=== PATIENT | female | born 1970 | race African-American/Black ===

== ENCOUNTER 2016-10-28 23:10 | Inpatient (IN) | payer OTHER ==
[2016-10-28 23:40] LABS: Basophils % (Auto) 0.6 % (0.0-1.8); Eosinophils % (Auto) 3.4 % (0.0-4.3); Hematocrit 37.5 % (30.3-42.9); Mean Corpuscular HGB Conc 32 % (30-34); Mean Corpuscular Volume 75 fl (79-97); Platelet Count 227 K/mm3 (140-440); Red Blood Count 5.02 M/mm3 (3.65-5.03); Red Cell Distribution Width 15.4 % (13.2-15.2); White Blood Count 7.2 K/mm3 (4.5-11.0)
[2016-10-28 23:51] LABS: Mean Corpuscular Hemoglobin 24 pg (28-32)
[2016-10-29] LABS: Alanine Aminotransferase 18 units/L (7-56); Albumin 4.3 g/dL (3.9-5); Albumin/Globulin Ratio 1.1 %; Alkaline Phosphatase 61 units/L (35-129); Anion Gap 30 mmol/L; Blood Urea Nitrogen 8 mg/dL (7-17); Calcium 9.7 mg/dL (8.4-10.2); Carbon Dioxide 17 mmol/L (22-30); Chloride 89.8 mmol/L (98-107); Glucose 297 mg/dL (65-100); Lipase 11 units/L (13-60); Potassium 3.7 mmol/L (3.6-5.0); Sodium 133 mmol/L (137-145); Total Protein 8.3 g/dL (6.3-8.2)
[2016-10-29] MEDS ORDERED: NACL 0.9% 1000 ML 1,000 ML ONE ×2 (00:17→02:02)
[2016-10-29] MEDS ORDERED: D50W (25GM) Syringe IV PRN (00:26)
[2016-10-29 00:29] LABS: Bilirubin,Urine NEG (Negative); Blood,Urine NEG (Negative); Ketones,Urine 20 mg/dL (Negative); Leukocyte Esterase,Urine NEG (Negative); Nitrite,Urine NEG (Negative); Protein,Urine <15 mg/dL mg/dL (Negative); Urobilinogen,Urine < 2.0 mg/dL (<2.0)
[2016-10-29] MEDS ORDERED: APRESOLINE IV ONE (00:29)
[2016-10-29] MEDS ORDERED: CATAPRES PO ONE (00:31)
[2016-10-29] MEDS ORDERED: ZOFRAN ONE (00:33)
[2016-10-29] MEDS ORDERED: ZOFRAN IV ONE ×2 (00:35→02:38)
[2016-10-29] MEDS ORDERED: NovoLIN R 100 UNITS in NACL 0.9% 99 ML IV SCH (01:00)
[2016-10-29 01:06] LABS: Anion Gap 33 mmol/L; Blood Urea Nitrogen 8 mg/dL (7-17); Calcium 9.4 mg/dL (8.4-10.2); Carbon Dioxide 14 mmol/L (22-30); Chloride 90.1 mmol/L (98-107); Glucose 346 mg/dL (65-100); Magnesium 1.8 mg/dL (1.7-2.3); Phosphorous 2.2 mg/dL (2.5-4.5); Potassium 3.7 mmol/L (3.6-5.0); Sodium 133 mmol/L (137-145)
--- NOTE | 2016-10-29 01:59 | Emergency Department Report ---
ED General Adult HPI - General Chief complaint: Hyperglycemia Stated complaint: EMESIS Time Seen by Provider: 10/29/16 00:23 Source: patient, family Mode of arrival: Ambulatory Limitations: No Limitations - History of Present Illness Initial comments: History is obtained by patient's sister due to patient being too weak to talk. Patient has a history of diabetes who presents with nausea and vomiting and malaise has been going on for all day today. Patient's symptoms were gradual in onset. Patient states that she is having severe abdominal pain and also having some nausea and vomiting. Patient is also having some abdominal pain. It is a 5 out of 10 Severity scale (0 -10): 5 - Related Data Allergies Allergy/AdvReac Type Severity Reaction Status Date / Time caffeine Allergy Nausea Verified 10/28/16 23:18 ED Review of Systems ROS: Stated complaint: EMESIS Other details as noted in HPI Comment: Unobtainable due to pts medical conditions Constitutional: denies: chills, fever Eyes: denies: eye pain, eye discharge, vision change ENT: denies: ear pain, throat pain Respiratory: denies: cough, shortness of breath, wheezing Cardiovascular: denies: chest pain, palpitations Endocrine: no symptoms reported Gastrointestinal: nausea, vomiting Genitourinary: denies: urgency, dysuria, discharge Musculoskeletal: denies: back pain, joint swelling, arthralgia Skin: denies: rash, lesions Neurological: denies: headache, weakness, paresthesias Psychiatric: denies: anxiety, depression Hematological/Lymphatic: denies: easy bleeding, easy bruising ED Past Medical Hx - Past Medical History Previous Medical History?: Yes Hx Diabetes: Yes Hx Psychiatric Treatment: Yes (Depression) Additional medical history: Helicobacter pylori (H. pylori) - Surgical History Past Surgical History?: No - Social History Smoking Status: Never Smoker Substance Use Type: None ED Physical Exam - General Limitations: No Limitations General appearance: lethargic - Head Head exam: Present: atraumatic, normocephalic - Eye Eye exam: Present: normal appearance - ENT ENT exam: Present: normal exam - Neck Neck exam: Present: normal inspection - Respiratory Respiratory exam: Present: normal lung sounds bilaterally - Cardiovascular Cardiovascular Exam: Present: regular rate, tachycardia - GI/Abdominal GI/Abdominal exam: Present: soft, tenderness (slightly tender ) - Extremities Exam Extremities exam: Present: normal inspection, full ROM - Neurological Exam Neurological exam: Present: alert, CN II-XII intact - Psychiatric Psychiatric exam: Present: normal affect ED Course Vital Signs 10/28/16 10/29/16 10/29/16 23:22 00:04 00:10 Temperature 98.9 F Pulse Rate 106 H 93 H 96 H Respiratory 22 19 23 Rate Blood Pressure Blood Pressure 190/120 [Right] O2 Sat by Pulse 100 100 100 Oximetry 10/29/16 10/29/16 10/29/16 00:16 00:20 00:30 Temperature 97.4 F L Pulse Rate 108 H 81 91 H Respiratory 24 20 23 Rate Blood Pressure 171/124 171/124 Blood Pressure 211/138 [Right] O2 Sat by Pulse 100 100 100 Oximetry 10/29/16 10/29/16 10/29/16 00:40 00:41 00:50 Temperature Pulse Rate 91 H 84 95 H Respiratory 26 H 27 H Rate Blood Pressure 203/102 203/102 158/83 Blood Pressure [Right] O2 Sat by Pulse 100 100 Oximetry 10/29/16 10/29/16 10/29/16 01:00 01:10 01:20 Temperature Pulse Rate 97 H 94 H 103 H Respiratory 23 25 H 21 Rate Blood Pressure 149/79 149/79 147/79 Blood Pressure [Right] O2 Sat by Pulse 100 100 100 Oximetry 10/29/16 10/29/16 10/29/16 01:30 01:40 01:50 Temperature Pulse Rate 98 H 100 H 97 H Respiratory 24 22 27 H Rate Blood Pressure 150/76 150/76 145/78 Blood Pressure [Right] O2 Sat by Pulse 100 100 Oximetry 10/29/16 10/29/16 10/29/16 02:00 02:10 02:20 Temperature Pulse Rate 100 H 98 H 101 H Respiratory 25 H 22 17 Rate Blood Pressure 145/75 145/75 148/76 Blood Pressure [Right] O2 Sat by Pulse 100 100 100 Oximetry 10/29/16 10/29/16 10/29/16 02:30 02:40 02:47 Temperature 97.3 F L Pulse Rate 109 H 112 H Respiratory 17 19 Rate Blood Pressure 152/82 152/82 Blood Pressure [Right] O2 Sat by Pulse 100 100 Oximetry 10/29/16 10/29/16 10/29/16 02:50 03:00 03:10 Temperature Pulse Rate 108 H 101 H 100 H Respiratory 16 20 22 Rate Blood Pressure 156/84 141/73 141/73 Blood Pressure [Right] O2 Sat by Pulse 100 100 100 Oximetry 10/29/16 10/29/16 10/29/16 03:20 03:30 03:40 Temperature Pulse Rate 99 H 94 H 98 H Respiratory 23 21 22 Rate Blood Pressure 144/76 140/82 140/82 Blood Pressure [Right] O2 Sat by Pulse 100 100 100 Oximetry - Reevaluation(s) Reevaluation #1: 10/29/16 04:12 Patient has been reevaluated patient's skin insulin drip and fluids. She is still nauseous I will order IV Zofran and I will admit patient to the hospital. ED Medical Decision Making - Lab Data Result diagrams: 10/28/16 23:23 10/29/16 00:38 Lab Results 10/28/16 10/28/16 10/28/16 Range/Units 23:18 23:23 23:23 WBC 7.2 (4.5-11.0) K/mm3 RBC 5.02 (3.65-5.03) M/mm3 Hgb 12.0 (10.1-14.3) gm/dl Hct 37.5 (30.3-42.9) % MCV 75 L (79-97) fl MCH 24 L (28-32) pg MCHC 32 (30-34) % RDW 15.4 H (13.2-15.2) % Plt Count 227 (140-440) K/mm3 Lymph % (Auto) 28.5 (13.4-35.0) % Gray % (Auto) 5.4 (0.0-7.3) % Eos % (Auto) 3.4 (0.0-4.3) % Baso % (Auto) 0.6 (0.0-1.8) % Lymph # 2.1 (1.2-5.4) K/mm3 Gray # 0.4 (0.0-0.8) K/mm3 Eos # 0.2 (0.0-0.4) K/mm3 Baso # 0.0 (0.0-0.1) K/mm3 Seg Neutrophils % 62.1 (40.0-70.0) % Seg Neutrophils # 4.5 (1.8-7.7) K/mm3 VBG pH (7.320-7.420) Sodium 133 L (137-145) mmol/L Potassium 3.7 (3.6-5.0) mmol/L Chloride 89.8 L (98-107) mmol/L Carbon Dioxide 17 L (22-30) mmol/L Anion Gap 30 mmol/L BUN 8 (7-17) mg/dL Creatinine 0.4 L (0.7-1.2) mg/dL Estimated GFR > 60 ml/min BUN/Creatinine Ratio 20.00 % Glucose 297 H (65-100) mg/dL POC Glucose 311 H (70-105) Ketones Quantitative (Negative) Osmolality Mosm/kg Calcium 9.7 (8.4-10.2) mg/dL Phosphorus (2.5-4.5) mg/dL Magnesium (1.7-2.3) mg/dL Total Bilirubin 0.40 (0.1-1.2) mg/dL AST 21 (5-40) units/L ALT 18 (7-56) units/L Alkaline Phosphatase 61 (35-129) units/L Total Protein 8.3 H (6.3-8.2) g/dL Albumin 4.3 (3.9-5) g/dL Albumin/Globulin Ratio 1.1 % Lipase 11 L (13-60) units/L HCG, Qual (Negative) Urine Color (Yellow) Urine Turbidity (Clear) Urine pH (5.0-7.0) Ur Specific Bangs (1.003-1.030) Urine Protein (Negative) mg/dL Urine Glucose (UA) (Negative) mg/dL Urine Ketones (Negative) mg/dL Urine Blood (Negative) Urine Nitrite (Negative) Urine Bilirubin (Negative) Urine Urobilinogen (<2.0) mg/dL Ur Leukocyte Esterase (Negative) Urine WBC (Auto) (0.0-6.0) /HPF Urine RBC (Auto) (0.0-6.0) /HPF U Epithel Cells (Auto) (0-13.0) /HPF 10/28/16 10/28/16 10/28/16 Range/Units 23:23 23:23 Unknown WBC (4.5-11.0) K/mm3 RBC (3.65-5.03) M/mm3 Hgb (10.1-14.3) gm/dl Hct (30.3-42.9) % MCV (79-97) fl MCH (28-32) pg MCHC (30-34) % RDW (13.2-15.2) % Plt Count (140-440) K/mm3 Lymph % (Auto) (13.4-35.0) % Gray % (Auto) (0.0-7.3) % Eos % (Auto) (0.0-4.3) % Baso % (Auto) (0.0-1.8) % Lymph # (1.2-5.4) K/mm3 Gray # (0.0-0.8) K/mm3 Eos # (0.0-0.4) K/mm3 Baso # (0.0-0.1) K/mm3 Seg Neutrophils % (40.0-70.0) % Seg Neutrophils # (1.8-7.7) K/mm3 VBG pH 7.571 H (7.320-7.420) Sodium (137-145) mmol/L Potassium (3.6-5.0) mmol/L Chloride (98-107) mmol/L Carbon Dioxide (22-30) mmol/L Anion Gap mmol/L BUN (7-17) mg/dL Creatinine (0.7-1.2) mg/dL Estimated GFR ml/min BUN/Creatinine Ratio % Glucose (65-100) mg/dL POC Glucose (70-105) Ketones Quantitative (Negative) Osmolality Mosm/kg Calcium (8.4-10.2) mg/dL Phosphorus (2.5-4.5) mg/dL Magnesium (1.7-2.3) mg/dL Total Bilirubin (0.1-1.2) mg/dL AST (5-40) units/L ALT (7-56) units/L Alkaline Phosphatase (35-129) units/L Total Protein (6.3-8.2) g/dL Albumin (3.9-5) g/dL Albumin/Globulin Ratio % Lipase (13-60) units/L HCG, Qual Negative (Negative) Urine Color Straw (Yellow) Urine Turbidity Clear (Clear) Urine pH 7.0 (5.0-7.0) Ur Specific Bangs 1.021 (1.003-1.030) Urine Protein <15 mg/dl (Negative) mg/dL Urine Glucose (UA) >=500 (Negative) mg/dL Urine Ketones 20 (Negative) mg/dL Urine Blood Neg (Negative) Urine Nitrite Neg (Negative) Urine Bilirubin Neg (Negative) Urine Urobilinogen < 2.0 (<2.0) mg/dL Ur Leukocyte Esterase Neg (Negative) Urine WBC (Auto) 1.0 (0.0-6.0) /HPF Urine RBC (Auto) 1.0 (0.0-6.0) /HPF U Epithel Cells (Auto) 17.0 H (0-13.0) /HPF 10/29/16 10/29/16 10/29/16 Range/Units 00:32 00:32 00:38 WBC (4.5-11.0) K/mm3 RBC (3.65-5.03) M/mm3 Hgb (10.1-14.3) gm/dl Hct (30.3-42.9) % MCV (79-97) fl MCH (28-32) pg MCHC (30-34) % RDW (13.2-15.2) % Plt Count (140-440) K/mm3 Lymph % (Auto) (13.4-35.0) % Gray % (Auto) (0.0-7.3) % Eos % (Auto) (0.0-4.3) % Baso % (Auto) (0.0-1.8) % Lymph # (1.2-5.4) K/mm3 Gray # (0.0-0.8) K/mm3 Eos # (0.0-0.4) K/mm3 Baso # (0.0-0.1) K/mm3 Seg Neutrophils % (40.0-70.0) % Seg Neutrophils # (1.8-7.7) K/mm3 VBG pH (7.320-7.420) Sodium (137-145) mmol/L Potassium (3.6-5.0) mmol/L Chloride (98-107) mmol/L Carbon Dioxide (22-30) mmol/L Anion Gap mmol/L BUN (7-17) mg/dL Creatinine (0.7-1.2) mg/dL Estimated GFR ml/min BUN/Creatinine Ratio % Glucose (65-100) mg/dL POC Glucose (70-105) Ketones Quantitative Negative (Negative) Osmolality 291 Mosm/kg Calcium (8.4-10.2) mg/dL Phosphorus 2.20 L (2.5-4.5) mg/dL Magnesium 1.80 (1.7-2.3) mg/dL Total Bilirubin (0.1-1.2) mg/dL AST (5-40) units/L ALT (7-56) units/L Alkaline Phosphatase (35-129) units/L Total Protein (6.3-8.2) g/dL Albumin (3.9-5) g/dL Albumin/Globulin Ratio % Lipase (13-60) units/L HCG, Qual (Negative) Urine Color (Yellow) Urine Turbidity (Clear) Urine pH (5.0-7.0) Ur Specific Bangs (1.003-1.030) Urine Protein (Negative) mg/dL Urine Glucose (UA) (Negative) mg/dL Urine Ketones (Negative) mg/dL Urine Blood (Negative) Urine Nitrite (Negative) Urine Bilirubin (Negative) Urine Urobilinogen (<2.0) mg/dL Ur Leukocyte Esterase (Negative) Urine WBC (Auto) (0.0-6.0) /HPF Urine RBC (Auto) (0.0-6.0) /HPF U Epithel Cells (Auto) (0-13.0) /HPF 10/29/16 10/29/16 10/29/16 Range/Units 00:38 00:55 01:57 WBC (4.5-11.0) K/mm3 RBC (3.65-5.03) M/mm3 Hgb (10.1-14.3) gm/dl Hct (30.3-42.9) % MCV (79-97) fl MCH (28-32) pg MCHC (30-34) % RDW (13.2-15.2) % Plt Count (140-440) K/mm3 Lymph % (Auto) (13.4-35.0) % Gray % (Auto) (0.0-7.3) % Eos % (Auto) (0.0-4.3) % Baso % (Auto) (0.0-1.8) % Lymph # (1.2-5.4) K/mm3 Gray # (0.0-0.8) K/mm3 Eos # (0.0-0.4) K/mm3 Baso # (0.0-0.1) K/mm3 Seg Neutrophils % (40.0-70.0) % Seg Neutrophils # (1.8-7.7) K/mm3 VBG pH (7.320-7.420) Sodium 133 L (137-145) mmol/L Potassium 3.7 (3.6-5.0) mmol/L Chloride 90.1 L (98-107) mmol/L Carbon Dioxide 14 L (22-30) mmol/L Anion Gap 33 mmol/L BUN 8 (7-17) mg/dL Creatinine 0.5 L (0.7-1.2) mg/dL Estimated GFR > 60 ml/min BUN/Creatinine Ratio 16.00 % Glucose 346 H (65-100) mg/dL POC Glucose 376 H 356 H (70-105) Ketones Quantitative (Negative) Osmolality Mosm/kg Calcium 9.4 (8.4-10.2) mg/dL Phosphorus (2.5-4.5) mg/dL Magnesium (1.7-2.3) mg/dL Total Bilirubin (0.1-1.2) mg/dL AST (5-40) units/L ALT (7-56) units/L Alkaline Phosphatase (35-129) units/L Total Protein (6.3-8.2) g/dL Albumin (3.9-5) g/dL Albumin/Globulin Ratio % Lipase (13-60) units/L HCG, Qual (Negative) Urine Color (Yellow) Urine Turbidity (Clear) Urine pH (5.0-7.0) Ur Specific Bangs (1.003-1.030) Urine Protein (Negative) mg/dL Urine Glucose (UA) (Negative) mg/dL Urine Ketones (Negative) mg/dL Urine Blood (Negative) Urine Nitrite (Negative) Urine Bilirubin (Negative) Urine Urobilinogen (<2.0) mg/dL Ur Leukocyte Esterase (Negative) Urine WBC (Auto) (0.0-6.0) /HPF Urine RBC (Auto) (0.0-6.0) /HPF U Epithel Cells (Auto) (0-13.0) /HPF 10/29/16 10/29/16 Range/Units 03:03 04:08 WBC (4.5-11.0) K/mm3 RBC (3.65-5.03) M/mm3 Hgb (10.1-14.3) gm/dl Hct (30.3-42.9) % MCV (79-97) fl MCH (28-32) pg MCHC (30-34) % RDW (13.2-15.2) % Plt Count (140-440) K/mm3 Lymph % (Auto) (13.4-35.0) % Gray % (Auto) (0.0-7.3) % Eos % (Auto) (0.0-4.3) % Baso % (Auto) (0.0-1.8) % Lymph # (1.2-5.4) K/mm3 Gray # (0.0-0.8) K/mm3 Eos # (0.0-0.4) K/mm3 Baso # (0.0-0.1) K/mm3 Seg Neutrophils % (40.0-70.0) % Seg Neutrophils # (1.8-7.7) K/mm3 VBG pH (7.320-7.420) Sodium (137-145) mmol/L Potassium (3.6-5.0) mmol/L Chloride (98-107) mmol/L Carbon Dioxide (22-30) mmol/L Anion Gap mmol/L BUN (7-17) mg/dL Creatinine (0.7-1.2) mg/dL Estimated GFR ml/min BUN/Creatinine Ratio % Glucose (65-100) mg/dL POC Glucose 236 H 253 H (70-105) Ketones Quantitative (Negative) Osmolality Mosm/kg Calcium (8.4-10.2) mg/dL Phosphorus (2.5-4.5) mg/dL Magnesium (1.7-2.3) mg/dL Total Bilirubin (0.1-1.2) mg/dL AST (5-40) units/L ALT (7-56) units/L Alkaline Phosphatase (35-129) units/L Total Protein (6.3-8.2) g/dL Albumin (3.9-5) g/dL Albumin/Globulin Ratio % Lipase (13-60) units/L HCG, Qual (Negative) Urine Color (Yellow) Urine Turbidity (Clear) Urine pH (5.0-7.0) Ur Specific Bangs (1.003-1.030) Urine Protein (Negative) mg/dL Urine Glucose (UA) (Negative) mg/dL Urine Ketones (Negative) mg/dL Urine Blood (Negative) Urine Nitrite (Negative) Urine Bilirubin (Negative) Urine Urobilinogen (<2.0) mg/dL Ur Leukocyte Esterase (Negative) Urine WBC (Auto) (0.0-6.0) /HPF Urine RBC (Auto) (0.0-6.0) /HPF U Epithel Cells (Auto) (0-13.0) /HPF - EKG Data -: EKG Interpreted by Me - EKG Data 10/29/16 02:00 EKG shows normal sinus rhythm septal infarct of age undetermined right axis deviation no ST segment elevation or T-wave inversion - Medical Decision Making Chief medical diagnosis: DKA Differential medical diagnosis: Hyperglycemia, hyponatremia, hypokalemia [place] CBC, CMP, beta hydroxyurea, VBG, fluids, insulin drip, anti-medics Patient has a life during condition due to having DKA which is evidenced by a clinical syndrome and her lab work. Patient will require admission to the hospital and insulin drip and fluids. Critical Care Time: Yes Critical care time in (mins) excluding proc time.: 30 Critical care attestation.: If time is entered above; I have spent that time in minutes in the direct care of this critically ill patient, excluding procedure time. 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
[2016-10-29] MEDS ORDERED: NACL 0.9% 1000 ML 1,000 ML IV ONE ×3 (02:16→02:38)
[2016-10-29] MEDS ORDERED: PROTONIX IV ONE ×2 (02:39→03:10)
[2016-10-29] MEDS ORDERED: D5W/0.45% NACL/KCL 20 MEQ 20 MEQ/1,000 ML BAG IV SCH (03:00)
[2016-10-29] MEDS ORDERED: TYLENOL PO PRN (03:05)
--- NOTE | 2016-10-29 03:09 | History and Physical Report ---
History of Present Illness Date of examination: 10/29/16 History of present illness: 45-year-old woman with a history of diabetes, depression, H. pylori comes emergency room with complaints of nausea vomiting today, unable to tolerate oral intake. She has not taking her insulin because she felt so sick. In the emergency room she had an episode of coffee-ground emesis denies NSAID use. Review Of Systems: Constitutional: no fever, chills, weight loss Ears, eyes, nose, mouth and throat: no nasal congestion, no nasal discharge, no sinus pressure, blurry vision, diplopia Neck: No neck pain or rigidity. Cardiovascular: chest pain, orthopnea, palpitations Respiratory: No shortness of breath, cough Gastrointestinal: abdominal pain, hematochezia Genitourinary : no dysuria, frequency , hematuria Musculoskeletal: no joint swelling or muscle ache Integumentary: no rash, no pruritis Neurological: no parathesias, focal weakness Endocrine: no cold or heat intolerance, no polyuria or polydipsia Hematologic/Lymphatic: no easy bruising, no easy bleeding, no gland swelling Allergic/Immunologic: no urticaria, no angioedema. PAST MEDICAL HISTORY:diabetes, depression, H. pylori PAST SURGICAL HISTORY: None FAMILY HISTORY: Diabetes SOCIAL HISTORY: Denies alcohol, tobacco, drugs Medications and Allergies Allergies Allergy/AdvReac Type Severity Reaction Status Date / Time caffeine Allergy Nausea Verified 10/28/16 23:18 Home Medications Medication Instructions Recorded Confirmed Last Taken Type Ambien 10 mg PO PRN 10/29/16 10/29/16 10/15/16 History FLUoxetine 20 mg PO DAILY 10/29/16 10/29/16 10/15/16 History HumaLOG Mix 75-25 Kwikpen 18 units SQ BID 10/29/16 10/29/16 10/15/16 History Remeron 15 mg PO HS 10/29/16 10/29/16 10/15/16 History Active Meds: Active Medications Acetaminophen (Tylenol) 650 mg PO Q4H PRN PRN Reason: Pain MILD(1-3)/Fever >100.5/UBTCHER Dextrose (D50w (25gm)) 0 ml IV PRN PRN PRN Reason: Hypoglycemia Insulin Human Regular 100 (units/ Sodium Chloride) 100 mls @ 1 mls/hr IV TITR WILMER; 1 UNITS/HR PRN Reason: Protocol Last Admin: 10/29/16 01:00 Dose: 7 units/hr, 7 mls/hr Sodium Chloride (Nacl 0.9% 1000 Ml) 1,000 mls @ 999 mls/hr IV BOLUS ONE Stop: 10/29/16 03:16 Last Admin: 10/29/16 02:17 Dose: 999 mls/hr Sodium Chloride (Nacl 0.9% 1000 Ml) 1,000 mls @ 999 mls/hr IV BOLUS ONE Stop: 10/29/16 03:16 Last Admin: 10/29/16 02:17 Dose: 999 mls/hr Potassium Chloride/Dextrose/Sod Cl (D5w/0.45% Nacl/Kcl 20 Meq) 20 meq in 1,000 mls @ 125 mls/hr IV DIRECT WILMER Sodium Chloride (Nacl 0.9% 1000 Ml) 1,000 mls @ 250 mls/hr IV ONCE ONE Stop: 10/29/16 06:37 Last Admin: 10/29/16 02:47 Dose: 250 mls/hr Ondansetron HCl (Zofran) 4 mg IV Q4H PRN PRN Reason: N/V unrelieved by Reglan Exam - Physical Exam Narrative exam: Gen. appearance: Patient lying in bed, no apparent distress HEENT: Normocephalic, atraumatic, pupils equally round and reactive to light, extraocular movement intact, and no sclericterus,. No JVD or thyromegaly or nodule,neck supple, no carotid bruit ,mucous membranes moist, no exudate or erythema Heart: S1, S2, regular rate and rhythm Lungs: Clear to auscultation bilaterally, breathing comfortable Abdomen: Positive bowel sounds, nontender, nondistended, no organomegaly Extremity: No edema, cyanosis, clubbing Skin: No rash, nodules, warm, dry Neuro: Oriented 3, cranial nerves II-12 intact, speech is fluent, motor and sensory intact - Constitutional Vitals: Temp Pulse Resp BP Pulse Ox 97.3 F L 109 H 17 152/82 100 10/29/16 02:47 10/29/16 02:30 10/29/16 02:30 10/29/16 02:30 10/29/16 02:30 Results - Labs CBC & Chem 7: 10/30/16 04:17 10/30/16 04:17 Labs: Abnormal lab results 10/28/16 10/28/16 10/28/16 Range/Units 23:18 23:23 23:23 MCV 75 L (79-97) fl MCH 24 L (28-32) pg RDW 15.4 H (13.2-15.2) % VBG pH (7.320-7.420) Sodium 133 L (137-145) mmol/L Chloride 89.8 L (98-107) mmol/L Carbon Dioxide 17 L (22-30) mmol/L Creatinine 0.4 L (0.7-1.2) mg/dL Glucose 297 H (65-100) mg/dL POC Glucose 311 H (70-105) Phosphorus (2.5-4.5) mg/dL Total Protein 8.3 H (6.3-8.2) g/dL Lipase 11 L (13-60) units/L U Epithel Cells (Auto) (0-13.0) /HPF 10/28/16 10/28/16 10/29/16 Range/Units 23:23 Unknown 00:38 MCV (79-97) fl MCH (28-32) pg RDW (13.2-15.2) % VBG pH 7.571 H (7.320-7.420) Sodium (137-145) mmol/L Chloride (98-107) mmol/L Carbon Dioxide (22-30) mmol/L Creatinine (0.7-1.2) mg/dL Glucose (65-100) mg/dL POC Glucose (70-105) Phosphorus 2.20 L (2.5-4.5) mg/dL Total Protein (6.3-8.2) g/dL Lipase (13-60) units/L U Epithel Cells (Auto) 17.0 H (0-13.0) /HPF 10/29/16 10/29/16 10/29/16 Range/Units 00:38 00:55 01:57 MCV (79-97) fl MCH (28-32) pg RDW (13.2-15.2) % VBG pH (7.320-7.420) Sodium 133 L (137-145) mmol/L Chloride 90.1 L (98-107) mmol/L Carbon Dioxide 14 L (22-30) mmol/L Creatinine 0.5 L (0.7-1.2) mg/dL Glucose 346 H (65-100) mg/dL POC Glucose 376 H 356 H (70-105) Phosphorus (2.5-4.5) mg/dL Total Protein (6.3-8.2) g/dL Lipase (13-60) units/L U Epithel Cells (Auto) (0-13.0) /HPF - Imaging and Cardiology EKG: image reviewed Assessment and Plan Assessment DKA Metabolic acidosis Hematemesis Depression H. pylori Plan Admits medicine Start IV fluids, insulin drip Monitor serial chemistry, fingersticks Start Protonix, consult GI Check serial hemoglobin and, due to prophylaxis with SCD Consult critical care
[2016-10-29] MEDS ORDERED: SODIUM PHOSPHATE 30 MMOL in NACL 0.9% 500 ML 500 ML IV ONE (03:10)
[2016-10-29] MEDS: ZOFRAN IV PRN ×2 (03:52→13:49)
[2016-10-29 04:18] LABS: Hematocrit 32.4 % (30.3-42.9); Hemoglobin 10.4 gm/dl (10.1-14.3)
[2016-10-29 04:35] LABS: Anion Gap 27 mmol/L; Blood Urea Nitrogen 6 mg/dL (7-17); Calcium 7.7 mg/dL (8.4-10.2); Carbon Dioxide 12 mmol/L (22-30); Glucose 223 mg/dL (65-100); Potassium 3.1 mmol/L (3.6-5.0); Sodium 135 mmol/L (137-145)
[2016-10-29 05:18] LABS: Blood Urea Nitrogen 6 mg/dL (7-17); Calcium 7.1 mg/dL (8.4-10.2); Carbon Dioxide 12 mmol/L (22-30); Glucose 215 mg/dL (65-100)
[2016-10-29 05:19] LABS: Anion Gap 30 mmol/L; Chloride 101.2 mmol/L (98-107); Sodium 140 mmol/L (137-145)
[2016-10-29 07:12] LABS: Hematocrit 28.7 % (30.3-42.9); Hemoglobin 9.2 gm/dl (10.1-14.3)
[2016-10-29 07:33] LABS: Anion Gap 22 mmol/L; Blood Urea Nitrogen 6 mg/dL (7-17); Calcium 7.2 mg/dL (8.4-10.2); Carbon Dioxide 17 mmol/L (22-30); Chloride 103.1 mmol/L (98-107); Glucose 168 mg/dL (65-100); Potassium 3.8 mmol/L (3.6-5.0); Sodium 138 mmol/L (137-145)
--- NOTE | 2016-10-29 07:48 | Admit Criteria Form ---
Admission Criteria Documentation: GENERAL ADMISSION CRITERIA (Place 'X' for any and all applicable criteria): Admission is indicated for ANY ONE of the following: [ ]I. Hemodynamic instability as indicated by ANY ONE of the following(1)(2) (3)(4)(5): [ ]a) Vital sign abnormality not readily corrected by appropriate treatment within 12 to 24 hours indicated by ANY ONE of the following: [ ]i) Hypotension [ ]ii) Symptomatic Tachycardia unresponsive to treatment (eg , analgesia, fluids, sedation as indicated) [ ]iii) Orthostatic vital sign changes unresponsive to treatment (eg, fluids) [ ]b) Vital sign abnormality that is severe indicated by ANY ONE of the following: [ ]i) Inadequate perfusion indicated by ANY ONE of the following: [ ]1) Lactic acidosis (greater than 2 mmol/L) [ ]2) New abnormal capillary refill (greater than 3 seconds) [ ]3) Other metabolic acidosis (arterial pH less than 7.35) not otherwise explained [ ]4) Reduced urine output [ ]5) Altered mental status [ ]6) Myocardial Ischemia [ ]v) Mean arterial pressure[A] less than 60 mm Hg [ ]vi) Mean arterial pressure[A] less than 70 mm Hg after 30 minutes of appropriate treatment (eg, fluid resuscitation) [ ]vii) IV inotropic or vasopressor medication required to maintain adequate blood pressure or perfusion [ ]viii) Sustained heart rate greater than 120 beats per minute in adult or child 6 years or older[B]] [ ]II. Hypertension requiring inpatient treatment as indicated by ANY ONE of the following(6)(7)(8): [ ]a) SBP greater than 220 mm Hg or DBP greater than 120 mm Hg despite treatment [ ]b) SBP greater than 140 mm Hg or DBP greater than 100 mm Hg with evidence of acute end organ damage as indicated by ANY ONE of the following: [ ]i) Encephalopathy [ ]ii) Acute renal failure as indicated by new onset of ANY ONE of the following(9)(10)(11)(12)(13): [ ]1) A 3-fold rise in serum creatinine from baseline [ ]2) Serum creatinine greater than 4 mg/dL ( 354 micromoles/L) with acute rise greater than 0.5 mg/dL (44.2 micromoles/L) [ ]3) Reduction of more than 75% in estimated glomerular filtration rate from baseline [ ]4) Estimated glomerular filtration rate less than 35 mL/min/1.73m2 (0.59 mL/sec/1.73m2) in child up to 18 years of age [ ]5) Cessation of urine output indicated by ALL of the following: [ ]A. Adequate volume status [ ]B. Inadequate urine output as indicated by ANY ONE of the following: [ ]a. Urine output less than 0.3 mL/kg/hr for 24 hours [ ]b. Anuria (urine output less than 0.1 mL/kg/hr) for 12 hours [ ]iii) Aortic dissection [ ]iv) Myocardial ischemia [ ]v) Left ventricular heart failure [ ]vi) Retinal hemorrhage [ ]vii) Other significant finding [ ]c) Hypertension in child requiring inpatient treatment as indicated by ALL of the following(14)(15)(16): [ ]i) Outpatient treatment not effective, not available, or not appropriate [ ]ii) SBP or DBP greater than 95th percentile for age [ ]iii) Evidence of acute end organ damage as indicated by ANY ONE of the following: [ ]1) Altered mental status [ ]2) Acute renal failure as indicated by new onset of ANY ONE of the following(9)(10)(11)(12)(13): [ ]A. A 3-fold rise in serum creatinine from baseline [ ]B. Serum creatinine greater than 4 mg/dL (354 micromoles/L) with acute rise greater than 0.5 mg/dL (44.2 micromoles/L) [ ]C. Reduction of more than 75% in estimated glomerular filtration rate from baseline [ ]D. Estimated glomerular filtration rate less than 35 mL/min/1.73m2 (0.59 mL/sec/1.73m2)in child up to 18 years of age [ ]E. Cessation of urine output indicated by ALL of the following: [ ]a. Adequate volume status [ ]b. Inadequate urine output as indicated by ANY ONE of the following: [ ]1) Urine output less than 0.3 mL/kg/hr for 24 hours [ ]2) Anuria (urine output less than 0.1 mL/kg/hr) for 12 hours [ ]3) Severe headache [ ]4) Visual disturbance [ ]5) Retinal hemorrhage [ ]6) Other significant finding [ ]III. Acute cardiac or peripheral ischemia as indicated by ANY ONE of the following: [ ]a) Acute coronary syndrome(17)(18) [ ]b) Acute peripheral ischemia (eg, pulseless, cool, mottled, or cyanotic extremity)(19) [ ]IV. Cardiac arrhythmias or findings of immediate concern indicated by ANY ONE of the following(20)(21): [ ]a) Heart rhythms that are inherently dangerous or unstable indicated by ANY ONE of the following(22)(23)(24): [ ]i) Resuscitated ventricular fibrillation or cardiac arrest [ ]ii) Ventricular escape rhythm [ ]iii) Sustained ventricular tachycardia (30 seconds or more of ventricular rhythm at greater than 100 beats per minute) [ ]iv) Nonsustained ventricular tachycardia and ANY ONE of the following: [ ]1) Suspected cardiac ischemia as cause or consequence of ventricular tachycardia [ ]2) In setting of acute myocarditis [ ]b) Unstable cardiac conduction defects indicated by ANY ONE of the following(24)(25)(26): [ ]i) Type II second-degree atrioventricular block [ ]ii) Third-degree atrioventricular block [ ]iii) New-onset left bundle branch block with suspected myocardial ischemia [ ]c) Any heart rhythm and ANY ONE of the following(22)(23)(27)(28)( 29): [ ] i) Continuous long-term ECG monitoring needed (eg, initiation of drug requiring monitoring for more than 24 hours) [ ] ii) Patient has automatic implanted cardioverter defibrillator that is repeatedly firing, malfunctioning, or in need of immediate adjustment of settings beyond the scope of ambulatory or observation care. [ ]d) Heart rhythms of concern due to ANY ONE of the following: [ ]i) Hypotension [ ]ii) Respiratory distress [ ]iii) Association with other significant symptoms (eg, bradycardia with syncope or ongoing dizziness, supraventricular tachycardia with chest pain) (27)(28) (30) [ ] V. Severe heart failure as indicated by ANY ONE of the following ( 31)(32): [ ]a) Respiratory distress [ ]b) Hypotension [ ]c) Anasarca (refractory to outpatient therapy) [ ]d) Cardiac arrhythmias of immediate concern [ ]e) Myocardial ischemia [ ]. Respiratory abnormalities, including ANY ONE of the following(33)(34) (35)(36): [ ]a) Respiratory rate greater than 30 breaths per minute unresponsive to treatment [A] [ ]b) New saturation of arterial oxygen less than 90% [ ]c) New partial pressure of carbon dioxide greater than 44 mm Hg ( 5.9 kPa) [ ]d) Supplemental oxygen or respiratory treatments needed that are new or not performable at other levels of care [ ]e) New-onset cyanosis [ ]f) Inability to protect airway [ ]g) Chronic lung disease with severe deterioration (not responsive to emergency and observation care treatment as appropriate) as indicated by ANY ONE of the following(34)(36 ): [ ]i) SaO2 5% below baseline in patient with chronic hypoxemia [ ]ii) New requirement for supplemental oxygen to keep SaO2 at baseline or acceptable level [ ]iii) Required supplemental oxygen performable only in acute inpatient setting [ ]iv) Severe airflow or ventilation abnormalities [ ]v) Previously mobile patient unable to walk between rooms [ ]vi Inability to eat or sleep due to dyspnea [ ]vii) Rapid rate of exacerbation onset [ ]viii) Altered mental status ]VII. Severe airflow or ventilation abnormalities (not responsive to emergency and observation care treatment as appropriate) as indicated by ANY ONE of the following(33)(34)(35)(37): [ ]a) PCO2 greater than 42 mm Hg (5.6 kPa) and pH less than 7.35 (new ) [ ]b) Documented PCO2 increased more than 5 mm Hg (0.7 kPa) from disease baseline [ ]c) Airflow measurements [B] less than 60% of previous best or predicted (eg, peak expiratory flow rate less than 300 L/minute) despite intensive emergent treatment [C] [ ]d) Required respiratory treatments that are performable only in acute inpatient setting [ ]VIII. Impending or actual respiratory arrest ( Also use Respiratory Failure GRG for severe respiratory disease and long-term mechanical ventilation patients) [ ]IX. Neurologic abnormalities, including ANY ONE of the following: [ ]a) New findings that suggest ANY ONE of the following: [ ]i) PATIENT [employer]SEL[employer] infection(38) [ ]ii) Cerebral bleeding, ischemia, or vasospasm(39)(40) [ ]iii) Increased intracranial pressure, hydrocephalus, or cerebral edema(41)(42)(43) [ ]iv) Spinal cord injury(44) [ ]b) Uncontrolled seizures(45) [ ]c) New-onset coma (eg, [place] coma scale score less than 9) or unexplained abnormal mental status (eg, [place] coma scale score less than 14) [D](41)(46)(47) [ ]X. New-onset severe neurologic findings requiring inpatient care; examples include(42)(48)(49): [ ]a) Papilledema [ ]b) Cerebral edema [ ]c) Mass effect on CT scan [ ]XI. Suspected acute intra-abdominal process with peritoneal signs, abdominal mass, or similar findings (50)(51)(52) [X ]XII. Severe physiologic disorder remaining after emergency or observation level care (as appropriate) as indicated by ANY ONE of the following (53): [ ]a) Significant dehydration [X ]b) Diabetic ketoacidosis [ ]c) Hyperglycemic hyperosmolar state (eg, osmolality greater than 320 mOsm/kg (mmol/kg) [ ]d) Hypoglycemia [ ]e) Other (new) acid-base disorder with pH less than 7.35 or greater than 7.5(54) [ ]f) Thyroid storm (55) [ ]g) Myxedema coma (55) [ ]XIII. Abdominal abnormalities with ANY ONE of the following(56)(57): [ ]a) Absent bowel sounds with complete ileus [ ]b) Signs of intestinal obstruction or peritonitis [E] [ ]c) Nausea and vomiting that cannot be controlled with outpatient or observation care [ ]XIV. Acute renal failure as indicated by new onset of ANY ONE of the following(9)(10)(11)(12)(13): [ ]a) A 3-fold rise in serum creatinine from baseline [ ]b) Serum creatinine greater than 4 mg/dL (354 micromoles/L) with acute rise greater than 0.5 mg/dL (44.2 micromoles/L) [ ]c) Reduction of more than 75% in estimated glomerular filtration rate from baseline [ ]d) Estimated glomerular filtration rate less than 35 mL/min/ 1.73m2 (0.59 mL/sec/1.73m2) in child up to 18 years of age [ ]e) Cessation of urine output indicated by ALL of the following: [ ]i) Adequate volume status [ ]ii) Inadequate urine output as indicated by ANY ONE of the following: [ ]1) Urine output less than 0.3 mL/kg/hr for 24 hours [ ]2) Anuria (urine output less than 0.1 mL/kg/hr) for 12 hours [ ]XV. Significant uremic complications as indicated by ANY ONE of the following(58)(59)(60): [ ]a) Outpatient therapy is ineffective or not feasible for ANY ONE of the following: [ ]i) Severe heart failure [ ]ii) Severehypertension [ ]iii) Pleural effusion [ ]iv) Pericarditis or pericardial effusion [ ]b) Cardiac arrhythmias of immediate concern [ ]c) Intractable nausea or vomiting [ ]d) Recurrent seizures [ ]e) Encephalopathy [ ]f) Bleeding abnormalities (eg, platelet dysfunction) with active (eg, gastrointestinal) bleeding [ ]g) Dialysis indicated before long-term access or ambulatory arrangements can be made [ ]h) Significant metabolic or electrolyte abnormalities (eg, severe acidosis or hyperkalemia) [ ]XVI. High fever or other high-risk infection situation as indicated by ANY ONE of the following(61)(62)(63)(64): [ ]a) Outpatient and observation care antimicrobial treatment unavailable, not effective, or not appropriate [ ]b) Documented bacteremia [ ]c) Temperature greater than 40.5 degrees C (104.9 degrees F) ( oral) [ ]d) Temperature greater than 39.5 degrees C (103.1 degrees F) ( oral) or less than 36 degrees C (96.8 degrees F) (rectal) that does not respond to e treatment and observation care [ ] XVII. Temperature less than 95 degrees F (35 degrees C)(rectal)(65) [ ] XVIII. Severe nutritional abnormalities as indicated by ALL of the following (66)(67): [ ]a) Inability to tolerate or establish sufficient oral or other enteral nutrition in outpatient setting [ ]b) Parenteral nutrition regimen need that must be implemented on inpatient basis [ ] XIX. Severe electrolyte abnormalities indicated by ALL of the following(68) (69)(70): [ ]a) Electrolytes and associated findings are not as expected for patient baseline or acceptable treatment effects. [ ]b) Severe abnormalities indicated by ANY ONE of the following: [ ]i) Sodium less than 130 mEq/L (mmol/L) (new) [ ]ii)Sodium less than 135 mEq/L (mmol/L) with ANY ONE of the following: [ ]1) Uncorrectable (to near normal or chronic baseline) after trial of outpatient and emergency treatment [ ]2) Altered mental status [ ]3) Seizures [ ]4) Severe medical etiology requiring inpatient management (eg, heart failure, hypovolemia) [ ]iii) Sodium greater than 155 mEq/L (mmol/L) [ ]iv) Sodium greater than 150 mEq/L (mmol/L) with ANY ONE of the following: [ ]1) Uncorrectable (to near normal or chronic baseline) with outpatient and emergency treatment [ ]2) Altered mental status [ ]3) Seizures [ ]4) Severe medical etiology (eg, hypovolemia, diabetes insipidus) [ ]v) Potassium less than 2.5 mEq/L (mmol/L) despite outpatient and emergency treatment [ ]vi) Potassium less than 3 mEq/L (mmol/L) with ANY ONE of the following: [ ]1) Weakness [ ]2) Cardiac abnormality (eg, arrhythmia, conduction disturbance) [ ]3) Cardiac ischemia [ ]4) Ileus [ ]5) Ongoing medical cause requiring inpatient management (eg, acute renal wasting or SIADH) [ ]6) Other severe symptoms [ ]vii) Potassium greater than 6.5 mEq/L (mmol/L) [ ]viii) Potassium greater than 5 mEq/L (mmol/L) with ANY ONE of the following: [ ]1) Uncorrectable (to near normal or chronic baseline) with outpatient and emergency treatment [ ]2) Severe ECG findings [F] [ ]3) Acute worsening of renal failure (creatinine greater than 2.5 mg/dL (221 micromoles/L) or significant elevation for age and size) [ ]4) Severe weakness [ ]5) Severe medical etiology (eg, hemolysis, infection, drug overdose) [ ]ix) Calcium less than 7 mg/dL (1.75 mmol/L) despite outpatient and emergency treatment (72) [ ]x) Calcium less than 8 mg/dL (2 mmol/L) with significant symptoms or findings; examples include(72): [ ]1) Altered mental status [ ]2) Muscle spasms [ ]3) Seizures [ ]4) Breathing difficulty [ ]5) Cardiac abnormality (eg, arrhythmia or conduction disturbance) [ ]xi) Calcium greater than 14 mg/dL (3.5 mmol/L)(72) [ ]xii) Calcium greater than 12 mg/dL (3 mmol/L) with ANY ONE of the following(72): [ ]1) Uncorrectable (to near normal or chronic baseline) with outpatient and emergency treatment [ ]2) Significant dehydration or hypovolemia as indicated by ALL of the following(70)(73)(74): [ ]A. Not resolved with initial treatments [ ]B. Clinically significant dehydration as indicated by ANY ONE of the following: [ ]a. Vomiting refractory to outpatient treatment (ie, precluding oral rehydration) [ ]b. Inability to drink [ ]c. Hypernatremia or other electrolyte abnormality unable to be corrected with outpatient and emergency treatment [ ]d. Failure to remain hydrated with outpatient therapy [ ]e. Reduced urine output [ ]f. Hypotension [ ]g. Serious cause for dehydration requiring acute hospitalization (eg, bowel obstruction, increased intracranial pressure, infectious cause) [ ]h. Child with ANY ONE of the following(75): [ ]1) Severe abdominal tenderness [ ]2) Adequate care not available at home [ ]3) Severe dehydration ( greater than 9% loss of body weight) [ ]4) Significant symptoms or findings; examples include: [ ]A. Altered mental status [ ]B. Cardiac abnormality (eg, arrhythmia, conduction disturbance) [ ]C. Malignant etiology requiring inpatient treatment [ ]xiii) Phosphorus less than 1 mg/dL (0.32 mmol/L) [ ]xiv) Phosphorus less than 1.5 mg/dL (0.48 mmol/L) with ANY ONE of the following: [ ]1) Patient unresponsive to outpatient and emergency treatment [ ]2) Significant symptoms or findings; examples include: [ ]A. Weakness [ ]B. Altered mental status [ ]C. Breathing difficulty [ ]D. Seizures [ ]E. Rhabdomyolysis [ ]xv) Phosphorus greater than 10 mg/dL (3.2 mmol/L) [ ]xvi) Phosphorus greater than 4.5 mg/dL (1.45 mmol/L) (new) with ANY ONE of the following: [ ]1) Severe medical etiology (eg, crush injury, acute renal failure) [ ]2) Associated hypocalcemia with significant findings; examples include: [ ]A. Neurologic symptoms [ ]B. Altered mental status [ ]C. Muscle spasms [ ]D. Seizures [ ]E. Breathing difficulty [ ]F. Cardiac abnormality (eg, arrhythmia, conduction disturbance) [ ]xvii) Magnesium less than 1 mg/dL (0.41 mmol/L) [ ]xviii) Magnesium less than 1.5 mg/dL (0.62 mmol/L) with ANY ONE of the following: [ ]1) Patient unresponsive to outpatient and emergency treatment [ ]2) Associated hypocalcemia with significant findings; examples include: [ ]A. Altered mental status [ ]B. Muscle spasms [ ]C. Seizures [ ]D. Breathing difficulty [ ]E. Cardiac abnormality (eg, arrhythmia , conduction disturbance) [ ]3) Associated hypokalemia (potassium less than 3 mEq/L (mmol/L)) with risk of arrhythmia [ ]xix) Magnesium greater than 4 mEq/L (2 mmol/L) [ ]xx) Magnesium greater than 2.5 mEq/L (1.25 mmol/L) with significant symptoms or findings; examples include: [ ]1) Weakness [ ]2) Altered mental status [ ]3) Cardiac abnormality (eg, arrhythmia, conduction disturbance) [ ]4) Breathing difficulty [ ]5) Severe medical etiology (eg, renal failure, hypovolemia) [ ]xxi) Uric acid greater than 20 mg/dL (1190 micromoles/L)(76) [ ]xxii) Uric acid greater than 8 mg/dL (476 micromoles/L) with significant symptoms or findings of tumor lysis syndrome; examples include(76): [ ]1) Creatinine greater than 1.5 times upper limit of normal [ ]2) Cardiac abnormality (eg, arrhythmia, conduction disturbance) [ ]3) Seizure [ ]XX. Acute blood loss causing significant abnormality as indicated by ANY ONE of the following(77)(78): [ ]a) Hemoglobin less than 10 g/dL (100 g/L) (not baseline) [ ]b) Hematocrit less than 30% (0.30) (not baseline) [ ]c) Repeat hematocrit decreased more than 2% (0.02) [ ]d) Uncontrolled bleeding [ ]XXI. Severe anemia indicated by ANY ONE of the following(78)(79): [ ]a) Altered mental status [ ]b) Chest pain [ ]c) Exertional dyspnea [ ]d) Syncope [ ]e) Other findings suggesting inadequate perfusion [ ]f) Treatment with transfusion or volume replacement is ineffective at resolving ANY ONE of the following [G]: [ ]i) Tachycardia for age [ ]ii) Orthostatic vital sign changes as indicated by ANY ONE of the following(80): [ ]1) Fall in SBP of 20 mm Hg or more 1 to 3 minutes after patient sits or stands from recumbent position [ ]2) Fall in DBP of 10 mm Hg or more 1 to 3 minutes after patient sits or stands from recumbent position [ ]XXII. High-risk low platelet count as indicated by ANY ONE of the following( 81)(82): [ ]a) Severe or life-threatening bleeding (eg, intracranial, major gastrointestinal, or extensive mucosal bleeding), with any reduced platelet count [ ]b) Platelet count less than 20,000/mm3 (20 x109/L) with any active bleeding [ ]c) Platelet count less than 10,000/mm3 (10 x109/L) with minor purpura or petechiae [ ]d) Platelet count less than 5000/mm3 (5 x109/L) [ ]e) Low platelet count with hemolytic anemia [ ]XXIII. Disseminated intravascular coagulation(77)(83) [ ]XXIV. Severe adverse drug or systemic toxin reaction requiring inpatient treatment; examples include(84)(85): [ ]a) Serotonin syndrome(86) [ ]b) Neuroleptic malignant syndrome(86) [ ]c) Cholinergic syndrome with severe symptoms (eg, bronchorrhea, weakness, mental status changes, seizures) [ ]d) Sympathetic syndrome with severe symptoms (eg, seizures, mental status changes, cardiac dysrhythmias) [ ]e) Anticholinergic syndrome [ ]XXV. Severe pain requiring acute inpatient management as indicated by ALL of the following (87)(88)(89): [ ]a) Continuous or frequent (eg, every 2 to 4 hours) parenteral analgesics required [H] [ ]b) Rapid improvement expected from treatment or acute intervention (eg, surgery, anesthesia procedure) [ ]XXVI.Severe behavioral health issues judged unmanageable at a lower level of care (eg, residential) in a patient who is ANY ONE of the following(91) [ ]a) Acutely suicidal [ ]b) A danger to self (eg, self-mutilating or suicidal behavior) [ ]c) A danger to others (eg, assaultive or homicidal behavior) [ ]d) Incapacitated because of grave disability (eg, inability to provide for self at lower level of care) (92) [ ]XXVII. Inpatient monitoring needed; examples include(1)(3)(87)(93)(94)(95)(96 ): [ ]a) Vital signs, neurologic signs, or vascular checks more frequently than every 4 hours [ ]b) Cardiac or respiratory monitoring beyond the scope (eg, over 24 hours) of observation care [ ]c) Pulmonary artery catheter monitoring [ ]d) Suspected compartment syndrome(97) (98) [ ]e) Cerebral bleeding, hydrocephalus, or vasospasm monitoring [ ]f) Increased intracranial pressure or cerebral edema monitoring [ ]g) monitoring [ ]XXVIII. Treatment requiring inpatient care; examples include: [ ]a) IV fluid to replace significant ongoing losses (greater than 3 L/m2 per day)(53) [ ]b) High concentration oxygen (greater than 40%)(33)(99)(100) [ ]c) Frequent respiratory therapy (more frequently than every 4 hours) to maintain airflow rates greater than 60% of baseline(33)(99)(100) [ ]d) Epidural analgesia(87) [ ]e) IV anticoagulation, vasoactive, or antiarrhythmic medication(19 )(23) [ ]f) Acute thrombolytics (generally require 24 hours of observation )(101)(102) [ ]XXIX. Emergency procedures needed; examples include: [ ]a) Emergency inpatient surgery [ ]b) Temporary pacemaker placement(103) [ ]c) Chest tube placement with active evacuation (eg, suction, drainage)(104) [ ]d) Emergent cardioversion(105) [ ]e) Emergent cardiac or vascular procedures (eg, cardiac catheterization, angioplasty) (17)(18) [ ]f) Emergent dialysis access placement and institution(10)(106) [ ]g) Emergent pericardiocentesis(107) [ ]h) Emergent plasmapheresis or leukapheresis(83) [ ]i) Emergent tracheostomy The original [employer] content created by [employer] has been revised. The portions of the content which have been revised are identified through the use of italic text or in bold, and [employer] has neither reviewed nor approved the modified material. All other unmodified content is copyright [employer]. Please see references footnoted in the original [employer] edition 2016 Admission Criteria Met: Yes
[2016-10-29 09:23] LABS: Anion Gap 19 mmol/L; Blood Urea Nitrogen 6 mg/dL (7-17); Calcium 7.5 mg/dL (8.4-10.2); Carbon Dioxide 20 mmol/L (22-30); Chloride 103.1 mmol/L (98-107); Glucose 163 mg/dL (65-100); Potassium 3.9 mmol/L (3.6-5.0); Sodium 138 mmol/L (137-145)
[2016-10-29] MEDS: PROTONIX IV SCH (09:49)
--- NOTE | 2016-10-29 10:36 | Gastroenterology Consultation ---
History of Present Illness - Reason for Consult Consult date: 10/29/16 coffee-ground emesis Requesting physician: REINALDO ANDERSEN - History of Present Illness Patient is a 45 y/o female with medical history of DM, depression, and H. pylori , who presented to the ER for c/o N/V. She was admitted and is being treated for DKA. While in the ER, she had 1 episode of coffee-ground emesis. This morning pt was resting in bed, no acute distress. Reports her N/V has now improved and denies any further episodes of coffee-ground emesis overnight or this am. Denies fever, abd pain, melena, diarrhea, or hematochezia. Is on Linzess at home for constipation. Last BM 2 days ago with brown stool. Her last OV with her armed security professional Dr. De La Cruz was yesterday. She underwent an EGD on 04/17/16 for N/V that revealed residual food. A gastric emptying study on was normal. Etiology of N/V thought to be from gastric stunning from poor glucose control. It is noted that the pt is having a hard time dealing with the diagnose of DM and has been overwhelmed. A repeat EGD was done 06/01/16 that revealed gastritis with bx results + for H. Pylori. Pt was treated, tested for eradication with test remaining positive for H. Pylori, and was retreated. She recently completed antibiotics and is scheduled to be tested for eradication in 4-6 weeks from now with Dr. De La Cruz. Past History Past Medical History: diabetes, other (depression, H. Pylori infection) Past Surgical History: No surgical history Social history: denies: smoking, alcohol abuse Family history: diabetes Medications and Allergies Allergies Allergy/AdvReac Type Severity Reaction Status Date / Time caffeine Allergy Nausea Verified 10/28/16 23:18 Home Medications Medication Instructions Recorded Confirmed Last Taken Type Unobtainable 10/29/16 10/29/16 Unknown History Active Meds: Active Medications Acetaminophen (Tylenol) 650 mg PO Q4H PRN PRN Reason: Pain MILD(1-3)/Fever >100.5/BUTCHER Dextrose (D50w (25gm)) 0 ml IV PRN PRN PRN Reason: Hypoglycemia Insulin Human Regular 100 (units/ Sodium Chloride) 100 mls @ 1 mls/hr IV TITR WILMER; 1 UNITS/HR PRN Reason: Protocol Last Titration: 10/29/16 09:00 Dose: 2 units/hr, 2 mls/hr Potassium Chloride/Dextrose/Sod Cl (D5w/0.45% Nacl/Kcl 20 Meq) 20 meq in 1,000 mls @ 125 mls/hr IV DIRECT WILMER Last Admin: 10/29/16 03:09 Dose: 125 mls/hr Ondansetron HCl (Zofran) 4 mg IV Q4H PRN PRN Reason: N/V unrelieved by Regpreston Last Admin: 10/29/16 03:52 Dose: 4 mg Pantoprazole Sodium (Protonix) 40 mg IV BID WILMER Last Admin: 10/29/16 09:49 Dose: 40 mg Review of Systems - Review of Systems All systems: negative Gastrointestinal: nausea, vomiting, coffee ground emesis Exam - Constitutional Vital Signs: Temp Pulse Resp BP Pulse Ox 98.6 F 110 H 14 112/73 98 10/29/16 08:00 10/29/16 08:00 10/29/16 08:00 10/29/16 08:00 10/29/16 08:00 General appearance: no acute distress, other (thin appearing) - EENT Eyes: PERRL, EOM intact - Neck Neck: supple, normal ROM - Respiratory Respiratory: bilateral: CTA - Cardiovascular Rhythm: other (tachycardia) Heart Sounds: Present: S1 & S2 Extremities: No edema - Gastrointestinal General gastrointestinal: Present: soft, non-tender, non-distended, normal bowel sounds - Neurologic Neurological: alert and oriented x3 - Psychiatric Psychiatric: appropriate mood/affect - Labs CBC & Chem 7: 10/29/16 06:48 10/29/16 08:41 Lab Results: Laboratory Results - last 24 hr 10/29/16 10/29/16 10/29/16 04:02 04:02 04:08 Hgb 10.4 Hct 32.4 Sodium 135 L Potassium 3.1 L Chloride 99.0 Carbon Dioxide 12 L Anion Gap 27 BUN 6 L Creatinine 0.4 L Estimated GFR > 60 BUN/Creatinine Ratio 15.00 Glucose 223 H POC Glucose 253 H Calcium 7.7 L D 10/29/16 10/29/16 10/29/16 04:42 05:07 06:04 Hgb Hct Sodium 140 Potassium 3.0 L Chloride 101.2 Carbon Dioxide 12 L Anion Gap 30 BUN 6 L Creatinine 0.5 L Estimated GFR > 60 BUN/Creatinine Ratio 12.00 Glucose 215 H POC Glucose 234 H 212 H Calcium 7.1 L 10/29/16 10/29/16 10/29/16 06:48 06:48 07:03 Hgb 9.2 L Hct 28.7 L Sodium 138 Potassium 3.8 D Chloride 103.1 Carbon Dioxide 17 L Anion Gap 22 BUN 6 L Creatinine 0.4 L Estimated GFR > 60 BUN/Creatinine Ratio 15.00 Glucose 168 H POC Glucose 169 H Calcium 7.2 L 10/29/16 10/29/16 08:06 08:41 Hgb Hct Sodium 138 Potassium 3.9 Chloride 103.1 Carbon Dioxide 20 L Anion Gap 19 BUN 6 L Creatinine 0.4 L Estimated GFR > 60 BUN/Creatinine Ratio 15.00 Glucose 163 H POC Glucose 182 H Calcium 7.5 L Assessment and Plan 1.coffee-ground emesis 2.DKA- currently on insulin gtt -HGB 9.2 -continue to monitor H&H and transfuse as needed -etiology most likely due to possible Yoana-Mckay tear after multiple episodes of N/V -only 1 episode of coffee-ground emesis yesterday per pt, no further active signs of bleeding overnight or this am -will treat empirically with PPI -continue supportive care with IVFs, antimetics, and f/u labs -no recommendation for an EGD at this time unless overt bleeding develops -will follow
--- NOTE | 2016-10-29 12:15 | Consultation ---
History of Present Illness - Reason for Consult Consult date: 10/29/16 DKA Requesting physician: ASHWINI GERBER - History of Present Illness 45 y/o female admitted with DKA Past History Past Medical History: diabetes, other (depression, H. Pylori infection) Past Surgical History: No surgical history Social history: denies: smoking, alcohol abuse Family history: diabetes Medications and Allergies Allergies Allergy/AdvReac Type Severity Reaction Status Date / Time caffeine Allergy Nausea Verified 10/28/16 23:18 Home Medications Medication Instructions Recorded Confirmed Last Taken Type Unobtainable 10/29/16 10/29/16 Unknown History Active Meds: Active Medications Acetaminophen (Tylenol) 650 mg PO Q4H PRN PRN Reason: Pain MILD(1-3)/Fever >100.5/BUTCHER Dextrose (D50w (25gm)) 0 ml IV PRN PRN PRN Reason: Hypoglycemia Insulin Human Regular 100 (units/ Sodium Chloride) 100 mls @ 1 mls/hr IV TITR WILMER; 1 UNITS/HR PRN Reason: Protocol Last Titration: 10/29/16 10:37 Dose: 2 units/hr, 2 mls/hr Potassium Chloride/Dextrose/Sod Cl (D5w/0.45% Nacl/Kcl 20 Meq) 20 meq in 1,000 mls @ 125 mls/hr IV DIRECT WILMER Last Admin: 10/29/16 03:09 Dose: 125 mls/hr Ondansetron HCl (Zofran) 4 mg IV Q4H PRN PRN Reason: N/V unrelieved by Reglan Last Admin: 10/29/16 03:52 Dose: 4 mg Pantoprazole Sodium (Protonix) 40 mg IV BID WILMER Last Admin: 10/29/16 09:49 Dose: 40 mg Review of Systems All systems: negative Exam - Constitutional Vitals: Temp Pulse Resp BP Pulse Ox 98.6 F 101 H 10 L 124/81 100 10/29/16 08:00 10/29/16 11:10 10/29/16 11:10 10/29/16 11:10 10/29/16 11:10 General appearance: Present: no acute distress - EENT Eyes: Present: PERRL, EOM intact ENT: hearing intact, clear oral mucosa - Neck Neck: Present: supple, normal ROM - Respiratory Respiratory effort: normal Respiratory: bilateral: CTA - Cardiovascular Rhythm: regular Heart Sounds: Present: S1 & S2 - Extremities Extremities: no ischemia - Abdominal General gastrointestinal: Present: soft Female genitourinary: Present: deferred - Rectal Rectal Exam: deferred - Musculoskeletal Musculoskeletal: strength equal bilaterally Results - Labs CBC & Chem 7: 10/29/16 06:48 10/29/16 08:41 Labs: Abnormal lab results 10/29/16 10/29/16 10/29/16 Range/Units 04:02 04:08 04:42 Hgb (10.1-14.3) gm/dl Hct (30.3-42.9) % Sodium 135 L (137-145) mmol/L Potassium 3.1 L 3.0 L (3.6-5.0) mmol/L Carbon Dioxide 12 L 12 L (22-30) mmol/L BUN 6 L 6 L (7-17) mg/dL Creatinine 0.4 L 0.5 L (0.7-1.2) mg/dL Glucose 223 H 215 H (65-100) mg/dL POC Glucose 253 H (70-105) Calcium 7.7 L D 7.1 L (8.4-10.2) mg/dL 10/29/16 10/29/16 10/29/16 Range/Units 05:07 06:04 06:48 Hgb (10.1-14.3) gm/dl Hct (30.3-42.9) % Sodium (137-145) mmol/L Potassium (3.6-5.0) mmol/L Carbon Dioxide 17 L (22-30) mmol/L BUN 6 L (7-17) mg/dL Creatinine 0.4 L (0.7-1.2) mg/dL Glucose 168 H (65-100) mg/dL POC Glucose 234 H 212 H (70-105) Calcium 7.2 L (8.4-10.2) mg/dL 10/29/16 10/29/16 10/29/16 Range/Units 06:48 07:03 08:06 Hgb 9.2 L (10.1-14.3) gm/dl Hct 28.7 L (30.3-42.9) % Sodium (137-145) mmol/L Potassium (3.6-5.0) mmol/L Carbon Dioxide (22-30) mmol/L BUN (7-17) mg/dL Creatinine (0.7-1.2) mg/dL Glucose (65-100) mg/dL POC Glucose 169 H 182 H (70-105) Calcium (8.4-10.2) mg/dL 10/29/16 10/29/16 10/29/16 Range/Units 08:41 09:19 10:25 Hgb (10.1-14.3) gm/dl Hct (30.3-42.9) % Sodium (137-145) mmol/L Potassium (3.6-5.0) mmol/L Carbon Dioxide 20 L (22-30) mmol/L BUN 6 L (7-17) mg/dL Creatinine 0.4 L (0.7-1.2) mg/dL Glucose 163 H (65-100) mg/dL POC Glucose 162 H 155 H (70-105) Calcium 7.5 L (8.4-10.2) mg/dL Assessment and Plan 45 y/o female with DKA, also concern for possible UGIB 1. DKA has resolved. Need to give long acting insulin and then stop drip. Feed patient as long as no plans to scope 2. Follow up GI recs, has had a drop in hemoglobin but has also had significant volume. Will defer to GI 3. Unless there is a plan to scope in ICU today, would be ok with transfer.
[2016-10-29 12:58] LABS: Hematocrit 30.6 % (30.3-42.9)
[2016-10-29] MEDS: NOVOLOG SUB-Q SCH ×2 (14:00→17:20)
[2016-10-29] MEDS: PROzac PO SCH (15:28)
[2016-10-29] MEDS ORDERED: REGLAN IV PRN (15:28)
--- NOTE | 2016-10-29 15:35 | Event Note ---
Date: 10/29/16 Admitted today for DKA by Dr. Courtney Walker, mobile practice lead called because of severe distress with n/v. She speaks Romansh well, she is [place] gen: diaphoretic, ill appearing with retching, no respiratory distress, a/o x 3 abd: soft ntnd gbs -Add iv reglan, downgrade diet to clears and continue to monitor in ICU -bmp am -h/o H. pylori: Gi is following.
[2016-10-29 15:44] LABS: Anion Gap 23 mmol/L; Blood Urea Nitrogen 3 mg/dL (7-17); Carbon Dioxide 15 mmol/L (22-30); Chloride 101.9 mmol/L (98-107); Glucose 176 mg/dL (65-100); Potassium 3.3 mmol/L (3.6-5.0); Sodium 137 mmol/L (137-145)
[2016-10-29] MEDS ORDERED: NORMODYNE IV PRN (18:01)
[2016-10-29] MEDS: REMERON PO SCH (21:44)
[2016-10-30] MEDS ORDERED: LYRICA 25 MG, LYRICA 75 MG PO ONE (04:41)
[2016-10-30] MEDS ORDERED: LYRICA PO ONE ×3 (04:45→04:46)
[2016-10-30 04:49] LABS: Hematocrit 34.2 % (30.3-42.9); Hemoglobin 11.3 gm/dl (10.1-14.3); Mean Corpuscular HGB Conc 33 % (30-34); Mean Corpuscular Volume 74 fl (79-97); Platelet Count 200 K/mm3 (140-440); Red Cell Distribution Width 15.5 % (13.2-15.2); White Blood Count 9.2 K/mm3 (4.5-11.0)
[2016-10-30 04:54] LABS: Mean Corpuscular Hemoglobin 25 pg (28-32)
[2016-10-30 04:59] LABS: Blood Urea Nitrogen 5 mg/dL (7-17); Calcium 8.9 mg/dL (8.4-10.2); Carbon Dioxide 22 mmol/L (22-30); Glucose 91 mg/dL (65-100); Potassium 3.4 mmol/L (3.6-5.0); Sodium 143 mmol/L (137-145)
[2016-10-30 05:01] LABS: Anion Gap 19 mmol/L
[2016-10-30] MEDS: PROTONIX IV SCH ×2 (08:27→10:20)
[2016-10-30] MEDS: ZOFRAN IV PRN (08:27)
[2016-10-30] MEDS: NOVOLOG SUB-Q SCH ×5 (08:28→23:17)
[2016-10-30] MEDS ORDERED: LYRICA 25 MG, LYRICA 75 MG PO SCH (10:00)
[2016-10-30] MEDS: LYRICA PO SCH ×4 (10:19→22:04)
[2016-10-30] MEDS: PROzac PO SCH (10:20)
--- NOTE | 2016-10-30 10:35 | Gastroenterology Progress Note ---
Assessment and Plan 1.coffee-ground emesis 2.DKA -HGB 11.3 trending up -continue to monitor H&H and transfuse as needed -etiology most likely due to possible Yoana-Mckay tear after multiple episodes of N/V -episode of N/V yesterday but no coffee-ground emesis or hematemesisno- active signs of bleeding overnight or this am -continue PPI -continue supportive care with IVFs, antimetics, glycemic control, and f/u labs -tolerating clear liquids today, advance diet as tolerated- small frequent meals -no further GI recommendations at this time, pt will need to f/u as an outpatient with Dr. De La Cruz -will sign off Subjective Date of service: 10/30/16 Principal diagnosis: coffee-ground emesis Interval history: Patient resting in bed watching TV. No acute distress. Denies any active signs of bleeding overnight or this am. Tolerating clear liquids. Objective - Constitutional Vitals: Temp Pulse Resp BP Pulse Ox 98.9 F 97 H 15 138/93 100 10/30/16 08:00 10/30/16 09:00 10/30/16 09:00 10/30/16 09:00 10/30/16 08:50 General appearance: no acute distress - EENT Eyes: PERRL, EOM intact ENT: hearing intact - Neck Neck: supple, normal ROM - Respiratory Respiratory: bilateral: diminished (anterior) - Cardiovascular Rhythm: regular Heart Sounds: Present: S1 & S2 - Extremities Extremities: No edema - Gastrointestinal General gastrointestinal: Present: soft, non-tender, non-distended, normal bowel sounds - Integumentary Integumentary: Present: warm, dry - Neurologic Neurological: alert and oriented x3 - Psychiatric Psychiatric: appropriate mood/affect, cooperative - Labs CBC & Chem 7: 10/30/16 04:17 10/30/16 04:17 Labs: Laboratory Results - last 24 hr 10/29/16 10/29/16 10/29/16 09:19 10:25 11:55 WBC RBC Hgb Hct MCV MCH MCHC RDW Plt Count Sodium Potassium Chloride Carbon Dioxide Anion Gap BUN Creatinine Estimated GFR BUN/Creatinine Ratio Glucose POC Glucose 162 H 155 H 133 H Calcium Magnesium 10/29/16 10/29/16 10/29/16 12:36 13:45 14:44 WBC RBC Hgb 10.0 L Hct 30.6 MCV MCH MCHC RDW Plt Count Sodium Potassium Chloride Carbon Dioxide Anion Gap BUN Creatinine Estimated GFR BUN/Creatinine Ratio Glucose POC Glucose 162 H 178 H Calcium Magnesium 10/29/16 10/29/16 10/29/16 15:01 16:22 21:34 WBC RBC Hgb Hct MCV MCH MCHC RDW Plt Count Sodium 137 Potassium 3.3 L Chloride 101.9 Carbon Dioxide 15 L Anion Gap 23 BUN 3 L Creatinine 0.4 L Estimated GFR > 60 BUN/Creatinine Ratio 7.50 Glucose 176 H POC Glucose 191 H 145 H Calcium 8.0 L Magnesium 10/30/16 10/30/16 04:17 04:17 WBC 9.2 RBC 4.60 Hgb 11.3 Hct 34.2 MCV 74 L MCH 25 L MCHC 33 RDW 15.5 H Plt Count 200 Sodium 143 Potassium 3.4 L Chloride 105.0 Carbon Dioxide 22 D Anion Gap 19 BUN 5 L Creatinine 0.4 L Estimated GFR > 60 BUN/Creatinine Ratio 12.50 Glucose 91 POC Glucose Calcium 8.9 Magnesium 2.10
[2016-10-30] MEDS ORDERED: PNEUMOVAX 23 IM ONE (12:00)
--- NOTE | 2016-10-30 12:17 | Progress Note ---
Assessment and Plan 45 y/o female with DKA, also concern for possible UGIB 1. GI has signed off 2. Diabetes is stable 3. Spoke with [facility] about transfer today. 4. Will sign off once out of unit. Subjective Date of service: 10/30/16 Principal diagnosis: coffee-ground emesis Interval history: Still in ICU, stable. Not transferred yesterday as [facility] was waiting on GI recs presumptively. Objective - Constitutional Vitals: Vital Signs - 12hr 10/30/16 10/30/16 10/30/16 00:20 00:30 00:40 Temperature Pulse Rate 98 H 97 H 94 H Respiratory 16 15 17 Rate Blood Pressure 77/47 77/47 77/47 O2 Sat by Pulse 100 100 100 Oximetry 10/30/16 10/30/16 10/30/16 00:50 01:00 01:10 Temperature 98.8 F Pulse Rate 96 H 93 H 93 H Respiratory 13 16 17 Rate Blood Pressure 77/47 83/50 81/50 O2 Sat by Pulse 100 100 100 Oximetry 10/30/16 10/30/16 10/30/16 01:20 01:30 01:40 Temperature Pulse Rate 94 H 93 H 96 H Respiratory 19 21 29 H Rate Blood Pressure 81/50 81/50 81/50 O2 Sat by Pulse 100 100 100 Oximetry 10/30/16 10/30/16 10/30/16 01:50 02:00 02:10 Temperature Pulse Rate 90 86 87 Respiratory 14 15 15 Rate Blood Pressure 85/55 97/63 97/63 O2 Sat by Pulse 100 100 100 Oximetry 10/30/16 10/30/16 10/30/16 02:20 02:30 02:40 Temperature Pulse Rate 88 90 89 Respiratory 14 15 15 Rate Blood Pressure 97/63 97/63 97/63 O2 Sat by Pulse 100 100 100 Oximetry 10/30/16 10/30/16 10/30/16 02:50 03:00 03:10 Temperature Pulse Rate 94 H 88 89 Respiratory 15 13 15 Rate Blood Pressure 97/63 86/59 86/59 O2 Sat by Pulse 100 100 Oximetry 10/30/16 10/30/16 10/30/16 03:20 03:30 03:40 Temperature Pulse Rate 89 85 92 H Respiratory 15 13 15 Rate Blood Pressure 86/59 86/59 86/59 O2 Sat by Pulse 100 100 100 Oximetry 10/30/16 10/30/16 10/30/16 03:50 04:00 04:10 Temperature Pulse Rate 92 H 103 H 86 Respiratory 13 14 12 Rate Blood Pressure 86/59 94/68 94/68 O2 Sat by Pulse 100 100 100 Oximetry 10/30/16 10/30/16 10/30/16 04:20 04:30 04:40 Temperature Pulse Rate 103 H 93 H 94 H Respiratory 11 L 19 18 Rate Blood Pressure 94/68 94/68 94/68 O2 Sat by Pulse 100 100 100 Oximetry 10/30/16 10/30/16 10/30/16 04:50 04:58 05:00 Temperature 98.8 F Pulse Rate 91 H 109 H Respiratory 13 9 L Rate Blood Pressure 94/68 94/68 O2 Sat by Pulse 100 100 Oximetry 10/30/16 10/30/16 10/30/16 05:10 05:20 05:30 Temperature Pulse Rate 95 H 90 83 Respiratory 16 15 17 Rate Blood Pressure 115/74 115/74 115/74 O2 Sat by Pulse 100 100 100 Oximetry 10/30/16 10/30/16 10/30/16 05:40 05:50 06:00 Temperature Pulse Rate 88 84 82 Respiratory 17 13 14 Rate Blood Pressure 115/74 115/74 100/60 O2 Sat by Pulse 100 100 100 Oximetry 10/30/16 10/30/16 10/30/16 06:10 06:20 06:30 Temperature Pulse Rate 85 91 H 90 Respiratory 15 21 17 Rate Blood Pressure 100/60 100/60 100/60 O2 Sat by Pulse 100 100 100 Oximetry 10/30/16 10/30/16 10/30/16 06:40 06:50 07:00 Temperature Pulse Rate 87 87 95 H Respiratory 13 15 14 Rate Blood Pressure 100/60 100/60 100/60 O2 Sat by Pulse 100 100 100 Oximetry 10/30/16 10/30/16 10/30/16 07:10 07:20 07:30 Temperature Pulse Rate 85 84 98 H Respiratory 14 14 17 Rate Blood Pressure 104/68 104/68 O2 Sat by Pulse 100 100 100 Oximetry 10/30/16 10/30/16 10/30/16 07:40 07:50 08:00 Temperature 98.9 F Pulse Rate 85 83 109 H Respiratory 16 15 17 Rate Blood Pressure 104/68 104/68 141/92 O2 Sat by Pulse 100 100 100 Oximetry 10/30/16 10/30/16 10/30/16 08:10 08:20 08:30 Temperature Pulse Rate 109 H 100 H 112 H Respiratory 12 16 18 Rate Blood Pressure 141/92 141/92 141/92 O2 Sat by Pulse 100 100 100 Oximetry 10/30/16 10/30/16 10/30/16 08:40 08:50 09:00 Temperature Pulse Rate 106 H 95 H 97 H Respiratory 16 17 15 Rate Blood Pressure 141/92 141/92 138/93 O2 Sat by Pulse 100 100 Oximetry - Labs CBC & Chem 7: 10/30/16 04:17 10/30/16 04:17 Labs: Abnormal lab results 10/29/16 10/29/16 10/29/16 Range/Units 11:55 12:36 13:45 Hgb 10.0 L (10.1-14.3) gm/dl MCV (79-97) fl MCH (28-32) pg RDW (13.2-15.2) % Potassium (3.6-5.0) mmol/L Carbon Dioxide (22-30) mmol/L BUN (7-17) mg/dL Creatinine (0.7-1.2) mg/dL Glucose (65-100) mg/dL POC Glucose 133 H 162 H (70-105) Calcium (8.4-10.2) mg/dL 10/29/16 10/29/16 10/29/16 Range/Units 14:44 15:01 16:22 Hgb (10.1-14.3) gm/dl MCV (79-97) fl MCH (28-32) pg RDW (13.2-15.2) % Potassium 3.3 L (3.6-5.0) mmol/L Carbon Dioxide 15 L (22-30) mmol/L BUN 3 L (7-17) mg/dL Creatinine 0.4 L (0.7-1.2) mg/dL Glucose 176 H (65-100) mg/dL POC Glucose 178 H 191 H (70-105) Calcium 8.0 L (8.4-10.2) mg/dL 10/29/16 10/30/16 10/30/16 Range/Units 21:34 04:17 04:17 Hgb (10.1-14.3) gm/dl MCV 74 L (79-97) fl MCH 25 L (28-32) pg RDW 15.5 H (13.2-15.2) % Potassium 3.4 L (3.6-5.0) mmol/L Carbon Dioxide (22-30) mmol/L BUN 5 L (7-17) mg/dL Creatinine 0.4 L (0.7-1.2) mg/dL Glucose (65-100) mg/dL POC Glucose 145 H (70-105) Calcium (8.4-10.2) mg/dL 10/30/17 Range/Units 08:14 Hgb (10.1-14.3) gm/dl MCV (79-97) fl MCH (28-32) pg RDW (13.2-15.2) % Potassium (3.6-5.0) mmol/L Carbon Dioxide (22-30) mmol/L BUN (7-17) mg/dL Creatinine (0.7-1.2) mg/dL Glucose (65-100) mg/dL POC Glucose 247 H (70-105) Calcium (8.4-10.2) mg/dL
--- NOTE | 2016-10-30 19:16 | Progress Note ---
Assessment and Plan Assessment and plan: 45 years old female with diabetes admitted for nausea and vomiting DKA - resolved, transitioned to subcutaneous insulin, tolerating diet Coffee-ground emesis - single episode most likely secondary to Yoana Mckay tear due to multiple episodes of vomiting; H&H stable; GI consulted but no intervention needed; continue PPI History Interval history: doing well, stable for transfer out of ICU Hospitalist Physical - Constitutional Vitals: Temp Pulse Resp BP Pulse Ox 98.9 F 88 19 168/95 97 10/30/16 16:00 10/30/16 16:00 10/30/16 16:00 10/30/16 16:00 10/30/16 16:58 General appearance: Present: no acute distress - EENT Eyes: Present: PERRL, EOM intact. Absent: scleral icterus, conjunctival injection - Neck Neck: Present: supple, normal ROM. Absent: masses or JVD - Respiratory Respiratory effort: normal Respiratory: bilateral: CTA, negative: rhonchi, wheezing - Cardiovascular Rhythm: regular Heart Sounds: Present: S1 & S2. Absent: systolic murmur - Extremities Extremities: no ischemia - Abdominal General gastrointestinal: soft, non-tender, non-distended, normal bowel sounds - Integumentary Integumentary: Present: warm, dry. Absent: jaundice, rash - Psychiatric Psychiatric: cooperative - Neurologic Neurologic: CNII-XII intact, no focal deficits Results - Labs CBC & Chem 7: 10/31/16 05:27 10/31/16 05:27 Labs: Laboratory Last Values WBC 9.2 K/mm3 (4.5-11.0) 10/30/16 04:17 RBC 4.60 M/mm3 (3.65-5.03) 10/30/16 04:17 Hgb 11.3 gm/dl (10.1-14.3) 10/30/16 04:17 Hct 34.2 % (30.3-42.9) 10/30/16 04:17 MCV 74 fl (79-97) L 10/30/16 04:17 MCH 25 pg (28-32) L 10/30/16 04:17 MCHC 33 % (30-34) 10/30/16 04:17 RDW 15.5 % (13.2-15.2) H 10/30/16 04:17 Plt Count 200 K/mm3 (140-440) 10/30/16 04:17 Lymph % (Auto) 28.5 % (13.4-35.0) 10/28/16 23:23 [place] % (Auto) 5.4 % (0.0-7.3) 10/28/16 23:23 Eos % (Auto) 3.4 % (0.0-4.3) 10/28/16 23:23 Baso % (Auto) 0.6 % (0.0-1.8) 10/28/16 23:23 Lymph # 2.1 K/mm3 (1.2-5.4) 10/28/16 23:23 [place] # 0.4 K/mm3 (0.0-0.8) 10/28/16 23:23 Eos # 0.2 K/mm3 (0.0-0.4) 10/28/16 23:23 Baso # 0.0 K/mm3 (0.0-0.1) 10/28/16 23:23 Seg Neutrophils % 62.1 % (40.0-70.0) 10/28/16 23:23 Seg Neutrophils # 4.5 K/mm3 (1.8-7.7) 10/28/16 23:23 VBG pH 7.571 (7.320-7.420) H 10/28/16 23:23 Sodium 143 mmol/L (137-145) 10/30/16 04:17 Potassium 3.4 mmol/L (3.6-5.0) L 10/30/16 04:17 Chloride 105.0 mmol/L (98-107) 10/30/16 04:17 Carbon Dioxide 22 mmol/L (22-30) D 10/30/16 04:17 Anion Gap 19 mmol/L 10/30/16 04:17 BUN 5 mg/dL (7-17) L 10/30/16 04:17 Creatinine 0.4 mg/dL (0.7-1.2) L 10/30/16 04:17 Estimated GFR > 60 ml/min 10/30/16 04:17 BUN/Creatinine Ratio 12.50 % 10/30/16 04:17 Glucose 91 mg/dL (65-100) 10/30/16 04:17 POC Glucose 59 (70-105) L 10/30/16 12:22 Ketones Quantitative Negative (Negative) 10/29/16 00:32 Osmolality 291 Mosm/kg 10/29/16 00:32 Calcium 8.9 mg/dL (8.4-10.2) 10/30/16 04:17 Phosphorus 2.20 mg/dL (2.5-4.5) L 10/29/16 00:38 Magnesium 2.10 mg/dL (1.7-2.3) 10/30/16 04:17 Total Bilirubin 0.40 mg/dL (0.1-1.2) 10/28/16 23:23 AST 21 units/L (5-40) 10/28/16 23:23 ALT 18 units/L (7-56) 10/28/16 23:23 Alkaline Phosphatase 61 units/L (35-129) 10/28/16 23:23 Total Protein 8.3 g/dL (6.3-8.2) H 10/28/16 23:23 Albumin 4.3 g/dL (3.9-5) 10/28/16 23:23 Albumin/Globulin Ratio 1.1 % 10/28/16 23:23 Lipase 11 units/L (13-60) L 10/28/16 23:23 HCG, Qual Negative (Negative) 10/28/16 23:23 Urine Color Straw (Yellow) 10/28/16 Unknown Urine Turbidity Clear (Clear) 10/28/16 Unknown Urine pH 7.0 (5.0-7.0) 10/28/16 Unknown Ur Specific [place] 1.021 (1.003-1.030) 10/28/16 Unknown Urine Protein <15 mg/dl mg/dL (Negative) 10/28/16 Unknown Urine Glucose (UA) >=500 mg/dL (Negative) 10/28/16 Unknown Urine Ketones 20 mg/dL (Negative) 10/28/16 Unknown Urine Blood Neg (Negative) 10/28/16 Unknown Urine Nitrite Neg (Negative) 10/28/16 Unknown Urine Bilirubin Neg (Negative) 10/28/16 Unknown Urine Urobilinogen < 2.0 mg/dL (<2.0) 10/28/16 Unknown Ur Leukocyte Esterase Neg (Negative) 10/28/16 Unknown Urine WBC (Auto) 1.0 /HPF (0.0-6.0) 10/28/16 Unknown Urine RBC (Auto) 1.0 /HPF (0.0-6.0) 10/28/16 Unknown U Epithel Cells (Auto) 17.0 /HPF (0-13.0) H 10/28/16 Unknown
[2016-10-30] MEDS: PROTONIX PO SCH (22:03)
[2016-10-30] MEDS: REMERON PO SCH (22:03)
[2016-10-31 06:08] LABS: Hematocrit 32.3 % (30.3-42.9); Hemoglobin 10.3 gm/dl (10.1-14.3); Mean Corpuscular HGB Conc 32 % (30-34); Mean Corpuscular Volume 75 fl (79-97); Platelet Count 186 K/mm3 (140-440); Red Blood Count 4.29 M/mm3 (3.65-5.03); Red Cell Distribution Width 15.5 % (13.2-15.2); White Blood Count 6.9 K/mm3 (4.5-11.0)
[2016-10-31 06:17] LABS: Mean Corpuscular Hemoglobin 24 pg (28-32)
[2016-10-31 06:28] LABS: Anion Gap 17 mmol/L; Blood Urea Nitrogen 6 mg/dL (7-17); Calcium 8.6 mg/dL (8.4-10.2); Carbon Dioxide 23 mmol/L (22-30); Glucose 145 mg/dL (65-100); Potassium 3.5 mmol/L (3.6-5.0); Sodium 139 mmol/L (137-145)
[2016-10-31] MEDS: NOVOLOG SUB-Q SCH ×3 (09:05→17:35)
[2016-10-31] MEDS: LYRICA PO SCH ×2 (09:06)
[2016-10-31] MEDS: PROTONIX PO SCH (09:06)
[2016-10-31] MEDS: PROzac PO SCH (09:06)
--- NOTE | 2016-10-31 11:57 | Progress Note ---
Assessment and Plan 45 y/o female with DKA, also concern for possible UGIB 1. Stable from a critical care standpoint. Will sign off. Subjective Date of service: 10/31/16 Principal diagnosis: coffee-ground emesis Interval history: Successful transfer out of ICU. No issues. Objective - Constitutional Vitals: Vital Signs - 12hr 10/31/16 10/31/16 08:00 08:53 Temperature 98.5 F Pulse Rate 82 Respiratory 18 Rate Blood Pressure 130/82 O2 Sat by Pulse 99 99 Oximetry - Labs CBC & Chem 7: 10/31/16 05:27 10/31/16 05:27 Labs: Abnormal lab results 10/30/16 10/30/16 10/30/16 Range/Units 12:22 15:59 23:12 MCV (79-97) fl MCH (28-32) pg RDW (13.2-15.2) % Potassium (3.6-5.0) mmol/L BUN (7-17) mg/dL Creatinine (0.7-1.2) mg/dL Glucose (65-100) mg/dL POC Glucose 59 L 147 H 42 L (70-105) 10/30/16 10/31/16 10/31/16 Range/Units 23:58 05:27 05:27 MCV 75 L (79-97) fl MCH 24 L (28-32) pg RDW 15.5 H (13.2-15.2) % Potassium 3.5 L (3.6-5.0) mmol/L BUN 6 L (7-17) mg/dL Creatinine 0.4 L (0.7-1.2) mg/dL Glucose 145 H (65-100) mg/dL POC Glucose 181 H (70-105) 10/31/16 10/31/16 Range/Units 05:27 11:05 MCV (79-97) fl MCH (28-32) pg RDW (13.2-15.2) % Potassium (3.6-5.0) mmol/L BUN (7-17) mg/dL Creatinine (0.7-1.2) mg/dL Glucose (65-100) mg/dL POC Glucose 167 H 212 H (70-105)
[2016-10-31 16:43] VITALS: BP 124/78
--- NOTE | 2016-10-31 19:38 | Discharge Summary ---
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 She also found to be in DKA, admitted to ICU and started on insulin drip; successfully transitioned to subcutaneous insulin. GI was consulted but no intervention needed; most likely she had a Yoana-Mckay tear secondary to multiple episodes of vomiting; H&H remained stable; started on PPI. 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 Discharge diagnoses: DKA Coffee-ground emesis - likely Yoana-Mckay Depression Disposition: TO HOME OR SELFCARE Time spent for discharge: 35 min Core Measure Documentation - Palliative Care Palliative Care/ Comfort Measures: Not Applicable - Core Measures Any of the following diagnoses?: none Exam - Physical Exam Narrative exam: Seen and examined: - Constitutional Vitals: Temp Pulse Resp BP Pulse Ox 98.3 F 76 16 124/78 99 10/31/16 16:30 10/31/16 16:30 10/31/16 16:30 10/31/16 16:30 10/31/16 08:53 General appearance: Present: no acute distress - EENT Eyes: Present: PERRL, EOM intact - Neck Neck: Present: supple, normal ROM. Absent: masses or JVD - Respiratory Respiratory effort: normal Respiratory: bilateral: CTA, negative: rhonchi, wheezing - Cardiovascular Rhythm: regular Heart Sounds: Present: S1 & S2. Absent: systolic murmur - Extremities Extremities: no ischemia - Abdominal General gastrointestinal: Present: soft, non-tender, non-distended, normal bowel sounds - Psychiatric Psychiatric: cooperative - Neurologic Neurologic: CNII-XII intact, no focal deficits Plan Activity: advance as tolerated Diet: low cholesterol, low salt, diabetic Follow up with: PRIMARY CARE, [Primary Care Provider] - 3-5 Days Prescriptions: Ambien 10 mg PO PRN #10 FLUoxetine 20 mg PO DAILY #30 HumaLOG Mix 75-25 Kwikpen 18 units SQ BID #1 Pregabalin [Lyrica] 75 mg PO BID #60 capsule Remeron 15 mg PO HS #30
== END 2016-10-31 21:20 | disposition home or self-care (01) | DRG 377 ==
LOC: ED 23:10 → CC1 10-29 03:05 → 3A 10-30 13:44
PROVIDERS: ADMIT Internal Medicine; ATTEND Internal Medicine
DX: K92.2 Gastrointestinal hemorrhage, unspecified (principal); E13.10 Other specified diabetes mellitus with ketoacidosis without coma; F32.9 Major depressive disorder, single episode, unspecified; Z87.19 Personal history of other diseases of the digestive system; Z83.3 Family history of diabetes mellitus; Z88.8 Allergy status to other drugs, medicaments and biological substances
CPT/HCPCS: 36415; 80048; 80053; 81001; 82010; 82805; 82962; 83690; 83735; 83930; 84100; 84703; 85014; 85018; 85025; 85027; 90732; 93005; 93010; 94760; 96374; 96375; 96376; 99285; C9113; J0360; J1815; J2405; J2765; J7030; J7040

== ENCOUNTER 2017-08-25 00:33 | Inpatient (IN) | payer OTHER ==
[2017-08-25 01:29] LABS: Basophils % (Auto) 0.4 % (0.0-1.8); Eosinophils % (Auto) 9.7 % (0.0-4.3); Hemoglobin 12.8 gm/dl (10.1-14.3); Lymphocytes # (Auto) 1.7 K/mm3 (1.2-5.4); Lymphocytes % (Auto) 15.8 % (13.4-35.0); Mean Corpuscular HGB Conc 35 % (30-34); Mean Corpuscular Hemoglobin 29 pg (28-32); Mean Corpuscular Volume 85 fl (79-97); Monocytes # (Auto) 0.6 K/mm3 (0.0-0.8); Monocytes % (Auto) 5.6 % (0.0-7.3); Platelet Count 248 K/mm3 (140-440); Red Blood Count 4.37 M/mm3 (3.65-5.03); Red Cell Distribution Width 13.2 % (13.2-15.2)
[2017-08-25 01:45] LABS: Alanine Aminotransferase 11 units/L (7-56); Albumin 4.4 g/dL (3.9-5); BUN/Creatinine Ratio 14; Blood Urea Nitrogen 7 mg/dL (7-17); Calcium 9.2 mg/dL (8.4-10.2); Hemolysis Index 5; Lipase 8 units/L (13-60)
[2017-08-25 02:45] LABS: Bacteria,Urine 1+ /HPF (Negative); Bilirubin,Urine NEG (Negative); Blood,Urine NEG (Negative); Color,Urine Yellow (Yellow); Mucus,Urine FEW /HPF; Protein,Urine <15 mg/dL mg/dL (Negative); Urobilinogen,Urine < 2.0 mg/dL (<2.0)
[2017-08-25] MEDS ORDERED: NACL 0.9% 1000 ML 1,000 ML IV ONE ×2 (04:58→06:24)
[2017-08-25] MEDS ORDERED: NACL 0.9% 1000 ML 1,000 ML ONE (04:58)
[2017-08-25] MEDS ORDERED: ZOFRAN IV ONE ×2 (04:58→06:23)
[2017-08-25] MEDS ORDERED: MORPHINE IV ONE ×2 (06:23→11:47)
--- NOTE | 2017-08-25 06:30 | Emergency Department Report ---
HPI - General Chief Complaint: Abdominal Pain Time Seen by Provider: 08/25/17 06:04 - HPI HPI: 46-year-old female presents with her children, who are translating, with a complaint of a 5-6 day history of some generalized abdominal discomfort along with nausea and vomiting. The patient has a past medical history of insulin- dependent diabetes and depression. She also appears to have a history of Helicobacter pylori in the past. No fever, dysuria, vaginal bleeding or discharge. She had not taken anything for her symptoms prior to presentation. She has a primary care physician but has not seen them regarding her symptoms. No recent travel or sick contacts at home. ED Past Medical Hx - Past Medical History Previous Medical History?: Yes Hx Diabetes: Yes Hx Psychiatric Treatment: Yes (Depression) Additional medical history: Helicobacter pylori (H. pylori) - Surgical History Past Surgical History?: No - Social History Smoking Status: Never Smoker Substance Use Type: None - Medications Home Medications: Home Medications Medication Instructions Recorded Confirmed Last Taken Type Ambien 10 mg PO PRN #10 10/31/16 08/25/17 Unknown Rx FLUoxetine 20 mg PO DAILY #30 10/31/16 08/25/17 Unknown Rx Pregabalin [Lyrica] 75 mg PO BID #60 capsule 10/31/16 08/25/17 Unknown Rx Remeron 15 mg PO HS #30 10/31/16 08/25/17 Unknown Rx ED Review of Systems ROS: Stated complaint: ABD PAIN Other details as noted in HPI Comment: All other systems reviewed and negative Constitutional: denies: chills, fever Eyes: denies: eye pain, eye discharge, vision change ENT: denies: ear pain, throat pain Respiratory: denies: cough, shortness of breath, wheezing Cardiovascular: denies: chest pain, palpitations Gastrointestinal: abdominal pain, nausea, vomiting Genitourinary: denies: urgency, dysuria, discharge Musculoskeletal: denies: back pain, joint swelling, arthralgia Skin: denies: rash, lesions Neurological: denies: headache, weakness, paresthesias Physical Exam - Physical Exam Vital Signs: Vital Signs 08/25/17 08/25/17 00:56 04:53 Temperature 98.6 F 98.2 F Pulse Rate 94 H 122 H Respiratory 14 22 Rate Blood Pressure 176/105 Blood Pressure 125/80 [Left] O2 Sat by Pulse 99 98 Oximetry Physical Exam: GENERAL: The patient is well-developed well-nourished. HENT: Normocephalic. Atraumatic. Patient has moist mucous membranes. EYES: Extraocular motions are intact. Pupils equal reactive to light bilaterally. NECK: Supple. Trachea is midline. CHEST/LUNGS: Clear to auscultation. There is no respiratory distress noted. HEART/CARDIOVASCULAR: Regular. There is no tachycardia. There is no murmur. ABDOMEN: Abdomen is soft. Mild generalized tenderness to palpation of the abdomen. No guarding. Patient has normal bowel sounds. There is no abdominal distention. SKIN: There is no rash. There is no edema. There is no diaphoresis. NEURO: The patient is awake, alert, and oriented. The patient is cooperative. The patient has no focal neurologic deficits. MUSCULOSKELETAL: There is no tenderness or deformity. There is no limitation range of motion. There is no evidence of acute injury. ED Course Vital Signs 08/25/17 08/25/17 00:56 04:53 Temperature 98.6 F 98.2 F Pulse Rate 94 H 122 H Respiratory 14 22 Rate Blood Pressure 176/105 Blood Pressure 125/80 [Left] O2 Sat by Pulse 99 98 Oximetry ED Medical Decision Making - Lab Data Result diagrams: 08/25/17 01:06 08/25/17 01:06 - Radiology Data Radiology results: report reviewed CT ABDOMEN PELVIS WITH CONTRAST: HISTORY: Generalized abdominal pain, nausea and vomiting. COMPARISON: none. TECHNIQUE: Helical CT in 1.25mm intervals following IV contrast. Sagittal and coronal reconstructions. FINDINGS: Lung bases: Normal. Liver: Normal. Biliary system: Normal. Pancreas: The pancreas is atrophic. No mass, pseudocyst or inflammatory changes. Spleen: Normal. Kidneys/ureters/bladder: The bladder is markedly distended. There is no obvious bladder mass or bladder wall thickening. Minimal bilateral hydronephrosis is also identified which is probably secondary to the distended bladder. The kidneys are unremarkable. There are a few tiny scattered renal cysts measuring less than 5 mm. No evidence for mass, nephrolithiasis or ureteral stone. Adrenal glands: Normal. Aorta: Normal. Intestines: Within normal limits given no oral contrast was administered. Appendix: Normal. Pelvic viscera: The uterus and ovaries are unremarkable. Ascites: None. Adenopathy: None. Musculoskeletal: Mild scoliosis is identified. No fracture or suspicious bony lesion. IMPRESSION: The bladder is markedly distended with minimal bilateral hydronephrosis. Consider bladder outlet obstruction. No evidence for cystitis or pyelonephritis. Transcribed By: TTR Dictated By: BELLE CONNOLLY JR, MD Electronically Authenticated By: BELLE CONNOLLY JR, MD Signed Date/Time: 08/25/17 7387 - Medical Decision Making 5 day history of nausea, vomiting and generalized abdominal pain. CT shows distended bladder without any hydronephrosis. We did a bladder scan and the patient has about 500 mL of urine retained in the bladder. The patient has been up multiple times to urinate. There may be some level of a bladder outlet obstruction but no signs of any mass, kidney stone. Urine does not show any signs of infection. Labs were mostly unremarkable. However the patient has received multiple doses of pain and nausea medications and still complains of discomfort and nausea with vomiting. For this reason the patient will be admitted to the hospital for further evaluation and treatment has been accepted for admission by the hospitalist service. I was asked earlier in the day to place admission bridging orders under Dr. Smith. - Differential Diagnosis gastroparesis, bowel obstruction, bladder outlet obstruction, UTI Critical Care Time: No Critical care attestation.: If time is entered above; I have spent that time in minutes in the direct care of this critically ill patient, excluding procedure time. ED Disposition Clinical Impression: Intractable abdominal pain Intractable nausea and vomiting Qualifiers: Vomiting type: unspecified Qualified Code(s): R11.2 - Nausea with vomiting, unspecified Hypertension Qualifiers: Hypertension type: essential hypertension Qualified Code(s): I10 - Essential ( primary) hypertension Disposition: OP ADMIT IP TO THIS HOSP Is pt being admited?: Yes Condition: Fair Time of Disposition: 08:53
[2017-08-25] MEDS ORDERED: REGLAN IV ONE ×2 (07:50→11:47)
--- NOTE | 2017-08-25 08:35 | Cat Scan Report ---
CT ABDOMEN PELVIS WITH CONTRAST: HISTORY: Generalized abdominal pain, nausea and vomiting. COMPARISON: none. TECHNIQUE: Helical CT in 1.25mm intervals following IV contrast. Sagittal and coronal reconstructions. FINDINGS: Lung bases: Normal. Liver: Normal. Biliary system: Normal. Pancreas: The pancreas is atrophic. No mass, pseudocyst or inflammatory changes. Spleen: Normal. Kidneys/ureters/bladder: The bladder is markedly distended. There is no obvious bladder mass or bladder wall thickening. Minimal bilateral hydronephrosis is also identified which is probably secondary to the distended bladder. The kidneys are unremarkable. There are a few tiny scattered renal cysts measuring less than 5 mm. No evidence for mass, nephrolithiasis or ureteral stone. Adrenal glands: Normal. Aorta: Normal. Intestines: Within normal limits given no oral contrast was administered. Appendix: Normal. Pelvic viscera: The uterus and ovaries are unremarkable. Ascites: None. Adenopathy: None. Musculoskeletal: Mild scoliosis is identified. No fracture or suspicious bony lesion. IMPRESSION: The bladder is markedly distended with minimal bilateral hydronephrosis. Consider bladder outlet obstruction. No evidence for cystitis or pyelonephritis.
[2017-08-25] MEDS: HEPARIN SUB-Q SCH ×2 (11:11→14:34)
[2017-08-25] MEDS ORDERED: MORPHINE ONE (11:48)
[2017-08-25] MEDS ORDERED: REGLAN ONE (11:48)
--- NOTE | 2017-08-25 12:15 | History and Physical Report ---
History of Present Illness Date of examination: 08/25/17 Date of admission: 08/25/17 08:55 Chief complaint: abd pain History of present illness: 46-year-old female presents with her children, who are translating, with a complaint of a 5-6 day history of some generalized abdominal discomfort along with nausea and vomiting. Patient reports that her symptoms began last Wednesday. Patient reports approximately 20 episodes of vomiting yesterday. Prior to yesterday, She reports 2-3 episodes of vomiting daily since Wednesday. The patient has a past medical history of insulin-dependent diabetes and depression. She also appears to have a history of Helicobacter pylori in the past. No fever, dysuria, vaginal bleeding or discharge. She had not taken anything for her symptoms prior to presentation. She has a primary care physician but has not seen them regarding her symptoms. No recent travel or sick contacts at home. Patient denies any fever or chills. No diarrhea. No headache or visual disturbance. No hematochezia or hematemesis. Past History Past Medical History: diabetes, other (depression, neuropathy) Past Surgical History: No surgical history Social history: no significant social history Family history: no significant family history Medications and Allergies Allergies Allergy/AdvReac Type Severity Reaction Status Date / Time caffeine Allergy Nausea Verified 10/28/16 23:18 Home Medications Medication Instructions Recorded Confirmed Last Taken Type Ambien 10 mg PO PRN #10 10/31/16 08/25/17 Unknown Rx FLUoxetine 20 mg PO DAILY #30 10/31/16 08/25/17 Unknown Rx Pregabalin [Lyrica] 75 mg PO BID #60 capsule 10/31/16 08/25/17 Unknown Rx Remeron 15 mg PO HS #30 10/31/16 08/25/17 Unknown Rx Active Meds: Active Medications Heparin Sodium (Porcine) (Heparin) 5,000 unit SUB-Q Q8HR WILMER Last Admin: 08/25/17 11:11 Dose: Not Given Review of Systems All systems: negative Exam - Constitutional Vitals: Temp Pulse Resp BP Pulse Ox 98.2 F 103 H 12 161/88 100 08/25/17 04:53 08/25/17 06:49 08/25/17 06:49 08/25/17 06:49 08/25/17 06:49 General appearance: Present: no acute distress, well-nourished - EENT Eyes: Present: PERRL ENT: hearing intact, clear oral mucosa - Neck Neck: Present: supple, normal ROM - Respiratory Respiratory effort: normal Respiratory: bilateral: CTA - Cardiovascular Heart Sounds: Present: S1 & S2. Absent: rub, click - Extremities Extremities: pulses symmetrical, No edema Peripheral Pulses: within normal limits - Abdominal General gastrointestinal: Present: soft, tender (LLQ mild), non-distended, normal bowel sounds Localized gastrointestinal: tender: LLQ (mild) Female genitourinary: Present: normal - Integumentary Integumentary: Present: clear, warm, dry - Musculoskeletal Musculoskeletal: gait normal, strength equal bilaterally - Psychiatric Psychiatric: appropriate mood/affect, intact judgment & insight - Neurologic Neurologic: CNII-XII intact, moves all extremities Results - Labs CBC & Chem 7: 08/25/17 01:06 08/25/17 01:06 Labs: Laboratory Last Values WBC 10.6 K/mm3 (4.5-11.0) 08/25/17 01:06 RBC 4.37 M/mm3 (3.65-5.03) 08/25/17 01:06 Hgb 12.8 gm/dl (10.1-14.3) 08/25/17 01:06 Hct 37.0 % (30.3-42.9) 08/25/17 01:06 MCV 85 fl (79-97) 08/25/17 01:06 MCH 29 pg (28-32) 08/25/17 01:06 MCHC 35 % (30-34) H 08/25/17 01:06 RDW 13.2 % (13.2-15.2) 08/25/17 01:06 Plt Count 248 K/mm3 (140-440) 08/25/17 01:06 Lymph % (Auto) 15.8 % (13.4-35.0) 08/25/17 01:06 [place] % (Auto) 5.6 % (0.0-7.3) 08/25/17 01:06 Eos % (Auto) 9.7 % (0.0-4.3) H 08/25/17 01:06 Baso % (Auto) 0.4 % (0.0-1.8) 08/25/17 01:06 Lymph # 1.7 K/mm3 (1.2-5.4) 08/25/17 01:06 [place] # 0.6 K/mm3 (0.0-0.8) 08/25/17 01:06 Eos # 1.0 K/mm3 (0.0-0.4) H 08/25/17 01:06 Baso # 0.0 K/mm3 (0.0-0.1) 08/25/17 01:06 Seg Neutrophils % 68.5 % (40.0-70.0) 08/25/17 01:06 Seg Neutrophils # 7.2 K/mm3 (1.8-7.7) 08/25/17 01:06 Sodium 136 mmol/L (137-145) L 08/25/17 01:06 Potassium 4.2 mmol/L (3.6-5.0) 08/25/17 01:06 Chloride 98.3 mmol/L (98-107) 08/25/17 01:06 Carbon Dioxide 26 mmol/L (22-30) 08/25/17 01:06 Anion Gap 16 mmol/L 08/25/17 01:06 BUN 7 mg/dL (7-17) 08/25/17 01:06 Creatinine 0.5 mg/dL (0.7-1.2) L 08/25/17 01:06 Estimated GFR > 60 ml/min 08/25/17 01:06 BUN/Creatinine Ratio 14 % 08/25/17 01:06 Glucose 161 mg/dL (65-100) H 08/25/17 01:06 POC Glucose 226 (70-105) H 08/25/17 11:59 Calcium 9.2 mg/dL (8.4-10.2) 08/25/17 01:06 Total Bilirubin 0.40 mg/dL (0.1-1.2) 08/25/17 01:06 AST 21 units/L (5-40) 08/25/17 01:06 ALT 11 units/L (7-56) 08/25/17 01:06 Alkaline Phosphatase 48 units/L (35-129) 08/25/17 01:06 Total Protein 7.5 g/dL (6.3-8.2) 08/25/17 01:06 Albumin 4.4 g/dL (3.9-5) 08/25/17 01:06 Albumin/Globulin Ratio 1.4 % 08/25/17 01:06 Lipase 8 units/L (13-60) L 08/25/17 01:06 Urine Color Yellow (Yellow) 08/25/17 Unknown Urine Turbidity Clear (Clear) 08/25/17 Unknown Urine pH 9.0 (5.0-7.0) H 08/25/17 Unknown Ur Specific [place] 1.010 (1.003-1.030) 08/25/17 Unknown Urine Protein <15 mg/dl mg/dL (Negative) 08/25/17 Unknown Urine Glucose (UA) 150 mg/dL (Negative) 08/25/17 Unknown Urine Ketones Neg mg/dL (Negative) 08/25/17 Unknown Urine Blood Neg (Negative) 08/25/17 Unknown Urine Nitrite Neg (Negative) 08/25/17 Unknown Urine Bilirubin Neg (Negative) 08/25/17 Unknown Urine Urobilinogen < 2.0 mg/dL (<2.0) 08/25/17 Unknown Ur Leukocyte Esterase Sm (Negative) 08/25/17 Unknown Urine WBC (Auto) 3.0 /HPF (0.0-6.0) 08/25/17 Unknown Urine RBC (Auto) 1.0 /HPF (0.0-6.0) 08/25/17 Unknown U Epithel Cells (Auto) 2.0 /HPF (0-13.0) 08/25/17 Unknown Urine Bacteria (Auto) 1+ /HPF (Negative) 08/25/17 Unknown Urine Mucus Few /HPF 08/25/17 Unknown Assessment and Plan Assessment and plan: Left lower quadrant abdominal pain. Etiology is unknown. CT scan is essentially negative. ? Gastroenteritis/colitis. Empiric antibiotics with Levaquin and Flagyl. Follow stool studies. Bladder outlet obstruction. CT scan reveals bilateral hydronephrosis but no mass or stone. Urology consultation. Agudelo ordered Peripheral neuropathy. Continue Lyrica. Depression. Continue fluoxetine.
[2017-08-25] MEDS ORDERED: D50W (25GM) Syringe IV PRN (12:25)
--- NOTE | 2017-08-25 14:00 | Progress Note ---
Assessment and Plan rosen clear keep rosen out pt w/u Subjective Date of service: 08/25/17 Principal diagnosis: urinary retention Objective - Constitutional Vitals: Vital Signs - 12hr 08/25/17 08/25/17 08/25/17 04:53 06:14 06:15 Temperature 98.2 F Pulse Rate 122 H 102 H 103 H Respiratory 22 Rate Blood Pressure Blood Pressure 125/80 [Left] O2 Sat by Pulse 98 89 100 Oximetry 08/25/17 08/25/17 08/25/17 06:49 07:01 07:15 Temperature Pulse Rate 103 H 102 H 106 H Respiratory 12 17 19 Rate Blood Pressure 161/88 178/88 177/98 Blood Pressure [Left] O2 Sat by Pulse 100 100 100 Oximetry 08/25/17 08/25/17 08/25/17 07:30 07:45 08:17 Temperature Pulse Rate 107 H Respiratory 19 Rate Blood Pressure 185/90 185/90 185/90 Blood Pressure [Left] O2 Sat by Pulse 100 100 100 Oximetry 08/25/17 08/25/17 08/25/17 08:30 08:45 09:00 Temperature Pulse Rate Respiratory Rate Blood Pressure 193/108 185/90 175/96 Blood Pressure [Left] O2 Sat by Pulse 100 100 100 Oximetry 08/25/17 08/25/17 08/25/17 09:15 09:30 09:46 Temperature Pulse Rate Respiratory Rate Blood Pressure 175/96 175/96 Blood Pressure [Left] O2 Sat by Pulse 100 99 99 Oximetry 08/25/17 08/25/17 08/25/17 10:00 10:16 10:30 Temperature Pulse Rate Respiratory Rate Blood Pressure 173/101 173/101 173/101 Blood Pressure [Left] O2 Sat by Pulse 100 100 99 Oximetry 08/25/17 08/25/17 08/25/17 10:46 11:00 11:16 Temperature Pulse Rate 120 H Respiratory Rate Blood Pressure 153/86 173/93 173/93 Blood Pressure [Left] O2 Sat by Pulse 100 99 100 Oximetry 08/25/17 08/25/17 08/25/17 11:30 11:46 12:00 Temperature Pulse Rate Respiratory Rate Blood Pressure 172/101 172/101 172/101 Blood Pressure [Left] O2 Sat by Pulse 98 100 100 Oximetry 08/25/17 08/25/17 08/25/17 12:16 12:30 12:32 Temperature 99.2 F Pulse Rate 76 Respiratory Rate Blood Pressure 158/95 158/95 Blood Pressure [Left] O2 Sat by Pulse 96 97 Oximetry 08/25/17 08/25/17 08/25/17 12:40 12:50 13:00 Temperature Pulse Rate Respiratory Rate Blood Pressure 158/95 158/95 158/95 Blood Pressure [Left] O2 Sat by Pulse 97 97 97 Oximetry 08/25/17 08/25/17 13:10 13:27 Temperature 98.3 F Pulse Rate 103 H Respiratory 18 Rate Blood Pressure 158/95 116/74 Blood Pressure [Left] O2 Sat by Pulse 98 98 Oximetry General appearance: Present: no acute distress - Neck Neck: supple - Respiratory Respiratory effort: normal Extremities: no ischemia - Gastrointestinal General gastrointestinal: Present: soft, non-tender - Genitourinary Female genitourinary: normal - Labs CBC & Chem 7: 08/25/17 01:06 08/25/17 01:06 Labs: Abnormal lab results 08/25/17 08/25/17 08/25/17 Range/Units 01:06 01:06 04:56 MCHC 35 H (30-34) % Eos % (Auto) 9.7 H (0.0-4.3) % Eos # 1.0 H (0.0-0.4) K/mm3 Sodium 136 L (137-145) mmol/L Creatinine 0.5 L (0.7-1.2) mg/dL Glucose 161 H (65-100) mg/dL POC Glucose 218 H (70-105) Lipase 8 L (13-60) units/L Urine pH (5.0-7.0) 08/25/17 08/25/17 Range/Units 11:59 Unknown MCHC (30-34) % Eos % (Auto) (0.0-4.3) % Eos # (0.0-0.4) K/mm3 Sodium (137-145) mmol/L Creatinine (0.7-1.2) mg/dL Glucose (65-100) mg/dL POC Glucose 226 H (70-105) Lipase (13-60) units/L Urine pH 9.0 H (5.0-7.0)
[2017-08-25] MEDS: HumuLIN R SUB-Q SCH ×2 (17:32→21:58)
--- NOTE | 2017-08-25 21:36 | Consultation ---
HISTORY OF PRESENT ILLNESS: The patient is a 46-year-old woman who has a history of diabetes and depression who has lost about 50-60 pounds and has been having vomiting and abdominal pain. She was found to have urinary retention. Agudelo catheter was placed. Her creatinine is normal. She has no history in the past. She had a CT scan of the abdomen and pelvis, which showed a very distended bladder, tiny renal cysts, and urological consultation was obtained for urinary retention in a woman with a progressive weight loss, depression, and diabetes. PAST MEDICAL HISTORY: As mentioned above. PAST SURGICAL HISTORY: Denied surgery. ALLERGIES: No known drug allergies. SOCIAL HISTORY: Negative. FAMILY HISTORY: Negative. REVIEW OF SYSTEMS: Severe weight loss and weakness. PHYSICAL EXAMINATION: GENERAL: She is awake. She is in no distress. ABDOMEN: Soft, nondistended. She is much more comfortable after the bladder was drained. No guarding or rebound. PELVIC: No localized masses. We had two female medical students in the room with me. IMPRESSION: Hypertension, diabetes, depression, severe weight loss, urinary retention. She is on Lyrica, Remeron, Paxil, and Ambien, perhaps that is related, but severe weight loss. She has had GI workup. PLAN: Leave catheter. Follow up urodynamics as an outpatient. JOB# [id number] HECTOR/ARTUR
[2017-08-25] MEDS: ZOFRAN IV PRN (21:59)
[2017-08-25] MEDS: SODIUM CHLORIDE FLUSH SYRINGE 10 ML IV SCH (21:59)
[2017-08-26] MEDS: ZOFRAN IV PRN ×3 (05:47→22:21)
[2017-08-26] MEDS: HumuLIN R SUB-Q SCH ×4 (09:17→22:28)
[2017-08-26] MEDS: LOVENOX SUB-Q SCH (09:34)
[2017-08-26] MEDS: SODIUM CHLORIDE FLUSH SYRINGE 10 ML IV SCH ×2 (09:35→22:21)
[2017-08-26 09:43] LABS: Basophils % (Auto) 0.3 % (0.0-1.8); Eosinophils # (Auto) 0.4 K/mm3 (0.0-0.4); Hematocrit 34.4 % (30.3-42.9); Lymphocytes # (Auto) 1.7 K/mm3 (1.2-5.4); Lymphocytes % (Auto) 16.7 % (13.4-35.0); Mean Corpuscular HGB Conc 35 % (30-34); Mean Corpuscular Hemoglobin 30 pg (28-32); Mean Corpuscular Volume 85 fl (79-97); Monocytes # (Auto) 0.5 K/mm3 (0.0-0.8); Monocytes % (Auto) 5.4 % (0.0-7.3); Platelet Count 226 K/mm3 (140-440); Red Blood Count 4.03 M/mm3 (3.65-5.03); Red Cell Distribution Width 13.3 % (13.2-15.2)
[2017-08-26] MEDS ORDERED: LOVENOX SUB-Q SCH (10:00)
[2017-08-26 10:06] LABS: BUN/Creatinine Ratio 26; Blood Urea Nitrogen 13 mg/dL (7-17); Calcium 8.5 mg/dL (8.4-10.2); Hemolysis Index 5
--- NOTE | 2017-08-26 12:47 | Discharge Summary ---
<PATTI INFANTE - Last Filed: 08/26/17 12:41> Providers - Providers Date of Admission: 08/25/17 08:55 Date of discharge: 08/26/17 Attending physician: LEV FARLEY 08/25/17 12:22 Consult to Physician [CONS] Routine Comment: Consulting Provider: HALEY MONIQUE Physician Instructions: Reason For Exam: MARIE Primary care physician: CORN CROP SUPERVISOR Hospitalization Hospital course: 46-year-old female presents with her children, who are translating, with a complaint of a 5-6 day history of some generalized abdominal discomfort along with nausea and vomiting. Patient reports that her symptoms began last Wednesday. Patient reports approximately 20 episodes of vomiting yesterday. Prior to yesterday, She reports 2-3 episodes of vomiting daily since Wednesday. The patient has a past medical history of insulin-dependent diabetes and depression. She also appears to have a history of Helicobacter pylori in the past. No fever, dysuria, vaginal bleeding or discharge. She had not taken anything for her symptoms prior to presentation. She has a primary care physician but has not seen them regarding her symptoms. No recent travel or sick contacts at home. Patient denies any fever or chills. No diarrhea. No headache or visual disturbance. No hematochezia or hematemesis. CT scan revealed The bladder is markedly distended with minimal bilateral hydronephrosis. No evidence for cystitis or pyelonephritis. Urologist was consulted and recommends that patient be discharged with Agudelo and follow-up for outpatient workup.. Patient was initiated on empiric antibiotics with Levaquin and Flagyl after which she began to clinically improve. Patient was clinically and hemodynamically stable for discharge. She will follow-up with Dr. Monique within 1 week of discharge. She will also follow- up with her primary care provider within 5 days of discharge. Discharge diagnoses Left lower quadrant abdominal pain Bladder outlet obstruction Peripheral neuropathy Depression Disposition: -01 TO HOME OR SELFCARE Time spent for discharge: 25 minutes Core Measure Documentation - Palliative Care Palliative Care/ Comfort Measures: Not Applicable - Core Measures Any of the following diagnoses?: none Exam - Physical Exam Narrative exam: - EENT Eyes: Present: PERRL, EOM intact ENT: hearing intact, clear oral mucosa - Neck Present: supple, normal ROM - Respiratory Respiratory effort: normal Respiratory: bilateral: CTA - Cardiovascular Rhythm: regular Heart Sounds: Present: S1 & S2. Absent: Rub, click - Extremities Extremities: no ischemia, No edema - Abdominal General gastrointestinal: soft, non-tender, non-distended, normal bowel sounds - Integumentary Integumentary: Present: clear, warm, dry - Psychiatric Psychiatric: appropriate mood/affect, intact judgment & insight, cooperative - Neurologic Neurologic: CNII-XII intact, moves all extremitiesit was - Constitutional Vitals: Temp Pulse Resp BP Pulse Ox 98.1 F 92 H 18 119/78 98 08/26/17 12:00 08/26/17 12:26 08/26/17 12:26 08/26/17 12:26 08/26/17 12:26 Plan Follow up with: MIGUEL VERDUZCO MD [Primary Care Provider] - 3-5 Days HALEY MONIQUE MD [Staff Physician] - 7 Days <LEV FARLEY - Last Filed: 08/27/17 07:46> Providers - Providers Date of Admission: 08/25/17 08:55 Attending physician: LEV FARLEY 08/25/17 12:22 Consult to Physician [CONS] Routine Comment: Consulting Provider: HALEY MONIQUE Physician Instructions: Reason For Exam: MARIE 08/26/17 15:13 Consult to Physician [CONS] Routine Comment: Consulting Provider: WILMAR ARCINIEGA Physician Instructions: Reason For Exam: intractable NV Primary care physician: CORN CROP SUPERVISOR Hospitalization Hospital course: I saw and evaluated the patient. I agree with the findings and the plan of care as documented in the Nurse Practitioner's~note, with the following corrections and additions. Time spent for discharge: 32 minutes Exam - Constitutional Vitals: Temp Pulse Resp BP Pulse Ox 98.4 F 124 H 20 165/104 97 08/27/17 04:50 08/27/17 04:50 08/27/17 04:50 08/27/17 04:50 08/27/17 04:50
--- NOTE | 2017-08-26 15:18 | Progress Note ---
Assessment and Plan Assessment and plan: 46-year-old female presents with her children, who are translating, with a complaint of a 5-6 day history of some generalized abdominal discomfort along with nausea and vomiting. Patient reports that her symptoms began last Wednesday. Intractable nausea vomiting. Reglan when necessary. GI consulted Left lower quadrant abdominal pain. Etiology is unknown. CT scan is essentially negative. ? Gastroenteritis/colitis. Empiric antibiotics with Levaquin and Flagyl. Follow stool studies. Bladder outlet obstruction. CT scan reveals bilateral hydronephrosis but no mass or stone. Urology following. Recommend outpatient follow-up Peripheral neuropathy. Continue Lyrica. Depression. Continue fluoxetine. History Interval history: Patient seen and examined. She continues to complain of abdominal pain nausea and vomiting. No other new complaints at this time. Labs and nursing notes reviewed. Hospitalist Physical - Physical exam Narrative exam: - EENT Eyes: Present: PERRL, EOM intact ENT: hearing intact, clear oral mucosa - Neck Present: supple, normal ROM - Respiratory Respiratory effort: normal Respiratory: bilateral: CTA - Cardiovascular Rhythm: regular Heart Sounds: Present: S1 & S2. Absent: Rub, click - Extremities Extremities: no ischemia, No edema - Abdominal General gastrointestinal: soft, non-tender, non-distended, normal bowel sounds, TTP - Integumentary Integumentary: Present: clear, warm, dry - Psychiatric Psychiatric: appropriate mood/affect, intact judgment & insight, cooperative - Neurologic Neurologic: CNII-XII intact, moves all extremities - Constitutional Vitals: Temp Pulse Resp BP Pulse Ox 98.1 F 92 H 18 119/78 98 08/26/17 12:00 08/26/17 12:26 08/26/17 12:26 08/26/17 12:26 08/26/17 12:26 General appearance: Present: no acute distress Results - Labs CBC & Chem 7: 08/26/17 09:10 08/26/17 09:10 Labs: Laboratory Last Values WBC 10.0 K/mm3 (4.5-11.0) 08/26/17 09:10 RBC 4.03 M/mm3 (3.65-5.03) 08/26/17 09:10 Hgb 12.0 gm/dl (10.1-14.3) 08/26/17 09:10 Hct 34.4 % (30.3-42.9) 08/26/17 09:10 MCV 85 fl (79-97) 08/26/17 09:10 MCH 30 pg (28-32) 08/26/17 09:10 MCHC 35 % (30-34) H 08/26/17 09:10 RDW 13.3 % (13.2-15.2) 08/26/17 09:10 Plt Count 226 K/mm3 (140-440) 08/26/17 09:10 Lymph % (Auto) 16.7 % (13.4-35.0) 08/26/17 09:10 [place] % (Auto) 5.4 % (0.0-7.3) 08/26/17 09:10 Eos % (Auto) 4.0 % (0.0-4.3) 08/26/17 09:10 Baso % (Auto) 0.3 % (0.0-1.8) 08/26/17 09:10 Lymph # 1.7 K/mm3 (1.2-5.4) 08/26/17 09:10 [place] # 0.5 K/mm3 (0.0-0.8) 08/26/17 09:10 Eos # 0.4 K/mm3 (0.0-0.4) 08/26/17 09:10 Baso # 0.0 K/mm3 (0.0-0.1) 08/26/17 09:10 Seg Neutrophils % 73.6 % (40.0-70.0) H 08/26/17 09:10 Seg Neutrophils # 7.3 K/mm3 (1.8-7.7) 08/26/17 09:10 Sodium 134 mmol/L (137-145) L 08/26/17 09:10 Potassium 3.7 mmol/L (3.6-5.0) 08/26/17 09:10 Chloride 96.2 mmol/L (98-107) L 08/26/17 09:10 Carbon Dioxide 22 mmol/L (22-30) 08/26/17 09:10 Anion Gap 20 mmol/L 08/26/17 09:10 BUN 13 mg/dL (7-17) 08/26/17 09:10 Creatinine 0.5 mg/dL (0.7-1.2) L 08/26/17 09:10 Estimated GFR > 60 ml/min 08/26/17 09:10 BUN/Creatinine Ratio 26 % 08/26/17 09:10 Glucose 189 mg/dL (65-100) H 08/26/17 09:10 POC Glucose 184 (70-105) H 08/26/17 11:18 Calcium 8.5 mg/dL (8.4-10.2) 08/26/17 09:10 Total Bilirubin 0.40 mg/dL (0.1-1.2) 08/25/17 01:06 AST 21 units/L (5-40) 08/25/17 01:06 ALT 11 units/L (7-56) 08/25/17 01:06 Alkaline Phosphatase 48 units/L (35-129) 08/25/17 01:06 Total Protein 7.5 g/dL (6.3-8.2) 08/25/17 01:06 Albumin 4.4 g/dL (3.9-5) 08/25/17 01:06 Albumin/Globulin Ratio 1.4 % 08/25/17 01:06 Lipase 8 units/L (13-60) L 08/25/17 01:06 Urine Color Yellow (Yellow) 08/25/17 Unknown Urine Turbidity Clear (Clear) 08/25/17 Unknown Urine pH 9.0 (5.0-7.0) H 08/25/17 Unknown Ur Specific [place] 1.010 (1.003-1.030) 08/25/17 Unknown Urine Protein <15 mg/dl mg/dL (Negative) 08/25/17 Unknown Urine Glucose (UA) 150 mg/dL (Negative) 08/25/17 Unknown Urine Ketones Neg mg/dL (Negative) 08/25/17 Unknown Urine Blood Neg (Negative) 08/25/17 Unknown Urine Nitrite Neg (Negative) 08/25/17 Unknown Urine Bilirubin Neg (Negative) 08/25/17 Unknown Urine Urobilinogen < 2.0 mg/dL (<2.0) 08/25/17 Unknown Ur Leukocyte Esterase Sm (Negative) 08/25/17 Unknown Urine WBC (Auto) 3.0 /HPF (0.0-6.0) 08/25/17 Unknown Urine RBC (Auto) 1.0 /HPF (0.0-6.0) 08/25/17 Unknown U Epithel Cells (Auto) 2.0 /HPF (0-13.0) 08/25/17 Unknown Urine Bacteria (Auto) 1+ /HPF (Negative) 08/25/17 Unknown Urine Mucus Few /HPF 08/25/17 Unknown
[2017-08-26] MEDS: REGLAN IV PRN ×2 (15:28→23:43)
[2017-08-26] MEDS: SODIUM CHLORIDE FLUSH SYRINGE 10 ML IV PRN (15:29)
[2017-08-26] MEDS: LEVAQUIN 750MG/150ML 750 MG/150 ML BAG IV SCH (15:45)
[2017-08-26] MEDS: TYLENOL PO PRN (23:51)
[2017-08-27] MEDS: ZOFRAN IV PRN ×2 (04:53→20:00)
[2017-08-27] MEDS: HumuLIN R SUB-Q SCH ×4 (08:23→22:16)
--- NOTE | 2017-08-27 09:54 | Gastroenterology Consultation ---
<LARISSA RIVERO - Last Filed: 08/27/17 10:08> History of Present Illness - Reason for Consult Consult date: 08/27/17 intractable N/V Requesting physician: PATTI INFANTE - History of Present Illness Patient is a 46 y/o female with PMH of DM and depression who presented to ED with c/o generalized abdominal discomfort associated with intractable N/V since last Wednesday to which GI has been consulted. Abd CT revealed bilateral hydronephrosis but otherwise unremarkable. This morning patient was resting in bed w/o acute distress but ill appearing with continued c/o N/V with multiple episodes this am. No hematemesis. Denies fever, wt loss, CP, SOB, dysphagia, odynophagia, melena, diarrhea, constipation, or hematochezia. Last BM 4 days ago. No NSAID use. Admits to a previous hx of H.pylori but is unsure if she has every had a peptic ulcer or previous EGD. No abdominal surgeries. No recent travel or ill contacts. Past History Past Medical History: diabetes, other (depression, neuropathy) Past Surgical History: No surgical history Social history: no significant social history Family history: no significant family history Medications and Allergies Allergies Allergy/AdvReac Type Severity Reaction Status Date / Time caffeine Allergy Nausea Verified 10/28/16 23:18 Home Medications Medication Instructions Recorded Confirmed Last Taken Type Ambien 10 mg PO PRN #10 10/31/16 08/25/17 Unknown Rx FLUoxetine 20 mg PO DAILY #30 10/31/16 08/25/17 Unknown Rx Pregabalin [Lyrica] 75 mg PO BID #60 capsule 10/31/16 08/25/17 Unknown Rx Remeron 15 mg PO HS #30 10/31/16 08/25/17 Unknown Rx Active Meds: Active Medications Acetaminophen (Tylenol) 650 mg PO Q4H PRN PRN Reason: Pain MILD(1-3)/Fever >100.5/BUTCHER Last Admin: 08/26/17 23:51 Dose: 650 mg Dextrose (D50w (25gm) Syringe) 50 ml IV PRN PRN PRN Reason: Hypoglycemia Enoxaparin Sodium (Lovenox) 40 mg SUB-Q QDAY@1000 WILMER Last Admin: 08/26/17 09:34 Dose: 40 mg Levofloxacin/Dextrose (Levaquin 750mg/150ml) 750 mg in 150 mls @ 100 mls/hr IV Q24HR [facility]; Protocol Last Admin: 08/26/17 15:45 Dose: 100 mls/hr Insulin Human Regular (Humulin R) 0 units SUB-Q ACHS [facility]; Protocol Last Admin: 08/27/17 08:23 Dose: Not Given Metoclopramide HCl (Reglan) 10 mg IV Q6H PRN PRN Reason: Nausea And Vomiting Last Admin: 08/26/17 23:43 Dose: 10 mg Ondansetron HCl (Zofran) 4 mg IV Q8H PRN PRN Reason: Nausea And Vomiting Last Admin: 08/27/17 04:53 Dose: 4 mg Sodium Chloride (Sodium Chloride Flush Syringe 10 Ml) 10 ml IV BID WILMER Last Admin: 08/26/17 22:21 Dose: 10 ml Sodium Chloride (Sodium Chloride Flush Syringe 10 Ml) 10 ml IV PRN PRN PRN Reason: LINE FLUSH Last Admin: 08/26/17 15:29 Dose: 10 ml Review of Systems - Review of Systems All systems: negative Gastrointestinal: abdominal pain, nausea, vomiting Exam - Constitutional Vital Signs: Temp Pulse Resp BP Pulse Ox 97.8 F 124 H 20 189/111 100 08/27/17 07:33 08/27/17 08:30 08/27/17 07:33 08/27/17 07:33 08/27/17 07:33 General appearance: no acute distress, other (ill appearing) - EENT Eyes: PERRL, EOM intact ENT: hearing intact - Respiratory Respiratory: bilateral: CTA - Cardiovascular Rhythm: other (tachycardia) Heart Sounds: Present: S1 & S2 - Gastrointestinal General gastrointestinal: Present: soft, non-tender, non-distended, normal bowel sounds - Neurologic Neurological: alert and oriented x3 - Labs CBC & Chem 7: 08/26/17 09:10 08/26/17 09:10 Lab Results: Laboratory Results - last 24 hr 08/26/17 08/26/17 08/26/17 09:10 11:18 15:23 Sodium 134 L Potassium 3.7 Chloride 96.2 L Carbon Dioxide 22 Anion Gap 20 BUN 13 Creatinine 0.5 L Estimated GFR > 60 BUN/Creatinine Ratio 26 Glucose 189 H POC Glucose 184 H 180 H Calcium 8.5 08/26/17 08/27/17 22:21 06:30 Sodium Potassium Chloride Carbon Dioxide Anion Gap BUN Creatinine Estimated GFR BUN/Creatinine Ratio Glucose POC Glucose 197 H 205 H Calcium Assessment and Plan 1.intractable N/V 2.generalized abd discomfort 3.h/o H/pylori 4.DM 4.neuropathy 5.depression 6.Bladder outlet obstruction?- urology following -afebrile -WBC, lipase, and LFTs- WNL -abd CT revealed bilateral hydronephrosis but otherwise unremarkable -etiology unclear- possible gastroenteritis vs gastroparesis vs other -will schedule for an EGD today to r/o GOO vs ulcer vs other GI pathology -if negative, consider GES -Keep NPO -start on daily PPI -limit narcotics -continue antiemetics and supportive care -will follow <JAN FARAH - Last Filed: 08/27/17 12:34> Medications and Allergies Active Meds: Active Medications Acetaminophen (Tylenol) 650 mg PO Q4H PRN PRN Reason: Pain MILD(1-3)/Fever >100.5/BUTCHER Last Admin: 08/26/17 23:51 Dose: 650 mg Dextrose (D50w (25gm) Syringe) 50 ml IV PRN PRN PRN Reason: Hypoglycemia Enoxaparin Sodium (Lovenox) 40 mg SUB-Q QDAY@1000 WILMER Last Admin: 08/27/17 10:02 Dose: Not Given Levofloxacin/Dextrose (Levaquin 750mg/150ml) 750 mg in 150 mls @ 100 mls/hr IV Q24HR [facility]; Protocol Last Admin: 08/27/17 10:02 Dose: 100 mls/hr Insulin Human Regular (Humulin R) 0 units SUB-Q ACHS [facility]; Protocol Last Admin: 08/27/17 08:23 Dose: Not Given Metoclopramide HCl (Reglan) 10 mg IV Q6H PRN PRN Reason: Nausea And Vomiting Last Admin: 08/27/17 10:02 Dose: 10 mg Ondansetron HCl (Zofran) 4 mg IV Q8H PRN PRN Reason: Nausea And Vomiting Last Admin: 08/27/17 04:53 Dose: 4 mg Pantoprazole Sodium (Protonix) 40 mg IV QDAY WILMER Sodium Chloride (Sodium Chloride Flush Syringe 10 Ml) 10 ml IV BID [facility] Last Admin: 08/27/17 10:03 Dose: 10 ml Sodium Chloride (Sodium Chloride Flush Syringe 10 Ml) 10 ml IV PRN PRN PRN Reason: LINE FLUSH Last Admin: 08/26/17 15:29 Dose: 10 ml Exam - Constitutional Vital Signs: Temp Pulse Resp BP Pulse Ox 98.5 F 115 H 16 186/111 99 08/27/17 10:58 08/27/17 10:58 08/27/17 10:58 08/27/17 10:58 08/27/17 10:58 - Labs CBC & Chem 7: 08/26/17 09:10 08/26/17 09:10 Lab Results: Laboratory Results - last 24 hr 08/26/17 08/26/17 08/27/17 15:23 22:21 06:30 POC Glucose 180 H 197 H 205 H 08/27/17 11:09 POC Glucose 253 H Assessment and Plan Patient seen and examined. Agree with note above. Patient with suprapubic pain and intractable n/v. h/o diabetes. ct with distended bladder, has rosen in place. will plan egd to r/o goo or other ugi pathology. recommend urology evaluation given ct findings and pt's location of pain.
[2017-08-27] MEDS: LOVENOX SUB-Q SCH (10:02)
[2017-08-27] MEDS: REGLAN IV PRN ×2 (10:02→17:35)
[2017-08-27] MEDS: LEVAQUIN 750MG/150ML 750 MG/150 ML BAG IV SCH (10:02)
[2017-08-27] MEDS: SODIUM CHLORIDE FLUSH SYRINGE 10 ML IV SCH (10:03)
--- NOTE | 2017-08-27 10:54 | Progress Note ---
Assessment and Plan Assessment and plan: 46-year-old female presents with her children, who are translating, with a complaint of a 5-6 day history of some generalized abdominal discomfort along with nausea and vomiting. Patient reports that her symptoms began last Wednesday. Intractable nausea vomiting. Reglan when necessary, nothing by mouth for now. GI following, plan for EGD today Hypertension. Catapres TTP, Labetolol PRN Left lower quadrant abdominal pain. Etiology is unknown. CT scan is essentially negative. ? Gastroenteritis/colitis/gastroparesis. Empiric antibiotics with Levaquin and Flagyl. Follow stool studies. Diabetes type 2 ADA diet, sliding scale insulin, Accu-Cheks before meals and at bedtime Bladder outlet obstruction. CT scan reveals bilateral hydronephrosis but no mass or stone. Urology following. Recommend outpatient follow-up Peripheral neuropathy. Continue Lyrica. Depression. Continue fluoxetine. DVT prophylaxis. Lovenox History Interval history: Patient seen and examined. She continues to complain of abdominal pain nausea and vomiting. No other new complaints at this time. Labs and nursing notes reviewed. Hospitalist Physical - Physical exam Narrative exam: - EENT Eyes: Present: PERRL, EOM intact ENT: hearing intact, clear oral mucosa - Neck Present: supple, normal ROM - Respiratory Respiratory effort: normal Respiratory: bilateral: CTA - Cardiovascular Rhythm: regular Heart Sounds: Present: S1 & S2. Absent: Rub, click - Extremities Extremities: no ischemia, No edema - Abdominal General gastrointestinal: soft, non-tender, non-distended, normal bowel sounds, TTP - Integumentary Integumentary: Present: clear, warm, dry - Psychiatric Psychiatric: appropriate mood/affect, intact judgment & insight, cooperative - Neurologic Neurologic: CNII-XII intact, moves all extremities - Constitutional Vitals: Temp Pulse Resp BP Pulse Ox 97.8 F 124 H 20 189/111 100 08/27/17 07:33 08/27/17 08:30 08/27/17 07:33 08/27/17 07:33 08/27/17 07:33 General appearance: Present: mild distress Results - Labs CBC & Chem 7: 08/26/17 09:10 08/26/17 09:10 Labs: Laboratory Last Values WBC 10.0 K/mm3 (4.5-11.0) 08/26/17 09:10 RBC 4.03 M/mm3 (3.65-5.03) 08/26/17 09:10 Hgb 12.0 gm/dl (10.1-14.3) 08/26/17 09:10 Hct 34.4 % (30.3-42.9) 08/26/17 09:10 MCV 85 fl (79-97) 08/26/17 09:10 MCH 30 pg (28-32) 08/26/17 09:10 MCHC 35 % (30-34) H 08/26/17 09:10 RDW 13.3 % (13.2-15.2) 08/26/17 09:10 Plt Count 226 K/mm3 (140-440) 08/26/17 09:10 Lymph % (Auto) 16.7 % (13.4-35.0) 08/26/17 09:10 [place] % (Auto) 5.4 % (0.0-7.3) 08/26/17 09:10 Eos % (Auto) 4.0 % (0.0-4.3) 08/26/17 09:10 Baso % (Auto) 0.3 % (0.0-1.8) 08/26/17 09:10 Lymph # 1.7 K/mm3 (1.2-5.4) 08/26/17 09:10 [place] # 0.5 K/mm3 (0.0-0.8) 08/26/17 09:10 Eos # 0.4 K/mm3 (0.0-0.4) 08/26/17 09:10 Baso # 0.0 K/mm3 (0.0-0.1) 08/26/17 09:10 Seg Neutrophils % 73.6 % (40.0-70.0) H 08/26/17 09:10 Seg Neutrophils # 7.3 K/mm3 (1.8-7.7) 08/26/17 09:10 Sodium 134 mmol/L (137-145) L 08/26/17 09:10 Potassium 3.7 mmol/L (3.6-5.0) 08/26/17 09:10 Chloride 96.2 mmol/L (98-107) L 08/26/17 09:10 Carbon Dioxide 22 mmol/L (22-30) 08/26/17 09:10 Anion Gap 20 mmol/L 08/26/17 09:10 BUN 13 mg/dL (7-17) 08/26/17 09:10 Creatinine 0.5 mg/dL (0.7-1.2) L 08/26/17 09:10 Estimated GFR > 60 ml/min 08/26/17 09:10 BUN/Creatinine Ratio 26 % 08/26/17 09:10 Glucose 189 mg/dL (65-100) H 08/26/17 09:10 POC Glucose 205 (70-105) H 08/27/17 06:30 Calcium 8.5 mg/dL (8.4-10.2) 08/26/17 09:10 Total Bilirubin 0.40 mg/dL (0.1-1.2) 08/25/17 01:06 AST 21 units/L (5-40) 08/25/17 01:06 ALT 11 units/L (7-56) 08/25/17 01:06 Alkaline Phosphatase 48 units/L (35-129) 08/25/17 01:06 Total Protein 7.5 g/dL (6.3-8.2) 08/25/17 01:06 Albumin 4.4 g/dL (3.9-5) 08/25/17 01:06 Albumin/Globulin Ratio 1.4 % 08/25/17 01:06 Lipase 8 units/L (13-60) L 08/25/17 01:06 Urine Color Yellow (Yellow) 08/25/17 Unknown Urine Turbidity Clear (Clear) 08/25/17 Unknown Urine pH 9.0 (5.0-7.0) H 08/25/17 Unknown Ur Specific [place] 1.010 (1.003-1.030) 08/25/17 Unknown Urine Protein <15 mg/dl mg/dL (Negative) 08/25/17 Unknown Urine Glucose (UA) 150 mg/dL (Negative) 08/25/17 Unknown Urine Ketones Neg mg/dL (Negative) 08/25/17 Unknown Urine Blood Neg (Negative) 08/25/17 Unknown Urine Nitrite Neg (Negative) 08/25/17 Unknown Urine Bilirubin Neg (Negative) 08/25/17 Unknown Urine Urobilinogen < 2.0 mg/dL (<2.0) 08/25/17 Unknown Ur Leukocyte Esterase Sm (Negative) 08/25/17 Unknown Urine WBC (Auto) 3.0 /HPF (0.0-6.0) 08/25/17 Unknown Urine RBC (Auto) 1.0 /HPF (0.0-6.0) 08/25/17 Unknown U Epithel Cells (Auto) 2.0 /HPF (0-13.0) 08/25/17 Unknown Urine Bacteria (Auto) 1+ /HPF (Negative) 08/25/17 Unknown Urine Mucus Few /HPF 08/25/17 Unknown
[2017-08-27] MEDS: PROTONIX IV SCH (12:00)
[2017-08-27] MEDS ORDERED: WATER FOR IRRIG STERILE IR ONE (12:27)
[2017-08-27] MEDS ORDERED: DIPRIVAN 10 MG/ML IV ONE (12:39)
--- NOTE | 2017-08-27 12:39 | Anesthesia Consultation ---
Anesthesia Consult and Med Hx Date of service: 08/27/17 - Airway Anesthetic Teeth Evaluation: Good ROM Head & Neck: Adequate Mental/Hyoid Distance: Adequate Mallampati Class: Class III Intubation Access Assessment: Possibly Difficult - Pulmonary Exam CTA: Yes - Cardiac Exam Cardiac Exam: RRR - Pre-Operative Health Status ASA Pre-Surgery Classification: ASA2 Proposed Anesthetic Plan: MAC - Pre-Anesthesia Comment Pre-Anesthesia Comments: DM, periphreal neuropathy, N&V - Endocrine Hx Non-Insulin Dependent Diabetes: Yes - Additional Comments Anesthesia Medical History Comments: elevated BP, labetalol given
[2017-08-27] MEDS ORDERED: ZOFRAN ONE (12:42)
[2017-08-27] MEDS ORDERED: PEPCID IV ONE (12:43)
--- NOTE | 2017-08-27 12:56 | Post Operative Note ---
Pre-op diagnosis: intractable nausea/vomiting, abdominal pain Post-op diagnosis: same (severe ulcerative esophagitis throughout the esophagus. ) Findings: 1. severe ulcerative esophagitis throughout mid-distal esophagus 2. Normal stomach and duodenum Procedure: EGD with biopsies Anesthesia: MAC Surgeon: JAN FARAH Estimated blood loss: minimal Pathology: list (Jar A - esophageal biopsies) Specimen disposition: to lab Condition: stable Disposition: floor
--- NOTE | 2017-08-27 12:59 | Operative Report ---
Operative Report Operative Report: Esophagogastroduodenoscopy Procedure Note with Biopsies Date of procedure: 08/27/2017 Endoscopist: Jonathan Zamora Pre-op diagnosis: intractable nausea/vomiting, abdominal pain Post-op diagnosis: severe ulcerative esophagitis, normal stomach and duodenum Anesthesia: MAC Complications: No immediate complications Estimated blood loss: minimal Procedure: After consent was obtained, the patient was placed in the left lateral decubitus position. The fujinon endoscope was inserted into the patient 's mouth under direct vision, and advanced to the 2nd portion of duodenum without difficulty. The patient tolerated the procedure well. The views of the mucosa were good. Patient's vital signs were monitored continuously throughout the procedure. Findings: There was severe ulcerative esophagitis circumferentially involving the mid and distal esophagus in a continuous pattern. The mucosa was friable with multiple areas of heme spots. Biopsies were obtained to rule out ольга, or other infectious process. The stomach and duodenum appeared normal without signs of gastric outlet obstruction or PUD. Impression: 1. Severe ulcerative esophagitis. Biopsies 2. Otherwise normal stomach and duodenum. Recommendations: -start PPI BID dosing -carafate QID -follow-up path -repeat endoscopy in 2 months to assess healing/rule out underlying disease given severity of esophagitis -urology consult (due to CT findings and location of symptoms) as esophageal findings unlikely to explain her abdominal pain
[2017-08-27] MEDS ORDERED: NORMODYNE IV PRN (13:00)
[2017-08-27] MEDS ORDERED: DILAUDID ONE (13:16)
--- NOTE | 2017-08-27 13:26 | Anesthesia Day of Surgery ---
Anesthesia Day of Surgery - Day of Surgery Patient Examined: Yes Patient H&P Reviewed: Yes Patient is NPO: Yes Beta Blockers: Yes
[2017-08-27 14:42] LABS: Hemoglobin 12.3 gm/dl (10.1-14.3); Mean Corpuscular HGB Conc 33 % (30-34); Mean Corpuscular Hemoglobin 28 pg (28-32); Mean Corpuscular Volume 85 fl (79-97); Platelet Count 223 K/mm3 (140-440); Red Blood Count 4.37 M/mm3 (3.65-5.03); Red Cell Distribution Width 12.9 % (13.2-15.2)
[2017-08-27 15:04] LABS: BUN/Creatinine Ratio 22; Blood Urea Nitrogen 13 mg/dL (7-17); Calcium 8.2 mg/dL (8.4-10.2); Hemolysis Index 2
[2017-08-27 15:39] LABS: Eosinophils % (Manual) 0 % (0.0-4.3); Total Cells Counted 100
[2017-08-27 15:40] LABS: Ovalocytes Few; Poikilocytosis Few
[2017-08-27] MEDS: CATAPRES-TTS PATCH TD SCH (17:32)
[2017-08-27] MEDS: CARAFATE PO SCH (17:32)
[2017-08-27] MEDS: DILAUDID IV PRN (20:06)
[2017-08-27] MEDS: PROTONIX PO SCH (20:21)
[2017-08-28] MEDS: CARAFATE PO SCH ×5 (00:30→23:12)
[2017-08-28] MEDS: REGLAN IV PRN ×2 (00:31→09:11)
[2017-08-28] MEDS: TYLENOL PO PRN (00:35)
[2017-08-28] MEDS: PROTONIX PO SCH ×4 (03:16→23:12)
[2017-08-28] MEDS: SODIUM CHLORIDE FLUSH SYRINGE 10 ML IV SCH ×3 (03:17→22:22)
[2017-08-28] MEDS: ZOFRAN IV PRN ×3 (06:06→22:21)
[2017-08-28] MEDS: DILAUDID IV PRN ×4 (07:37→22:21)
[2017-08-28] MEDS: HumuLIN R SUB-Q SCH ×4 (08:00→21:35)
[2017-08-28] MEDS: PROTONIX IV SCH (11:00)
[2017-08-28] MEDS: LEVAQUIN 750MG/150ML 750 MG/150 ML BAG IV SCH (11:00)
[2017-08-28] MEDS: LOVENOX SUB-Q SCH (11:00)
--- NOTE | 2017-08-28 14:16 | Progress Note ---
Assessment and Plan 1. N/V - acute onset. Etiology unclear. May be related to process. Pt does have esophagitis, but that could be secondary, given relative lack of prior symptoms. - will give trial of Ativan - recommend evaluation for urinary retention - PPI - minimize narcotics - will get GB ultrasound if symptoms persist. Subjective Date of service: 08/28/17 Principal diagnosis: urinary retention Interval history: Pt has ongoing N/V, and is sitting up at bedside, retching. Complains of suprapubic and epigastric abd pain. Objective - Constitutional Vitals: Vital Signs - 12hr 08/28/17 08/28/17 08/28/17 03:37 04:17 05:23 Temperature 97.6 F Pulse Rate 105 H 89 96 H Respiratory 20 Rate Blood Pressure 145/93 Blood Pressure 121/78 [Left] O2 Sat by Pulse 100 96 Oximetry 08/28/17 08/28/17 08/28/17 07:37 08:00 08:24 Temperature 98.3 F Pulse Rate 98 H 100 H Respiratory 20 20 20 Rate Blood Pressure 168/93 Blood Pressure 168/93 [Left] O2 Sat by Pulse 96 97 Oximetry General appearance: Present: severe distress (retching intermittently) - EENT Eyes: PERRL, EOM intact ENT: hearing intact - Respiratory Respiratory effort: normal - Gastrointestinal General gastrointestinal: Present: soft, non-tender - Labs CBC & Chem 7: 08/27/17 13:54 08/27/17 13:54 Labs: Abnormal lab results 08/27/17 08/27/17 08/27/17 Range/Units 12:48 13:54 13:54 WBC 14.0 H (4.5-11.0) K/mm3 RDW 12.9 L (13.2-15.2) % Seg Neuts % (Manual) 94.0 H (40.0-70.0) % Lymphocytes % (Manual) 4.0 L (13.4-35.0) % Seg Neutrophils # Man 13.2 H (1.8-7.7) K/mm3 Lymphocytes # (Manual) 0.6 L (1.2-5.4) K/mm3 Sodium 133 L (137-145) mmol/L Carbon Dioxide 15 L D (22-30) mmol/L Creatinine 0.6 L (0.7-1.2) mg/dL Glucose 245 H (65-100) mg/dL POC Glucose 239 H (70-105) Calcium 8.2 L (8.4-10.2) mg/dL 08/27/17 08/27/17 08/28/17 Range/Units 16:16 21:18 06:23 WBC (4.5-11.0) K/mm3 RDW (13.2-15.2) % Seg Neuts % (Manual) (40.0-70.0) % Lymphocytes % (Manual) (13.4-35.0) % Seg Neutrophils # Man (1.8-7.7) K/mm3 Lymphocytes # (Manual) (1.2-5.4) K/mm3 Sodium (137-145) mmol/L Carbon Dioxide (22-30) mmol/L Creatinine (0.7-1.2) mg/dL Glucose (65-100) mg/dL POC Glucose 226 H 182 H 193 H (70-105) Calcium (8.4-10.2) mg/dL 08/28/17 Range/Units 12:17 WBC (4.5-11.0) K/mm3 RDW (13.2-15.2) % Seg Neuts % (Manual) (40.0-70.0) % Lymphocytes % (Manual) (13.4-35.0) % Seg Neutrophils # Man (1.8-7.7) K/mm3 Lymphocytes # (Manual) (1.2-5.4) K/mm3 Sodium (137-145) mmol/L Carbon Dioxide (22-30) mmol/L Creatinine (0.7-1.2) mg/dL Glucose (65-100) mg/dL POC Glucose 215 H (70-105) Calcium (8.4-10.2) mg/dL
[2017-08-28] MEDS ORDERED: ATIVAN IV ONE (14:30)
--- NOTE | 2017-08-28 15:56 | Progress Note ---
Assessment and Plan - Patient Problems (1) Hypertension Current Visit: Yes Status: Acute Qualifiers: Hypertension type: essential hypertension Qualified Code(s): I10 - Essential (primary) hypertension Plan to address problem: Patient hypertension fairly well controlled becomes suboptimal when patient is having episodes of vomiting. Would not be too aggressive for this. (2) Intractable abdominal pain Current Visit: Yes Status: Acute Plan to address problem: Patient has irretractable abdominal pain. Patient pain seems to be better after receiving IV Protonix twice a day and sucralfate however still has persistent nausea and vomiting. Patient's EGD showed severe ulcerative esophagitis which is quite possible but the way patient describes her nausea seems more like gastroparesis instead of esophagitis. Especially with the pain associated with gastritis. Could also be multifactorial including bilateral outlet obstruction. The uremia could've had patient to become nausea. Patient has an ache N has not helped at this point. 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 This could be the cause of her nausea as well. We'll be more aggressive with her blood sugar control and long-acting insulin Lantus at this time continue to cover with sliding-scale insulin. Patient recently started on Ativan therefore would avoid Reglan. Would have liked to attempt a short trial of Reglan to see if it's normal sig gastroparesis. (5) Urinary obstruction Current Visit: Yes Status: Acute Plan to address problem: Catheter has been placed allergy following. History Interval history: Patient continues to have nausea. Patient vomiting at bedside. at bedside. States medicines for nausea not really working as well. Hospitalist Physical - Constitutional Vitals: Temp Pulse Resp BP Pulse Ox 98.3 F 100 H 20 168/93 97 08/28/17 08:00 08/28/17 08:24 08/28/17 08:24 08/28/17 08:24 08/28/17 08:24 General appearance: Present: severe distress (retching intermittently), cachectic, other (moderate distress) - EENT Eyes: Present: PERRL, EOM intact ENT: hearing intact - Neck Neck: Present: supple, normal ROM - Respiratory Respiratory effort: normal Respiratory: bilateral: CTA - Cardiovascular Rhythm: regular Heart Sounds: Present: S1 & S2 - Extremities Extremities: no ischemia, pulses intact, pulses symmetrical, No edema, normal temperature, normal color, Full ROM Peripheral Pulses: within normal limits - Abdominal General gastrointestinal: soft, tender, non-distended, normal bowel sounds, no hepatomegaly, no splenomegaly, no mass, no hernia Localized gastrointestinal: tender: epigastric periumbilical, surgical scar: diffuse - Integumentary Integumentary: Present: clear, warm, dry - Psychiatric Psychiatric: appropriate mood/affect, intact judgment & insight - Neurologic Neurologic: CNII-XII intact, moves all extremities Results - Labs CBC & Chem 7: 08/27/17 13:54 08/27/17 13:54 Labs: Laboratory Last Values WBC 14.0 K/mm3 (4.5-11.0) H 08/27/17 13:54 RBC 4.37 M/mm3 (3.65-5.03) 08/27/17 13:54 Hgb 12.3 gm/dl (10.1-14.3) 08/27/17 13:54 Hct 37.0 % (30.3-42.9) 08/27/17 13:54 MCV 85 fl (79-97) 08/27/17 13:54 MCH 28 pg (28-32) 08/27/17 13:54 MCHC 33 % (30-34) 08/27/17 13:54 RDW 12.9 % (13.2-15.2) L 08/27/17 13:54 Plt Count 223 K/mm3 (140-440) 08/27/17 13:54 Lymph % (Auto) 16.7 % (13.4-35.0) 08/26/17 09:10 [place] % (Auto) 5.4 % (0.0-7.3) 08/26/17 09:10 Eos % (Auto) 4.0 % (0.0-4.3) 08/26/17 09:10 Baso % (Auto) 0.3 % (0.0-1.8) 08/26/17 09:10 Lymph # 1.7 K/mm3 (1.2-5.4) 08/26/17 09:10 [place] # 0.5 K/mm3 (0.0-0.8) 08/26/17 09:10 Eos # 0.4 K/mm3 (0.0-0.4) 08/26/17 09:10 Baso # 0.0 K/mm3 (0.0-0.1) 08/26/17 09:10 Add Manual Diff Complete 08/27/17 13:54 Total Counted 100 08/27/17 13:54 Seg Neutrophils % 73.6 % (40.0-70.0) H 08/26/17 09:10 Seg Neuts % (Manual) 94.0 % (40.0-70.0) H 08/27/17 13:54 Band Neutrophils % 0 % 08/27/17 13:54 Lymphocytes % (Manual) 4.0 % (13.4-35.0) L 08/27/17 13:54 Reactive Lymphs % (Man) 0 % 08/27/17 13:54 Monocytes % (Manual) 1.0 % (0.0-7.3) 08/27/17 13:54 Eosinophils % (Manual) 0 % (0.0-4.3) 08/27/17 13:54 Basophils % (Manual) 1.0 % (0.0-1.8) 08/27/17 13:54 Metamyelocytes % 0 % 08/27/17 13:54 Myelocytes % 0 % 08/27/17 13:54 Promyelocytes % 0 % 08/27/17 13:54 Blast Cells % 0 % 08/27/17 13:54 Nucleated RBC % Not Reportable 08/27/17 13:54 Seg Neutrophils # 7.3 K/mm3 (1.8-7.7) 08/26/17 09:10 Seg Neutrophils # Man 13.2 K/mm3 (1.8-7.7) H 08/27/17 13:54 Band Neutrophils # 0.0 K/mm3 08/27/17 13:54 Lymphocytes # (Manual) 0.6 K/mm3 (1.2-5.4) L 08/27/17 13:54 Abs React Lymphs (Man) 0.0 K/mm3 08/27/17 13:54 Monocytes # (Manual) 0.1 K/mm3 (0.0-0.8) 08/27/17 13:54 Eosinophils # (Manual) 0.0 K/mm3 (0.0-0.4) 08/27/17 13:54 Basophils # (Manual) 0.1 K/mm3 (0.0-0.1) 08/27/17 13:54 Metamyelocytes # 0.0 K/mm3 08/27/17 13:54 Myelocytes # 0.0 K/mm3 08/27/17 13:54 Promyelocytes # 0.0 K/mm3 08/27/17 13:54 Blast Cells # 0.0 K/mm3 08/27/17 13:54 WBC Morphology Not Reportable 08/27/17 13:54 Hypersegmented Neuts Not Reportable 08/27/17 13:54 Hyposegmented Neuts Not Reportable 08/27/17 13:54 Hypogranular Neuts Not Reportable 08/27/17 13:54 Smudge Cells Not Reportable 08/27/17 13:54 Toxic Granulation Not Reportable 08/27/17 13:54 Toxic Vacuolation Not Reportable 08/27/17 13:54 Dohle Bodies Not Reportable 08/27/17 13:54 Pelger-Huet Anomaly Not Reportable 08/27/17 13:54 Yosvany Rods Not Reportable 08/27/17 13:54 Platelet Estimate Appears normal 08/27/17 13:54 Clumped Platelets Not Reportable 08/27/17 13:54 Plt Clumps, EDTA Not Reportable 08/27/17 13:54 Large Platelets Not Reportable 08/27/17 13:54 Giant Platelets Not Reportable 08/27/17 13:54 Platelet Satelliting Not Reportable 08/27/17 13:54 Plt Morphology Comment Not Reportable 08/27/17 13:54 RBC Morphology Not Reportable 08/27/17 13:54 Dimorphic RBCs Not Reportable 08/27/17 13:54 Polychromasia Not Reportable 08/27/17 13:54 Hypochromasia Not Reportable 08/27/17 13:54 Poikilocytosis Few 08/27/17 13:54 Anisocytosis Not Reportable 08/27/17 13:54 Microcytosis Not Reportable 08/27/17 13:54 Macrocytosis Not Reportable 08/27/17 13:54 Spherocytes Not Reportable 08/27/17 13:54 Pappenheimer Bodies Not Reportable 08/27/17 13:54 Sickle Cells Not Reportable 08/27/17 13:54 Target Cells Not Reportable 08/27/17 13:54 Tear Drop Cells Not Reportable 08/27/17 13:54 Ovalocytes Few 08/27/17 13:54 Helmet Cells Not Reportable 08/27/17 13:[address] [place] Bodies Not Reportable 08/27/17 13:54 [place] Rings Not Reportable 08/27/17 13:54 [place] Cells Not Reportable 08/27/17 13:54 Bite Cells Not Reportable 08/27/17 13:54 Crenated Cell Not Reportable 08/27/17 13:54 Elliptocytes Not Reportable 08/27/17 13:54 Acanthocytes (Spur) Not Reportable 08/27/17 13:54 Rouleaux Not Reportable 08/27/17 13:54 Hemoglobin C Crystals Not Reportable 08/27/17 13:54 Schistocytes Not Reportable 08/27/17 13:54 Malaria parasites Not Reportable 08/27/17 13:54 Bassem Bodies Not Reportable 08/27/17 13:54 Hem Pathologist Commnt No 08/27/17 13:54 Sodium 133 mmol/L (137-145) L 08/27/17 13:54 Potassium 3.8 mmol/L (3.6-5.0) 08/27/17 13:54 Chloride 98.2 mmol/L (98-107) 08/27/17 13:54 Carbon Dioxide 15 mmol/L (22-30) L D 08/27/17 13:54 Anion Gap 24 mmol/L 08/27/17 13:54 BUN 13 mg/dL (7-17) 08/27/17 13:54 Creatinine 0.6 mg/dL (0.7-1.2) L 08/27/17 13:54 Estimated GFR > 60 ml/min 08/27/17 13:54 BUN/Creatinine Ratio 22 % 08/27/17 13:54 Glucose 245 mg/dL (65-100) H 08/27/17 13:54 POC Glucose 215 (70-105) H 08/28/17 12:17 Calcium 8.2 mg/dL (8.4-10.2) L 08/27/17 13:54 Total Bilirubin 0.40 mg/dL (0.1-1.2) 08/25/17 01:06 AST 21 units/L (5-40) 08/25/17 01:06 ALT 11 units/L (7-56) 08/25/17 01:06 Alkaline Phosphatase 48 units/L (35-129) 08/25/17 01:06 Total Protein 7.5 g/dL (6.3-8.2) 08/25/17 01:06 Albumin 4.4 g/dL (3.9-5) 08/25/17 01:06 Albumin/Globulin Ratio 1.4 % 08/25/17 01:06 Lipase 8 units/L (13-60) L 08/25/17 01:06 Urine Color Yellow (Yellow) 08/25/17 Unknown Urine Turbidity Clear (Clear) 08/25/17 Unknown Urine pH 9.0 (5.0-7.0) H 08/25/17 Unknown Ur Specific [place] 1.010 (1.003-1.030) 08/25/17 Unknown Urine Protein <15 mg/dl mg/dL (Negative) 08/25/17 Unknown Urine Glucose (UA) 150 mg/dL (Negative) 08/25/17 Unknown Urine Ketones Neg mg/dL (Negative) 08/25/17 Unknown Urine Blood Neg (Negative) 08/25/17 Unknown Urine Nitrite Neg (Negative) 08/25/17 Unknown Urine Bilirubin Neg (Negative) 08/25/17 Unknown Urine Urobilinogen < 2.0 mg/dL (<2.0) 08/25/17 Unknown Ur Leukocyte Esterase Sm (Negative) 08/25/17 Unknown Urine WBC (Auto) 3.0 /HPF (0.0-6.0) 08/25/17 Unknown Urine RBC (Auto) 1.0 /HPF (0.0-6.0) 08/25/17 Unknown U Epithel Cells (Auto) 2.0 /HPF (0-13.0) 08/25/17 Unknown Urine Bacteria (Auto) 1+ /HPF (Negative) 08/25/17 Unknown Urine Mucus Few /HPF 08/25/17 Unknown
[2017-08-28] MEDS: ATIVAN IV PRN (20:09)
[2017-08-28] MEDS: LANTUS SUB-Q SCH (21:37)
[2017-08-29] MEDS: DILAUDID IV PRN ×3 (01:56→11:51)
[2017-08-29] MEDS: ZOFRAN IV PRN ×2 (05:31→13:51)
[2017-08-29] MEDS: CARAFATE PO SCH ×3 (05:31→17:37)
[2017-08-29] MEDS: HumuLIN R SUB-Q SCH ×4 (08:31→22:43)
[2017-08-29] MEDS: PROTONIX IV SCH ×2 (09:48→21:44)
[2017-08-29] MEDS: ATIVAN IV PRN ×2 (09:48→19:11)
[2017-08-29] MEDS: LOVENOX SUB-Q SCH (09:48)
[2017-08-29] MEDS: LEVAQUIN 750MG/150ML 750 MG/150 ML BAG IV SCH (09:48)
[2017-08-29] MEDS: SODIUM CHLORIDE FLUSH SYRINGE 10 ML IV SCH ×2 (09:49→21:36)
[2017-08-29] MEDS: PROTONIX PO SCH (09:49)
[2017-08-29 10:09] LABS: Alanine Aminotransferase 9 units/L (7-56); Albumin 3.9 g/dL (3.9-5); BUN/Creatinine Ratio 32; Blood Urea Nitrogen 16 mg/dL (7-17); Calcium 8.5 mg/dL (8.4-10.2); Hemolysis Index 5
--- NOTE | 2017-08-29 15:15 | Progress Note ---
Assessment and Plan - Patient Problems (1) Hypertension Current Visit: Yes Status: Acute Qualifiers: Hypertension type: essential hypertension Qualified Code(s): I10 - Essential (primary) hypertension Plan to address problem: Patient has much better control of blood pressure. Clonidine patch IV labetalol. Still unable to tolerate by mouth. (2) Intractable abdominal pain Current Visit: Yes Status: Acute Plan to address problem: Patient is intractable nausea very little vomiting. Unable to tolerate by mouth. Etiology multifactorial severe esophageal gastritis probable some degree of gastroparesis with diabetes and possible urinary obstruction. Today we will start patient on aggressive IV fluids, increase Protonix to 40 mg IV twice a day. We'll advance did a lot of patient in severe pain today. We'll also advance Ativan. We'll also add Haldol when necessary for nausea and vomiting. Because Zofran has appeared to be ineffective (3) Intractable nausea and vomiting Current Visit: Yes Status: Acute Qualifiers: Vomiting type: unspecified Qualified Code(s): R11.2 - Nausea with vomiting , unspecified (4) Diabetes mellitus with ketoacidosis Current Visit: No Status: Acute Qualifiers: Diabetes mellitus type: type 2 Diabetes mellitus retirement insulin use: unspecified retirement insulin use status Diabetes mellitus complication detail : without coma Qualified Code(s): E13.10 - Other specified diabetes mellitus with ketoacidosis without coma Plan to address problem: Patient blood sugar much better control since adding long-acting Lantus 15 units daily at bedtime. Will not advance any further because patient is nothing by mouth (5) Urinary obstruction Current Visit: Yes Status: Acute Plan to address problem: Catheter has been placed urology following. Await urology recommendations. History Interval history: Patient is currently in the room wretching and pain. Nothing able to come up but bile. Family at the bedside. Patient states pain is severe please make me go to sleep. Clinically patient appears to be in pain nausea. Hospitalist Physical - Constitutional Vitals: Temp Pulse Resp BP Pulse Ox 98.6 F 87 17 128/84 95 08/29/17 11:27 08/29/17 12:29 08/29/17 11:51 08/29/17 12:29 08/29/17 12:29 General appearance: Present: severe distress (retching intermittently), cachectic, other (moderate distress) - EENT Eyes: Present: PERRL, EOM intact ENT: hearing intact, dentition normal, other (oral mucosa dry) - Neck Neck: Present: supple, normal ROM - Respiratory Respiratory: bilateral: CTA - Cardiovascular Heart rate: 0 Rhythm: other (tachycardia with vomiting) - Extremities Extremities: no ischemia, pulses intact, pulses symmetrical, No edema Extremity abnormal: edema, cyanosis, clubbing Peripheral Pulses: within normal limits - Abdominal General gastrointestinal: soft, tender, non-distended, hypoactive bowel sounds Localized gastrointestinal: tender: diffuse - Integumentary Integumentary: Present: clear, warm, dry - Psychiatric Psychiatric: appropriate mood/affect, intact judgment & insight - Neurologic Neurologic: CNII-XII intact, moves all extremities Results - Labs CBC & Chem 7: 08/27/17 13:54 08/29/17 09:17 Labs: Laboratory Last Values WBC 14.0 K/mm3 (4.5-11.0) H 08/27/17 13:54 RBC 4.37 M/mm3 (3.65-5.03) 08/27/17 13:54 Hgb 12.3 gm/dl (10.1-14.3) 08/27/17 13:54 Hct 37.0 % (30.3-42.9) 08/27/17 13:54 MCV 85 fl (79-97) 08/27/17 13:54 MCH 28 pg (28-32) 08/27/17 13:54 MCHC 33 % (30-34) 08/27/17 13:54 RDW 12.9 % (13.2-15.2) L 08/27/17 13:54 Plt Count 223 K/mm3 (140-440) 08/27/17 13:54 Lymph % (Auto) 16.7 % (13.4-35.0) 08/26/17 09:10 [place] % (Auto) 5.4 % (0.0-7.3) 08/26/17 09:10 Eos % (Auto) 4.0 % (0.0-4.3) 08/26/17 09:10 Baso % (Auto) 0.3 % (0.0-1.8) 08/26/17 09:10 Lymph # 1.7 K/mm3 (1.2-5.4) 08/26/17 09:10 [place] # 0.5 K/mm3 (0.0-0.8) 08/26/17 09:10 Eos # 0.4 K/mm3 (0.0-0.4) 08/26/17 09:10 Baso # 0.0 K/mm3 (0.0-0.1) 08/26/17 09:10 Add Manual Diff Complete 08/27/17 13:54 Total Counted 100 08/27/17 13:54 Seg Neutrophils % 73.6 % (40.0-70.0) H 08/26/17 09:10 Seg Neuts % (Manual) 94.0 % (40.0-70.0) H 08/27/17 13:54 Band Neutrophils % 0 % 08/27/17 13:54 Lymphocytes % (Manual) 4.0 % (13.4-35.0) L 08/27/17 13:54 Reactive Lymphs % (Man) 0 % 08/27/17 13:54 Monocytes % (Manual) 1.0 % (0.0-7.3) 08/27/17 13:54 Eosinophils % (Manual) 0 % (0.0-4.3) 08/27/17 13:54 Basophils % (Manual) 1.0 % (0.0-1.8) 08/27/17 13:54 Metamyelocytes % 0 % 08/27/17 13:54 Myelocytes % 0 % 08/27/17 13:54 Promyelocytes % 0 % 08/27/17 13:54 Blast Cells % 0 % 08/27/17 13:54 Nucleated RBC % Not Reportable 08/27/17 13:54 Seg Neutrophils # 7.3 K/mm3 (1.8-7.7) 08/26/17 09:10 Seg Neutrophils # Man 13.2 K/mm3 (1.8-7.7) H 08/27/17 13:54 Band Neutrophils # 0.0 K/mm3 08/27/17 13:54 Lymphocytes # (Manual) 0.6 K/mm3 (1.2-5.4) L 08/27/17 13:54 Abs React Lymphs (Man) 0.0 K/mm3 08/27/17 13:54 Monocytes # (Manual) 0.1 K/mm3 (0.0-0.8) 08/27/17 13:54 Eosinophils # (Manual) 0.0 K/mm3 (0.0-0.4) 08/27/17 13:54 Basophils # (Manual) 0.1 K/mm3 (0.0-0.1) 08/27/17 13:54 Metamyelocytes # 0.0 K/mm3 08/27/17 13:54 Myelocytes # 0.0 K/mm3 08/27/17 13:54 Promyelocytes # 0.0 K/mm3 08/27/17 13:54 Blast Cells # 0.0 K/mm3 08/27/17 13:54 WBC Morphology Not Reportable 08/27/17 13:54 Hypersegmented Neuts Not Reportable 08/27/17 13:54 Hyposegmented Neuts Not Reportable 08/27/17 13:54 Hypogranular Neuts Not Reportable 08/27/17 13:54 Smudge Cells Not Reportable 08/27/17 13:54 Toxic Granulation Not Reportable 08/27/17 13:54 Toxic Vacuolation Not Reportable 08/27/17 13:54 Dohle Bodies Not Reportable 08/27/17 13:54 Pelger-[place]uet Anomaly Not Reportable 08/27/17 13:54 Yosvany Rods Not Reportable 08/27/17 13:54 Platelet Estimate Appears normal 08/27/17 13:54 Clumped Platelets Not Reportable 08/27/17 13:54 Plt Clumps, EDTA Not Reportable 08/27/17 13:54 Large Platelets Not Reportable 08/27/17 13:54 Giant Platelets Not Reportable 08/27/17 13:54 Platelet Satelliting Not Reportable 08/27/17 13:54 Plt Morphology Comment Not Reportable 08/27/17 13:54 RBC Morphology Not Reportable 08/27/17 13:54 Dimorphic RBCs Not Reportable 08/27/17 13:54 Polychromasia Not Reportable 08/27/17 13:54 Hypochromasia Not Reportable 08/27/17 13:54 Poikilocytosis Few 08/27/17 13:54 Anisocytosis Not Reportable 08/27/17 13:54 Microcytosis Not Reportable 08/27/17 13:54 Macrocytosis Not Reportable 08/27/17 13:54 Spherocytes Not Reportable 08/27/17 13:54 Pappenheimer Bodies Not Reportable 08/27/17 13:54 Sickle Cells Not Reportable 08/27/17 13:54 Target Cells Not Reportable 08/27/17 13:54 Tear Drop Cells Not Reportable 08/27/17 13:54 Ovalocytes Few 08/27/17 13:54 Helmet Cells Not Reportable 08/27/17 13:54 [place] Bodies Not Reportable 08/27/17 13:54 [place] Rings Not Reportable 08/27/17 13:54 [place] Cells Not Reportable 08/27/17 13:54 Bite Cells Not Reportable 08/27/17 13:54 Crenated Cell Not Reportable 08/27/17 13:54 Elliptocytes Not Reportable 08/27/17 13:54 Acanthocytes (Spur) Not Reportable 08/27/17 13:54 Rouleaux Not Reportable 08/27/17 13:54 Hemoglobin C Crystals Not Reportable 08/27/17 13:54 Schistocytes Not Reportable 08/27/17 13:54 Malaria parasites Not Reportable 08/27/17 13:54 Bassem Bodies Not Reportable 08/27/17 13:54 Hem Pathologist Commnt No 08/27/17 13:54 Sodium 134 mmol/L (137-145) L 08/29/17 09:17 Potassium 3.6 mmol/L (3.6-5.0) 08/29/17 09:17 Chloride 94.9 mmol/L (98-107) L 08/29/17 09:17 Carbon Dioxide 21 mmol/L (22-30) L 08/29/17 09:17 Anion Gap 22 mmol/L 08/29/17 09:17 BUN 16 mg/dL (7-17) 08/29/17 09:17 Creatinine 0.5 mg/dL (0.7-1.2) L 08/29/17 09:17 Estimated GFR > 60 ml/min 08/29/17 09:17 BUN/Creatinine Ratio 32 % 08/29/17 09:17 Glucose 172 mg/dL (65-100) H 08/29/17 09:17 POC Glucose 185 (70-105) H 08/29/17 12:25 Calcium 8.5 mg/dL (8.4-10.2) 08/29/17 09:17 Total Bilirubin 0.50 mg/dL (0.1-1.2) 08/29/17 09:17 AST 13 units/L (5-40) 08/29/17 09:17 ALT 9 units/L (7-56) 08/29/17 09:17 Alkaline Phosphatase 47 units/L (35-129) 08/29/17 09:17 Total Protein 7.1 g/dL (6.3-8.2) 08/29/17 09:17 Albumin 3.9 g/dL (3.9-5) 08/29/17 09:17 Albumin/Globulin Ratio 1.2 % 08/29/17 09:17 Lipase 8 units/L (13-60) L 08/25/17 01:06 Urine Color Yellow (Yellow) 08/25/17 Unknown Urine Turbidity Clear (Clear) 08/25/17 Unknown Urine pH 9.0 (5.0-7.0) H 08/25/17 Unknown Ur Specific [place] 1.010 (1.003-1.030) 08/25/17 Unknown Urine Protein <15 mg/dl mg/dL (Negative) 08/25/17 Unknown Urine Glucose (UA) 150 mg/dL (Negative) 08/25/17 Unknown Urine Ketones Neg mg/dL (Negative) 08/25/17 Unknown Urine Blood Neg (Negative) 08/25/17 Unknown Urine Nitrite Neg (Negative) 08/25/17 Unknown Urine Bilirubin Neg (Negative) 08/25/17 Unknown Urine Urobilinogen < 2.0 mg/dL (<2.0) 08/25/17 Unknown Ur Leukocyte Esterase Sm (Negative) 08/25/17 Unknown Urine WBC (Auto) 3.0 /HPF (0.0-6.0) 08/25/17 Unknown Urine RBC (Auto) 1.0 /HPF (0.0-6.0) 08/25/17 Unknown U Epithel Cells (Auto) 2.0 /HPF (0-13.0) 08/25/17 Unknown Urine Bacteria (Auto) 1+ /HPF (Negative) 08/25/17 Unknown Urine Mucus Few /HPF 08/25/17 Unknown
[2017-08-29] MEDS ORDERED: HALDOL IM ONE (15:18)
--- NOTE | 2017-08-29 15:41 | Progress Note ---
Assessment and Plan 1. N/V - acute onset. 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 May be exacerbated by process. Pt does have esophagitis, but that could be secondary, given relative lack of prior symptoms. - discussed with Dr. Parker, and agree with optimization of Ativan, with addition of Haldol - awaiting evaluation for urinary retention - PPI - minimize narcotics - GB ultrasound, and possible HIDA with CCK if negative. Subjective Date of service: 08/29/17 Principal diagnosis: urinary retention Interval history: Pt has ongoing symptoms. Ativan has not been very helpful. Objective - Constitutional Vitals: Vital Signs - 12hr 08/29/17 08/29/17 08/29/17 03:48 04:56 07:52 Temperature 98.9 F 98.4 F Pulse Rate 86 84 98 H Pulse Rate [ Apical] Respiratory 20 16 Rate Blood Pressure 133/89 186/114 Blood Pressure 133/89 [Left] O2 Sat by Pulse 98 99 98 Oximetry 08/29/17 08/29/17 08/29/17 07:54 09:13 10:00 Temperature Pulse Rate 92 H Pulse Rate [ 96 H Apical] Respiratory 16 Rate Blood Pressure 168/108 Blood Pressure [Left] O2 Sat by Pulse Oximetry 08/29/17 08/29/17 08/29/17 11:27 11:30 11:51 Temperature 98.6 F Pulse Rate 98 H 102 H Pulse Rate [ Apical] Respiratory 18 17 Rate Blood Pressure 151/107 168/112 Blood Pressure [Left] O2 Sat by Pulse 98 96 Oximetry 08/29/17 12:29 Temperature Pulse Rate 87 Pulse Rate [ Apical] Respiratory Rate Blood Pressure 128/84 Blood Pressure [Left] O2 Sat by Pulse 95 Oximetry General appearance: Present: mild distress (Retching at times). Absent: no acute distress - EENT Eyes: PERRL, EOM intact ENT: hearing intact - Respiratory Respiratory effort: normal - Gastrointestinal General gastrointestinal: Present: soft, tender (mild diffuse). Absent: non- tender - Labs CBC & Chem 7: 08/27/17 13:54 08/29/17 09:17 Labs: Abnormal lab results 08/28/17 08/28/17 08/29/17 Range/Units 16:52 21:13 05:56 Sodium (137-145) mmol/L Chloride (98-107) mmol/L Carbon Dioxide (22-30) mmol/L Creatinine (0.7-1.2) mg/dL Glucose (65-100) mg/dL POC Glucose 138 H 140 H 157 H (70-105) 08/29/17 08/29/17 Range/Units 09:17 12:25 Sodium 134 L (137-145) mmol/L Chloride 94.9 L (98-107) mmol/L Carbon Dioxide 21 L (22-30) mmol/L Creatinine 0.5 L (0.7-1.2) mg/dL Glucose 172 H (65-100) mg/dL POC Glucose 185 H (70-105)
[2017-08-29] MEDS ORDERED: NACL 0.9% IV SCH (16:00)
[2017-08-29] MEDS: NACL 0.9% 1000 ML 1,000 ML IV SCH (16:21)
[2017-08-29] MEDS: HALDOL IM PRN (21:44)
[2017-08-29] MEDS: LANTUS SUB-Q SCH (22:43)
[2017-08-30] MEDS: CARAFATE PO SCH ×4 (00:12→17:14)
[2017-08-30] MEDS: ATIVAN IV PRN ×2 (00:38→22:09)
[2017-08-30] MEDS: HALDOL IM PRN ×2 (05:04→17:10)
[2017-08-30] MEDS: NACL 0.9% 1000 ML 1,000 ML IV SCH ×2 (05:04→22:24)
[2017-08-30 08:00] LABS: BUN/Creatinine Ratio 25; Blood Urea Nitrogen 15 mg/dL (7-17); Calcium 7.9 mg/dL (8.4-10.2); Hemolysis Index 6
[2017-08-30] MEDS: HumuLIN R SUB-Q SCH ×4 (08:00→22:09)
--- NOTE | 2017-08-30 09:51 | Gastroenterology Progress Note ---
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 -abd CT revealed bilateral hyronephrosis -urology following 3.DM 4.neuropathy 5.depression Subjective Date of service: 08/30/17 Principal diagnosis: intractable N/V Interval history: Patient resting in bed w/o acute distress. States she is feeling a little better today with N/V slightly improved (4 episodes N/V this am). Reports some continued mild lower abdominal discomfort. Objective - Constitutional Vitals: Temp Pulse Resp BP Pulse Ox 97.9 F 88 16 118/76 99 08/30/17 07:58 08/30/17 08:00 08/30/17 08:01 08/30/17 07:58 08/30/17 08:00 General appearance: no acute distress, other (somnolent) - EENT Eyes: PERRL, EOM intact ENT: hearing intact - Respiratory Respiratory: bilateral: CTA - Cardiovascular Rhythm: regular Heart Sounds: Present: S1 & S2 - Gastrointestinal General gastrointestinal: Present: soft, tender (mild diffuse TTP), non- distended, normal bowel sounds - Neurologic Neurological: alert and oriented x3 - Labs CBC & Chem 7: 08/27/17 13:54 08/30/17 07:26 Labs: Laboratory Results - last 24 hr 08/29/17 08/29/17 08/29/17 09:17 12:25 16:22 Sodium 134 L Potassium 3.6 Chloride 94.9 L Carbon Dioxide 21 L Anion Gap 22 BUN 16 Creatinine 0.5 L Estimated GFR > 60 BUN/Creatinine Ratio 32 Glucose 172 H POC Glucose 185 H 113 H Calcium 8.5 Magnesium Total Bilirubin 0.50 AST 13 ALT 9 Alkaline Phosphatase 47 Total Protein 7.1 Albumin 3.9 Albumin/Globulin Ratio 1.2 08/29/17 08/30/17 08/30/17 22:33 06:58 07:26 Sodium 136 L Potassium 3.4 L Chloride 101.7 Carbon Dioxide 21 L Anion Gap 17 BUN 15 Creatinine 0.6 L Estimated GFR > 60 BUN/Creatinine Ratio 25 Glucose 121 H POC Glucose 111 H 115 H Calcium 7.9 L Magnesium Total Bilirubin AST ALT Alkaline Phosphatase Total Protein Albumin Albumin/Globulin Ratio 08/30/17 07:28 Sodium Potassium Chloride Carbon Dioxide Anion Gap BUN Creatinine Estimated GFR BUN/Creatinine Ratio Glucose POC Glucose Calcium Magnesium 2.20 Total Bilirubin AST ALT Alkaline Phosphatase Total Protein Albumin Albumin/Globulin Ratio
[2017-08-30] MEDS: LOVENOX SUB-Q SCH (10:06)
[2017-08-30] MEDS: PROTONIX IV SCH ×2 (10:06→22:09)
[2017-08-30] MEDS: LEVAQUIN 750MG/150ML 750 MG/150 ML BAG IV SCH (10:06)
[2017-08-30] MEDS: SODIUM CHLORIDE FLUSH SYRINGE 10 ML IV SCH ×2 (10:06→22:09)
--- NOTE | 2017-08-30 13:27 | Progress Note ---
Assessment and Plan - Patient Problems (1) Hypertension Current Visit: Yes Status: Acute Qualifiers: Hypertension type: essential hypertension Qualified Code(s): I10 - Essential (primary) hypertension Plan to address problem: Patient has much better control of blood pressure. Clonidine patch IV labetalol. Still unable to tolerate by mouth. (2) Intractable abdominal pain Current Visit: Yes Status: Acute Plan to address problem: Appears again to be multifactorial. Patient didn't respond to Haldol with any vomiting today. Pain appears to be better with increase in Protonix to twice daily. (3) Intractable nausea and vomiting Current Visit: Yes Status: Acute Qualifiers: Vomiting type: unspecified Qualified Code(s): R11.2 - Nausea with vomiting , unspecified Plan to address problem: Improved with Haldol and increased dose of Ativan as well as fluids and adequate pain control. 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 Will not advance any further because patient is nothing by mouth deal suspect some degree of gastroparesis but sugars much better control. (5) Urinary obstruction Current Visit: Yes Status: Acute Plan to address problem: Catheter has been placed urology following. Await urology recommendations. History Interval history: Patient doing much better today. This is the first time that she did not have vomiting. Could not tolerate swallowing the valve gallbladder ultrasound pending. Still unable to tolerate by mouth at this time. Hospitalist Physical - Constitutional Vitals: Temp Pulse Resp BP Pulse Ox 98.4 F 88 18 122/92 99 08/30/17 11:08 08/30/17 11:08 08/30/17 11:08 08/30/17 11:08 08/30/17 11:08 General appearance: Present: mild distress (Retching at times). Absent: no acute distress - EENT Eyes: Present: PERRL, EOM intact ENT: hearing intact, clear oral mucosa, no oropharyngeal erythema, no poor dentition, no thrush, no ulcerations - Neck Neck: Present: supple, normal ROM - Extremities Extremities: no ischemia, pulses intact, pulses symmetrical Peripheral Pulses: within normal limits - Abdominal General gastrointestinal: soft, tender, non-distended, hypoactive bowel sounds - Integumentary Integumentary: Present: clear, warm, dry - Psychiatric Psychiatric: appropriate mood/affect, intact judgment & insight, cooperative - Neurologic Neurologic: CNII-XII intact, moves all extremities Results - Labs CBC & Chem 7: 08/27/17 13:54 08/30/17 07:26 Labs: Laboratory Last Values WBC 14.0 K/mm3 (4.5-11.0) H 08/27/17 13:54 RBC 4.37 M/mm3 (3.65-5.03) 08/27/17 13:54 Hgb 12.3 gm/dl (10.1-14.3) 08/27/17 13:54 Hct 37.0 % (30.3-42.9) 08/27/17 13:54 MCV 85 fl (79-97) 08/27/17 13:54 MCH 28 pg (28-32) 08/27/17 13:54 MCHC 33 % (30-34) 08/27/17 13:54 RDW 12.9 % (13.2-15.2) L 08/27/17 13:54 Plt Count 223 K/mm3 (140-440) 08/27/17 13:54 Lymph % (Auto) 16.7 % (13.4-35.0) 08/26/17 09:10 [place] % (Auto) 5.4 % (0.0-7.3) 08/26/17 09:10 Eos % (Auto) 4.0 % (0.0-4.3) 08/26/17 09:10 Baso % (Auto) 0.3 % (0.0-1.8) 08/26/17 09:10 Lymph # 1.7 K/mm3 (1.2-5.4) 08/26/17 09:10 [place] # 0.5 K/mm3 (0.0-0.8) 08/26/17 09:10 Eos # 0.4 K/mm3 (0.0-0.4) 08/26/17 09:10 Baso # 0.0 K/mm3 (0.0-0.1) 08/26/17 09:10 Add Manual Diff Complete 08/27/17 13:54 Total Counted 100 08/27/17 13:54 Seg Neutrophils % 73.6 % (40.0-70.0) H 08/26/17 09:10 Seg Neuts % (Manual) 94.0 % (40.0-70.0) H 08/27/17 13:54 Band Neutrophils % 0 % 08/27/17 13:54 Lymphocytes % (Manual) 4.0 % (13.4-35.0) L 08/27/17 13:54 Reactive Lymphs % (Man) 0 % 08/27/17 13:54 Monocytes % (Manual) 1.0 % (0.0-7.3) 08/27/17 13:54 Eosinophils % (Manual) 0 % (0.0-4.3) 08/27/17 13:54 Basophils % (Manual) 1.0 % (0.0-1.8) 08/27/17 13:54 Metamyelocytes % 0 % 08/27/17 13:54 Myelocytes % 0 % 08/27/17 13:54 Promyelocytes % 0 % 08/27/17 13:54 Blast Cells % 0 % 08/27/17 13:54 Nucleated RBC % Not Reportable 08/27/17 13:54 Seg Neutrophils # 7.3 K/mm3 (1.8-7.7) 08/26/17 09:10 Seg Neutrophils # Man 13.2 K/mm3 (1.8-7.7) H 08/27/17 13:54 Band Neutrophils # 0.0 K/mm3 08/27/17 13:54 Lymphocytes # (Manual) 0.6 K/mm3 (1.2-5.4) L 08/27/17 13:54 Abs React Lymphs (Man) 0.0 K/mm3 08/27/17 13:54 Monocytes # (Manual) 0.1 K/mm3 (0.0-0.8) 08/27/17 13:54 Eosinophils # (Manual) 0.0 K/mm3 (0.0-0.4) 08/27/17 13:54 Basophils # (Manual) 0.1 K/mm3 (0.0-0.1) 08/27/17 13:54 Metamyelocytes # 0.0 K/mm3 08/27/17 13:54 Myelocytes # 0.0 K/mm3 08/27/17 13:54 Promyelocytes # 0.0 K/mm3 08/27/17 13:54 Blast Cells # 0.0 K/mm3 08/27/17 13:54 WBC Morphology Not Reportable 08/27/17 13:54 Hypersegmented Neuts Not Reportable 08/27/17 13:54 Hyposegmented Neuts Not Reportable 08/27/17 13:54 Hypogranular Neuts Not Reportable 08/27/17 13:54 Smudge Cells Not Reportable 08/27/17 13:54 Toxic Granulation Not Reportable 08/27/17 13:54 Toxic Vacuolation Not Reportable 08/27/17 13:54 Dohle Bodies Not Reportable 08/27/17 13:54 Pelger-Huet Anomaly Not Reportable 08/27/17 13:54 Yosvany Rods Not Reportable 08/27/17 13:54 Platelet Estimate Appears normal 08/27/17 13:54 Clumped Platelets Not Reportable 08/27/17 13:54 Plt Clumps, EDTA Not Reportable 08/27/17 13:54 Large Platelets Not Reportable 08/27/17 13:54 Giant Platelets Not Reportable 08/27/17 13:54 Platelet Satelliting Not Reportable 08/27/17 13:54 Plt Morphology Comment Not Reportable 08/27/17 13:54 RBC Morphology Not Reportable 08/27/17 13:54 Dimorphic RBCs Not Reportable 08/27/17 13:54 Polychromasia Not Reportable 08/27/17 13:54 Hypochromasia Not Reportable 08/27/17 13:54 Poikilocytosis Few 08/27/17 13:54 Anisocytosis Not Reportable 08/27/17 13:54 Microcytosis Not Reportable 08/27/17 13:54 Macrocytosis Not Reportable 08/27/17 13:54 Spherocytes Not Reportable 08/27/17 13:54 Pappenheimer Bodies Not Reportable 08/27/17 13:54 Sickle Cells Not Reportable 08/27/17 13:54 Target Cells Not Reportable 08/27/17 13:54 Tear Drop Cells Not Reportable 08/27/17 13:54 Ovalocytes Few 08/27/17 13:54 Helmet Cells Not Reportable 08/27/17 13:54 [place] Bodies Not Reportable 08/27/17 13:54 [place] Rings Not Reportable 08/27/17 13:54 [place] Cells Not Reportable 08/27/17 13:54 Bite Cells Not Reportable 08/27/17 13:54 Crenated Cell Not Reportable 08/27/17 13:54 Elliptocytes Not Reportable 08/27/17 13:54 Acanthocytes (Spur) Not Reportable 08/27/17 13:54 Rouleaux Not Reportable 08/27/17 13:54 Hemoglobin C Crystals Not Reportable 08/27/17 13:54 Schistocytes Not Reportable 08/27/17 13:54 Malaria parasites Not Reportable 08/27/17 13:54 Bassem Bodies Not Reportable 08/27/17 13:54 Hem Pathologist Commnt No 08/27/17 13:54 Sodium 136 mmol/L (137-145) L 08/30/17 07:26 Potassium 3.4 mmol/L (3.6-5.0) L 08/30/17 07:26 Chloride 101.7 mmol/L (98-107) 08/30/17 07:26 Carbon Dioxide 21 mmol/L (22-30) L 08/30/17 07:26 Anion Gap 17 mmol/L 08/30/17 07:26 BUN 15 mg/dL (7-17) 08/30/17 07:26 Creatinine 0.6 mg/dL (0.7-1.2) L 08/30/17 07:26 Estimated GFR > 60 ml/min 08/30/17 07:26 BUN/Creatinine Ratio 25 % 08/30/17 07:26 Glucose 121 mg/dL (65-100) H 08/30/17 07:26 POC Glucose 145 (70-105) H 08/30/17 11:13 Calcium 7.9 mg/dL (8.4-10.2) L 08/30/17 07:26 Magnesium 2.20 mg/dL (1.7-2.3) 08/30/17 07:28 Total Bilirubin 0.50 mg/dL (0.1-1.2) 08/29/17 09:17 AST 13 units/L (5-40) 08/29/17 09:17 ALT 9 units/L (7-56) 08/29/17 09:17 Alkaline Phosphatase 47 units/L (35-129) 08/29/17 09:17 Total Protein 7.1 g/dL (6.3-8.2) 08/29/17 09:17 Albumin 3.9 g/dL (3.9-5) 08/29/17 09:17 Albumin/Globulin Ratio 1.2 % 08/29/17 09:17 Lipase 8 units/L (13-60) L 08/25/17 01:06 Urine Color Yellow (Yellow) 08/25/17 Unknown Urine Turbidity Clear (Clear) 08/25/17 Unknown Urine pH 9.0 (5.0-7.0) H 08/25/17 Unknown Ur Specific [place] 1.010 (1.003-1.030) 08/25/17 Unknown Urine Protein <15 mg/dl mg/dL (Negative) 08/25/17 Unknown Urine Glucose (UA) 150 mg/dL (Negative) 08/25/17 Unknown Urine Ketones Neg mg/dL (Negative) 08/25/17 Unknown Urine Blood Neg (Negative) 08/25/17 Unknown Urine Nitrite Neg (Negative) 08/25/17 Unknown Urine Bilirubin Neg (Negative) 08/25/17 Unknown Urine Urobilinogen < 2.0 mg/dL (<2.0) 08/25/17 Unknown Ur Leukocyte Esterase Sm (Negative) 08/25/17 Unknown Urine WBC (Auto) 3.0 /HPF (0.0-6.0) 08/25/17 Unknown Urine RBC (Auto) 1.0 /HPF (0.0-6.0) 08/25/17 Unknown U Epithel Cells (Auto) 2.0 /HPF (0-13.0) 08/25/17 Unknown Urine Bacteria (Auto) 1+ /HPF (Negative) 08/25/17 Unknown Urine Mucus Few /HPF 08/25/17 Unknown
--- NOTE | 2017-08-30 19:14 | Ultrasound Report ---
FINAL REPORT EXAM: US ABDOMEN COMPLETE HISTORY: RUQ pain TECHNIQUE: Longitudinal and transverse grayscale sonographic images were performed Comparison: None FINDINGS: Unremarkable imaged portion of the pancreas. The aorta and inferior vena cava in the imaged portions are unremarkable. Limited assessment of the liver with mild starry teddy appearance suggestive of periportal prominence. Unremarkable anechoic gallbladder. No gallbladder wall thickening. No pericholecystic fluid. Common duct measures 2.2 millimeters. Gallbladder wall measures 1.1 millimeter. Right kidney measures 10.5 centimeters. Left kidney measures 11.6 centimeters. Spleen size is normal at 9.4 centimeters. IMPRESSION: Exam limited by overlying bowel gas. Starry teddy appearance of the liver. Lung differential including hepatitis, right-sided heart failure, other infiltrative processes. Recommend correlation with liver function tests. Incomplete visualization of the pancreas. Otherwise, unremarkable abdominal ultrasound.
[2017-08-31] MEDS: CARAFATE PO SCH ×4 (01:04→17:11)
[2017-08-31] MEDS: PROTONIX IV SCH ×3 (07:59→22:41)
[2017-08-31] MEDS: HumuLIN R SUB-Q SCH ×3 (07:59→17:10)
[2017-08-31] MEDS: SODIUM CHLORIDE FLUSH SYRINGE 10 ML IV SCH ×3 (08:00→22:43)
[2017-08-31] MEDS: LOVENOX SUB-Q SCH ×2 (08:00→10:50)
--- NOTE | 2017-08-31 09:58 | Event Note ---
Date: 08/31/17 Patient off of the floor for GES.
[2017-08-31] MEDS: LEVAQUIN 750MG/150ML 750 MG/150 ML BAG IV SCH (11:07)
--- NOTE | 2017-08-31 11:13 | Gastroenterology Progress Note ---
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 and may be exacerbated by process -s/p EGD that revealed severe ulcerative esophagitis (bx results pending)- will need repeat endoscopy in 2 months to assess healing/rule out underlying disease given severity of esophagitis -continue PPI BID and carafate -GES completed this am-results pending -abd U/S showed GB normal (no cholecystitis, gallstones, or CBD dilation) -clinically, patient reports N/V now improving with no vomiting this am -consider HIDA with CCK based on progress -start on clear liquid diet -continue antiemetics and supportive care -limit narcotics -further recommendations to follow 2.abdominal pain/bladder outlet obstruction? -abd CT revealed bilateral hyronephrosis -urology following 3.DM 4.neuropathy 5.depression Subjective Date of service: 08/31/17 Principal diagnosis: intractable N/V Interval history: Patient w/o acute distress. Reports feeling better with N/V improving. No episodes of vomiting this am. Objective - Constitutional Vitals: Temp Pulse Resp BP Pulse Ox 98.0 F 67 18 113/67 98 08/31/17 08:18 08/31/17 10:00 08/31/17 08:18 08/31/17 08:18 08/31/17 08:18 General appearance: no acute distress - Respiratory Respiratory: bilateral: CTA - Cardiovascular Rhythm: regular Heart Sounds: Present: S1 & S2 - Gastrointestinal General gastrointestinal: Present: soft, tender (slight generalized TTP), non- distended, normal bowel sounds - Neurologic Neurological: alert and oriented x3 - Labs CBC & Chem 7: 08/27/17 13:54 08/30/17 07:26 Labs: Laboratory Results - last 24 hr 08/30/17 08/30/17 08/30/17 11:13 15:43 21:31 POC Glucose 145 H 114 H 108 H 08/31/17 06:03 POC Glucose 197 H
--- NOTE | 2017-08-31 11:59 | Nuclear Medicine Report ---
NUCLEAR MEDICINE GASTRIC EMPTYING SCAN HISTORY: Intractable nausea and vomiting, early satiety. FINDINGS: Anterior abdominal images were obtained for 90 minutes after ingestion of 1 mCi of technetium 99m sulfur cold in oatmeal. Half life for gastric emptying measures 100 minutes. No scintigraphic evidence for reflux disease. IMPRESSION: Normal gastric emptying.
--- NOTE | 2017-08-31 12:28 | Progress Note ---
Assessment and Plan Assessment and plan: Nausea and vomiting. EGD showed severe ulcerative esophagitis Protonix bid Started on clear liq diet GI Physician following Diabetes mellitus type 2. lantus Accucheck qac and hs Diabetic neuropathy Gastroparesis Bilateral hydronephroiss, Urology following. keep rosen catheter on discharge as per Urology DVT prohylaxis with Lovenox. Full code status History Interval history: nausea and vomiting Hospitalist Physical - Physical exam Narrative exam: Gen : Not in acute distress, lying in bed HEENT:Normocephalic, atraumatic Neck: supple, No JVD Lungs:Clear to auscultation bilaterally,no crackles, no wheeze Heart :S1 and S2 reg, no murmurs, rubs or gallop Abd:soft, non tender, non distended, normal bowel sounds Ext: No edema, no clubbing, no cyanosis Neuro: Awake,alert,oriented x 3, no focal signs - Constitutional Vitals: Temp Pulse Resp BP Pulse Ox 98.0 F 67 18 113/67 98 08/31/17 08:18 08/31/17 10:00 08/31/17 08:18 08/31/17 08:18 08/31/17 08:18 General appearance: Present: mild distress (Retching at times). Absent: no acute distress Results - Labs CBC & Chem 7: 08/27/17 13:54 08/30/17 07:26 Labs: Laboratory Last Values WBC 14.0 K/mm3 (4.5-11.0) H 08/27/17 13:54 RBC 4.37 M/mm3 (3.65-5.03) 08/27/17 13:54 Hgb 12.3 gm/dl (10.1-14.3) 08/27/17 13:54 Hct 37.0 % (30.3-42.9) 08/27/17 13:54 MCV 85 fl (79-97) 08/27/17 13:54 MCH 28 pg (28-32) 08/27/17 13:54 MCHC 33 % (30-34) 08/27/17 13:54 RDW 12.9 % (13.2-15.2) L 08/27/17 13:54 Plt Count 223 K/mm3 (140-440) 08/27/17 13:54 Lymph % (Auto) 16.7 % (13.4-35.0) 08/26/17 09:10 [place] % (Auto) 5.4 % (0.0-7.3) 08/26/17 09:10 Eos % (Auto) 4.0 % (0.0-4.3) 08/26/17 09:10 Baso % (Auto) 0.3 % (0.0-1.8) 08/26/17 09:10 Lymph # 1.7 K/mm3 (1.2-5.4) 08/26/17 09:10 [place] # 0.5 K/mm3 (0.0-0.8) 08/26/17 09:10 Eos # 0.4 K/mm3 (0.0-0.4) 08/26/17 09:10 Baso # 0.0 K/mm3 (0.0-0.1) 08/26/17 09:10 Add Manual Diff Complete 08/27/17 13:54 Total Counted 100 08/27/17 13:54 Seg Neutrophils % 73.6 % (40.0-70.0) H 08/26/17 09:10 Seg Neuts % (Manual) 94.0 % (40.0-70.0) H 08/27/17 13:54 Band Neutrophils % 0 % 08/27/17 13:54 Lymphocytes % (Manual) 4.0 % (13.4-35.0) L 08/27/17 13:54 Reactive Lymphs % (Man) 0 % 08/27/17 13:54 Monocytes % (Manual) 1.0 % (0.0-7.3) 08/27/17 13:54 Eosinophils % (Manual) 0 % (0.0-4.3) 08/27/17 13:54 Basophils % (Manual) 1.0 % (0.0-1.8) 08/27/17 13:54 Metamyelocytes % 0 % 08/27/17 13:54 Myelocytes % 0 % 08/27/17 13:54 Promyelocytes % 0 % 08/27/17 13:54 Blast Cells % 0 % 08/27/17 13:54 Nucleated RBC % Not Reportable 08/27/17 13:54 Seg Neutrophils # 7.3 K/mm3 (1.8-7.7) 08/26/17 09:10 Seg Neutrophils # Man 13.2 K/mm3 (1.8-7.7) H 08/27/17 13:54 Band Neutrophils # 0.0 K/mm3 08/27/17 13:54 Lymphocytes # (Manual) 0.6 K/mm3 (1.2-5.4) L 08/27/17 13:54 Abs React Lymphs (Man) 0.0 K/mm3 08/27/17 13:54 Monocytes # (Manual) 0.1 K/mm3 (0.0-0.8) 08/27/17 13:54 Eosinophils # (Manual) 0.0 K/mm3 (0.0-0.4) 08/27/17 13:54 Basophils # (Manual) 0.1 K/mm3 (0.0-0.1) 08/27/17 13:54 Metamyelocytes # 0.0 K/mm3 08/27/17 13:54 Myelocytes # 0.0 K/mm3 08/27/17 13:54 Promyelocytes # 0.0 K/mm3 08/27/17 13:54 Blast Cells # 0.0 K/mm3 08/27/17 13:54 WBC Morphology Not Reportable 08/27/17 13:54 Hypersegmented Neuts Not Reportable 08/27/17 13:54 Hyposegmented Neuts Not Reportable 08/27/17 13:54 Hypogranular Neuts Not Reportable 08/27/17 13:54 Smudge Cells Not Reportable 08/27/17 13:54 Toxic Granulation Not Reportable 08/27/17 13:54 Toxic Vacuolation Not Reportable 08/27/17 13:54 Dohle Bodies Not Reportable 08/27/17 13:54 Pelger-Huet Anomaly Not Reportable 08/27/17 13:54 Yosvany Rods Not Reportable 08/27/17 13:54 Platelet Estimate Appears normal 08/27/17 13:54 Clumped Platelets Not Reportable 08/27/17 13:54 Plt Clumps, EDTA Not Reportable 08/27/17 13:54 Large Platelets Not Reportable 08/27/17 13:54 Giant Platelets Not Reportable 08/27/17 13:54 Platelet Satelliting Not Reportable 08/27/17 13:54 Plt Morphology Comment Not Reportable 08/27/17 13:54 RBC Morphology Not Reportable 08/27/17 13:54 Dimorphic RBCs Not Reportable 08/27/17 13:54 Polychromasia Not Reportable 08/27/17 13:54 Hypochromasia Not Reportable 08/27/17 13:54 Poikilocytosis Few 08/27/17 13:54 Anisocytosis Not Reportable 08/27/17 13:54 Microcytosis Not Reportable 08/27/17 13:54 Macrocytosis Not Reportable 08/27/17 13:54 Spherocytes Not Reportable 08/27/17 13:54 Pappenheimer Bodies Not Reportable 08/27/17 13:54 Sickle Cells Not Reportable 08/27/17 13:54 Target Cells Not Reportable 08/27/17 13:54 Tear Drop Cells Not Reportable 08/27/17 13:54 Ovalocytes Few 08/27/17 13:54 Helmet Cells Not Reportable 08/27/17 13:54 [place] Bodies Not Reportable 08/27/17 13:54 [place] Rings Not Reportable 08/27/17 13:54 [place] Cells Not Reportable 08/27/17 13:54 Bite Cells Not Reportable 08/27/17 13:54 Crenated Cell Not Reportable 08/27/17 13:54 Elliptocytes Not Reportable 08/27/17 13:54 Acanthocytes (Spur) Not Reportable 08/27/17 13:54 Rouleaux Not Reportable 08/27/17 13:54 Hemoglobin C Crystals Not Reportable 08/27/17 13:54 Schistocytes Not Reportable 08/27/17 13:54 Malaria parasites Not Reportable 08/27/17 13:54 Bassem Bodies Not Reportable 08/27/17 13:54 Hem Pathologist Commnt No 08/27/17 13:54 Sodium 136 mmol/L (137-145) L 08/30/17 07:26 Potassium 3.4 mmol/L (3.6-5.0) L 08/30/17 07:26 Chloride 101.7 mmol/L (98-107) 08/30/17 07:26 Carbon Dioxide 21 mmol/L (22-30) L 08/30/17 07:26 Anion Gap 17 mmol/L 08/30/17 07:26 BUN 15 mg/dL (7-17) 08/30/17 07:26 Creatinine 0.6 mg/dL (0.7-1.2) L 08/30/17 07:26 Estimated GFR > 60 ml/min 08/30/17 07:26 BUN/Creatinine Ratio 25 % 08/30/17 07:26 Glucose 121 mg/dL (65-100) H 08/30/17 07:26 POC Glucose 197 (70-105) H 08/31/17 06:03 Calcium 7.9 mg/dL (8.4-10.2) L 08/30/17 07:26 Magnesium 2.20 mg/dL (1.7-2.3) 08/30/17 07:28 Total Bilirubin 0.50 mg/dL (0.1-1.2) 08/29/17 09:17 AST 13 units/L (5-40) 08/29/17 09:17 ALT 9 units/L (7-56) 08/29/17 09:17 Alkaline Phosphatase 47 units/L (35-129) 08/29/17 09:17 Total Protein 7.1 g/dL (6.3-8.2) 08/29/17 09:17 Albumin 3.9 g/dL (3.9-5) 08/29/17 09:17 Albumin/Globulin Ratio 1.2 % 08/29/17 09:17 Lipase 8 units/L (13-60) L 08/25/17 01:06 Urine Color Yellow (Yellow) 08/25/17 Unknown Urine Turbidity Clear (Clear) 08/25/17 Unknown Urine pH 9.0 (5.0-7.0) H 08/25/17 Unknown Ur Specific [place] 1.010 (1.003-1.030) 08/25/17 Unknown Urine Protein <15 mg/dl mg/dL (Negative) 08/25/17 Unknown Urine Glucose (UA) 150 mg/dL (Negative) 08/25/17 Unknown Urine Ketones Neg mg/dL (Negative) 08/25/17 Unknown Urine Blood Neg (Negative) 08/25/17 Unknown Urine Nitrite Neg (Negative) 08/25/17 Unknown Urine Bilirubin Neg (Negative) 08/25/17 Unknown Urine Urobilinogen < 2.0 mg/dL (<2.0) 08/25/17 Unknown Ur Leukocyte Esterase Sm (Negative) 08/25/17 Unknown Urine WBC (Auto) 3.0 /HPF (0.0-6.0) 08/25/17 Unknown Urine RBC (Auto) 1.0 /HPF (0.0-6.0) 08/25/17 Unknown U Epithel Cells (Auto) 2.0 /HPF (0-13.0) 08/25/17 Unknown Urine Bacteria (Auto) 1+ /HPF (Negative) 08/25/17 Unknown Urine Mucus Few /HPF 08/25/17 Unknown
[2017-08-31] MEDS: HALDOL IM PRN (14:55)
[2017-08-31] MEDS: DILAUDID IV PRN (20:26)
[2017-08-31] MEDS: NACL 0.9% 1000 ML 1,000 ML IV SCH (20:26)
[2017-08-31] MEDS: ZOFRAN IV PRN (20:26)
[2017-08-31] MEDS: ATIVAN IV PRN (22:41)
[2017-09-01] MEDS: HumuLIN R SUB-Q SCH ×6 (00:32→22:35)
[2017-09-01] MEDS: CARAFATE PO SCH ×4 (00:32→17:26)
[2017-09-01 09:10] LABS: Hemoglobin 11.6 gm/dl (10.1-14.3); Mean Corpuscular HGB Conc 35 % (30-34); Mean Corpuscular Hemoglobin 29 pg (28-32); Mean Corpuscular Volume 82 fl (79-97); Platelet Count 187 K/mm3 (140-440); Red Blood Count 4.01 M/mm3 (3.65-5.03); Red Cell Distribution Width 13.4 % (13.2-15.2)
[2017-09-01] MEDS: LEVAQUIN 750MG/150ML 750 MG/150 ML BAG IV SCH (10:40)
[2017-09-01] MEDS: LOVENOX SUB-Q SCH (10:41)
[2017-09-01] MEDS: PROTONIX IV SCH ×2 (10:41→21:08)
[2017-09-01] MEDS: ZOFRAN IV PRN (10:41)
--- NOTE | 2017-09-01 10:55 | Gastroenterology Progress Note ---
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 and may be exacerbated by process -s/p EGD that revealed severe ulcerative esophagitis (bx results pending)- will need repeat endoscopy in 2 months to assess healing/rule out underlying disease given severity of esophagitis -continue PPI BID and carafate -GES with normal results -abd U/S showed GB normal (no cholecystitis, gallstones, or CBD dilation) -clinically, patient is slowly improving- still has some nausea but no vomiting -will order HIDA with CCK for further evaluation -tolerating clear- okay to advance to GI soft as tolerated -continue antiemetics and supportive care -limit narcotics -will follow 2.abdominal pain/bladder outlet obstruction? -abd CT revealed bilateral hyronephrosis -urology following 3.DM 4.neuropathy 5.depression Subjective Date of service: 09/01/17 Principal diagnosis: intractable N/V Interval history: Patient w/o acute distress. Reports some nausea last night but no vomiting yesterday or this am. Objective - Constitutional Vitals: Temp Pulse Resp BP Pulse Ox 98.1 F 60 16 139/91 99 09/01/17 07:46 09/01/17 08:31 09/01/17 07:46 09/01/17 07:46 09/01/17 07:46 General appearance: no acute distress - Respiratory Respiratory: bilateral: CTA - Cardiovascular Rhythm: regular Heart Sounds: Present: S1 & S2 - Gastrointestinal General gastrointestinal: Present: soft, non-tender, non-distended, normal bowel sounds - Neurologic Neurological: alert and oriented x3 - Labs CBC & Chem 7: 09/01/17 08:14 08/30/17 07:26 Labs: Laboratory Results - last 24 hr 08/31/17 08/31/17 08/31/17 11:23 16:44 21:51 WBC RBC Hgb Hct MCV MCH MCHC RDW Plt Count POC Glucose 193 H 154 H 187 H 09/01/17 09/01/17 06:20 08:14 WBC 6.0 RBC 4.01 Hgb 11.6 Hct 33.0 MCV 82 MCH 29 MCHC 35 H RDW 13.4 Plt Count 187 POC Glucose 114 H
[2017-09-01 12:02] LABS: BUN/Creatinine Ratio 7; Blood Urea Nitrogen 4 mg/dL (7-17); Calcium 8.3 mg/dL (8.4-10.2); Hemolysis Index 1
[2017-09-01] MEDS: SODIUM CHLORIDE FLUSH SYRINGE 10 ML IV SCH ×2 (14:02→21:08)
[2017-09-01] MEDS: NACL 0.9% 1000 ML 1,000 ML IV SCH (14:03)
--- NOTE | 2017-09-01 14:38 | Progress Note ---
Assessment and Plan Assessment and plan: Nausea and vomiting. EGD showed severe ulcerative esophagitis Protonix bid Started on clear liq diet GI Physician following For HIDA scan Diabetes mellitus type 2. lantus Accucheck qac and hs Hypokalemia. Replace iv and recheck in am. Diabetic neuropathy Gastroparesis Bilateral hydronephroiss, Urology following. keep rosen catheter on discharge as per Urology DVT prohylaxis with Lovenox. Full code status History Interval history: Less nausea No vomiting, no fever Hospitalist Physical - Physical exam Narrative exam: Gen : Not in acute distress, lying in bed HEENT:Normocephalic, atraumatic Neck: supple, No JVD Lungs:Clear to auscultation bilaterally,no crackles, no wheeze Heart :S1 and S2 reg, no murmurs, rubs or gallop Abd:soft, non tender, non distended, normal bowel sounds Ext: No edema, no clubbing, no cyanosis Neuro: Awake,alert,oriented x 3, no focal signs - Constitutional Vitals: Temp Pulse Resp BP Pulse Ox 98.1 F 73 18 143/83 99 09/01/17 11:17 09/01/17 11:17 09/01/17 11:17 09/01/17 11:17 09/01/17 11:17 Results - Labs CBC & Chem 7: 09/01/17 08:14 09/01/17 08:14 Labs: Laboratory Last Values WBC 6.0 K/mm3 (4.5-11.0) 09/01/17 08:14 RBC 4.01 M/mm3 (3.65-5.03) 09/01/17 08:14 Hgb 11.6 gm/dl (10.1-14.3) 09/01/17 08:14 Hct 33.0 % (30.3-42.9) 09/01/17 08:14 MCV 82 fl (79-97) 09/01/17 08:14 MCH 29 pg (28-32) 09/01/17 08:14 MCHC 35 % (30-34) H 09/01/17 08:14 RDW 13.4 % (13.2-15.2) 09/01/17 08:14 Plt Count 187 K/mm3 (140-440) 09/01/17 08:14 Lymph % (Auto) 16.7 % (13.4-35.0) 08/26/17 09:10 [place] % (Auto) 5.4 % (0.0-7.3) 08/26/17 09:10 Eos % (Auto) 4.0 % (0.0-4.3) 08/26/17 09:10 Baso % (Auto) 0.3 % (0.0-1.8) 08/26/17 09:10 Lymph # 1.7 K/mm3 (1.2-5.4) 08/26/17 09:10 [place] # 0.5 K/mm3 (0.0-0.8) 08/26/17 09:10 Eos # 0.4 K/mm3 (0.0-0.4) 08/26/17 09:10 Baso # 0.0 K/mm3 (0.0-0.1) 08/26/17 09:10 Add Manual Diff Complete 08/27/17 13:54 Total Counted 100 08/27/17 13:54 Seg Neutrophils % 73.6 % (40.0-70.0) H 08/26/17 09:10 Seg Neuts % (Manual) 94.0 % (40.0-70.0) H 08/27/17 13:54 Band Neutrophils % 0 % 08/27/17 13:54 Lymphocytes % (Manual) 4.0 % (13.4-35.0) L 08/27/17 13:54 Reactive Lymphs % (Man) 0 % 08/27/17 13:54 Monocytes % (Manual) 1.0 % (0.0-7.3) 08/27/17 13:54 Eosinophils % (Manual) 0 % (0.0-4.3) 08/27/17 13:54 Basophils % (Manual) 1.0 % (0.0-1.8) 08/27/17 13:54 Metamyelocytes % 0 % 08/27/17 13:54 Myelocytes % 0 % 08/27/17 13:54 Promyelocytes % 0 % 08/27/17 13:54 Blast Cells % 0 % 08/27/17 13:54 Nucleated RBC % Not Reportable 08/27/17 13:54 Seg Neutrophils # 7.3 K/mm3 (1.8-7.7) 08/26/17 09:10 Seg Neutrophils # Man 13.2 K/mm3 (1.8-7.7) H 08/27/17 13:54 Band Neutrophils # 0.0 K/mm3 08/27/17 13:54 Lymphocytes # (Manual) 0.6 K/mm3 (1.2-5.4) L 08/27/17 13:54 Abs React Lymphs (Man) 0.0 K/mm3 08/27/17 13:54 Monocytes # (Manual) 0.1 K/mm3 (0.0-0.8) 08/27/17 13:54 Eosinophils # (Manual) 0.0 K/mm3 (0.0-0.4) 08/27/17 13:54 Basophils # (Manual) 0.1 K/mm3 (0.0-0.1) 08/27/17 13:54 Metamyelocytes # 0.0 K/mm3 08/27/17 13:54 Myelocytes # 0.0 K/mm3 08/27/17 13:54 Promyelocytes # 0.0 K/mm3 08/27/17 13:54 Blast Cells # 0.0 K/mm3 08/27/17 13:54 WBC Morphology Not Reportable 08/27/17 13:54 Hypersegmented Neuts Not Reportable 08/27/17 13:54 Hyposegmented Neuts Not Reportable 08/27/17 13:54 Hypogranular Neuts Not Reportable 08/27/17 13:54 Smudge Cells Not Reportable 08/27/17 13:54 Toxic Granulation Not Reportable 08/27/17 13:54 Toxic Vacuolation Not Reportable 08/27/17 13:54 Dohle Bodies Not Reportable 08/27/17 13:54 Pelger-Huet Anomaly Not Reportable 08/27/17 13:54 Yosvany Rods Not Reportable 08/27/17 13:54 Platelet Estimate Appears normal 08/27/17 13:54 Clumped Platelets Not Reportable 08/27/17 13:54 Plt Clumps, EDTA Not Reportable 08/27/17 13:54 Large Platelets Not Reportable 08/27/17 13:54 Giant Platelets Not Reportable 08/27/17 13:54 Platelet Satelliting Not Reportable 08/27/17 13:54 Plt Morphology Comment Not Reportable 08/27/17 13:54 RBC Morphology Not Reportable 08/27/17 13:54 Dimorphic RBCs Not Reportable 08/27/17 13:54 Polychromasia Not Reportable 08/27/17 13:54 Hypochromasia Not Reportable 08/27/17 13:54 Poikilocytosis Few 08/27/17 13:54 Anisocytosis Not Reportable 08/27/17 13:54 Microcytosis Not Reportable 08/27/17 13:54 Macrocytosis Not Reportable 08/27/17 13:54 Spherocytes Not Reportable 08/27/17 13:54 Pappenheimer Bodies Not Reportable 08/27/17 13:54 Sickle Cells Not Reportable 08/27/17 13:54 Target Cells Not Reportable 08/27/17 13:54 Tear Drop Cells Not Reportable 08/27/17 13:54 Ovalocytes Few 08/27/17 13:54 Helmet Cells Not Reportable 08/27/17 13:54 Chandra-[place] Bodies Not Reportable 08/27/17 13:54 [place] Rings Not Reportable 08/27/17 13:54 Willy Cells Not Reportable 08/27/17 13:54 Bite Cells Not Reportable 08/27/17 13:54 Crenated Cell Not Reportable 08/27/17 13:54 Elliptocytes Not Reportable 08/27/17 13:54 Acanthocytes (Spur) Not Reportable 08/27/17 13:54 Rouleaux Not Reportable 08/27/17 13:54 Hemoglobin C Crystals Not Reportable 08/27/17 13:54 Schistocytes Not Reportable 08/27/17 13:54 Malaria parasites Not Reportable 08/27/17 13:54 Bassem Bodies Not Reportable 08/27/17 13:54 Hem Pathologist Commnt No 08/27/17 13:54 Sodium 141 mmol/L (137-145) 09/01/17 08:14 Potassium 3.4 mmol/L (3.6-5.0) L 09/01/17 08:14 Chloride 102.2 mmol/L (98-107) 09/01/17 08:14 Carbon Dioxide 28 mmol/L (22-30) D 09/01/17 08:14 Anion Gap 14 mmol/L 09/01/17 08:14 BUN 4 mg/dL (7-17) L 09/01/17 08:14 Creatinine 0.6 mg/dL (0.7-1.2) L 09/01/17 08:14 Estimated GFR > 60 ml/min 09/01/17 08:14 BUN/Creatinine Ratio 7 % 09/01/17 08:14 Glucose 116 mg/dL (65-100) H 09/01/17 08:14 POC Glucose 125 (70-105) H 09/01/17 11:25 Calcium 8.3 mg/dL (8.4-10.2) L 09/01/17 08:14 Magnesium 2.20 mg/dL (1.7-2.3) 08/30/17 07:28 Total Bilirubin 0.50 mg/dL (0.1-1.2) 08/29/17 09:17 AST 13 units/L (5-40) 08/29/17 09:17 ALT 9 units/L (7-56) 08/29/17 09:17 Alkaline Phosphatase 47 units/L (35-129) 08/29/17 09:17 Total Protein 7.1 g/dL (6.3-8.2) 08/29/17 09:17 Albumin 3.9 g/dL (3.9-5) 08/29/17 09:17 Albumin/Globulin Ratio 1.2 % 08/29/17 09:17 Lipase 8 units/L (13-60) L 08/25/17 01:06 Urine Color Yellow (Yellow) 08/25/17 Unknown Urine Turbidity Clear (Clear) 08/25/17 Unknown Urine pH 9.0 (5.0-7.0) H 08/25/17 Unknown Ur Specific [place] 1.010 (1.003-1.030) 08/25/17 Unknown Urine Protein <15 mg/dl mg/dL (Negative) 08/25/17 Unknown Urine Glucose (UA) 150 mg/dL (Negative) 08/25/17 Unknown Urine Ketones Neg mg/dL (Negative) 08/25/17 Unknown Urine Blood Neg (Negative) 08/25/17 Unknown Urine Nitrite Neg (Negative) 08/25/17 Unknown Urine Bilirubin Neg (Negative) 08/25/17 Unknown Urine Urobilinogen < 2.0 mg/dL (<2.0) 08/25/17 Unknown Ur Leukocyte Esterase Sm (Negative) 08/25/17 Unknown Urine WBC (Auto) 3.0 /HPF (0.0-6.0) 08/25/17 Unknown Urine RBC (Auto) 1.0 /HPF (0.0-6.0) 08/25/17 Unknown U Epithel Cells (Auto) 2.0 /HPF (0-13.0) 08/25/17 Unknown Urine Bacteria (Auto) 1+ /HPF (Negative) 08/25/17 Unknown Urine Mucus Few /HPF 08/25/17 Unknown
[2017-09-01] MEDS: KCL 10MEQ/100ML 10 MEQ/100 ML BAG IV SCH (21:07)
[2017-09-01] MEDS: HALDOL IM PRN (21:07)
[2017-09-01] MEDS: DILAUDID IV PRN (21:53)
[2017-09-02] MEDS: KCL 10MEQ/100ML 10 MEQ/100 ML BAG IV SCH (00:03)
[2017-09-02] MEDS: CARAFATE PO SCH ×4 (01:09→17:53)
[2017-09-02] MEDS: HALDOL IM PRN ×2 (03:23→22:02)
[2017-09-02] MEDS: HumuLIN R SUB-Q SCH ×3 (07:26→16:52)
[2017-09-02 07:29] LABS: BUN/Creatinine Ratio 6; Blood Urea Nitrogen 3 mg/dL (7-17); Calcium 8.4 mg/dL (8.4-10.2); Hemolysis Index 4
[2017-09-02] MEDS ORDERED: KINEVAC IV ONE ×2 (09:07→09:13)
[2017-09-02] MEDS ORDERED: WATER FOR INJ (PF) 0 ML ONE (09:07)
[2017-09-02] MEDS ORDERED: WATER FOR INJ (PF) 10 ML ONE (09:08)
[2017-09-02] MEDS ORDERED: WATER FOR INJ (PF) IV ONE (09:15)
--- NOTE | 2017-09-02 10:31 | Progress Note ---
Assessment and Plan Assessment and plan: Nausea and vomiting. EGD showed severe ulcerative esophagitis Protonix bid Started on clear liq diet GI Physician following For HIDA scan today Diabetes mellitus type 2. lantus Accucheck qac and hs Hypokalemia. Replace iv and recheck in am. Diabetic neuropathy Gastroparesis Bilateral hydronephroiss, Urology following. keep rosen catheter on discharge as per Urology DVT prohylaxis with Lovenox. Full code status History Interval history: Less nausea vomiting, Abdominal pain no fever Hospitalist Physical - Physical exam Narrative exam: Gen : Not in acute distress, lying in bed HEENT:Normocephalic, atraumatic Neck: supple, No JVD Lungs:Clear to auscultation bilaterally,no crackles, no wheeze Heart :S1 and S2 reg, no murmurs, rubs or gallop Abd:soft, tender, non distended, normal bowel sounds Ext: No edema, no clubbing, no cyanosis Neuro: Awake,alert,oriented x 3, no focal signs - Constitutional Vitals: Temp Pulse Resp BP Pulse Ox 98.3 F 82 16 143/86 98 09/02/17 00:15 09/02/17 00:31 09/02/17 05:05 09/02/17 05:05 09/02/17 00:15 Results - Labs CBC & Chem 7: 09/01/17 08:14 09/02/17 05:47 Labs: Laboratory Last Values WBC 6.0 K/mm3 (4.5-11.0) 09/01/17 08:14 RBC 4.01 M/mm3 (3.65-5.03) 09/01/17 08:14 Hgb 11.6 gm/dl (10.1-14.3) 09/01/17 08:14 Hct 33.0 % (30.3-42.9) 09/01/17 08:14 MCV 82 fl (79-97) 09/01/17 08:14 MCH 29 pg (28-32) 09/01/17 08:14 MCHC 35 % (30-34) H 09/01/17 08:14 RDW 13.4 % (13.2-15.2) 09/01/17 08:14 Plt Count 187 K/mm3 (140-440) 09/01/17 08:14 Lymph % (Auto) 16.7 % (13.4-35.0) 08/26/17 09:10 [place] % (Auto) 5.4 % (0.0-7.3) 08/26/17 09:10 Eos % (Auto) 4.0 % (0.0-4.3) 08/26/17 09:10 Baso % (Auto) 0.3 % (0.0-1.8) 08/26/17 09:10 Lymph # 1.7 K/mm3 (1.2-5.4) 08/26/17 09:10 [place] # 0.5 K/mm3 (0.0-0.8) 08/26/17 09:10 Eos # 0.4 K/mm3 (0.0-0.4) 08/26/17 09:10 Baso # 0.0 K/mm3 (0.0-0.1) 08/26/17 09:10 Add Manual Diff Complete 08/27/17 13:54 Total Counted 100 08/27/17 13:54 Seg Neutrophils % 73.6 % (40.0-70.0) H 08/26/17 09:10 Seg Neuts % (Manual) 94.0 % (40.0-70.0) H 08/27/17 13:54 Band Neutrophils % 0 % 08/27/17 13:54 Lymphocytes % (Manual) 4.0 % (13.4-35.0) L 08/27/17 13:54 Reactive Lymphs % (Man) 0 % 08/27/17 13:54 Monocytes % (Manual) 1.0 % (0.0-7.3) 08/27/17 13:54 Eosinophils % (Manual) 0 % (0.0-4.3) 08/27/17 13:54 Basophils % (Manual) 1.0 % (0.0-1.8) 08/27/17 13:54 Metamyelocytes % 0 % 08/27/17 13:54 Myelocytes % 0 % 08/27/17 13:54 Promyelocytes % 0 % 08/27/17 13:54 Blast Cells % 0 % 08/27/17 13:54 Nucleated RBC % Not Reportable 08/27/17 13:54 Seg Neutrophils # 7.3 K/mm3 (1.8-7.7) 08/26/17 09:10 Seg Neutrophils # Man 13.2 K/mm3 (1.8-7.7) H 08/27/17 13:54 Band Neutrophils # 0.0 K/mm3 08/27/17 13:54 Lymphocytes # (Manual) 0.6 K/mm3 (1.2-5.4) L 08/27/17 13:54 Abs React Lymphs (Man) 0.0 K/mm3 08/27/17 13:54 Monocytes # (Manual) 0.1 K/mm3 (0.0-0.8) 08/27/17 13:54 Eosinophils # (Manual) 0.0 K/mm3 (0.0-0.4) 08/27/17 13:54 Basophils # (Manual) 0.1 K/mm3 (0.0-0.1) 08/27/17 13:54 Metamyelocytes # 0.0 K/mm3 08/27/17 13:54 Myelocytes # 0.0 K/mm3 08/27/17 13:54 Promyelocytes # 0.0 K/mm3 08/27/17 13:54 Blast Cells # 0.0 K/mm3 08/27/17 13:54 WBC Morphology Not Reportable 08/27/17 13:54 Hypersegmented Neuts Not Reportable 08/27/17 13:54 Hyposegmented Neuts Not Reportable 08/27/17 13:54 Hypogranular Neuts Not Reportable 08/27/17 13:54 Smudge Cells Not Reportable 08/27/17 13:54 Toxic Granulation Not Reportable 08/27/17 13:54 Toxic Vacuolation Not Reportable 08/27/17 13:54 Dohle Bodies Not Reportable 08/27/17 13:54 Pelger-Huet Anomaly Not Reportable 08/27/17 13:54 Yosvany Rods Not Reportable 08/27/17 13:54 Platelet Estimate Appears normal 08/27/17 13:54 Clumped Platelets Not Reportable 08/27/17 13:54 Plt Clumps, EDTA Not Reportable 08/27/17 13:54 Large Platelets Not Reportable 08/27/17 13:54 Giant Platelets Not Reportable 08/27/17 13:54 Platelet Satelliting Not Reportable 08/27/17 13:54 Plt Morphology Comment Not Reportable 08/27/17 13:54 RBC Morphology Not Reportable 08/27/17 13:54 Dimorphic RBCs Not Reportable 08/27/17 13:54 Polychromasia Not Reportable 08/27/17 13:54 Hypochromasia Not Reportable 08/27/17 13:54 Poikilocytosis Few 08/27/17 13:54 Anisocytosis Not Reportable 08/27/17 13:54 Microcytosis Not Reportable 08/27/17 13:54 Macrocytosis Not Reportable 08/27/17 13:54 Spherocytes Not Reportable 08/27/17 13:54 Pappenheimer Bodies Not Reportable 08/27/17 13:54 Sickle Cells Not Reportable 08/27/17 13:54 Target Cells Not Reportable 08/27/17 13:54 Tear Drop Cells Not Reportable 08/27/17 13:54 Ovalocytes Few 08/27/17 13:54 Helmet Cells Not Reportable 08/27/17 13:54 Ch[place] Bodies Not Reportable 08/27/17 13:54 [place] Rings Not Reportable 08/27/17 13:54 Willy Cells Not Reportable 08/27/17 13:54 Bite Cells Not Reportable 08/27/17 13:54 Crenated Cell Not Reportable 08/27/17 13:54 Elliptocytes Not Reportable 08/27/17 13:54 Acanthocytes (Spur) Not Reportable 08/27/17 13:54 Rouleaux Not Reportable 08/27/17 13:54 Hemoglobin C Crystals Not Reportable 08/27/17 13:54 Schistocytes Not Reportable 08/27/17 13:54 Malaria parasites Not Reportable 08/27/17 13:54 Bassem Bodies Not Reportable 08/27/17 13:54 Hem Pathologist Commnt No 08/27/17 13:54 Sodium 139 mmol/L (137-145) 09/02/17 05:47 Potassium 3.6 mmol/L (3.6-5.0) 09/02/17 05:47 Chloride 100.4 mmol/L (98-107) 09/02/17 05:47 Carbon Dioxide 28 mmol/L (22-30) 09/02/17 05:47 Anion Gap 14 mmol/L 09/02/17 05:47 BUN 3 mg/dL (7-17) L 09/02/17 05:47 Creatinine 0.5 mg/dL (0.7-1.2) L 09/02/17 05:47 Estimated GFR > 60 ml/min 09/02/17 05:47 BUN/Creatinine Ratio 6 % 09/02/17 05:47 Glucose 178 mg/dL (65-100) H 09/02/17 05:47 POC Glucose 180 (70-105) H 09/02/17 07:11 Calcium 8.4 mg/dL (8.4-10.2) 09/02/17 05:47 Magnesium 2.20 mg/dL (1.7-2.3) 08/30/17 07:28 Total Bilirubin 0.50 mg/dL (0.1-1.2) 08/29/17 09:17 AST 13 units/L (5-40) 08/29/17 09:17 ALT 9 units/L (7-56) 08/29/17 09:17 Alkaline Phosphatase 47 units/L (35-129) 08/29/17 09:17 Total Protein 7.1 g/dL (6.3-8.2) 08/29/17 09:17 Albumin 3.9 g/dL (3.9-5) 08/29/17 09:17 Albumin/Globulin Ratio 1.2 % 08/29/17 09:17 Lipase 8 units/L (13-60) L 08/25/17 01:06 Urine Color Yellow (Yellow) 08/25/17 Unknown Urine Turbidity Clear (Clear) 08/25/17 Unknown Urine pH 9.0 (5.0-7.0) H 08/25/17 Unknown Ur Specific [place] 1.010 (1.003-1.030) 08/25/17 Unknown Urine Protein <15 mg/dl mg/dL (Negative) 08/25/17 Unknown Urine Glucose (UA) 150 mg/dL (Negative) 08/25/17 Unknown Urine Ketones Neg mg/dL (Negative) 08/25/17 Unknown Urine Blood Neg (Negative) 08/25/17 Unknown Urine Nitrite Neg (Negative) 08/25/17 Unknown Urine Bilirubin Neg (Negative) 08/25/17 Unknown Urine Urobilinogen < 2.0 mg/dL (<2.0) 08/25/17 Unknown Ur Leukocyte Esterase Sm (Negative) 08/25/17 Unknown Urine WBC (Auto) 3.0 /HPF (0.0-6.0) 08/25/17 Unknown Urine RBC (Auto) 1.0 /HPF (0.0-6.0) 08/25/17 Unknown U Epithel Cells (Auto) 2.0 /HPF (0-13.0) 08/25/17 Unknown Urine Bacteria (Auto) 1+ /HPF (Negative) 08/25/17 Unknown Urine Mucus Few /HPF 08/25/17 Unknown
--- NOTE | 2017-09-02 10:55 | Event Note ---
Date: 09/02/17 Patient off floor for HIDA scan. Further recommendations pending results.
--- NOTE | 2017-09-02 11:32 | Nuclear Medicine Report ---
Gallbladder scan with ejection fraction: Following injection of radionuclide the anterior liver images are unremarkable. The gallbladder promptly visualized as does the biliary tree with excretion of radionuclide activity into the duodenum. Injection of Kinevac was performed according to our protocol. Our technologist did not indicate whether the patient became symptomatic. Imaging of the gallbladder showed no significant activity reduction for the first 20 minutes but then activity reduced by 20% at 30 minutes. Impression: Normal biliary tract imaging. 20% gallbladder ejection fraction.
[2017-09-02] MEDS: ZOFRAN IV PRN (11:50)
[2017-09-02] MEDS: LOVENOX SUB-Q SCH (11:51)
[2017-09-02] MEDS: PROTONIX IV SCH ×2 (11:51→22:02)
[2017-09-02] MEDS: SODIUM CHLORIDE FLUSH SYRINGE 10 ML IV SCH ×2 (11:51→22:02)
[2017-09-02] MEDS: LEVAQUIN 750MG/150ML 750 MG/150 ML BAG IV SCH (11:52)
[2017-09-02] MEDS: NACL 0.9% 1000 ML 1,000 ML IV SCH (15:50)
--- NOTE | 2017-09-02 17:06 | Gastroenterology Progress Note ---
Assessment and Plan GI: nausea, vomiting w/ gastritis on EGD - HIDA scan abnormal - continue clear liquid diet and other rec - advance deit based on progress - rec surgery consult for possible lap edie - will follow for now Subjective Date of service: 09/02/17 Principal diagnosis: intractable N/V Interval history: - reprots some improvement in symptoms Objective - Constitutional Vitals: Temp Pulse Resp BP Pulse Ox 98.6 F 68 18 136/80 99 09/02/17 11:49 09/02/17 11:49 09/02/17 11:49 09/02/17 11:49 09/02/17 11:49 General appearance: no acute distress - EENT Eyes: PERRL - Respiratory Respiratory: bilateral: CTA - Cardiovascular Rhythm: regular Heart Sounds: Present: S1 & S2 - Gastrointestinal General gastrointestinal: Present: soft, non-tender, non-distended - Labs CBC & Chem 7: 09/01/17 08:14 09/02/17 05:47 Labs: Laboratory Results - last 24 hr 09/01/17 09/01/17 09/02/17 16:27 22:08 05:47 Sodium 139 Potassium 3.6 Chloride 100.4 Carbon Dioxide 28 Anion Gap 14 BUN 3 L Creatinine 0.5 L Estimated GFR > 60 BUN/Creatinine Ratio 6 Glucose 178 H POC Glucose 160 H 242 H Calcium 8.4 09/02/17 09/02/17 07:11 11:57 Sodium Potassium Chloride Carbon Dioxide Anion Gap BUN Creatinine Estimated GFR BUN/Creatinine Ratio Glucose POC Glucose 180 H 166 H Calcium
[2017-09-03] MEDS: CARAFATE PO SCH ×4 (00:01→18:50)
[2017-09-03] MEDS: NACL 0.9% 1000 ML 1,000 ML IV SCH ×2 (05:13→18:51)
[2017-09-03] MEDS: DILAUDID IV PRN ×3 (05:18→22:07)
[2017-09-03] MEDS: HumuLIN R SUB-Q SCH ×5 (07:30→22:09)
[2017-09-03] MEDS: PROTONIX IV SCH (10:04)
[2017-09-03] MEDS: LEVAQUIN 750MG/150ML 750 MG/150 ML BAG IV SCH (11:56)
[2017-09-03] MEDS: LOVENOX SUB-Q SCH (11:59)
[2017-09-03] MEDS: SODIUM CHLORIDE FLUSH SYRINGE 10 ML IV SCH ×2 (12:01→22:07)
[2017-09-03] MEDS ORDERED: MIRALAX 3350 PO PRN (12:18)
--- NOTE | 2017-09-03 13:00 | Consultation ---
History of Present Illness Consult date: 09/03/17 Chief complaint: Abnormal HIDA scan - History of present illness History of present illness: 46-year-old female with hx of DM and depression presented to the emergency room with complaints of abdominal pain, nausea, vomiting that started approximately 7 days ago. The patient states that the pain is localized to the suprapubic region in the right lower quadrant. The pain does not radiate. The pain is sharp in nature. It has improved since admission. It is not associated with any type of food. Patient states that she had many episodes of nonbilious, non- bloody emesis. The last time she had any emesis was over 2 days ago. Her nausea has improved. She was tolerating clear liquids without difficulty or increased pain. She denies fevers, chills, chest pain, shortness of breath. Patient states she hasn't had a bowel movement in 5 days Past History Past Medical History: diabetes, other (depression, neuropathy) Past Surgical History: No surgical history Social history: no significant social history Family history: no significant family history Medications and Allergies Allergies Allergy/AdvReac Type Severity Reaction Status Date / Time caffeine Allergy Nausea Verified 10/28/16 23:18 Home Medications Medication Instructions Recorded Confirmed Last Taken Type Ambien 10 mg PO PRN #10 10/31/16 08/25/17 Unknown Rx FLUoxetine 20 mg PO DAILY #30 10/31/16 08/25/17 Unknown Rx Pregabalin [Lyrica] 75 mg PO BID #60 capsule 10/31/16 08/25/17 Unknown Rx Remeron 15 mg PO HS #30 10/31/16 08/25/17 Unknown Rx Active Meds: Active Medications Acetaminophen (Tylenol) 650 mg PO Q4H PRN PRN Reason: Pain MILD(1-3)/Fever >100.5/BUTCHER Last Admin: 08/28/17 00:35 Dose: 650 mg Clonidine HCl (Catapres-Tts Patch) 0.1 mg TD Fr [facility] Last Admin: 08/27/17 17:32 Dose: 0.1 mg Dextrose (D50w (25gm) Syringe) 50 ml IV PRN PRN PRN Reason: Hypoglycemia Docusate Sodium (Colace) 100 mg PO BID [facility] Enoxaparin Sodium (Lovenox) 40 mg SUB-Q QDAY@1000 [facility] Last Admin: 09/02/17 11:51 Dose: 40 mg Haloperidol Lactate (Haldol) 5 mg IM Q6H PRN PRN Reason: Nausea And Vomiting Last Admin: 09/02/17 22:02 Dose: 5 mg Hydromorphone HCl (Dilaudid) 0.5 mg IV Q3H PRN PRN Reason: Pain , Severe (7-10) Last Admin: 09/03/17 05:18 Dose: 0.5 mg Levofloxacin/Dextrose (Levaquin 750mg/150ml) 750 mg in 150 mls @ 100 mls/hr IV Q24HR [facility]; Protocol Last Admin: 09/02/17 11:52 Dose: 100 mls/hr Sodium Chloride (Nacl 0.9% 1000 Ml) 1,000 mls @ 75 mls/hr IV DIRECT [facility] Last Admin: 09/03/17 05:13 Dose: 75 mls/hr Insulin Glargine (Lantus) 15 units SUB-Q QHS [facility] Last Admin: 08/29/17 22:43 Dose: Not Given Insulin Human Regular (Humulin R) 0 units SUB-Q ACHS [facility]; Protocol Last Admin: 09/03/17 07:30 Dose: Not Given Labetalol HCl (Normodyne) 20 mg IV Q4H PRN PRN Reason: BP >160/90 Last Admin: 08/28/17 19:07 Dose: 20 mg Ondansetron HCl (Zofran) 4 mg IV Q8H PRN PRN Reason: Nausea And Vomiting Last Admin: 09/02/17 11:50 Dose: 4 mg Pantoprazole Sodium (Protonix) 40 mg PO BID [facility] Polyethylene Glycol (Miralax 3350) 17 gm PO QDAY PRN PRN Reason: Constipation Sodium Chloride (Sodium Chloride Flush Syringe 10 Ml) 10 ml IV BID [facility] Last Admin: 09/02/17 22:02 Dose: 10 ml Sodium Chloride (Sodium Chloride Flush Syringe 10 Ml) 10 ml IV PRN PRN PRN Reason: LINE FLUSH Last Admin: 08/26/17 15:29 Dose: 10 ml Sucralfate (Carafate) 1 gm PO Q6HR [facility] Last Admin: 09/03/17 05:13 Dose: 1 gm Review of Systems All systems: negative (10 point review of systems was performed and negative except for that listed in HPI) Exam Vital Signs Temp Pulse Resp BP Pulse Ox 98.6 F 112 H 14 176/105 99 08/25/17 00:46 08/25/17 00:46 08/25/17 00:46 08/25/17 00:46 08/25/17 00:46 Narrative exam: Gen.: Awake, alert, oriented 3. No apparent distress ENT: No scleral icterus or conjunctival pallor CV: S1, S2 present Respiratory: Even and unlabored Abdomen: Soft, nondistended, mild suprapubic and right lower quadrant tenderness to palpation. No rebound rigidity or guarding Extremities: No clubbing, cyanosis, edema Results - Labs 09/01/17 08:14 09/02/17 05:47 Abnormal lab results 09/02/17 09/02/17 09/03/17 Range/Units 16:57 22:21 07:22 POC Glucose 128 H 264 H 151 H (70-105) - Imaging CT scan - abdomen: report reviewed, image reviewed CT scan - pelvis: report reviewed, image reviewed US - abdomen: report reviewed, image reviewed Additional studies: HIDA scan - ejection fraction of 20% Assessment and Plan 46-year-old female with abdominal pain, Bladder outlet obstruction, abnormal HIDA scan Plan: 1. I do not feel that the patient's symptoms are related to her gallbladder. The patient denies symptoms related to eating foods. The majority of her pain is in her right lower quadrant and suprapubic region. 2. May on full liquid diet and advance to low-fat diet as tolerated 3. Agud[place] management per urology 4. When necessary pain control 5. No acute surgical intervention needed. The patient will follow-up in my office if she experiences right upper quadrant pain or pain after eating certain foods. Thank you for this consultation, please call with any questions or concerns Discussed with Dr. Evans
[2017-09-03] MEDS: ZOFRAN IV PRN (14:44)
[2017-09-03] MEDS: CATAPRES-TTS PATCH TD SCH (15:18)
--- NOTE | 2017-09-03 17:06 | Progress Note ---
Assessment and Plan Assessment and plan: Nausea and vomiting. EGD showed severe ulcerative esophagitis Protonix bid Started on clear liq diet GI Physician following HIDA scan abnormal. GI recommended consulting Surgery. However after evaluation, Surgeon states no surgery is indicated for now. Diabetes mellitus type 2. Continue lantus Accucheck qac and hs Hypokalemia. Replace iv and recheck in am. Diabetic neuropathy Gastroparesis Bilateral hydronephroiss, Urology following. keep rosen catheter on discharge as per Urology DVT prohylaxis with Lovenox. Full code status History Interval history: Less nausea vomiting, Abdominal pain no fever Hospitalist Physical - Physical exam Narrative exam: Gen : Not in acute distress, lying in bed HEENT:Normocephalic, atraumatic Neck: supple, No JVD Lungs:Clear to auscultation bilaterally,no crackles, no wheeze Heart :S1 and S2 reg, no murmurs, rubs or gallop Abd:soft, tender, non distended, normal bowel sounds Ext: No edema, no clubbing, no cyanosis Neuro: Awake,alert,oriented x 3, no focal signs - Constitutional Vitals: Temp Pulse Resp BP Pulse Ox 98.6 F 66 16 136/83 98 09/03/17 16:49 09/03/17 16:49 09/03/17 16:49 09/03/17 16:49 09/03/17 16:49 General appearance: Absent: no acute distress Results - Labs CBC & Chem 7: 09/01/17 08:14 09/02/17 05:47 Labs: Laboratory Last Values WBC 6.0 K/mm3 (4.5-11.0) 09/01/17 08:14 RBC 4.01 M/mm3 (3.65-5.03) 09/01/17 08:14 Hgb 11.6 gm/dl (10.1-14.3) 09/01/17 08:14 Hct 33.0 % (30.3-42.9) 09/01/17 08:14 MCV 82 fl (79-97) 09/01/17 08:14 MCH 29 pg (28-32) 09/01/17 08:14 MCHC 35 % (30-34) H 09/01/17 08:14 RDW 13.4 % (13.2-15.2) 09/01/17 08:14 Plt Count 187 K/mm3 (140-440) 09/01/17 08:14 Lymph % (Auto) 16.7 % (13.4-35.0) 08/26/17 09:10 [place]ole % (Auto) 5.4 % (0.0-7.3) 08/26/17 09:10 Eos % (Auto) 4.0 % (0.0-4.3) 08/26/17 09:10 Baso % (Auto) 0.3 % (0.0-1.8) 08/26/17 09:10 Lymph # 1.7 K/mm3 (1.2-5.4) 08/26/17 09:10 [place]ole # 0.5 K/mm3 (0.0-0.8) 08/26/17 09:10 Eos # 0.4 K/mm3 (0.0-0.4) 08/26/17 09:10 Baso # 0.0 K/mm3 (0.0-0.1) 08/26/17 09:10 Add Manual Diff Complete 08/27/17 13:54 Total Counted 100 08/27/17 13:54 Seg Neutrophils % 73.6 % (40.0-70.0) H 08/26/17 09:10 Seg Neuts % (Manual) 94.0 % (40.0-70.0) H 08/27/17 13:54 Band Neutrophils % 0 % 08/27/17 13:54 Lymphocytes % (Manual) 4.0 % (13.4-35.0) L 08/27/17 13:54 Reactive Lymphs % (Man) 0 % 08/27/17 13:54 Monocytes % (Manual) 1.0 % (0.0-7.3) 08/27/17 13:54 Eosinophils % (Manual) 0 % (0.0-4.3) 08/27/17 13:54 Basophils % (Manual) 1.0 % (0.0-1.8) 08/27/17 13:54 Metamyelocytes % 0 % 08/27/17 13:54 Myelocytes % 0 % 08/27/17 13:54 Promyelocytes % 0 % 08/27/17 13:54 Blast Cells % 0 % 08/27/17 13:54 Nucleated RBC % Not Reportable 08/27/17 13:54 Seg Neutrophils # 7.3 K/mm3 (1.8-7.7) 08/26/17 09:10 Seg Neutrophils # Man 13.2 K/mm3 (1.8-7.7) H 08/27/17 13:54 Band Neutrophils # 0.0 K/mm3 08/27/17 13:54 Lymphocytes # (Manual) 0.6 K/mm3 (1.2-5.4) L 08/27/17 13:54 Abs React Lymphs (Man) 0.0 K/mm3 08/27/17 13:54 Monocytes # (Manual) 0.1 K/mm3 (0.0-0.8) 08/27/17 13:54 Eosinophils # (Manual) 0.0 K/mm3 (0.0-0.4) 08/27/17 13:54 Basophils # (Manual) 0.1 K/mm3 (0.0-0.1) 08/27/17 13:54 Metamyelocytes # 0.0 K/mm3 08/27/17 13:54 Myelocytes # 0.0 K/mm3 08/27/17 13:54 Promyelocytes # 0.0 K/mm3 08/27/17 13:54 Blast Cells # 0.0 K/mm3 08/27/17 13:54 WBC Morphology Not Reportable 08/27/17 13:54 Hypersegmented Neuts Not Reportable 08/27/17 13:54 Hyposegmented Neuts Not Reportable 08/27/17 13:54 Hypogranular Neuts Not Reportable 08/27/17 13:54 Smudge Cells Not Reportable 08/27/17 13:54 Toxic Granulation Not Reportable 08/27/17 13:54 Toxic Vacuolation Not Reportable 08/27/17 13:54 Dohle Bodies Not Reportable 08/27/17 13:54 Pelger-Huet Anomaly Not Reportable 08/27/17 13:54 Yosvany Rods Not Reportable 08/27/17 13:54 Platelet Estimate Appears normal 08/27/17 13:54 Clumped Platelets Not Reportable 08/27/17 13:54 Plt Clumps, EDTA Not Reportable 08/27/17 13:54 Large Platelets Not Reportable 08/27/17 13:54 Giant Platelets Not Reportable 08/27/17 13:54 Platelet Satelliting Not Reportable 08/27/17 13:54 Plt Morphology Comment Not Reportable 08/27/17 13:54 RBC Morphology Not Reportable 08/27/17 13:54 Dimorphic RBCs Not Reportable 08/27/17 13:54 Polychromasia Not Reportable 08/27/17 13:54 Hypochromasia Not Reportable 08/27/17 13:54 Poikilocytosis Few 08/27/17 13:54 Anisocytosis Not Reportable 08/27/17 13:54 Microcytosis Not Reportable 08/27/17 13:54 Macrocytosis Not Reportable 08/27/17 13:54 Spherocytes Not Reportable 08/27/17 13:54 Pappenheimer Bodies Not Reportable 08/27/17 13:54 Sickle Cells Not Reportable 08/27/17 13:54 Target Cells Not Reportable 08/27/17 13:54 Tear Drop Cells Not Reportable 08/27/17 13:54 Ovalocytes Few 08/27/17 13:54 Helmet Cells Not Reportable 08/27/17 13:54 [place] Bodies Not Reportable 08/27/17 13:54 [place] Rings Not Reportable 08/27/17 13:54 Inchelium Cells Not Reportable 08/27/17 13:54 Bite Cells Not Reportable 08/27/17 13:54 Crenated Cell Not Reportable 08/27/17 13:54 Elliptocytes Not Reportable 08/27/17 13:54 Acanthocytes (Spur) Not Reportable 08/27/17 13:54 Rouleaux Not Reportable 08/27/17 13:54 Hemoglobin C Crystals Not Reportable 08/27/17 13:54 Schistocytes Not Reportable 08/27/17 13:54 Malaria parasites Not Reportable 08/27/17 13:54 Bassem Bodies Not Reportable 08/27/17 13:54 Hem Pathologist Commnt No 08/27/17 13:54 Sodium 139 mmol/L (137-145) 09/02/17 05:47 Potassium 3.6 mmol/L (3.6-5.0) 09/02/17 05:47 Chloride 100.4 mmol/L (98-107) 09/02/17 05:47 Carbon Dioxide 28 mmol/L (22-30) 09/02/17 05:47 Anion Gap 14 mmol/L 09/02/17 05:47 BUN 3 mg/dL (7-17) L 09/02/17 05:47 Creatinine 0.5 mg/dL (0.7-1.2) L 09/02/17 05:47 Estimated GFR > 60 ml/min 09/02/17 05:47 BUN/Creatinine Ratio 6 % 09/02/17 05:47 Glucose 178 mg/dL (65-100) H 09/02/17 05:47 POC Glucose 235 (70-105) H 09/03/17 13:14 Calcium 8.4 mg/dL (8.4-10.2) 09/02/17 05:47 Magnesium 2.20 mg/dL (1.7-2.3) 08/30/17 07:28 Total Bilirubin 0.50 mg/dL (0.1-1.2) 08/29/17 09:17 AST 13 units/L (5-40) 08/29/17 09:17 ALT 9 units/L (7-56) 08/29/17 09:17 Alkaline Phosphatase 47 units/L (35-129) 08/29/17 09:17 Total Protein 7.1 g/dL (6.3-8.2) 08/29/17 09:17 Albumin 3.9 g/dL (3.9-5) 08/29/17 09:17 Albumin/Globulin Ratio 1.2 % 08/29/17 09:17 Lipase 8 units/L (13-60) L 08/25/17 01:06 Urine Color Yellow (Yellow) 08/25/17 Unknown Urine Turbidity Clear (Clear) 08/25/17 Unknown Urine pH 9.0 (5.0-7.0) H 08/25/17 Unknown Ur Specific [place] 1.010 (1.003-1.030) 08/25/17 Unknown Urine Protein <15 mg/dl mg/dL (Negative) 08/25/17 Unknown Urine Glucose (UA) 150 mg/dL (Negative) 08/25/17 Unknown Urine Ketones Neg mg/dL (Negative) 08/25/17 Unknown Urine Blood Neg (Negative) 08/25/17 Unknown Urine Nitrite Neg (Negative) 08/25/17 Unknown Urine Bilirubin Neg (Negative) 08/25/17 Unknown Urine Urobilinogen < 2.0 mg/dL (<2.0) 08/25/17 Unknown Ur Leukocyte Esterase Sm (Negative) 08/25/17 Unknown Urine WBC (Auto) 3.0 /HPF (0.0-6.0) 08/25/17 Unknown Urine RBC (Auto) 1.0 /HPF (0.0-6.0) 08/25/17 Unknown U Epithel Cells (Auto) 2.0 /HPF (0-13.0) 08/25/17 Unknown Urine Bacteria (Auto) 1+ /HPF (Negative) 08/25/17 Unknown Urine Mucus Few /HPF 08/25/17 Unknown
--- NOTE | 2017-09-03 18:06 | Gastroenterology Progress Note ---
Assessment and Plan GI: pt w/ abdominal pain more lower area - GI eval extensive w/ EGD etc - surgery noted seen and feels symptoms not GB related - advance diet as tolerated - ok to d/c when tolerating soft diet - no plans further intervention at this time - call if needed Subjective Date of service: 09/03/17 Principal diagnosis: intractable N/V Interval history: - pt reports pain lower abdomen area. Objective - Constitutional Vitals: Temp Pulse Resp BP Pulse Ox 98.6 F 66 16 136/83 98 09/03/17 16:49 09/03/17 16:49 09/03/17 16:49 09/03/17 16:49 09/03/17 16:49 General appearance: no acute distress - EENT Eyes: PERRL - Respiratory Respiratory: bilateral: CTA - Cardiovascular Rhythm: regular Heart Sounds: Present: S1 & S2 - Gastrointestinal General gastrointestinal: Present: soft, non-tender, non-distended - Labs CBC & Chem 7: 09/01/17 08:14 09/02/17 05:47 Labs: Laboratory Results - last 24 hr 09/02/17 09/03/17 09/03/17 22:21 07:22 13:14 POC Glucose 264 H 151 H 235 H
[2017-09-03] MEDS: PROTONIX PO SCH (22:06)
[2017-09-03] MEDS: COLACE PO SCH (22:07)
[2017-09-03] MEDS: HALDOL IM PRN (22:09)
[2017-09-03] MEDS: LANTUS SUB-Q SCH (22:10)
[2017-09-04] MEDS: CARAFATE PO SCH ×3 (00:24→15:04)
[2017-09-04] MEDS: DILAUDID IV PRN (05:39)
[2017-09-04] MEDS: NACL 0.9% 1000 ML 1,000 ML IV SCH (05:43)
[2017-09-04] MEDS: SODIUM CHLORIDE FLUSH SYRINGE 10 ML IV PRN (05:44)
[2017-09-04] MEDS: ZOFRAN IV PRN ×2 (05:44→14:57)
[2017-09-04 06:27] VITALS: BP 152/97
[2017-09-04] MEDS: PROTONIX PO SCH (10:24)
[2017-09-04] MEDS: LOVENOX SUB-Q SCH (10:24)
[2017-09-04] MEDS: HumuLIN R SUB-Q SCH ×3 (10:25→17:00)
[2017-09-04] MEDS: LEVAQUIN 750MG/150ML 750 MG/150 ML BAG IV SCH (10:25)
[2017-09-04] MEDS: COLACE PO SCH (10:26)
[2017-09-04] MEDS: SODIUM CHLORIDE FLUSH SYRINGE 10 ML IV SCH (10:31)
--- NOTE | 2017-09-04 10:59 | Discharge Summary ---
Providers - Providers Date of Admission: 08/30/17 09:24 Date of discharge: 09/04/17 Attending physician: SHERLY ROD 08/25/17 12:22 Consult to Physician [CONS] Routine Comment: Consulting Provider: HALEY MONIQUE Physician Instructions: Reason For Exam: MARIE 08/26/17 15:13 Consult to Physician [CONS] Routine Comment: Consulting Provider: WILMAR ARCINIEGA Physician Instructions: Reason For Exam: intractable NV 09/03/17 09:28 Consult to Physician [CONS] Routine Comment: Consulting Provider: DEE DEE NGUYEN Physician Instructions: Reason For Exam: Abnormal HIDA scan Primary care physician: RETAIL SALESMAN Hospitalization Condition: Fair Disposition: DC-01 TO HOME OR SELFCARE Core Measure Documentation - Palliative Care Palliative Care/ Comfort Measures: Not Applicable Exam - Constitutional Vitals: Temp Pulse Resp BP Pulse Ox 97.9 F 69 20 152/97 98 09/04/17 04:23 09/04/17 04:23 09/04/17 05:39 09/04/17 04:23 09/04/17 04:23 Plan Activity: no restrictions Diet: advance as tolerated, other (soft diet) Special Instructions: home health RN Additional Instructions: 1.Follow up with PCP in 3-5 days. 2.Follow up with Dr. Jordan Womack in 1 week. 3.Follow up with Dr. Monique in 1 week. 4.Keep rosen catheter in until visit Dr. Monique. 5.Home health Nurse Follow up with: HALEY MONIQUE MD [Staff Physician] - 7 Days SHERLY TYLER MD [Staff Physician] - 7 Days PRIMARY CARE, [Primary Care Provider] - 3-5 Days Prescriptions: amLODIPine [Norvasc] 5 mg PO DAILY #30 tab Metformin HCl 500 mg PO DAILY #30 tablet Ondansetron [Zofran TAB] 4 mg PO Q6H PRN #20 tablet PRN Reason: nausea or vomiting Pantoprazole [Protonix TAB] 40 mg PO BID #60 tablet Sucralfate [Carafate] 1 gm PO Q6HR 30 Days oral.liqd
== END 2017-09-04 18:02 | disposition home or self-care (01) | DRG 380 ==
LOC: ED 00:33 → 3A 08:55 → 4A 12:50 → OBSVTOIN 08-30 09:24
PROVIDERS: ADMIT Hospitalist; ATTEND Internal Medicine
PROC: 0DD58ZX Extraction of Esophagus, Via Natural or Artificial Opening Endoscopic, Diagnostic (ICD-10-PCS; principal; 2017-08-27)
DX: K22.10 Ulcer of esophagus without bleeding (principal); E11.10 Type 2 diabetes mellitus with ketoacidosis without coma; I10 Essential (primary) hypertension; N13.9 Obstructive and reflux uropathy, unspecified; F32.9 Major depressive disorder, single episode, unspecified; E11.42 Type 2 diabetes mellitus with diabetic polyneuropathy; E87.6 Hypokalemia; E11.43 Type 2 diabetes mellitus with diabetic autonomic (poly)neuropathy; K31.84 Gastroparesis; Z88.8 Allergy status to other drugs, medicaments and biological substances; Z79.899 Other long term (current) drug therapy
CPT/HCPCS: 36415; 74177; 76700; 78227; 78264; 80048; 80053; 81001; 82962; 83690; 83735; 85007; 85025; 85027; 88305; 88342; 99285; A9537; A9541; C9113; G0378; J1170; J1630; J1650; J1815; J1956; J2060; J2270; J2405; J2704; J2765; J2805; J3480; J7030; Q9967

== ENCOUNTER 2021-11-15 00:11 | Inpatient (IN) | payer OTHER ==
[2021-11-15 01:31] LABS: Albumin 4.9 g/dL (3.9-5); Calcium 10.6 mg/dL (8.4-10.2)
[2021-11-15] MEDS ORDERED: SODIUM CHLORIDE 0.9% 1000 ML 1,000 ML IV ONE ×2 (01:40→02:50)
[2021-11-15] MEDS ORDERED: ONDANSETRON 4 MG/2 ML INJ IV ONE (01:40)
[2021-11-15 01:48] LABS: Hematocrit 45.8 % (30.3-42.9); Hemoglobin 14.8 gm/dl (10.1-14.3); Mean Corpuscular HGB Conc 32 % (30-34); Mean Corpuscular Volume 78 fl (79-97); Platelet Count 210 K/mm3 (140-440); Red Blood Count 5.85 M/mm3 (3.65-5.03)
[2021-11-15] MEDS ORDERED: MORPHINE 4 MG/1 ML INJ IV ONE ×2 (01:51→02:57)
[2021-11-15 02:31] LABS: Red Cell Distribution Width 22.1 % (13.2-15.2)
[2021-11-15] MEDS ORDERED: DEXTROSE 50% IN WATER (25GM) 50 ML SYRINGE IV PRN (02:50)
[2021-11-15] MEDS ORDERED: PANTOPRAZOLE 40 MG INJ IV ONE (02:56)
[2021-11-15] MEDS ORDERED: POTASSIUM CHLORIDE 20 MEQ 20 MEQ/100 ML BAG IV PRN (03:00)
[2021-11-15] MEDS ORDERED: POTASSIUM CHLORIDE 10 MEQ 10 MEQ/100 ML BAG IV PRN (03:00)
--- NOTE | 2021-11-15 03:00 | Emergency Department Report ---
ED N/V/D HPI - General Chief complaint: Nausea/Vomiting/Diarrhea Stated complaint: N/V Time Seen by Provider: 11/15/21 01:41 Source: patient Mode of arrival: Stretcher Limitations: No Limitations - History of Present Illness Initial comments: Patient is a 50-year-old female with history of ulcerative esophagitis and insulin-dependent diabetes with DKA presenting with complaint of nausea and vomiting beginning yesterday. She also reports epigastric abdominal pain. Has emesis bag containing coffee-ground emesis. - Related Data Previous Rx's Medication Instructions Recorded Last Taken Type Ambien 10 mg PO PRN #10 10/31/16 Unknown Rx FLUoxetine 20 mg PO DAILY #30 10/31/16 Unknown Rx Pregabalin 75 mg PO BID #60 capsule 10/31/16 Unknown Rx Remeron 15 mg PO HS #30 10/31/16 Unknown Rx Metformin HCl 500 mg PO DAILY #30 tablet 09/04/17 Unknown Rx Ondansetron [Zofran TAB] 4 mg PO Q6H PRN #20 tablet 09/04/17 Unknown Rx Pantoprazole [Protonix TAB] 40 mg PO BID #60 tablet 09/04/17 Unknown Rx Sucralfate [Carafate] 1 gm PO Q6HR 30 Days oral.liqd 09/04/17 Unknown Rx amLODIPine 5 mg PO DAILY #30 tab 09/04/17 Unknown Rx Allergies Allergy/AdvReac Type Severity Reaction Status Date / Time caffeine Allergy Nausea Verified 10/28/16 23:18 ED Review of Systems ROS: Stated complaint: N/V Other details as noted in HPI Constitutional: denies: chills, fever Respiratory: denies: cough, shortness of breath, wheezing Cardiovascular: denies: chest pain, palpitations Gastrointestinal: abdominal pain, nausea, vomiting Musculoskeletal: denies: back pain, joint swelling, arthralgia Skin: denies: rash, lesions Neurological: denies: headache, weakness, paresthesias Psychiatric: denies: anxiety, depression ED Past Medical Hx - Past Medical History Previous Medical History?: Yes Hx Congestive Heart Failure: No Hx Diabetes: Yes Hx Psychiatric Treatment: Yes (Depression) Hx Asthma: No Hx COPD: No Additional medical history: Helicobacter pylori (H. pylori). GASTROPARESIS - Surgical History Past Surgical History?: No - Social History Smoking Status: Never Smoker Substance Use Type: None - Medications Home Medications: Home Medications Medication Instructions Recorded Confirmed Last Taken Type Ambien 10 mg PO PRN #10 10/31/16 08/25/17 Unknown Rx FLUoxetine 20 mg PO DAILY #30 10/31/16 08/25/17 Unknown Rx Pregabalin 75 mg PO BID #60 capsule 10/31/16 08/25/17 Unknown Rx Remeron 15 mg PO HS #30 10/31/16 08/25/17 Unknown Rx Metformin HCl 500 mg PO DAILY #30 tablet 09/04/17 Unknown Rx Ondansetron [Zofran TAB] 4 mg PO Q6H PRN #20 tablet 09/04/17 Unknown Rx Pantoprazole [Protonix TAB] 40 mg PO BID #60 tablet 09/04/17 Unknown Rx Sucralfate [Carafate] 1 gm PO Q6HR 30 Days oral.liqd 09/04/17 Unknown Rx amLODIPine 5 mg PO DAILY #30 tab 09/04/17 Unknown Rx ED Physical Exam - General Limitations: No Limitations General appearance: alert, in distress (Appears uncomfortable) - Head Head exam: Present: atraumatic, normocephalic - Respiratory Respiratory exam: Present: normal lung sounds bilaterally. Absent: respiratory distress - Cardiovascular Cardiovascular Exam: Present: normal rhythm, tachycardia, normal heart sounds - GI/Abdominal GI/Abdominal exam: Present: soft. Absent: distended, tenderness - Rectal Rectal exam: Present: deferred - Neurological Exam Neurological exam: Present: alert, oriented X3 - Psychiatric Psychiatric exam: Present: normal affect, normal mood - Skin Skin exam: Present: warm, dry, intact, normal color ED Course Vital Signs 11/15/21 11/15/21 11/15/21 00:11 01:01 01:15 Temperature 97.8 F Pulse Rate 113 H 116 H 110 H Respiratory 18 25 H 22 Rate Blood Pressure 123/85 143/87 162/91 O2 Sat by Pulse 100 98 95 Oximetry 11/15/21 11/15/21 11/15/21 01:31 02:00 02:01 Temperature Pulse Rate 118 H 120 H Respiratory 28 H 18 Rate Blood Pressure 163/91 161/80 O2 Sat by Pulse 95 98 Oximetry ED Medical Decision Making - Lab Data Result diagrams: 11/15/21 01:01 11/15/21 01:01 - Medical Decision Making Patient is a 50-year-old female with history of ulcerative esophagitis and diabetes presenting with complaint of nausea vomiting and epigastric pain. Emesis bag contains coffee-ground emesis. Gastroccult analysis pending. H&H is stable. Chemistry results consistent with DKA. Patient given IV fluids and started on insulin infusion. She was also started on Protonix bolus and in fusion for presumed upper GI bleed. Will admit to hospitalist. Critical care attestation.: If time is entered above; I have spent that time in minutes in the direct care of this critically ill patient, excluding procedure time. ED Disposition Clinical Impression: DKA (diabetic ketoacidosis), Upper GI bleed Disposition: ADMITTED INPATIENT Is pt being admited?: Yes Condition: Stable Instructions: Diabetic Ketoacidosis (ED) Referrals: SHRADDHA CAPELLAN MD [Primary Care Provider] - 3-5 Days
[2021-11-15 03:53] LABS: Calcium 9.6 mg/dL (8.4-10.2)
[2021-11-15] MEDS: PANTOPRAZOLE 80 MG in SODIUM CHLORIDE 0.9% 100 ML IV SCH ×2 (03:54→13:13)
[2021-11-15] MEDS ORDERED: MORPHINE 4 MG/1 ML INJ IV PRN (04:02)
[2021-11-15] MEDS ORDERED: ACETAMINOPHEN 325 MG TAB PO PRN (04:02)
[2021-11-15] MEDS: INSULIN REGULAR, HUMAN 100 UNITS in SODIUM CHLORIDE 0.9% 99 ML IV SCH (04:03)
--- NOTE | 2021-11-15 04:14 | History and Physical Report ---
History of Present Illness Date of examination: 11/15/21 Date of admission: 11/15/2021 Chief complaint: 50-year-old female with known history of ulcerative esophagitis and diabetes mellitus presenting to the emergency room today complaining of nausea and vomiting which started yesterday. She has also been having severe abdominal pain especially in the epigastric region. She also indicates she has been having coffee-ground emesis. She denies any chest pain or shortness of breath, no fever or chills, no headache or dizziness and no diaphoresis. Patient denies any diarrhea. She denies any sick contacts and no recent travel. Denies any contact with anyone with COVID-19. Work-up in the emergency room today, labs are significant for hemoglobin of 14.8 hematocrit of 45.8. BUN of 38 and creatinine of 1.2. Glucose of 344, anion gap of 32 and magnesium of 1.4. Potassium of 4.1. Patient has been admitted in [facility]. Past History Past Medical History: diabetes, other ( Depression, Helicobacter pylori (H. pylori). GASTROPARESIS) Past Surgical History: No surgical history Social history: no significant social history Family history: no significant family history Medications and Allergies Allergies Allergy/AdvReac Type Severity Reaction Status Date / Time caffeine Allergy Nausea Verified 10/28/16 23:18 Home Medications Medication Instructions Recorded Confirmed Last Taken Type Ambien 10 mg PO PRN #10 10/31/16 08/25/17 Unknown Rx FLUoxetine 20 mg PO DAILY #30 10/31/16 08/25/17 Unknown Rx Pregabalin 75 mg PO BID #60 capsule 10/31/16 08/25/17 Unknown Rx Remeron 15 mg PO HS #30 10/31/16 08/25/17 Unknown Rx Metformin HCl 500 mg PO DAILY #30 tablet 09/04/17 Unknown Rx Ondansetron [Zofran TAB] 4 mg PO Q6H PRN #20 tablet 09/04/17 Unknown Rx Pantoprazole [Protonix TAB] 40 mg PO BID #60 tablet 09/04/17 Unknown Rx Sucralfate [Carafate] 1 gm PO Q6HR 30 Days oral.liqd 09/04/17 Unknown Rx amLODIPine 5 mg PO DAILY #30 tab 09/04/17 Unknown Rx Active Meds: Active Medications Dextrose (Dextrose 50% In Water (25gm) 50 Ml Syringe) 0 ml IV Q30MIN PRN; Protocol PRN Reason: Hypoglycemia Insulin Human Regular 100 (units/ Sodium Chloride) 100 mls @ 4 mls/hr IV TITR WILMER; Protocol Last Admin: 11/15/21 04:03 Dose: 6 units/hr, 6 mls/hr Potassium Chloride/Dextrose/Sod Cl (D5w/0.45% Nacl/Kcl 20 Meq) 20 meq in 1,000 mls @ 125 mls/hr IV DIRECT WILMER Potassium Chloride (Kcl 10meq/100ml) 10 meq in 100 mls @ 100 mls/hr IV Q1H PRN PRN Reason: SEE PROTOCOL Potassium Chloride (Kcl 20meq/100ml) 20 meq in 100 mls @ 100 mls/hr IV Q1H PRN PRN Reason: SEE PROTOCOL Pantoprazole Sodium 80 mg/ (Sodium Chloride) 100 mls @ 10 mls/hr IV DIRECT WILMER Last Admin: 11/15/21 03:54 Dose: 8 mg/hr, 10 mls/hr Review of Systems Constitutional: no fever, no chills Ears, nose, mouth and throat: no nasal congestion, no sore throat Cardiovascular: no chest pain, no palpitations Respiratory: no cough, no shortness of breath Gastrointestinal: abdominal pain, nausea, vomiting Genitourinary Female: no pelvic pain, no flank pain, no dysuria Musculoskeletal: no neck pain, no low back pain Integumentary: no rash, no pruritis Neurological: no headaches, no confusion Psychiatric: no anxiety, no depression Endocrine: no polyphagia, no polydipsia, no polyuria, no nocturia Exam - Constitutional Vitals: Temp Pulse Resp BP Pulse Ox 97.8 F 120 H 18 161/80 98 11/15/21 00:11 11/15/21 02:01 11/15/21 03:54 11/15/21 02:01 11/15/21 02:01 General appearance: Present: no acute distress, well-nourished - EENT Eyes: Present: PERRL, EOM intact. Absent: scleral icterus ENT: hearing intact, clear oral mucosa, dentition normal - Neck Neck: Present: supple, normal ROM - Respiratory Respiratory effort: normal Respiratory: bilateral: CTA - Cardiovascular Rhythm: regular Heart Sounds: Present: S1 & S2. Absent: gallop, systolic murmur, diastolic murmur, rub, click - Extremities Extremities: no ischemia, pulses intact, pulses symmetrical, No edema, normal temperature, normal color, Full ROM Peripheral Pulses: within normal limits - Abdominal General gastrointestinal: Present: soft, tender (Moderate epigastric tendermness with minimal guarding), non-distended, normal bowel sounds. Absent: mass - Integumentary Integumentary: Present: clear, warm, dry. Absent: rash, normal turgor - Musculoskeletal Musculoskeletal: strength equal bilaterally - Psychiatric Psychiatric: appropriate mood/affect, intact judgment & insight, memory intact, cooperative - Neurologic Neurologic: CNII-XII intact, no focal deficits, moves all extremities Results - Labs CBC & Chem 7: 11/15/21 01:01 11/15/21 05:23 Labs: Abnormal lab results 11/15/21 11/15/21 11/15/21 Range/Units 01:01 01:01 03:03 RBC 5.85 H (3.65-5.03) M/mm3 Hgb 14.8 H (10.1-14.3) gm/dl Hct 45.8 H (30.3-42.9) % MCV 78 L (79-97) fl MCH 25 L (28-32) pg RDW 22.1 H (13.2-15.2) % VBG pO2 (25.0-47.0) Chloride 91.3 L (98-107) mmol/L Carbon Dioxide 12 L (22-30) mmol/L BUN 39 H (7-17) mg/dL Creatinine 1.4 H (0.6-1.2) mg/dL Glucose 355 H (65-100) mg/dL Calcium 10.6 H (8.4-10.2) mg/dL Phosphorus 5.10 H (2.5-4.5) mg/dL Magnesium 1.40 L (1.7-2.3) mg/dL Total Protein 8.4 H (6.3-8.2) g/dL 11/15/21 11/15/21 Range/Units 03:03 03:12 RBC (3.65-5.03) M/mm3 Hgb (10.1-14.3) gm/dl Hct (30.3-42.9) % MCV (79-97) fl MCH (28-32) pg RDW (13.2-15.2) % VBG pO2 54.3 H (25.0-47.0) Chloride (98-107) mmol/L Carbon Dioxide 13 L (22-30) mmol/L BUN 38 H (7-17) mg/dL Creatinine (0.6-1.2) mg/dL Glucose 344 H (65-100) mg/dL Calcium (8.4-10.2) mg/dL Phosphorus (2.5-4.5) mg/dL Magnesium (1.7-2.3) mg/dL Total Protein (6.3-8.2) g/dL Assessment and Plan Assessment: 1. DKA 2. Ulcerative esophagitis 3. History of depression 4. Hypomagnesemia 5.Dehydration Plan: 1. Patient admitted and placed on insulin drip and IV fluid. 2. We will monitor Accu-Cheks closely. 3. We will also repeat magnesium and continue to monitor chemistry. 4. Consult will be placed to gastroenterology for further evaluation and recommendations. 5. Patient also placed on proton pump inhibitor. We will request GI evaluation of possible upper GI bleed/ulcerative esophagitis. DVT prophylaxis: Sequential compression device. CODE STATUS: Full code
[2021-11-15] MEDS ORDERED: SODIUM CHLORIDE 0.9% 1000 ML 1,000 ML IV SCH (04:15)
[2021-11-15 04:44] LABS: Anisocytosis 1+; Dimorphic RBC Yes; Hypochromasia Few; Macrocytosis Rare; Schistocytes Rare; Total Cells Counted 100
[2021-11-15 04:45] LABS: Giant Platelets Rare
[2021-11-15] MEDS: D5W/0.45% NACL/KCL 20 MEQ 20 MEQ/1,000 ML BAG IV SCH ×3 (06:25→23:05)
[2021-11-15 06:52] LABS: Calcium 9.1 mg/dL (8.4-10.2)
[2021-11-15] MEDS: ONDANSETRON 4 MG/2 ML INJ IV PRN ×2 (07:03→17:49)
[2021-11-15] MEDS ORDERED: MAGNESIUM SULFATE 1 GM in SODIUM CHLORIDE 0.9% 50 ML IV ONE (07:17)
[2021-11-15] MEDS: hydrALAZINE 20 MG/1 ML INJ IV PRN (07:22)
[2021-11-15 07:31] LABS: Calcium 9.1 mg/dL (8.4-10.2)
[2021-11-15] MEDS ORDERED: LACTATED RINGERS 1,000 ML IV ONE (08:00)
[2021-11-15] MEDS ORDERED: MAGNESIUM SULFATE 4 GM/100 ML BAG IV SCH (08:00)
[2021-11-15] MEDS: MORPHINE 2 MG/1 ML INJ IV PRN ×2 (09:26→13:53)
[2021-11-15] MEDS ORDERED: HYDROmorphone 1 MG/1 ML INJ IV PRN (10:26)
--- NOTE | 2021-11-15 10:56 | Cat Scan Report ---
CT ABDOMEN AND PELVIS WITHOUT CONTRAST INDICATION / CLINICAL INFORMATION: Abdominal pain, N/V. TECHNIQUE: Axial CT images were obtained through the abdomen and pelvis without IV contrast. All CT scans at this location are performed using CT dose reduction for ALARA by means of automated exposure control. COMPARISON: CT dated 08/25/2017 FINDINGS: LOWER CHEST: No significant abnormality. LIVER: No significant abnormality. GALLBLADDER: No significant abnormality. BILE DUCTS: Calcification near the ampulla, for example on image 50 series 2. No significant biliary ductal dilation. PANCREAS: Calcifications in the region of the pancreatic head, likely sequela of chronic pancreatitis . Pancreas is relatively atrophic patient's age. SPLEEN: No significant abnormality. ADRENALS: No significant abnormality. RIGHT KIDNEY / URETER: No significant abnormality. LEFT KIDNEY / URETER: No significant abnormality. STOMACH / SMALL BOWEL: Distal esophageal wall thickening. Gastric wall is mildly thickened. Small bow el is normal in caliber. COLON: No significant abnormality. APPENDIX: No significant abnormality. PERITONEUM: No free fluid. No free air. No fluid collection. LYMPH NODES: No significant adenopathy. AORTA / ARTERIES: Mild atherosclerotic calcification without acute abnormality. IVC / VEINS: No significant abnormality. URINARY BLADDER: Moderately distended. REPRODUCTIVE ORGANS: No significant abnormality. ADDITIONAL FINDINGS: Subcutaneous venous fat stranding along the anterior abdominal wall may be relat ed to injection. SKELETAL SYSTEM: No significant abnormality. IMPRESSION: 1. Distal esophageal wall thickening and gastric wall thickening, suggesting esophagitis/gastritis. 2. Pancreatic head calcifications are likely sequela of chronic pancreatitis. Additional calcificatio n near the ampulla. Recommend correlation with serum bilirubin and MRCP/ERCP as indicated. 3. Moderately distended urinary bladder. Recommend correlation for bladder outlet obstruction. Signer Name: Tung Lucas MD Signed: 11/15/2021 10:52 AM Workstation Name: [id number]
--- NOTE | 2021-11-15 11:03 | Consultation ---
History of Present Illness Consult date: 11/15/21 Requesting physician: FORTUNATO FABIAN Reason for consult: other (DKA) History of present illness: PULMONARY/CCM CONSULT NOTE (Full dictation # [id number]) Please see dictated notes for full details Past History Past Medical History: diabetes, other ( Depression, Helicobacter pylori (H. pylori). GASTROPARESIS) Past Surgical History: No surgical history Social history: no significant social history Family history: no significant family history Medications and Allergies Allergies Allergy/AdvReac Type Severity Reaction Status Date / Time caffeine Allergy Nausea Verified 10/28/16 23:18 Home Medications Medication Instructions Recorded Confirmed Last Taken Type Ambien 10 mg PO PRN #10 10/31/16 08/25/17 Unknown Rx FLUoxetine 20 mg PO DAILY #30 10/31/16 08/25/17 Unknown Rx Pregabalin 75 mg PO BID #60 capsule 10/31/16 08/25/17 Unknown Rx Remeron 15 mg PO HS #30 10/31/16 08/25/17 Unknown Rx Metformin HCl 500 mg PO DAILY #30 tablet 09/04/17 Unknown Rx Ondansetron [Zofran TAB] 4 mg PO Q6H PRN #20 tablet 09/04/17 Unknown Rx Pantoprazole [Protonix TAB] 40 mg PO BID #60 tablet 09/04/17 Unknown Rx Sucralfate [Carafate] 1 gm PO Q6HR 30 Days oral.liqd 09/04/17 Unknown Rx amLODIPine 5 mg PO DAILY #30 tab 09/04/17 Unknown Rx Active Meds: Active Medications Acetaminophen (Acetaminophen 325 Mg Tab) 650 mg PO Q6H PRN PRN Reason: Pain MILD(1-3)/Fever >100.5/BUTCHER Dextrose (Dextrose 50% In Water (25gm) 50 Ml Syringe) 0 ml IV Q30MIN PRN; Protocol PRN Reason: Hypoglycemia Hydralazine HCl (Hydralazine 20 Mg/1 Ml Inj) 10 mg IV Q4HR PRN PRN Reason: Hypertension Last Admin: 11/15/21 07:22 Dose: 10 mg Hydromorphone HCl (Hydromorphone 1 Mg/1 Ml Inj) 1 mg IV Q4H PRN PRN Reason: Pain , Severe (7-10) Insulin Human Regular 100 (units/ Sodium Chloride) 100 mls @ 4 mls/hr IV TITR WILMER; Protocol Last Titration: 11/15/21 10:00 Dose: 5 units/hr, 5 mls/hr Potassium Chloride/Dextrose/Sod Cl (D5w/0.45% Nacl/Kcl 20 Meq) 20 meq in 1,000 mls @ 125 mls/hr IV DIRECT WILMER Last Admin: 11/15/21 06:25 Dose: 125 mls/hr Pantoprazole Sodium 80 mg/ (Sodium Chloride) 100 mls @ 10 mls/hr IV DIRECT WILMER Last Admin: 11/15/21 03:54 Dose: 8 mg/hr, 10 mls/hr Sodium Chloride (Nacl 0.9% 1000 Ml) 1,000 mls @ 150 mls/hr IV DIRECT WILMER Last Admin: 11/15/21 05:25 Dose: 150 mls/hr Magnesium Sulfate (Magnesium Sulfate 4gm/100ml) 4 gm in 100 mls @ 25 mls/hr IV ONCE@0800 WILMER Stop: 11/15/21 12:00 Last Admin: 11/15/21 09:25 Dose: 25 mls/hr Morphine Sulfate (Morphine 2 Mg/1 Ml Inj) 2 mg IV Q4H PRN PRN Reason: Pain, Moderate (4-6) Last Admin: 11/15/21 09:26 Dose: 2 mg Ondansetron HCl (Ondansetron 4 Mg/2 Ml Inj) 4 mg IV Q8H PRN PRN Reason: Nausea And Vomiting Last Admin: 11/15/21 07:03 Dose: 4 mg Sodium Chloride (Sodium Chloride 0.9% 10 Ml Flush Syringe) 10 ml IV BID WILMER Sodium Chloride (Sodium Chloride 0.9% 10 Ml Flush Syringe) 10 ml IV PRN PRN PRN Reason: LINE FLUSH Physical Examination Vital signs: Vital Signs Temp Pulse Resp BP Pulse Ox 97.8 F 113 H 18 123/85 100 11/15/21 00:11 11/15/21 00:11 11/15/21 00:11 11/15/21 00:11 11/15/21 00:11 Results - Laboratory Findings CBC and BMP: 11/15/21 01:01 11/15/21 10:53 Abnormal lab findings: Abnormal Labs 11/15/21 11/15/21 11/15/21 01:01 01:01 03:03 RBC 5.85 H Hgb 14.8 H Hct 45.8 H MCV 78 L MCH 25 L RDW 22.1 H Seg Neuts % (Manual) 84.0 H Lymphocytes % (Manual) 8.0 L Seg Neutrophils # Man 8.9 H Lymphocytes # (Manual) 0.8 L VBG pO2 Chloride 91.3 L Carbon Dioxide 12 L BUN 39 H Creatinine 1.4 H Glucose 355 H POC Glucose Calcium 10.6 H Phosphorus 5.10 H Magnesium 1.40 L Total Protein 8.4 H 11/15/21 11/15/21 11/15/21 03:03 03:12 04:02 RBC Hgb Hct MCV MCH RDW Seg Neuts % (Manual) Lymphocytes % (Manual) Seg Neutrophils # Man Lymphocytes # (Manual) VBG pO2 54.3 H Chloride Carbon Dioxide 13 L BUN 38 H Creatinine Glucose 344 H POC Glucose 337 H Calcium Phosphorus Magnesium Total Protein 11/15/21 11/15/21 11/15/21 05:03 05:23 06:18 RBC Hgb Hct MCV MCH RDW Seg Neuts % (Manual) Lymphocytes % (Manual) Seg Neutrophils # Man Lymphocytes # (Manual) VBG pO2 Chloride Carbon Dioxide 13 L BUN 35 H Creatinine Glucose 277 H POC Glucose 255 H 234 H Calcium Phosphorus Magnesium Total Protein 11/15/21 11/15/21 07:00 07:01 RBC Hgb Hct MCV MCH RDW Seg Neuts % (Manual) Lymphocytes % (Manual) Seg Neutrophils # Man Lymphocytes # (Manual) VBG pO2 Chloride Carbon Dioxide 20 L D BUN 32 H Creatinine Glucose 225 H POC Glucose 222 H Calcium Phosphorus Magnesium Total Protein
[2021-11-15 11:28] LABS: Alanine Aminotransferase 8 units/L (7-56); Albumin 3.3 g/dL (3.9-5); BUN/Creatinine Ratio 26; Blood Urea Nitrogen 23 mg/dL (7-17); Hemolysis Index 1
[2021-11-15 11:39] LABS: Bilirubin,Direct < 0.2 mg/dL (0-0.2)
--- NOTE | 2021-11-15 12:24 | Progress Note ---
<MATT SPICER - Last Filed: 11/15/21 17:54> Assessment and Plan Assessment and plan: This is a 50-year-old female with known past medical history of depression, ulcerative esophagitis, DM complicated by gastroparesis admitted for DKA Hospital Course to Date: 11/15: C/o severe abdominal pain this am, accompanied with nausea and coffee ground emesis. CT Abd/Pelvis reviewed, suggesting esophagitis, gastritis, and chronic pancreatitis. Patient remains on insulin gtt and IVF resuscitation per D KA protocol. H&H is stable, gastric occult pending. On protonix gtt, GI consult pending. Continue to trend CBC. Tachycardia and Hypertension improved post PRN analgesia. Resume home antihypertensive regimen once list is available. Continue PRN analgesia for pain control and PRN antiemetic for N/V. PRN labetalol added for SBP greater than 160. Assessment and Plan #Diabetic Ketoacidosis(DKA) #Type 2 Diabetes Mellitus - BG and anion gap still elevated this am - Still with severe abdominal pain, N/V - Continue insulin gtt and IVF resuscitation - Additional IVF bolus administered - Monitor and replace electrolytes as needed - Monitor anion gap, serial Labs ordered #Severe Abdominal Pain #Nausea and Coffee Ground Emesis #H/o Ulcerative Esophagitis #H/o Gastroparesis #Chronic Pancreatitis - with severe abdominal pain this am, nausea, and coffee ground emesis this am - CTabd pelvis reviewed, see report for detail - Patient adamantly refused ETOH abuse - Coffee groun emesis noted in the ED and small amount in the ICU this am - H&H remains stable, gastric occult pending - On protonix gtt - GI consulted - Check lipase, amylase - Keep patient NPO for now - Continue IVF resuscitation per DKA protocol - PRN analgesia for pain control - PRN antiemetic N/V #Hypertension - Tachycardic, HR in the 130-150s, with hypertention SBP in the 200s - Some improvement in HR and BP post PRN analgesia but still hypertensive - Resume home antihypertensive regimen once list is available - PRN hydralazine switched to PRN labetalol to prevent refractory tachycardia - Continue blood pressure monitor per protocol - Maintain SBP less than 160 #History of Depression - Continue supportive care - Resume home meds once list is available #GI/DVT Prophylaxis - PPI- Protonix gtt - SCDs to bilateral lower extremities while in bed #Advance Care Planning - Disease education data, care plan, diagnoses, and prognosis were discussed with patient at the bedside. Patient is a FULL code. Patient acknowledged understanding and agreed with current care plan. The high probability of a clinically significant, sudden or life threatening deterioration of the [multiple] system(s) required my full and direct attention, intervention and personal management. The aggregate critical care time was [60] minutes. This time is in addition to time spent performing reported procedures but includes the following: [x] Data Review and interpretation [x] Patient assessment and monitoring of vital signs [x] Documentation [x] Medication orders and management Disposition Plan: ICU Total Time Spent with Patient (Minutes): 60 History Interval history: Patient seen and examined at the bedside. Fully AAO, on RA, c/o of severe abdominal pain accompanied with nausea and coffe ground emesis. on protonix gtt. ST on the monitor, HR in th 130-150s, and Hypertensive SBP in the 200s. Remains on DKA protocol. PRN analgesia ordered. Hospitalist Physical - Constitutional Vitals: Temp Pulse Resp BP Pulse Ox 97.8 F 109 H 14 174/110 97 11/15/21 00:11 11/15/21 07:22 11/15/21 06:31 11/15/21 07:22 11/15/21 06:31 General appearance: Present: severe distress, obese - EENT Eyes: Present: PERRL, EOM intact ENT: hearing intact - Neck Neck: Present: normal ROM - Respiratory Respiratory effort: normal Respiratory: bilateral: diminished - Cardiovascular Rhythm: regular Heart Sounds: Present: S1 & S2 - Extremities Extremities: no ischemia, pulses intact, pulses symmetrical Peripheral Pulses: within normal limits - Abdominal General gastrointestinal: soft, tender, non-distended, normal bowel sounds - Integumentary Integumentary: Present: clear, warm, dry - Psychiatric Psychiatric: cooperative, agitated, other (Tearful) - Neurologic Neurologic: moves all extremities - Allied Health Allied health notes reviewed: nursing Results - Labs CBC & Chem 7: 11/15/21 01:01 11/15/21 12:56 Labs: Laboratory Last Values WBC 10.6 K/mm3 (4.5-11.0) 11/15/21 01:01 RBC 5.85 M/mm3 (3.65-5.03) H 11/15/21 01:01 Hgb 14.8 gm/dl (10.1-14.3) H 11/15/21 01:01 Hct 45.8 % (30.3-42.9) H 11/15/21 01:01 MCV 78 fl (79-97) L 11/15/21 01:01 MCH 25 pg (28-32) L 11/15/21 01:01 MCHC 32 % (30-34) 11/15/21 01:01 RDW 22.1 % (13.2-15.2) H 11/15/21 01:01 Plt Count 210 K/mm3 (140-440) 11/15/21 01:01 Add Manual Diff Complete 11/15/21 01:01 Total Counted 100 11/15/21 01:01 Seg Neuts % (Manual) 84.0 % (40.0-70.0) H 11/15/21 01:01 Band Neutrophils % 0 % 11/15/21 01:01 Lymphocytes % (Manual) 8.0 % (13.4-35.0) L 11/15/21 01:01 Reactive Lymphs % (Man) 0 % 11/15/21 01:01 Monocytes % (Manual) 6.0 % (0.0-7.3) 11/15/21 01:01 Eosinophils % (Manual) 1.0 % (0.0-4.3) 11/15/21 01:01 Basophils % (Manual) 1.0 % (0.0-1.8) 11/15/21 01:01 Metamyelocytes % 0 % 11/15/21 01:01 Myelocytes % 0 % 11/15/21 01:01 Promyelocytes % 0 % 11/15/21 01:01 Blast Cells % 0 % 11/15/21 01:01 Nucleated RBC % Not Reportable 11/15/21 01:01 Seg Neutrophils # Man 8.9 K/mm3 (1.8-7.7) H 11/15/21 01:01 Band Neutrophils # 0.0 K/mm3 11/15/21 01:01 Lymphocytes # (Manual) 0.8 K/mm3 (1.2-5.4) L 11/15/21 01:01 Abs React Lymphs (Man) 0.0 K/mm3 11/15/21 01:01 Monocytes # (Manual) 0.6 K/mm3 (0.0-0.8) 11/15/21 01:01 Eosinophils # (Manual) 0.1 K/mm3 (0.0-0.4) 11/15/21 01:01 Basophils # (Manual) 0.1 K/mm3 (0.0-0.1) 11/15/21 01:01 Metamyelocytes # 0.0 K/mm3 11/15/21 01:01 Myelocytes # 0.0 K/mm3 11/15/21 01:01 Promyelocytes # 0.0 K/mm3 11/15/21 01:01 Blast Cells # 0.0 K/mm3 11/15/21 01:01 WBC Morphology Not Reportable 11/15/21 01:01 Hypersegmented Neuts Not Reportable 11/15/21 01:01 Hyposegmented Neuts Not Reportable 11/15/21 01:01 Hypogranular Neuts Not Reportable 11/15/21 01:01 Smudge Cells Not Reportable 11/15/21 01:01 Toxic Granulation Not Reportable 11/15/21 01:01 Toxic Vacuolation Not Reportable 11/15/21 01:01 Dohle Bodies Not Reportable 11/15/21 01:01 Pelger-Huet Anomaly Not Reportable 11/15/21 01:01 Yosvany Rods Not Reportable 11/15/21 01:01 Platelet Estimate Not Reportable 11/15/21 01:01 Clumped Platelets Not Reportable 11/15/21 01:01 Plt Clumps, EDTA Not Reportable 11/15/21 01:01 Large Platelets Not Reportable 11/15/21 01:01 Giant Platelets Rare 11/15/21 01:01 Platelet Satelliting Not Reportable 11/15/21 01:01 Plt Morphology Comment Not Reportable 11/15/21 01:01 RBC Morphology Not Reportable 11/15/21 01:01 Dimorphic RBCs Yes 11/15/21 01:01 Polychromasia Not Reportable 11/15/21 01:01 Hypochromasia Few 11/15/21 01:01 Poikilocytosis Not Reportable 11/15/21 01:01 Anisocytosis 1+ 11/15/21 01:01 Microcytosis 1+ 11/15/21 01:01 Macrocytosis Rare 11/15/21 01:01 Spherocytes Not Reportable 11/15/21 01:01 Pappenheimer Bodies Not Reportable 11/15/21 01:01 Sickle Cells Not Reportable 11/15/21 01:01 Target Cells Not Reportable 11/15/21 01:01 Tear Drop Cells Not Reportable 11/15/21 01:01 Ovalocytes Not Reportable 11/15/21 01:01 Helmet Cells Not Reportable 11/15/21 01:01 Chandra-Salvisa Bodies Not Reportable 11/15/21 01:01 [place] Rings Not Reportable 11/15/21 01:01 Willy Cells Not Reportable 11/15/21 01:01 Bite Cells Not Reportable 11/15/21 01:01 Crenated Cell Not Reportable 11/15/21 01:01 Elliptocytes Not Reportable 11/15/21 01:01 Acanthocytes (Spur) Not Reportable 11/15/21 01:01 Rouleaux Not Reportable 11/15/21 01:01 Hemoglobin C Crystals Not Reportable 11/15/21 01:01 Schistocytes Rare 11/15/21 01:01 Malaria parasites Not Reportable 11/15/21 01:01 Bassem Bodies Not Reportable 11/15/21 01:01 Hem Pathologist Commnt No 11/15/21 01:01 VBG pO2 54.3 (25.0-47.0) H 11/15/21 03:12 Sodium 135 mmol/L (137-145) L D 11/15/21 10:53 Potassium 6.1 mmol/L (3.6-5.0) H* D 11/15/21 10:53 Chloride 106.7 mmol/L (98-107) 11/15/21 10:53 Carbon Dioxide 20 mmol/L (22-30) L 11/15/21 10:53 Anion Gap 14 mmol/L 11/15/21 10:53 BUN 23 mg/dL (7-17) H 11/15/21 10:53 Creatinine 0.9 mg/dL (0.6-1.2) 11/15/21 10:53 Estimated GFR > 60 ml/min 11/15/21 10:53 BUN/Creatinine Ratio 26 % 11/15/21 10:53 Glucose 659 mg/dL (65-100) H* 11/15/21 10:53 POC Glucose 222 mg/dL (70-105) H 11/15/21 07:01 Hemoglobin A1c 7.6 % (4-6) H 11/15/21 10:53 Calcium 8.0 mg/dL (8.4-10.2) L 11/15/21 10:53 Phosphorus 2.00 mg/dL (2.5-4.5) L D 11/15/21 10:53 Magnesium 7.60 mg/dL (1.7-2.3) H 11/15/21 10:53 Total Bilirubin < 0.20 mg/dL (0.1-1.2) 11/15/21 10:53 Direct Bilirubin < 0.2 mg/dL (0-0.2) 11/15/21 10:53 Indirect Bilirubin 0.0 mg/dL 11/15/21 10:53 AST 11 units/L (5-40) 11/15/21 10:53 ALT 8 units/L (7-56) 11/15/21 10:53 Alkaline Phosphatase 49 units/L (35-129) 11/15/21 10:53 Total Protein 5.3 g/dL (6.3-8.2) L D 11/15/21 10:53 Albumin 3.3 g/dL (3.9-5) L 11/15/21 10:53 Albumin/Globulin Ratio 1.7 % 11/15/21 10:53 Amylase 54 units/L (27-131) 11/15/21 10:53 Lipase 8 units/L (13-60) L 11/15/21 10:53 Microbiology: Microbiology 11/15/21 03:15 Vomitus Gastric Occult Blood - Final Active Medications - Current Medications Current Medications: Generic Name Dose Route Start Last Admin Trade Name Freq PRN Reason Stop Dose Admin Acetaminophen 650 mg 11/15/21 04:02 Acetaminophen 325 Mg Tab PO Q6H PRN Pain MILD(1-3)/Fever >100.5/BUTCHER Dextrose 0 ml 11/15/21 02:50 Dextrose 50% In Water (25gm) 50 Ml Syringe IV Q30MIN PRN Hypoglycemia Protocol Hydralazine HCl 10 mg 11/15/21 04:37 11/15/21 07:22 Hydralazine 20 Mg/1 Ml Inj IV 10 mg Q4HR PRN Administration Hypertension Hydromorphone HCl 0.5 mg 11/15/21 11:35 Hydromorphone 1 Mg/1 Ml Inj IV Q4H PRN Pain , Severe (7-10) Insulin Human Regular 100 100 mls @ 4 mls/hr 11/15/21 03:00 11/15/21 11:59 units/ Sodium Chloride IV 5 units/hr TITR WILMER 5 mls/hr Titration Protocol 4 UNITS/HR Potassium Chloride/Dextrose/Sod Cl 20 meq in 1,000 mls @ 125 mls/hr 11/15/21 03:00 11/15/21 06:25 D5w/0.45% Nacl/Kcl 20 Meq IV 125 mls/hr DIRECT WILMER Administration Pantoprazole Sodium 80 mg/ 100 mls @ 10 mls/hr 11/15/21 03:00 11/15/21 03:54 Sodium Chloride IV 8 mg/hr DIRECT WILMER 10 mls/hr Administration 8 MG/HR Sodium Chloride 1,000 mls @ 150 mls/hr 11/15/21 04:15 11/15/21 05:25 Nacl 0.9% 1000 Ml IV 150 mls/hr DIRECT WILMER Administration Morphine Sulfate 2 mg 11/15/21 04:02 11/15/21 09:26 Morphine 2 Mg/1 Ml Inj IV 2 mg Q4H PRN Administration Pain, Moderate (4-6) Ondansetron HCl 4 mg 11/15/21 04:02 11/15/21 07:03 Ondansetron 4 Mg/2 Ml Inj IV 4 mg Q8H PRN Administration Nausea And Vomiting Sodium Chloride 10 ml 11/15/21 10:00 Sodium Chloride 0.9% 10 Ml Flush Syringe IV BID WILMER Sodium Chloride 10 ml 11/15/21 04:02 Sodium Chloride 0.9% 10 Ml Flush Syringe IV PRN PRN LINE FLUSH Nutrition/Malnutrition Assess - Dietary Evaluation Nutrition/Malnutrition Findings: Nutrition Notes Start: 11/15/21 08:46 Freq: Status: Active Protocol: Document 11/15/21 08:46 BRADY (Rec: 11/15/21 08:56 BRADY [id number]) Nutrition Notes Need for Assessment generated from: MD Order,Education Initial or Follow up Brief Note Current Diagnosis Hypertension Other Pertinent Diagnosis Ulcerative Esphagitis, GI Bleed, DKA, Dehydration, Hypomagnasemia, Depressi Current Diet NPO (since 11/15 04:03). Height 5 ft 3 in Weight 45.359 kg [place] Body Weight (kg) 52.27 BMI 17.6 Weight change and time frame None provided at admission. Weight Status Underweight Subjective/Other Information RD consult for nutrition education assessment. Pt currently on NPO. Pt is on Room Air, O2 saturation @ 95%, according to Vital Signs notes. Pt complains of N/V/Abdominal Pain and Enatemesis, according to History & Physical notes. Pt still in critical condition , not a candidate for Nutrition Education at the time, will assess feasibility on F/U. Percent of energy/protein needs met: Pt currently on NPO. Nutrition Intervention Follow-Up By: 11/17/21 Additional Comments Nutrition education will be provided at F/U, if feasible. When pertinent, start monitoring food tolerance, %PO intake of meals, and BM. <JHONATHAN SY - Last Filed: 11/16/21 07:35> Assessment and Plan Assessment and plan: I saw and evaluated the patient. I agree with the findings and the plan of care as documented in the Nurse Practitioner's~note, with the following corrections a nd additions. Hospitalist Physical - Constitutional Vitals: Temp Pulse Resp BP Pulse Ox 98.0 F 80 13 166/90 94 11/16/21 07:12 11/16/21 06:30 11/16/21 06:30 11/16/21 06:30 11/16/21 06:30 Results - Labs CBC & Chem 7: 11/16/21 04:12 11/16/21 04:12 Labs: Laboratory Last Values WBC 14.1 K/mm3 (4.5-11.0) H 11/16/21 04:12 RBC 4.25 M/mm3 (3.65-5.03) 11/16/21 04:12 Hgb 10.8 gm/dl (10.1-14.3) D 11/16/21 04:12 Hct 32.8 % (30.3-42.9) D 11/16/21 04:12 MCV 77 fl (79-97) L 11/16/21 04:12 MCH 25 pg (28-32) L 11/16/21 04:12 MCHC 33 % (30-34) 11/16/21 04:12 RDW 22.2 % (13.2-15.2) H 11/16/21 04:12 Plt Count 138 K/mm3 (140-440) L 11/16/21 04:12 Add Manual Diff Complete 11/15/21 01:01 Total Counted 100 11/15/21 01:01 Seg Neuts % (Manual) 84.0 % (40.0-70.0) H 11/15/21 01:01 Band Neutrophils % 0 % 11/15/21 01:01 Lymphocytes % (Manual) 8.0 % (13.4-35.0) L 11/15/21 01:01 Reactive Lymphs % (Man) 0 % 11/15/21 01:01 Monocytes % (Manual) 6.0 % (0.0-7.3) 11/15/21 01:01 Eosinophils % (Manual) 1.0 % (0.0-4.3) 11/15/21 01:01 Basophils % (Manual) 1.0 % (0.0-1.8) 11/15/21 01:01 Metamyelocytes % 0 % 11/15/21 01:01 Myelocytes % 0 % 11/15/21 01:01 Promyelocytes % 0 % 11/15/21 01:01 Blast Cells % 0 % 11/15/21 01:01 Nucleated RBC % Not Reportable 11/15/21 01:01 Seg Neutrophils # Man 8.9 K/mm3 (1.8-7.7) H 11/15/21 01:01 Band Neutrophils # 0.0 K/mm3 11/15/21 01:01 Lymphocytes # (Manual) 0.8 K/mm3 (1.2-5.4) L 11/15/21 01:01 Abs React Lymphs (Man) 0.0 K/mm3 11/15/21 01:01 Monocytes # (Manual) 0.6 K/mm3 (0.0-0.8) 11/15/21 01:01 Eosinophils # (Manual) 0.1 K/mm3 (0.0-0.4) 11/15/21 01:01 Basophils # (Manual) 0.1 K/mm3 (0.0-0.1) 11/15/21 01:01 Metamyelocytes # 0.0 K/mm3 11/15/21 01:01 Myelocytes # 0.0 K/mm3 11/15/21 01:01 Promyelocytes # 0.0 K/mm3 11/15/21 01:01 Blast Cells # 0.0 K/mm3 11/15/21 01:01 WBC Morphology Not Reportable 11/15/21 01:01 Hypersegmented Neuts Not Reportable 11/15/21 01:01 Hyposegmented Neuts Not Reportable 11/15/21 01:01 Hypogranular Neuts Not Reportable 11/15/21 01:01 Smudge Cells Not Reportable 11/15/21 01:01 Toxic Granulation Not Reportable 11/15/21 01:01 Toxic Vacuolation Not Reportable 11/15/21 01:01 Dohle Bodies Not Reportable 11/15/21 01:01 Pelger-Huet Anomaly Not Reportable 11/15/21 01:01 Yosvany Rods Not Reportable 11/15/21 01:01 Platelet Estimate Not Reportable 11/15/21 01:01 Clumped Platelets Not Reportable 11/15/21 01:01 Plt Clumps, EDTA Not Reportable 11/15/21 01:01 Large Platelets Not Reportable 11/15/21 01:01 Giant Platelets Rare 11/15/21 01:01 Platelet Satelliting Not Reportable 11/15/21 01:01 Plt Morphology Comment Not Reportable 11/15/21 01:01 RBC Morphology Not Reportable 11/15/21 01:01 Dimorphic RBCs Yes 11/15/21 01:01 Polychromasia Not Reportable 11/15/21 01:01 Hypochromasia Few 11/15/21 01:01 Poikilocytosis Not Reportable 11/15/21 01:01 Anisocytosis 1+ 11/15/21 01:01 Microcytosis 1+ 11/15/21 01:01 Macrocytosis Rare 11/15/21 01:01 Spherocytes Not Reportable 11/15/21 01:01 Pappenheimer Bodies Not Reportable 11/15/21 01:01 Sickle Cells Not Reportable 11/15/21 01:01 Target Cells Not Reportable 11/15/21 01:01 Tear Drop Cells Not Reportable 11/15/21 01:01 Ovalocytes Not Reportable 11/15/21 01:01 Helmet Cells Not Reportable 11/15/21 01:01 Chandra-Salvisa Bodies Not Reportable 11/15/21 01:01 [place] Rings Not Reportable 11/15/21 01:01 [place] Cells Not Reportable 11/15/21 01:01 Bite Cells Not Reportable 11/15/21 01:01 Crenated Cell Not Reportable 11/15/21 01:01 Elliptocytes Not Reportable 11/15/21 01:01 Acanthocytes (Spur) Not Reportable 11/15/21 01:01 Rouleaux Not Reportable 11/15/21 01:01 Hemoglobin C Crystals Not Reportable 11/15/21 01:01 Schistocytes Rare 11/15/21 01:01 Malaria parasites Not Reportable 11/15/21 01:01 Bassem Bodies Not Reportable 11/15/21 01:01 Hem Pathologist Commnt No 11/15/21 01:01 VBG pO2 54.3 (25.0-47.0) H 11/15/21 03:12 Sodium 139 mmol/L (137-145) 11/16/21 04:12 Potassium 4.1 mmol/L (3.6-5.0) 11/16/21 04:12 Chloride 106.8 mmol/L (98-107) 11/16/21 04:12 Carbon Dioxide 22 mmol/L (22-30) 11/16/21 04:12 Anion Gap 14 mmol/L 11/16/21 04:12 BUN 11 mg/dL (7-17) 11/16/21 04:12 Creatinine 0.6 mg/dL (0.6-1.2) 11/16/21 04:12 Estimated GFR > 60 ml/min 11/16/21 04:12 BUN/Creatinine Ratio 18 % 11/16/21 04:12 Glucose 169 mg/dL (65-100) H 11/16/21 04:12 POC Glucose 154 mg/dL (70-105) H 11/16/21 04:08 Hemoglobin A1c 7.6 % (4-6) H 11/15/21 10:53 Lactic Acid 2.10 mmol/L (0.7-2.0) H* 11/16/21 04:12 Calcium 8.9 mg/dL (8.4-10.2) 11/16/21 04:12 Phosphorus 1.80 mg/dL (2.5-4.5) L D 11/16/21 04:12 Magnesium 1.80 mg/dL (1.7-2.3) 11/16/21 04:12 Total Bilirubin 0.20 mg/dL (0.1-1.2) 11/16/21 04:12 Direct Bilirubin < 0.2 mg/dL (0-0.2) 11/15/21 10:53 Indirect Bilirubin 0.0 mg/dL 11/15/21 10:53 AST 14 units/L (5-40) 11/16/21 04:12 ALT 8 units/L (7-56) 11/16/21 04:12 Alkaline Phosphatase 56 units/L (35-129) 11/16/21 04:12 Total Protein 6.3 g/dL (6.3-8.2) 11/16/21 04:12 Albumin 3.8 g/dL (3.9-5) L 11/16/21 04:12 Albumin/Globulin Ratio 1.5 % 11/16/21 04:12 Amylase 66 units/L (27-131) 11/15/21 12:56 Lipase 11 units/L (13-60) L 11/15/21 12:56 Urine Color Yellow (Yellow) 11/15/21 Unknown Urine Turbidity Clear (Clear) 11/15/21 Unknown Specific [place] (Man) 1.015 (1.003-1.030) 11/15/21 Unknown Ur Protein (Man) Negative mg/dL (Negative) 11/15/21 Unknown Ur Ketones (Man) 3+ (Negative) 11/15/21 Unknown Ur Nitrite (Man) Negative (Negative) 11/15/21 Unknown Urine Bilirubin (Man) Negative (Negative) 11/15/21 Unknown Urine Ictotest Not Reportable 11/15/21 Unknown Leukocyte Esterase (Man) Negative (Negative) 11/15/21 Unknown Urine WBC (Auto) < 1.0 /HPF (0.0-6.0) 11/15/21 Unknown Urine RBC (Auto) 0.0 /HPF (0.0-6.0) 11/15/21 Unknown U Epithel Cells (Auto) < 1.0 /HPF (0-13.0) 11/15/21 Unknown Urine RBC (Manual) Negative (Negative) 11/15/21 Unknown Agudelo/IV: Voiding Method External Female Catheter Active Medications - Current Medications Current Medications: Generic Name Dose Route Start Last Admin Trade Name Freq PRN Reason Stop Dose Admin Acetaminophen 650 mg 11/15/21 04:02 Acetaminophen 325 Mg Tab PO Q6H PRN Pain MILD(1-3)/Fever >100.5/BUTCHER Dextrose 0 ml 11/15/21 02:50 Dextrose 50% In Water (25gm) 50 Ml Syringe IV Q30MIN PRN Hypoglycemia Protocol Hydralazine HCl 10 mg 11/15/21 04:37 11/15/21 07:22 Hydralazine 20 Mg/1 Ml Inj IV 10 mg Q4HR PRN Administration Hypertension Hydromorphone HCl 0.5 mg 11/15/21 11:35 11/16/21 03:09 Hydromorphone 1 Mg/1 Ml Inj IV 0.5 mg Q4H PRN Administration Pain , Severe (7-10) Insulin Human Regular 100 100 mls @ 4 mls/hr 11/15/21 03:00 11/16/21 06:56 units/ Sodium Chloride IV 3 units/hr TITR WILMER 3 mls/hr Titration Protocol 4 UNITS/HR Potassium Chloride/Dextrose/Sod Cl 20 meq in 1,000 mls @ 125 mls/hr 11/15/21 03:00 11/16/21 06:53 D5w/0.45% Nacl/Kcl 20 Meq IV 125 mls/hr DIRECT WILMER Administration Pantoprazole Sodium 80 mg/ 100 mls @ 10 mls/hr 11/15/21 03:00 11/16/21 01:33 Sodium Chloride IV 8 mg/hr DIRECT WILMER 10 mls/hr Administration 8 MG/HR Sodium Chloride 1,000 mls @ 150 mls/hr 11/15/21 04:15 11/15/21 05:25 Nacl 0.9% 1000 Ml IV 150 mls/hr DIRECT WILMER Administration Labetalol HCl 10 mg 11/15/21 17:55 11/16/21 04:02 Labetalol 20 Mg/4 Ml Inj IV 10 mg Q4HR PRN Administration Hypertension Morphine Sulfate 2 mg 11/15/21 04:02 11/15/21 13:53 Morphine 2 Mg/1 Ml Inj IV 2 mg Q4H PRN Administration Pain, Moderate (4-6) Ondansetron HCl 4 mg 11/15/21 04:02 11/16/21 01:12 Ondansetron 4 Mg/2 Ml Inj IV 4 mg Q8H PRN Administration Nausea And Vomiting Sodium Chloride 10 ml 11/15/21 10:00 11/15/21 21:01 Sodium Chloride 0.9% 10 Ml Flush Syringe IV 10 ml BID WILMER Administration Sodium Chloride 10 ml 11/15/21 04:02 Sodium Chloride 0.9% 10 Ml Flush Syringe IV PRN PRN LINE FLUSH Nutrition/Malnutrition Assess - Dietary Evaluation Nutrition/Malnutrition Findings: Nutrition Notes Start: 11/15/21 0 8:46 Freq: Status: Active Protocol: Document 11/15/21 08:46 BRADY (Rec: 11/15/21 08:56 BRADY [id number]) Nutrition Notes Need for Assessment generated from: MD Order,Education Initial or Follow up Brief Note Current Diagnosis Hypertension Other Pertinent Diagnosis Ulcerative Esphagitis, GI Bleed, DKA, Dehydration, Hypomagnasemia, Depressi Current Diet NPO (since 11/15 04:03). Height 5 ft 3 in Weight 45.359 kg [place] Body Weight (kg) 52.27 BMI 17.6 Weight change and time frame None provided at admission. Weight Status Underweight Subjective/Other Information RD consult for nutrition education assessment. Pt currently on NPO. Pt is on Room Air, O2 saturation @ 95%, according to Vital Signs notes. Pt complains of N/V/Abdominal Pain and Enatemesis, according to History & Physical notes. Pt still in critical condition , not a candidate for Nutrition Education at the time, will assess feasibility on F/U. Percent of energy/protein needs met: Pt currently on NPO. Nutrition Intervention Follow-Up By: 11/17/21 Additional Comments Nutrition education will be provided at F/U, if feasible. When pertinent, start monitoring food tolerance, %PO intake of meals, and BM.
[2021-11-15 13:35] LABS: BUN/Creatinine Ratio 27; Blood Urea Nitrogen 24 mg/dL (7-17); Calcium 9.2 mg/dL (8.4-10.2); Hemolysis Index 8
[2021-11-15 17:58] LABS: Color,Urine Yellow (Yellow); WBC,Urine < 1.0 /HPF (0.0-6.0)
--- NOTE | 2021-11-15 18:27 | Consultation ---
DATE OF CONSULTATION: 11/15/2021 PULMONARY AND CRITICAL CARE CONSULT NOTE CONSULTING PHYSICIAN: Dr. Blaine Whitman. REASON FOR CONSULTATION: 1. Diabetic ketoacidosis. 2. Acute gastrointestinal bleed. CHIEF COMPLAINT AND HISTORY OF PRESENT ILLNESS: As follows: The patient is a now 50-year-old female with a known history of ulcerative esophagitis and diabetes, presented to the Emergency Room complaining of nausea and vomiting yesterday. She was also complaining of severe abdominal pain, in particular in the epigastric region. She complained of some coffee-ground emesis prior to coming into the hospital. She denied chest pain or shortness of breath. She denied fevers or chills. She denies any diarrhea. She denied any sick contacts and no recent travel and no known contact with anyone with COVID-19 infection. Workup in the Emergency Room revealed normal serum hemoglobin, normal serum creatinine, but an anion gap acidosis of 32 and she was ultimately diagnosed with diabetic ketoacidosis and admitted to the intensive care unit. When she came into the intensive care unit, she had a couple of episodes of coffee-ground emesis. Her abdominal pain is finally improved with admission of some Dilaudid. When I stopped by to see her, she was resting in bed, called in an almost position. She remained on an IV insulin drip at 5 units per hour and has been started on a Protonix drip at 8 mg per hour. She lives as much of the history of presentation as I have. With regards to tobacco use/abuse, she denied strongly any history of tobacco use or abuse or any history of alcohol use or abuse. This really is as much of the history of presentation as I have. PAST MEDICAL HISTORY: Diabetes, ulcerative esophagitis, history of gastroesophageal reflux disease. PAST SURGICAL HISTORY: Denies. MEDICATIONS: She was on at the time I stopped by to see according to the medication administration record included the following: Tylenol 650 mg p.o. q. 6 hours p.r.n. mild pain or fevers, hydralazine 10 mg IV q. 4 hours p.r.n. elevated blood pressure, Dilaudid 0.5 mg IV q. 4 hours p.r.n. severe pain, insulin drip was given at 4 units per hour IV, morphine sulfate 2 mg IV q. 4 hours p.r.n. moderate pain, Zofran 4 mg IV q. 8 hours p.r.n. nausea and vomiting, Protonix drip was given at 8 mg per hour. ALLERGIES: TO CAFFEINE. NATURE OF THIS ALLERGY IS UNKNOWN. DIET: Thin lady, denies acute weight loss or gain in the preceding few weeks to months. FAMILY AND SOCIAL HISTORY: Lives in the community. Denies alcohol, tobacco or illicit drug use or abuse. Family history is otherwise noncontributory. REVIEW OF SYSTEMS: No loss of consciousness. No new onset seizures. No new onset focal weakness. Denies gross hematochezia or melena. Denies gross hematuria or dysuria. She has had hematemesis. She denies heat or cold intolerance. Denies polydipsia, polyuria. A complete 13-system review of system was obtained. Pertinent positives and/or negatives as in body of history above, otherwise they are noncontributory. PHYSICAL EXAMINATION: VITAL SIGNS: On presentation, she was afebrile, temperature 97.8 degrees Fahrenheit, pulse of 113, respiratory rate of 18 and blood pressure 123/85, O2 sats 100% at the time I saw her that was on room air. GENERAL: She is a petite middle-aged female. Normocephalic, atraumatic, lying in a near position with mildly increased respiratory effort at rest. that was due to pain. HEAD, EYES, EARS, NOSE AND THROAT: Anicteric. No conjunctival erythema. Oropharynx is still dry. NECK: No gross jugular venous distention, no thyromegaly. Grossly, there were no palpable lymph nodes in the supraclavicular or submandibular lymph node chains. LUNGS: Auscultation of both lung call unremarkable. Good bilateral air movement. No active wheezing. HEART: Sounds 1 and 2 are heard at the time of my evaluation, regular rate and rhythm without overt rubs or murmurs. ABDOMEN: Soft, full, protuberant. Bowel sounds are positive, normoactive. Mild epigastric tenderness. I really did not put too much pressure. No palpable hepatosplenomegaly. EXTREMITIES: Without overt digital clubbing or cyanosis, no pedal edema. Pedal pulses are 2+ bilaterally. NEUROLOGIC: Pupils are equal, round, about 4 mm, reactive to light. Extraocular muscle movements are intact. She moves all 4 extremities spontaneously. SKIN: Normal turgor in the areas I examined without overt cellulitis or rash. Please see the wound care nurses' notes for full description of her skin. PSYCHIATRIC: Mood was normal. Affect was appropriate. She had intact judgment and insight. LABORATORY DATA: From my review as follows: Admission white cell count 10,600, hemoglobin 14.8, hematocrit 45.8, platelet count was 210. No band neutrophils on the manual differential. Serum sodium 139, potassium 4.1, chloride 98, bicarbonate 13, BUN 38, creatinine 1.2, glucose 344. Magnesium was 1.4. Lactic acid level was not drawn. Hemoglobin A1c 7.6. Most recent potassium is 6.1, but a repeat BMP has been ordered and will be addressed. It is ordered stat. No microbiology studies for my review. Gastric occult blood test has been sent and is pending. CT scan was done of the abdomen and pelvis. I have reviewed the radiologist's interpretation and it was read as the lung windows are unremarkable. She has distal esophageal wall thickening and gastric wall thickening suggesting esophagitis/gastritis. She has pancreatic head calcifications likely sequelae of chronic pancreatitis and a moderately distended urinary bladder. ASSESSMENT: 1. Severe abdominal pain, presumably secondary to #2. 2. Esophagitis/gastritis. 3. Acute gastrointestinal bleed. 4. History of ulcerative esophagitis. 5. History of depression. 6. Hypomagnesemia. 7. Hemoconcentration at presentation. PLAN: She has been started on a PPI drip for the possible acute GI bleeding. A GI consult has been placed and consideration will be given, I resumed for EGD. For now, she has good pain control with Dilaudid. She remains on a DKA protocol. We will follow the repeat labs and address. Correct electrolytes as necessary. We will continue with IV resuscitation per protocol. I will get a lactic acid level. Her serum lipase is unremarkable. She denies any history of tobacco abuse, unclear. I doubt, we should necessarily begin a CIWA protocol, but we will watch closely for delirium tremens. She did comment hypomagnesemia that may be related to "alcohol use" otherwise. She is appropriately on GI prophylaxis with a continuous PPI therapy. DVT prophylaxis is going to be with SCDs. Flu and pneumonia vaccination has been addressed. Thank you very much for the consult. We will follow along and make further recommendations as picture progresses/becomes clearer. She is critically ill on life-sustaining interventions including the IV insulin therapy and the PPI drip at risk for from endocrine and gastrointestinal system decompensation. At this time, I spent about 35-40 minutes of critical care time without overlap and excluding any procedural time that may be necessary. TID: [id number] RECEIPT: [id number] KATY/LAUREN
--- NOTE | 2021-11-15 18:43 | Consultation ---
History of Present Illness - Reason for Consult Consult date: 11/15/21 Coffee ground emesis Requesting physician: FORTUNATO FABIAN - History of Present Illness Ms. Arteaga is a 50-year-old woman with a longstanding history of insulin- dependent diabetes and recurrent bouts of DKA. She was in her usual state of health until yesterday morning when she started to get sick and developed nausea and vomiting as well as epigastric pain. She ultimately started to have coffee- ground emesis and presented to the emergency room where she was found to be in DKA. She continues to have abdominal pain and nausea as well as intermittent vomiting. She denies fevers, chills, sweats. Bowel movements occur once or twice a day without change and there is been no melena or hematochezia. Patient has had these problems for at least 4 years. She is not able to get her diabetes under control as an outpatient, and states that she is admitted to [facility] or [facility] approximately once a month. She has similar symptoms during those admissions as well. She has undergone an upper endoscopy here in August 27, 2017 which showed severe distal ulcerative esophagitis. She states that she has also subsequently been scoped from above in the [facility] system with similar findings, though she cannot recall when it was. She does take pantoprazole twice a day. Please note that in 2018, gallbladder evaluation was also done with a HIDA scan performed showing the gallbladder ejection fraction of 20%. Her symptoms at that time were deemed to be due to DKA and not related to the gallbladder. Medications reviewed Past History Past Medical History: diabetes (Insulin dependent, with DKA almost monthly), other ( Depression, Helicobacter pylori (H. pylori) in the distant past. GASTROPARESIS) Past Surgical History: No surgical history Social history: no significant social history Family history: no significant family history Medications and Allergies Allergies Allergy/AdvReac Type Severity Reaction Status Date / Time caffeine Allergy Nausea Verified 10/28/16 23:18 Home Medications Medication Instructions Recorded Confirmed Last Taken Type Ambien 10 mg PO PRN #10 10/31/16 08/25/17 Unknown Rx FLUoxetine 20 mg PO DAILY #30 10/31/16 08/25/17 Unknown Rx Pregabalin 75 mg PO BID #60 capsule 10/31/16 08/25/17 Unknown Rx Remeron 15 mg PO HS #30 10/31/17 08/25/17 Unknown Rx Metformin HCl 500 mg PO DAILY #30 tablet 09/04/17 Unknown Rx Ondansetron [Zofran TAB] 4 mg PO Q6H PRN #20 tablet 09/04/17 Unknown Rx Pantoprazole [Protonix TAB] 40 mg PO BID #60 tablet 09/04/17 Unknown Rx Sucralfate [Carafate] 1 gm PO Q6HR 30 Days oral.liqd 09/04/17 Unknown Rx amLODIPine 5 mg PO DAILY #30 tab 09/04/17 Unknown Rx Active Meds: Active Medications Acetaminophen (Acetaminophen 325 Mg Tab) 650 mg PO Q6H PRN PRN Reason: Pain MILD(1-3)/Fever >100.5/BUTCHER Dextrose (Dextrose 50% In Water (25gm) 50 Ml Syringe) 0 ml IV Q30MIN PRN; Protocol PRN Reason: Hypoglycemia Hydralazine HCl (Hydralazine 20 Mg/1 Ml Inj) 10 mg IV Q4HR PRN PRN Reason: Hypertension Last Admin: 11/15/21 07:22 Dose: 10 mg Hydromorphone HCl (Hydromorphone 1 Mg/1 Ml Inj) 0.5 mg IV Q4H PRN PRN Reason: Pain , Severe (7-10) Insulin Human Regular 100 (units/ Sodium Chloride) 100 mls @ 4 mls/hr IV TITR WILMER; Protocol Last Titration: 11/15/21 17:00 Dose: 2 units/hr, 2 mls/hr Potassium Chloride/Dextrose/Sod Cl (D5w/0.45% Nacl/Kcl 20 Meq) 20 meq in 1,000 mls @ 125 mls/hr IV DIRECT WILMER Last Admin: 11/15/21 14:58 Dose: 125 mls/hr Pantoprazole Sodium 80 mg/ (Sodium Chloride) 100 mls @ 10 mls/hr IV DIRECT WILMER Last Admin: 11/15/21 13:13 Dose: 8 mg/hr, 10 mls/hr Sodium Chloride (Nacl 0.9% 1000 Ml) 1,000 mls @ 150 mls/hr IV DIRECT WILMER Last Admin: 11/15/21 05:25 Dose: 150 mls/hr Labetalol HCl (Labetalol 20 Mg/4 Ml Inj) 10 mg IV Q4HR PRN PRN Reason: Hypertension Morphine Sulfate (Morphine 2 Mg/1 Ml Inj) 2 mg IV Q4H PRN PRN Reason: Pain, Moderate (4-6) Last Admin: 11/15/21 13:53 Dose: 2 mg Ondansetron HCl (Ondansetron 4 Mg/2 Ml Inj) 4 mg IV Q8H PRN PRN Reason: Nausea And Vomiting Last Admin: 11/15/21 17:49 Dose: 4 mg Sodium Chloride (Sodium Chloride 0.9% 10 Ml Flush Syringe) 10 ml IV BID WILMER Sodium Chloride (Sodium Chloride 0.9% 10 Ml Flush Syringe) 10 ml IV PRN PRN PRN Reason: LINE FLUSH Review of Systems All systems: negative (As per HPI) Exam - Constitutional Vitals: Temp Pulse Resp BP Pulse Ox 97.8 F 97 H 11 L 174/110 97 11/15/21 00:11 11/15/21 16:00 11/15/21 16:00 11/15/21 07:22 11/15/21 16:00 General appearance: Present: mild distress - EENT Eyes: Present: PERRL, EOM intact ENT: hearing intact - Respiratory Respiratory effort: normal Respiratory: bilateral: CTA - Cardiovascular Rhythm: regular Heart Sounds: Present: S1 & S2 - Extremities Extremities: No edema - Abdominal General gastrointestinal: Present: soft, tender (Mild diffuse upper abdominal), normal bowel sounds Results - Labs CBC & Chem 7: 11/15/21 01:01 11/15/21 12:56 Labs: Abnormal lab results 11/15/21 11/15/21 11/15/21 Range/Units 01:01 01:01 03:03 RBC 5.85 H (3.65-5.03) M/mm3 Hgb 14.8 H (10.1-14.3) gm/dl Hct 45.8 H (30.3-42.9) % MCV 78 L (79-97) fl MCH 25 L (28-32) pg RDW 22.1 H (13.2-15.2) % Seg Neuts % (Manual) 84.0 H (40.0-70.0) % Lymphocytes % (Manual) 8.0 L (13.4-35.0) % Seg Neutrophils # Man 8.9 H (1.8-7.7) K/mm3 Lymphocytes # (Manual) 0.8 L (1.2-5.4) K/mm3 VBG pO2 (25.0-47.0) Sodium (137-145) mmol/L Potassium (3.6-5.0) mmol/L Chloride 91.3 L (98-107) mmol/L Carbon Dioxide 12 L (22-30) mmol/L BUN 39 H (7-17) mg/dL Creatinine 1.4 H (0.6-1.2) mg/dL Glucose 355 H (65-100) mg/dL POC Glucose (70-105) mg/dL Hemoglobin A1c (4-6) % Lactic Acid (0.7-2.0) mmol/L Calcium 10.6 H (8.4-10.2) mg/dL Phosphorus 5.10 H (2.5-4.5) mg/dL Magnesium 1.40 L (1.7-2.3) mg/dL Total Protein 8.4 H (6.3-8.2) g/dL Albumin (3.9-5) g/dL Lipase (13-60) units/L 11/15/21 11/15/21 11/15/21 Range/Units 03:03 03:12 04:02 RBC (3.65-5.03) M/mm3 Hgb (10.1-14.3) gm/dl Hct (30.3-42.9) % MCV (79-97) fl MCH (28-32) pg RDW (13.2-15.2) % Seg Neuts % (Manual) (40.0-70.0) % Lymphocytes % (Manual) (13.4-35.0) % Seg Neutrophils # Man (1.8-7.7) K/mm3 Lymphocytes # (Manual) (1.2-5.4) K/mm3 VBG pO2 54.3 H (25.0-47.0) Sodium (137-145) mmol/L Potassium (3.6-5.0) mmol/L Chloride (98-107) mmol/L Carbon Dioxide 13 L (22-30) mmol/L BUN 38 H (7-17) mg/dL Creatinine (0.6-1.2) mg/dL Glucose 344 H (65-100) mg/dL POC Glucose 337 H (70-105) mg/dL Hemoglobin A1c (4-6) % Lactic Acid (0.7-2.0) mmol/L Calcium (8.4-10.2) mg/dL Phosphorus (2.5-4.5) mg/dL Magnesium (1.7-2.3) mg/dL Total Protein (6.3-8.2) g/dL Albumin (3.9-5) g/dL Lipase (13-60) units/L 11/15/21 11/15/21 11/15/21 Range/Units 05:03 05:23 06:18 RBC (3.65-5.03) M/mm3 Hgb (10.1-14.3) gm/dl Hct (30.3-42.9) % MCV (79-97) fl MCH (28-32) pg RDW (13.2-15.2) % Seg Neuts % (Manual) (40.0-70.0) % Lymphocytes % (Manual) (13.4-35.0) % Seg Neutrophils # Man (1.8-7.7) K/mm3 Lymphocytes # (Manual) (1.2-5.4) K/mm3 VBG pO2 (25.0-47.0) Sodium (137-145) mmol/L Potassium (3.6-5.0) mmol/L Chloride (98-107) mmol/L Carbon Dioxide 13 L (22-30) mmol/L BUN 35 H (7-17) mg/dL Creatinine (0.6-1.2) mg/dL Glucose 277 H (65-100) mg/dL POC Glucose 255 H 234 H (70-105) mg/dL Hemoglobin A1c (4-6) % Lactic Acid (0.7-2.0) mmol/L Calcium (8.4-10.2) mg/dL Phosphorus (2.5-4.5) mg/dL Magnesium (1.7-2.3) mg/dL Total Protein (6.3-8.2) g/dL Albumin (3.9-5) g/dL Lipase (13-60) units/L 11/15/21 11/15/21 11/15/21 Range/Units 07:00 07:01 07:54 RBC (3.65-5.03) M/mm3 Hgb (10.1-14.3) gm/dl Hct (30.3-42.9) % MCV (79-97) fl MCH (28-32) pg RDW (13.2-15.2) % Seg Neuts % (Manual) (40.0-70.0) % Lymphocytes % (Manual) (13.4-35.0) % Seg Neutrophils # Man (1.8-7.7) K/mm3 Lymphocytes # (Manual) (1.2-5.4) K/mm3 VBG pO2 (25.0-47.0) Sodium (137-145) mmol/L Potassium (3.6-5.0) mmol/L Chloride (98-107) mmol/L Carbon Dioxide 20 L D (22-30) mmol/L BUN 32 H (7-17) mg/dL Creatinine (0.6-1.2) mg/dL Glucose 225 H (65-100) mg/dL POC Glucose 222 H 256 H (70-105) mg/dL Hemoglobin A1c (4-6) % Lactic Acid (0.7-2.0) mmol/L Calcium (8.4-10.2) mg/dL Phosphorus (2.5-4.5) mg/dL Magnesium (1.7-2.3) mg/dL Total Protein (6.3-8.2) g/dL Albumin (3.9-5) g/dL Lipase (13-60) units/L 11/15/21 11/15/21 11/15/21 Range/Units 09:15 10:17 10:53 RBC (3.65-5.03) M/mm3 Hgb (10.1-14.3) gm/dl Hct (30.3-42.9) % MCV (79-97) fl MCH (28-32) pg RDW (13.2-15.2) % Seg Neuts % (Manual) (40.0-70.0) % Lymphocytes % (Manual) (13.4-35.0) % Seg Neutrophils # Man (1.8-7.7) K/mm3 Lymphocytes # (Manual) (1.2-5.4) K/mm3 VBG pO2 (25.0-47.0) Sodium 135 L D (137-145) mmol/L Potassium 6.1 H* D (3.6-5.0) mmol/L Chloride (98-107) mmol/L Carbon Dioxide 20 L (22-30) mmol/L BUN 23 H (7-17) mg/dL Creatinine (0.6-1.2) mg/dL Glucose 659 H* (65-100) mg/dL POC Glucose 271 H 271 H (70-105) mg/dL Hemoglobin A1c (4-6) % Lactic Acid (0.7-2.0) mmol/L Calcium 8.0 L (8.4-10.2) mg/dL Phosphorus 2.00 L D (2.5-4.5) mg/dL Magnesium 7.60 H (1.7-2.3) mg/dL Total Protein 5.3 L D (6.3-8.2) g/dL Albumin 3.3 L (3.9-5) g/dL Lipase 8 L (13-60) units/L 11/15/21 11/15/21 11/15/21 Range/Units 10:53 11:04 11:58 RBC (3.65-5.03) M/mm3 Hgb (10.1-14.3) gm/dl Hct (30.3-42.9) % MCV (79-97) fl MCH (28-32) pg RDW (13.2-15.2) % Seg Neuts % (Manual) (40.0-70.0) % Lymphocytes % (Manual) (13.4-35.0) % Seg Neutrophils # Man (1.8-7.7) K/mm3 Lymphocytes # (Manual) (1.2-5.4) K/mm3 VBG pO2 (25.0-47.0) Sodium (137-145) mmol/L Potassium (3.6-5.0) mmol/L Chloride (98-107) mmol/L Carbon Dioxide (22-30) mmol/L BUN (7-17) mg/dL Creatinine (0.6-1.2) mg/dL Glucose (65-100) mg/dL POC Glucose 241 H 253 H (70-105) mg/dL Hemoglobin A1c 7.6 H (4-6) % Lactic Acid (0.7-2.0) mmol/L Calcium (8.4-10.2) mg/dL Phosphorus (2.5-4.5) mg/dL Magnesium (1.7-2.3) mg/dL Total Protein (6.3-8.2) g/dL Albumin (3.9-5) g/dL Lipase (13-60) units/L 11/15/21 11/15/21 11/15/21 Range/Units 12:56 12:56 12:58 RBC (3.65-5.03) M/mm3 Hgb (10.1-14.3) gm/dl Hct (30.3-42.9) % MCV (79-97) fl MCH (28-32) pg RDW (13.2-15.2) % Seg Neuts % (Manual) (40.0-70.0) % Lymphocytes % (Manual) (13.4-35.0) % Seg Neutrophils # Man (1.8-7.7) K/mm3 Lymphocytes # (Manual) (1.2-5.4) K/mm3 VBG pO2 (25.0-47.0) Sodium (137-145) mmol/L Potassium (3.6-5.0) mmol/L Chloride 108.3 H (98-107) mmol/L Carbon Dioxide (22-30) mmol/L BUN 24 H (7-17) mg/dL Creatinine (0.6-1.2) mg/dL Glucose 226 H (65-100) mg/dL POC Glucose 226 H (70-105) mg/dL Hemoglobin A1c (4-6) % Lactic Acid 2.30 H* (0.7-2.0) mmol/L Calcium (8.4-10.2) mg/dL Phosphorus (2.5-4.5) mg/dL Magnesium (1.7-2.3) mg/dL Total Protein (6.3-8.2) g/dL Albumin (3.9-5) g/dL Lipase 11 L (13-60) units/L 11/15/21 11/15/21 11/15/21 Range/Units 13:56 14:56 16:07 RBC (3.65-5.03) M/mm3 Hgb (10.1-14.3) gm/dl Hct (30.3-42.9) % MCV (79-97) fl MCH (28-32) pg RDW (13.2-15.2) % Seg Neuts % (Manual) (40.0-70.0) % Lymphocytes % (Manual) (13.4-35.0) % Seg Neutrophils # Man (1.8-7.7) K/mm3 Lymphocytes # (Manual) (1.2-5.4) K/mm3 VBG pO2 (25.0-47.0) Sodium (137-145) mmol/L Potassium (3.6-5.0) mmol/L Chloride (98-107) mmol/L Carbon Dioxide (22-30) mmol/L BUN (7-17) mg/dL Creatinine (0.6-1.2) mg/dL Glucose (65-100) mg/dL POC Glucose 174 H 186 H 167 H (70-105) mg/dL Hemoglobin A1c (4-6) % Lactic Acid (0.7-2.0) mmol/L Calcium (8.4-10.2) mg/dL Phosphorus (2.5-4.5) mg/dL Magnesium (1.7-2.3) mg/dL Total Protein (6.3-8.2) g/dL Albumin (3.9-5) g/dL Lipase (13-60) units/L 11/15/21 11/15/21 Range/Units 16:58 17:54 RBC (3.65-5.03) M/mm3 Hgb (10.1-14.3) gm/dl Hct (30.3-42.9) % MCV (79-97) fl MCH (28-32) pg RDW (13.2-15.2) % Seg Neuts % (Manual) (40.0-70.0) % Lymphocytes % (Manual) (13.4-35.0) % Seg Neutrophils # Man (1.8-7.7) K/mm3 Lymphocytes # (Manual) (1.2-5.4) K/mm3 VBG pO2 (25.0-47.0) Sodium (137-145) mmol/L Potassium (3.6-5.0) mmol/L Chloride (98-107) mmol/L Carbon Dioxide (22-30) mmol/L BUN (7-17) mg/dL Creatinine (0.6-1.2) mg/dL Glucose (65-100) mg/dL POC Glucose 169 H 145 H (70-105) mg/dL Hemoglobin A1c (4-6) % Lactic Acid (0.7-2.0) mmol/L Calcium (8.4-10.2) mg/dL Phosphorus (2.5-4.5) mg/dL Magnesium (1.7-2.3) mg/dL Total Protein (6.3-8.2) g/dL Albumin (3.9-5) g/dL Lipase (13-60) units/L - Imaging and Cardiology CT scan - abdomen: report reviewed (Distal esophageal wall and gastric wall thickening consistent with gastritis and esophagitis. Pancreatic head calcifications noted. No inflammation of the pancreas) Assessment and Plan 1. Coffee-ground emesisconsistent with known severe ulcerative esophagitis she is having vomiting as a result of her DKA most likely. This has been an ongoing pattern for over 4 years and she states this is similar to her usual attacks for which she is hospitalized almost monthly in the [facility] system. Her hemoglobin is normal. Control DKA PPI drip for now and then discharged on twice a day along with Carafate. No plans for endoscopic evaluation at present
[2021-11-15] MEDS: HYDROmorphone 1 MG/1 ML INJ IV PRN (19:15)
[2021-11-15 19:30] LABS: Blood Urea Nitrogen 18 mg/dL (7-17); Hemolysis Index 14
[2021-11-15 19:40] LABS: BUN/Creatinine Ratio 26
[2021-11-16] MEDS: ONDANSETRON 4 MG/2 ML INJ IV PRN ×2 (01:12→09:18)
[2021-11-16] MEDS: PANTOPRAZOLE 80 MG in SODIUM CHLORIDE 0.9% 100 ML IV SCH ×2 (01:33→14:15)
[2021-11-16] MEDS: HYDROmorphone 1 MG/1 ML INJ IV PRN ×3 (03:09→19:20)
[2021-11-16 05:01] LABS: Alanine Aminotransferase 8 units/L (7-56); Albumin 3.8 g/dL (3.9-5); Blood Urea Nitrogen 11 mg/dL (7-17); Calcium 8.9 mg/dL (8.4-10.2); Hemolysis Index 8
[2021-11-16 05:02] LABS: BUN/Creatinine Ratio 18
[2021-11-16 05:12] LABS: Hematocrit 32.8 % (30.3-42.9); Hemoglobin 10.8 gm/dl (10.1-14.3); Mean Corpuscular HGB Conc 33 % (30-34); Mean Corpuscular Volume 77 fl (79-97); Platelet Count 138 K/mm3 (140-440); Red Blood Count 4.25 M/mm3 (3.65-5.03)
[2021-11-16 05:45] LABS: Red Cell Distribution Width 22.2 % (13.2-15.2)
[2021-11-16] MEDS: INSULIN REGULAR, HUMAN 100 UNITS in SODIUM CHLORIDE 0.9% 99 ML IV SCH (05:59)
[2021-11-16] MEDS: D5W/0.45% NACL/KCL 20 MEQ 20 MEQ/1,000 ML BAG IV SCH ×2 (06:53→14:15)
[2021-11-16] MEDS ORDERED: SODIUM CHLORIDE 0.9% 1000 ML 1,000 ML IV ONE (08:15)
[2021-11-16] MEDS ORDERED: POTASSIUM PHOSPHATE 15 MMOL in SODIUM CHLORIDE 0.9% 250ML 250 ML IV SCH (08:30)
[2021-11-16] MEDS: hydrALAZINE 20 MG/1 ML INJ IV PRN (08:37)
[2021-11-16] MEDS ORDERED: niCARdipine 50 MG in SODIUM CHLORIDE 0.9% 250ML 230 ML IV SCH (10:00)
[2021-11-16] MEDS ORDERED: amLODIPine 5 MG TAB PO SCH (10:00)
--- NOTE | 2021-11-16 10:40 | Progress Note ---
<MATT SPICER - Last Filed: 11/16/21 18:57> Assessment and Plan Assessment and plan: This is a 50-year-old female with known past medical history of depression, ulcerative esophagitis, DM complicated by gastroparesis admitted for DKA Hospital Course to Date: 11/15: C/o severe abdominal pain this am, accompanied with nausea and coffee ground emesis. CT Abd/Pelvis reviewed, suggesting esophagitis, gastritis, and chronic pancreatitis. Patient remains on insulin gtt and IVF resuscitation per D KA protocol. H&H is stable, gastric occult pending. On protonix gtt, GI consult pending. Continue to trend CBC. Tachycardia and Hypertension improved post PRN analgesia. Resume home antihypertensive regimen once list is available. Continue PRN analgesia for pain control and PRN antiemetic for N/V. PRN labetalol added for SBP greater than 160. 11/16: Remains on protonix gtt and DKA protocol. Patient is refusing PO intake and still c/o of severe abdominal cramping and nausea/vomiting, no coffee ground emesis reported from overnight. Continue PRN analgesia and antiemetic, encourage PO intake. GI recommendations noted. Continue PPI gtt and resume home carafate. Patient is also with suicidal ideation this am, no active plan at this time. Mental health/psych consulted. Intermittent tachycardia and hypertension overnight and this am, probably due to pain/anxiety. Continue PRN Labetalol/hydralazine. Resume home antihypertensive regimen. Transition to subQ insulin once patient is tolerating PO intake. Assessment and Plan #Diabetic Ketoacidosis(DKA) #Type 2 Diabetes Mellitus - BG and anion gap still elevated this am - Still with severe abdominal pain, N/V - Continue insulin gtt and IVF resuscitation - Additional IVF bolus administered - Monitor and replace electrolytes as needed - Monitor anion gap, serial Labs ordered - Transition to subQ insulin once patient is tolerating PO intake. #Severe Abdominal Pain #Nausea and Coffee Ground Emesis #H/o Ulcerative Esophagitis #H/o Gastroparesis #Chronic Pancreatitis - with severe abdominal pain this am, nausea, and coffee ground emesis this am - CTabd pelvis reviewed, see report for detail - Patient adamantly refused ETOH abuse - Coffee groun emesis noted in the ED and small amount in the ICU this am - H&H remains stable, gastric occult negative - GI recommendations noted, no plan for endoscopy at this time - Continue protonix gtt, and home carafate resumed - lipase & amylase wnr - Patient is refusing PO intake - Remains on DKA protocol - Encourage PO intake - PRN analgesia for pain control - PRN antiemetic N/V #Hypertension - Tachycardic, HR in the 130-150s, with hypertention SBP in the 200s - Some improvement in HR and BP post PRN analgesia but still hypertensive - Resume home antihypertensive regimen - Continue PRN Labetalol/hydralazine - Continue blood pressure monitor per protocol - Maintain SBP less than 160 #Suicidal Ideation #History of Depression - with suicidal ideation this am, no active plan at this time. - Mental health/psych consulted. - Home meds resumed- Prozac, remeron - Suicidal precaution - Maintenance of sleep-wake cycle #Microcytic Anemia - H&H stable, no s/s of any active bleeding - Continue to trend CBC #GI/DVT Prophylaxis - PPI- Protonix gtt - SCDs to bilateral lower extremities while in bed #Advance Care Planning - Disease education data, care plan, diagnoses, and prognosis were discussed with patient at the bedside. Patient is a FULL code. Patient acknowledged understanding and agreed with current care plan. The high probability of a clinically significant, sudden or life threatening deterioration of the [multiple] system(s) required my full and direct attention, intervention and personal management. The aggregate critical care time was [60] minutes. This time is in addition to time spent performing reported procedures but includes the following: [x] Data Review and interpretation [x] Patient assessment and monitoring of vital signs [x] Documentation [x] Medication orders and management Disposition Plan: ICU Total Time Spent with Patient (Minutes): 60 History Interval history: Patient seen and examined at the bedside. Remains AAO, on RA. Still on protonix gtt and DKA protocol. Still c/o of severe pain and nausea/vomiting, no coffee ground emesis reported. Patient is refusing PO intake. Patient voiced suicidal ideation to the nursing staff this am. Vital signs remains labile. Hospitalist Physical - Constitutional Vitals: Temp Pulse Resp BP Pulse Ox 98.1 F 88 13 128/71 97 11/16/21 08:00 11/16/21 09:01 11/16/21 09:01 11/16/21 09:01 11/16/21 09:01 General appearance: Present: mild distress, cachectic - EENT Eyes: Present: PERRL ENT: hearing intact - Neck Neck: Present: normal ROM - Respiratory Respiratory effort: normal Respiratory: bilateral: diminished - Cardiovascular Rhythm: regular Heart Sounds: Present: S1 & S2 - Extremities Extremities: no ischemia, pulses intact, pulses symmetrical Peripheral Pulses: within normal limits - Abdominal General gastrointestinal: soft, tender, non-distended, other (Hyperactive bowel sounds) - Integumentary Integumentary: Present: warm, dry - Psychiatric Psychiatric: depressed, other (Refusing meds) - Neurologic Neurologic: CNII-XII intact, moves all extremities - Allied Health Allied health notes reviewed: nursing, case management Results - Labs CBC & Chem 7: 11/16/21 04:12 11/16/21 04:12 Labs: Laboratory Last Values WBC 14.1 K/mm3 (4.5-11.0) H 11/16/21 04:12 RBC 4.25 M/mm3 (3.65-5.03) 11/16/21 04:12 Hgb 10.8 gm/dl (10.1-14.3) D 11/16/21 04:12 Hct 32.8 % (30.3-42.9) D 11/16/21 04:12 MCV 77 fl (79-97) L 11/16/21 04:12 MCH 25 pg (28-32) L 11/16/21 04:12 MCHC 33 % (30-34) 11/16/21 04:12 RDW 22.2 % (13.2-15.2) H 11/16/21 04:12 Plt Count 138 K/mm3 (140-440) L 11/16/21 04:12 Add Manual Diff Complete 11/15/21 01:01 Total Counted 100 11/15/21 01:01 Seg Neuts % (Manual) 84.0 % (40.0-70.0) H 11/15/21 01:01 Band Neutrophils % 0 % 11/15/21 01:01 Lymphocytes % (Manual) 8.0 % (13.4-35.0) L 11/15/21 01:01 Reactive Lymphs % (Man) 0 % 11/15/21 01:01 Monocytes % (Manual) 6.0 % (0.0-7.3) 11/15/21 01:01 Eosinophils % (Manual) 1.0 % (0.0-4.3) 11/15/21 01:01 Basophils % (Manual) 1.0 % (0.0-1.8) 11/15/21 01:01 Metamyelocytes % 0 % 11/15/21 01:01 Myelocytes % 0 % 11/15/21 01:01 Promyelocytes % 0 % 11/15/21 01:01 Blast Cells % 0 % 11/15/21 01:01 Nucleated RBC % Not Reportable 11/15/21 01:01 Seg Neutrophils # Man 8.9 K/mm3 (1.8-7.7) H 11/15/21 01:01 Band Neutrophils # 0.0 K/mm3 11/15/21 01:01 Lymphocytes # (Manual) 0.8 K/mm3 (1.2-5.4) L 11/15/21 01:01 Abs React Lymphs (Man) 0.0 K/mm3 11/15/21 01:01 Monocytes # (Manual) 0.6 K/mm3 (0.0-0.8) 11/15/21 01:01 Eosinophils # (Manual) 0.1 K/mm3 (0.0-0.4) 11/15/21 01:01 Basophils # (Manual) 0.1 K/mm3 (0.0-0.1) 11/15/21 01:01 Metamyelocytes # 0.0 K/mm3 11/15/21 01:01 Myelocytes # 0.0 K/mm3 11/15/21 01:01 Promyelocytes # 0.0 K/mm3 11/15/21 01:01 Blast Cells # 0.0 K/mm3 11/15/21 01:01 WBC Morphology Not Reportable 11/15/21 01:01 Hypersegmented Neuts Not Reportable 11/15/21 01:01 Hyposegmented Neuts Not Reportable 11/15/21 01:01 Hypogranular Neuts Not Reportable 11/15/21 01:01 Smudge Cells Not Reportable 11/15/21 01:01 Toxic Granulation Not Reportable 11/15/21 01:01 Toxic Vacuolation Not Reportable 11/15/21 01:01 Dohle Bodies Not Reportable 11/15/21 01:01 Pelger-Huet Anomaly Not Reportable 11/15/21 01:01 Yosvany Rods Not Reportable 11/15/21 01:01 Platelet Estimate Not Reportable 11/15/21 01:01 Clumped Platelets Not Reportable 11/15/21 01:01 Plt Clumps, EDTA Not Reportable 11/15/21 01:01 Large Platelets Not Reportable 11/15/21 01:01 Giant Platelets Rare 11/15/21 01:01 Platelet Satelliting Not Reportable 11/15/21 01:01 Plt Morphology Comment Not Reportable 11/15/21 01:01 RBC Morphology Not Reportable 11/15/21 01:01 Dimorphic RBCs Yes 11/15/21 01:01 Polychromasia Not Reportable 11/15/21 01:01 Hypochromasia Few 11/15/21 01:01 Poikilocytosis Not Reportable 11/15/21 01:01 Anisocytosis 1+ 11/15/21 01:01 Microcytosis 1+ 11/15/21 01:01 Macrocytosis Rare 11/15/21 01:01 Spherocytes Not Reportable 11/15/21 01:01 Pappenheimer Bodies Not Reportable 11/15/21 01:01 Sickle Cells Not Reportable 11/15/21 01:01 Target Cells Not Reportable 11/15/21 01:01 Tear Drop Cells Not Reportable 11/15/21 01:01 Ovalocytes Not Reportable 11/15/21 01:01 Helmet Cells Not Reportable 11/15/21 01:01 Chandra-Chisana Bodies Not Reportable 11/15/21 01:01 [place] Rings Not Reportable 11/15/21 01:01 Willy Cells Not Reportable 11/15/21 01:01 Bite Cells Not Reportable 11/15/21 01:01 Crenated Cell Not Reportable 11/15/21 01:01 Elliptocytes Not Reportable 11/15/21 01:01 Acanthocytes (Spur) Not Reportable 11/15/21 01:01 Rouleaux Not Reportable 11/15/21 01:01 Hemoglobin C Crystals Not Reportable 11/15/21 01:01 Schistocytes Rare 11/15/21 01:01 Malaria parasites Not Reportable 11/15/21 01:01 Bassem Bodies Not Reportable 11/15/21 01:01 Hem Pathologist Commnt No 11/15/21 01:01 VBG pO2 54.3 (25.0-47.0) H 11/15/21 03:12 Sodium 139 mmol/L (137-145) 11/16/21 04:12 Potassium 4.1 mmol/L (3.6-5.0) 11/16/21 04:12 Chloride 106.8 mmol/L (98-107) 11/16/21 04:12 Carbon Dioxide 22 mmol/L (22-30) 11/16/21 04:12 Anion Gap 14 mmol/L 11/16/21 04:12 BUN 11 mg/dL (7-17) 11/16/21 04:12 Creatinine 0.6 mg/dL (0.6-1.2) 11/16/21 04:12 Estimated GFR > 60 ml/min 11/16/21 04:12 BUN/Creatinine Ratio 18 % 11/16/21 04:12 Glucose 169 mg/dL (65-100) H 11/16/21 04:12 POC Glucose 193 mg/dL (70-105) H 11/16/21 07:56 Hemoglobin A1c 7.6 % (4-6) H 11/15/21 10:53 Lactic Acid 2.10 mmol/L (0.7-2.0) H* 11/16/21 04:12 Calcium 8.9 mg/dL (8.4-10.2) 11/16/21 04:12 Phosphorus 1.80 mg/dL (2.5-4.5) L D 11/16/21 04:12 Magnesium 1.80 mg/dL (1.7-2.3) 11/16/21 04:12 Total Bilirubin 0.20 mg/dL (0.1-1.2) 11/16/21 04:12 Direct Bilirubin < 0.2 mg/dL (0-0.2) 11/15/21 10:53 Indirect Bilirubin 0.0 mg/dL 11/15/21 10:53 AST 14 units/L (5-40) 11/16/21 04:12 ALT 8 units/L (7-56) 11/16/21 04:12 Alkaline Phosphatase 56 units/L (35-129) 11/16/21 04:12 Total Protein 6.3 g/dL (6.3-8.2) 11/16/21 04:12 Albumin 3.8 g/dL (3.9-5) L 11/16/21 04:12 Albumin/Globulin Ratio 1.5 % 11/16/21 04:12 Amylase 66 units/L (27-131) 11/15/21 12:56 Lipase 11 units/L (13-60) L 11/15/21 12:56 Urine Color Yellow (Yellow) 11/15/21 Unknown Urine Turbidity Clear (Clear) 11/15/21 Unknown Specific Advance (Man) 1.015 (1.003-1.030) 11/15/21 Unknown Ur Protein (Man) Negative mg/dL (Negative) 11/15/21 Unknown Ur Ketones (Man) 3+ (Negative) 11/15/21 Unknown Ur Nitrite (Man) Negative (Negative) 11/15/21 Unknown Urine Bilirubin (Man) Negative (Negative) 11/15/21 Unknown Urine Ictotest Not Reportable 11/15/21 Unknown Leukocyte Esterase (Man) Negative (Negative) 11/15/21 Unknown Urine WBC (Auto) < 1.0 /HPF (0.0-6.0) 11/15/21 Unknown Urine RBC (Auto) 0.0 /HPF (0.0-6.0) 11/15/21 Unknown U Epithel Cells (Auto) < 1.0 /HPF (0-13.0) 11/15/21 Unknown Urine RBC (Manual) Negative (Negative) 11/15/21 Unknown Agudelo/IV: Voiding Method External Female Catheter Active Medications - Current Medications Current Medications: Generic Name Dose Route Start Last Admin Trade Name Freq PRN Reason Stop Dose Admin Acetaminophen 650 mg 11/15/21 04:02 Acetaminophen 325 Mg Tab PO Q6H PRN Pain MILD(1-3)/Fever >100.5/BUTCHER Amlodipine Besylate 10 mg 11/16/21 10:00 Amlodipine 5 Mg Tab PO DAILY WILMER Dextrose 0 ml 11/15/21 02:50 Dextrose 50% In Water (25gm) 50 Ml Syringe IV Q30MIN PRN Hypoglycemia Protocol Fluoxetine HCl 20 mg 11/16/21 10:00 Fluoxetine 20 Mg Cap PO QDAY WILMER Hydralazine HCl 10 mg 11/15/21 04:37 11/16/21 08:37 Hydralazine 20 Mg/1 Ml Inj IV 10 mg Q4HR PRN Administration Hypertension Hydromorphone HCl 0.5 mg 11/15/21 11:35 11/16/21 10:18 Hydromorphone 1 Mg/1 Ml Inj IV 0.5 mg Q4H PRN Administration Pain , Severe (7-10) Insulin Human Regular 100 100 mls @ 4 mls/hr 11/15/21 03:00 11/16/21 10:00 units/ Sodium Chloride IV 3 units/hr TITR WILMER 3 mls/hr Titration Protocol 4 UNITS/HR Potassium Chloride/Dextrose/Sod Cl 20 meq in 1,000 mls @ 125 mls/hr 11/15/21 03:00 11/16/21 06:53 D5w/0.45% Nacl/Kcl 20 Meq IV 125 mls/hr DIRECT WILMER Administration Pantoprazole Sodium 80 mg/ 100 mls @ 10 mls/hr 11/15/21 03:00 11/16/21 01:33 Sodium Chloride IV 8 mg/hr DIRECT WILMER 10 mls/hr Administration 8 MG/HR Sodium Chloride 1,000 mls @ 150 mls/hr 11/15/21 04:15 11/15/21 05:25 Nacl 0.9% 1000 Ml IV 150 mls/hr DIRECT WILMER Administration Potassium Phosphate 15 mmol/ 255 mls @ 125 mls/hr 11/16/21 08:30 11/16/21 10:18 Sodium Chloride IV 11/16/21 12:30 125 mls/hr ONCE@0830 WILMER Administration Nicardipine HCl 50 mg/ Sodium 250 mls @ 25 mls/hr 11/16/21 10:00 Chloride IV TITR WILMER Protocol 5 MG/HR Labetalol HCl 10 mg 11/15/21 17:55 11/16/21 07:52 Labetalol 20 Mg/4 Ml Inj IV 10 mg Q4HR PRN Administration Hypertension Mirtazapine 15 mg 11/16/21 22:00 Mirtazapine 15 Mg Tab PO QHS WILMER Morphine Sulfate 2 mg 11/15/21 04:02 11/15/21 13:53 Morphine 2 Mg/1 Ml Inj IV 2 mg Q4H PRN Administration Pain, Moderate (4-6) Ondansetron HCl 4 mg 11/15/21 04:02 11/16/21 09:18 Ondansetron 4 Mg/2 Ml Inj IV 4 mg Q8H PRN Administration Nausea And Vomiting Pregabalin 75 mg 11/16/21 10:00 Pregabalin 75 Mg Cap PO BID WILMER Sodium Chloride 10 ml 11/15/21 10:00 11/16/21 09:20 Sodium Chloride 0.9% 10 Ml Flush Syringe IV 10 ml BID WILMER Administration Sodium Chloride 10 ml 11/15/21 04:02 Sodium Chloride 0.9% 10 Ml Flush Syringe IV PRN PRN LINE FLUSH Sucralfate 1 gm 11/16/21 12:00 Sucralfate 1 Gm/10 Ml Oral Liqd PO Q6HR [facility] Nutrition/Malnutrition Assess - Dietary Evaluation Nutrition/Malnutrition Findings: Nutrition Notes Start: 11/15/21 08:46 Freq: Status: Active Protocol: Document 11/15/21 08:46 BRADY (Rec: 11/15/21 08:56 BRADY [id number]) Nutrition Notes Need for Assessment generated from: MD Order,Education Initial or Follow up Brief Note Current Diagnosis Hypertension Other Pertinent Diagnosis Ulcerative Esphagitis, GI Bleed, DKA, Dehydration, Hypomagnasemia, Depressi Current Diet NPO (since 11/15 04:03). Height 5 ft 3 in Weight 45.359 kg [place] Body Weight (kg) 52.27 BMI 17.6 Weight change and time frame None provided at admission. Weight Status Underweight Subjective/Other Information RD consult for nutrition education assessment. Pt currently on NPO. Pt is on Room Air, O2 saturation @ 95%, according to Vital Signs notes. Pt complains of N/V/Abdominal Pain and Enatemesis, according to History & Physical notes. Pt still in critical condition , not a candidate for Nutrition Education at the time, will assess feasibility on F/U. Percent of energy/protein needs met: Pt currently on NPO. Nutrition Intervention Follow-Up By: 11/17/21 Additional Comments Nutrition education will be provided at F/U, if feasible. When pertinent, start monitoring food tolerance, %PO intake of meals, and BM. <JHONATHAN SY - Last Filed: 11/17/21 07:25> Assessment and Plan Assessment and plan: I saw and evaluated the patient. I agree with the findings and the plan of care as documented in the Nurse Practitioner's~note, with the following corrections and additions. Hospitalist Physical - Constitutional Vitals: Temp Pulse Resp BP Pulse Ox 98.4 F 95 H 13 148/88 98 11/17/21 04:00 11/17/21 06:00 11/17/21 06:00 11/17/21 06:00 11/17/21 06:00 Results - Labs CBC & Chem 7: 11/17/21 03:45 11/17/21 03:45 Labs: Laboratory Last Values WBC 9.7 K/mm3 (4.5-11.0) 11/17/21 03:45 RBC 4.49 M/mm3 (3.65-5.03) 11/17/21 03:45 Hgb 11.4 gm/dl (10.1-14.3) 11/17/21 03:45 Hct 34.2 % (30.3-42.9) 11/17/21 03:45 MCV 76 fl (79-97) L 11/17/21 03:45 MCH 26 pg (28-32) L 11/17/21 03:45 MCHC 34 % (30-34) 11/17/21 03:45 RDW 22.7 % (13.2-15.2) H 11/17/21 03:45 Plt Count 154 K/mm3 (140-440) 11/17/21 03:45 Add Manual Diff Complete 11/15/21 01:01 Total Counted 100 11/15/21 01:01 Seg Neuts % (Manual) 84.0 % (40.0-70.0) H 11/15/21 01:01 Band Neutrophils % 0 % 11/15/21 01:01 Lymphocytes % (Manual) 8.0 % (13.4-35.0) L 11/15/21 01:01 Reactive Lymphs % (Man) 0 % 11/15/21 01:01 Monocytes % (Manual) 6.0 % (0.0-7.3) 11/15/21 01:01 Eosinophils % (Manual) 1.0 % (0.0-4.3) 11/15/21 01:01 Basophils % (Manual) 1.0 % (0.0-1.8) 11/15/21 01:01 Metamyelocytes % 0 % 11/15/21 01:01 Myelocytes % 0 % 11/15/21 01:01 Promyelocytes % 0 % 11/15/21 01:01 Blast Cells % 0 % 11/15/21 01:01 Nucleated RBC % Not Reportable 11/15/21 01:01 Seg Neutrophils # Man 8.9 K/mm3 (1.8-7.7) H 11/15/21 01:01 Band Neutrophils # 0.0 K/mm3 11/15/21 01:01 Lymphocytes # (Manual) 0.8 K/mm3 (1.2-5.4) L 11/15/21 01:01 Abs React Lymphs (Man) 0.0 K/mm3 11/15/21 01:01 Monocytes # (Manual) 0.6 K/mm3 (0.0-0.8) 11/15/21 01:01 Eosinophils # (Manual) 0.1 K/mm3 (0.0-0.4) 11/15/21 01:01 Basophils # (Manual) 0.1 K/mm3 (0.0-0.1) 11/15/21 01:01 Metamyelocytes # 0.0 K/mm3 11/15/21 01:01 Myelocytes # 0.0 K/mm3 11/15/21 01:01 Promyelocytes # 0.0 K/mm3 11/15/21 01:01 Blast Cells # 0.0 K/mm3 11/15/21 01:01 WBC Morphology Not Reportable 11/15/21 01:01 Hypersegmented Neuts Not Reportable 11/15/21 01:01 Hyposegmented Neuts Not Reportable 11/15/21 01:01 Hypogranular Neuts Not Reportable 11/15/21 01:01 Smudge Cells Not Reportable 11/15/21 01:01 Toxic Granulation Not Reportable 11/15/21 01:01 Toxic Vacuolation Not Reportable 11/15/21 01:01 Dohle Bodies Not Reportable 11/15/21 01:01 Pelger-Huet Anomaly Not Reportable 11/15/21 01:01 Yosvany Rods Not Reportable 11/15/21 01:01 Platelet Estimate Not Reportable 11/15/21 01:01 Clumped Platelets Not Reportable 11/15/21 01:01 Plt Clumps, EDTA Not Reportable 11/15/21 01:01 Large Platelets Not Reportable 11/15/21 01:01 Giant Platelets Rare 11/15/21 01:01 Platelet Satelliting Not Reportable 11/15/21 01:01 Plt Morphology Comment Not Reportable 11/15/21 01:01 RBC Morphology Not Reportable 11/15/21 01:01 Dimorphic RBCs Yes 11/15/21 01:01 Polychromasia Not Reportable 11/15/21 01:01 Hypochromasia Few 11/15/21 01:01 Poikilocytosis Not Reportable 11/15/21 01:01 Anisocytosis 1+ 11/15/21 01:01 Microcytosis 1+ 11/15/21 01:01 Macrocytosis Rare 11/15/21 01:01 Spherocytes Not Reportable 11/15/21 01:01 Pappenheimer Bodies Not Reportable 11/15/21 01:01 Sickle Cells Not Reportable 11/15/21 01:01 Target Cells Not Reportable 11/15/21 01:01 Tear Drop Cells Not Reportable 11/15/21 01:01 Ovalocytes Not Reportable 11/15/21 01:01 Helmet Cells Not Reportable 11/15/21 01:01 Chandra-Chisana Bodies Not Reportable 11/15/21 01:01 [place] Rings Not Reportable 11/15/21 01:01 [place] Cells Not Reportable 11/15/21 01:01 Bite Cells Not Reportable 11/15/21 01:01 Crenated Cell Not Reportable 11/15/21 01:01 Elliptocytes Not Reportable 11/15/21 01:01 Acanthocytes (Spur) Not Reportable 11/15/21 01:01 Rouleaux Not Reportable 11/15/21 01:01 Hemoglobin C Crystals Not Reportable 11/15/21 01:01 Schistocytes Rare 11/15/21 01:01 Malaria parasites Not Reportable 11/15/21 01:01 Bassem Bodies Not Reportable 11/15/21 01:01 Hem Pathologist Commnt No 11/15/21 01:01 VBG pO2 54.3 (25.0-47.0) H 11/15/21 03:12 Sodium 138 mmol/L (137-145) 11/17/21 03:45 Potassium 3.9 mmol/L (3.6-5.0) 11/17/21 03:45 Chloride 103.3 mmol/L (98-107) 11/17/21 03:45 Carbon Dioxide 24 mmol/L (22-30) 11/17/21 03:45 Anion Gap 15 mmol/L 11/17/21 03:45 BUN 3 mg/dL (7-17) L 11/17/21 03:45 Creatinine 0.6 mg/dL (0.6-1.2) 11/17/21 03:45 Estimated GFR > 60 ml/min 11/17/21 03:45 BUN/Creatinine Ratio 5 % 11/17/21 03:45 Glucose 184 mg/dL (65-100) H 11/17/21 03:45 POC Glucose 116 mg/dL (70-105) H 11/16/21 22:03 Hemoglobin A1c 7.6 % (4-6) H 11/15/21 10:53 Lactic Acid 1.20 mmol/L (0.7-2.0) 11/16/21 12:18 Calcium 9.1 mg/dL (8.4-10.2) 11/17/21 03:45 Phosphorus 2.70 mg/dL (2.5-4.5) D 11/17/21 03:45 Magnesium 1.90 mg/dL (1.7-2.3) 11/17/21 03:45 Total Bilirubin 0.20 mg/dL (0.1-1.2) 11/16/21 04:12 Direct Bilirubin < 0.2 mg/dL (0-0.2) 11/15/21 10:53 Indirect Bilirubin 0.0 mg/dL 11/15/21 10:53 AST 14 units/L (5-40) 11/16/21 04:12 ALT 8 units/L (7-56) 11/16/21 04:12 Alkaline Phosphatase 56 units/L (35-129) 11/16/21 04:12 Total Protein 6.3 g/dL (6.3-8.2) 11/16/21 04:12 Albumin 3.8 g/dL (3.9-5) L 11/16/21 04:12 Albumin/Globulin Ratio 1.5 % 11/16/21 04:12 Amylase 66 units/L (27-131) 11/15/21 12:56 Lipase 11 units/L (13-60) L 11/15/21 12:56 Urine Color Yellow (Yellow) 11/15/21 Unknown Urine Turbidity Clear (Clear) 11/15/21 Unknown Specific Advance (Man) 1.015 (1.003-1.030) 11/15/21 Unknown Ur Protein (Man) Negative mg/dL (Negative) 11/15/21 Unknown Ur Ketones (Man) 3+ (Negative) 11/15/21 Unknown Ur Nitrite (Man) Negative (Negative) 11/15/21 Unknown Urine Bilirubin (Man) Negative (Negative) 11/15/21 Unknown Urine Ictotest Not Reportable 11/15/21 Unknown Leukocyte Esterase (Man) Negative (Negative) 11/15/21 Unknown Urine WBC (Auto) < 1.0 /HPF (0.0-6.0) 11/15/21 Unknown Urine RBC (Auto) 0.0 /HPF (0.0-6.0) 11/15/21 Unknown U Epithel Cells (Auto) < 1.0 /HPF (0-13.0) 11/15/21 Unknown Urine RBC (Manual) Negative (Negative) 11/15/21 Unknown Agudelo/IV: Voiding Method External Female Catheter Active Medications - Current Medications Current Medications: Generic Name Dose Route Start Last Admin Trade Name Freq PRN Reason Stop Dose Admin Acetaminophen 650 mg 11/15/21 04:02 Acetaminophen 325 Mg Tab PO Q6H PRN Pain MILD(1-3)/Fever >100.5/BUTCHER Amlodipine Besylate 10 mg 11/16/21 10:00 11/16/21 11:14 Amlodipine 5 Mg Tab PO Not Given DAILY WILMER Aripiprazole 5 mg 11/17/21 10:00 Aripiprazole 5 Mg Tab PO QDAY WILMER Dextrose 0 ml 11/15/21 02:50 Dextrose 50% In Water (25gm) 50 Ml Syringe IV Q30MIN PRN Hypoglycemia Protocol Dextrose 50 ml 11/16/21 18:48 Dextrose 50% In Water (25gm) 50 Ml Syringe IV Q30MIN PRN Hypoglycemia Protocol Fluoxetine HCl 20 mg 11/16/21 10:00 11/16/21 11:13 Fluoxetine 20 Mg Cap PO Not Given QDAY WILMER Haloperidol Lactate 2.5 mg 11/16/21 11:40 11/16/21 11:03 Haloperidol Lactate 5 Mg/1 Ml Inj IM 2.5 mg ONCE WILMER Administration Hydralazine HCl 10 mg 11/15/21 04:37 11/17/21 03:05 Hydralazine 20 Mg/1 Ml Inj IV 10 mg Q4HR PRN Administration Hypertension Hydromorphone HCl 0.5 mg 11/15/21 11:35 11/16/21 19:20 Hydromorphone 1 Mg/1 Ml Inj IV 0.5 mg Q4H PRN Administration Pain , Severe (7-10) Hydroxyzine Pamoate 25 mg 11/16/21 11:22 Hydroxyzine Pamoate 25 Mg Cap PO Q6H PRN Anxiety Pantoprazole Sodium 80 mg/ 100 mls @ 10 mls/hr 11/15/21 03:00 11/17/21 00:06 Sodium Chloride IV 8 mg/hr DIRECT WILMER 10 mls/hr Administration 8 MG/HR Sodium Chloride 1,000 mls @ 75 mls/hr 11/17/21 00:00 11/17/21 00:07 Nacl 0.45% 1000 Ml IV 11/18/21 13:19 75 mls/hr DIRECT WILMER Administration Insulin Glargine 20 units 11/16/21 20:30 11/16/21 20:29 Insulin Glargine 100 Units/Ml SUB-Q 20 units QHS WILMER Administration Insulin Human Lispro 0 unit 11/17/21 00:00 11/17/21 05:32 Insulin Lispro 100 Unit/Ml SUB-Q 3 unit Q4HR WILMER Administration Protocol Labetalol HCl 10 mg 11/15/21 17:55 11/16/21 07:52 Labetalol 20 Mg/4 Ml Inj IV 10 mg Q4HR PRN Administration Hypertension Mirtazapine 15 mg 11/16/21 22:00 11/16/21 22:03 Mirtazapine 15 Mg Tab PO 15 mg QHS WILMER Administration Morphine Sulfate 2 mg 11/15/21 04:02 11/17/21 03:08 Morphine 2 Mg/1 Ml Inj IV 2 mg Q4H PRN Administration Pain, Moderate (4-6) Ondansetron HCl 4 mg 11/15/21 04:02 11/16/21 09:18 Ondansetron 4 Mg/2 Ml Inj IV 4 mg Q8H PRN Administration Nausea And Vomiting Pregabalin 75 mg 11/16/21 10:00 11/16/21 22:03 Pregabalin 75 Mg Cap PO 75 mg BID WILMER Administration Sodium Chloride 10 ml 11/15/21 10:00 09/04/22 22:03 Sodium Chloride 0.9% 10 Ml Flush Syringe IV 10 ml BID WILMER Administration Sodium Chloride 10 ml 11/15/21 04:02 Sodium Chloride 0.9% 10 Ml Flush Syringe IV PRN PRN LINE FLUSH Sucralfate 1 gm 11/16/21 12:00 11/17/21 05:33 Sucralfate 1 Gm/10 Ml Oral Liqd PO 1 gm Q6HR WILMER Administration Nutrition/Malnutrition Assess - Dietary Evaluation Nutrition/Malnutrition Findings: Nutrition Notes Start: 11/15/21 08:46 Freq: Status: Active Protocol: Document 11/15/21 08:46 BRADY (Rec: 11/15/21 08:56 BRADY [id number]) Nutrition Notes Need for Assessment generated from: MD Order,Education Initial or Follow up Brief Note Current Diagnosis Hypertension Other Pertinent Diagnosis Ulcerative Esphagitis, GI Bleed, DKA, Dehydration, Hypomagnasemia, Depressi Current Diet NPO (since 11/15 04:03). Height 5 ft 3 in Weight 45.359 kg [place] Body Weight (kg) 52.27 BMI 17.6 Weight change and time frame None provided at admission. Weight Status Underweight Subjective/Other Information RD consult for nutrition education assessment. Pt currently on NPO. Pt is on Room Air, O2 saturation @ 95%, according to Vital Signs notes. Pt complains of N/V/Abdominal Pain and Enatemesis, according to History & Physical notes. Pt still in critical condition , not a candidate for Nutrition Education at the time, will assess feasibility on F/U. Percent of energy/protein needs met: Pt currently on NPO. Nutrition Intervention Follow-Up By: 11/17/21 Additional Comments Nutrition education will be provided at F/U, if feasible. When pertinent, start monitoring food tolerance, %PO intake of meals, and BM.
--- NOTE | 2021-11-16 10:58 | Consultation ---
History of Present Illness - Reason for Consult Consult date: 11/16/21 Reason for consult: Suicidal ideation - Chief Complaint Chief complaint: 50-year-old female with known history of ulcerative esophagitis and diabetes mellitus presenting to the emergency room today complaining of nausea and vomiting which started yesterday. She has also been having severe abdominal pain especially in the epigastric region. She also indicates she has been having coffee-ground emesis. She denies any chest pain or shortness of breath, no fever or chills, no headache or dizziness and no diaphoresis. Patient denies any diarrhea. She denies any sick contacts and no recent travel. Denies any contact with anyone with COVID-19. Work-up in the emergency room today, labs are significant for hemoglobin of 14.8 hematocrit of 45.8. BUN of 38 and creatinine of 1.2. Glucose of 344, anion gap of 32 and magnesium of 1.4. Potassium of 4.1. Patient has been admitted in [facility]. - History of Present Psychiatric Illness 50-year-old female with known history of ulcerative esophagitis and diabetes mellitus presenting to the emergency room today complaining of nausea and vomiting which started yesterday. The patient is a 50 year old female with history of depression;Psychiatric consult was placed for suicidal ideation. The patient seen today. She presents with depressive mood, tearful and feeling of hopelessness. The patient reports ongoing depression for several years which she states she was followed by her psychiatries Dr. Owens. However, she reports that she has been noncompliant with psychotropic meds because of her financial issues. She reports stressors such as unemployment and financial issues; she states she was laid off her job during Covid. The patient reports that " I feel really bad and sad because all these sickness that I have, God help me;I don't want to go through this no more, I can't work to pay hospital bill, I feel like my life is nothing." The patient states that she has an appointment on the with Dr. Owens. She endorses suicidal ideation with no plan. She denies any current homicidal ideation and denies hallucinations. PAST PSYCHIATRIC HISTORY: Diagnoses: Major depressive disorder Suicide attempts or Self-harm behavior: Yes- overdose on pills Prior psychiatric hospitalizations: Denies Substance Abuse history: Denies Previous psychiatric medications tried: Yes Outpatient treatment: Yes PAST MEDICAL HISTORY: Family Psychiatric History: None reported SOCIAL HISTORY Marital Status: Single Living Arrangements: Lives with daughter Employment Status: Unemployed Access to guns/weapons: Denies Education:12th grade History of Abuse: Denies Legal History: Unknown REVIEW OF SYSTEMS Constitutional: Negative for weight loss ENT: Negative for stridor Respiratory: Negative for cough or hemoptysis All other systems reviewed and are negative MENTAL STATUS General Appearance and Behavior: age appropriate, good eye contact, cooperative, Cooperation: Cooperative Psychomotor Behavior: within normal limits Mood: depressed Affect and affective range: Congruent with stated mood Thought Process: goal directed Thought Content: suicidal Speech: Normal volume and Regular rate and rhythm Suicidal Ideation: Yes Homicidal Ideation: Denies HI Hallucinations: Denies Impulse Control: intact Insight and Judgment: Limited Memory: Limited Attention: Distracted Orientation: alert and oriented x4 Assessment Major depressive disorder Treatment Plan 1013 Continue home medications Start Abilify 5mg po daily Start Vistaril 25mg po Q6hrs PRN for anxiety The patient is to get first dose of meds prior to leaving. Benefits and possible SE were explained to patient. She verbalizes understanding. Risks, benefits and alternatives of medications discussed with the patient, questions answered and consent obtained from patient. PSYCHOTHERAPY: Supportive psychotherapy provided MEDICAL: Per primary team DELIRIUM PRECAUTIONS: Please re-orient patient frequently, keep lights on during the day, and minimize benzodiazepines and opiates as these medications could worsen patient's confusion. 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 FOLLOW-UP: Will follow. Thank you for the consult. Please contact with any questions and/or concerns Case discussed with Dr. Ruby who agrees with current disposition Medications and Allergies Medications and Allergies Allergies Allergy/AdvReac Type Severity Reaction Status Date / Time caffeine Allergy Nausea Verified 10/28/16 23:18 Home Medications Medication Instructions Recorded Confirmed Last Taken Type Ambien 10 mg PO PRN #10 10/31/16 08/25/17 Unknown Rx FLUoxetine 20 mg PO DAILY #30 10/31/16 08/25/17 Unknown Rx Pregabalin 75 mg PO BID #60 capsule 10/31/16 08/25/17 Unknown Rx Remeron 15 mg PO HS #30 10/31/16 08/25/17 Unknown Rx Metformin HCl 500 mg PO DAILY #30 tablet 09/04/17 Unknown Rx Ondansetron [Zofran TAB] 4 mg PO Q6H PRN #20 tablet 09/04/17 Unknown Rx Pantoprazole [Protonix TAB] 40 mg PO BID #60 tablet 09/04/17 Unknown Rx Sucralfate [Carafate] 1 gm PO Q6HR 30 Days oral.liqd 09/04/17 Unknown Rx amLODIPine 5 mg PO DAILY #30 tab 09/04/17 Unknown Rx Active Meds: Active Medications Acetaminophen (Acetaminophen 325 Mg Tab) 650 mg PO Q6H PRN PRN Reason: Pain MILD(1-3)/Fever >100.5/BUTCHER Amlodipine Besylate (Amlodipine 5 Mg Tab) 10 mg PO DAILY WILMER Dextrose (Dextrose 50% In Water (25gm) 50 Ml Syringe) 0 ml IV Q30MIN PRN; Protocol PRN Reason: Hypoglycemia Fluoxetine HCl (Fluoxetine 20 Mg Cap) 20 mg PO QDAY WILMER Haloperidol Lactate (Haloperidol Lactate 5 Mg/1 Ml Inj) 2.5 mg IM ONCE WILMER Hydralazine HCl (Hydralazine 20 Mg/1 Ml Inj) 10 mg IV Q4HR PRN PRN Reason: Hypertension Last Admin: 11/16/21 08:37 Dose: 10 mg Hydromorphone HCl (Hydromorphone 1 Mg/1 Ml Inj) 0.5 mg IV Q4H PRN PRN Reason: Pain , Severe (7-10) Last Admin: 11/16/21 10:18 Dose: 0.5 mg Insulin Human Regular 100 (units/ Sodium Chloride) 100 mls @ 4 mls/hr IV TITR WILMER; Protocol Last Titration: 11/16/21 10:00 Dose: 3 units/hr, 3 mls/hr Potassium Chloride/Dextrose/Sod Cl (D5w/0.45% Nacl/Kcl 20 Meq) 20 meq in 1,000 mls @ 125 mls/hr IV DIRECT WILMER Last Admin: 11/16/21 06:53 Dose: 125 mls/hr Pantoprazole Sodium 80 mg/ (Sodium Chloride) 100 mls @ 10 mls/hr IV DIRECT WILMER Last Admin: 11/16/21 01:33 Dose: 8 mg/hr, 10 mls/hr Sodium Chloride (Nacl 0.9% 1000 Ml) 1,000 mls @ 150 mls/hr IV DIRECT WILMER Last Admin: 11/15/21 05:25 Dose: 150 mls/hr Potassium Phosphate 15 mmol/ (Sodium Chloride) 255 mls @ 125 mls/hr IV ONCE@0830 WILMER Stop: 11/16/21 12:30 Last Admin: 11/16/21 10:18 Dose: 125 mls/hr Nicardipine HCl 50 mg/ Sodium (Chloride) 250 mls @ 25 mls/hr IV TITR WILMER; Protocol Labetalol HCl (Labetalol 20 Mg/4 Ml Inj) 10 mg IV Q4HR PRN PRN Reason: Hypertension Last Admin: 11/16/21 07:52 Dose: 10 mg Mirtazapine (Mirtazapine 15 Mg Tab) 15 mg PO QHS WILMER Morphine Sulfate (Morphine 2 Mg/1 Ml Inj) 2 mg IV Q4H PRN PRN Reason: Pain, Moderate (4-6) Last Admin: 11/15/21 13:53 Dose: 2 mg Ondansetron HCl (Ondansetron 4 Mg/2 Ml Inj) 4 mg IV Q8H PRN PRN Reason: Nausea And Vomiting Last Admin: 11/16/21 09:18 Dose: 4 mg Pregabalin (Pregabalin 75 Mg Cap) 75 mg PO BID WILMER Sodium Chloride (Sodium Chloride 0.9% 10 Ml Flush Syringe) 10 ml IV BID WILMER Last Admin: 11/16/21 09:20 Dose: 10 ml Sodium Chloride (Sodium Chloride 0.9% 10 Ml Flush Syringe) 10 ml IV PRN PRN PRN Reason: LINE FLUSH Sucralfate (Sucralfate 1 Gm/10 Ml Oral Liqd) 1 gm PO Q6HR [facility] Mental Status Exam - Vital signs Last Vital Signs Temp 98.1 F 11/16/21 08:00 Pulse 88 11/16/21 09:01 Resp 13 11/16/21 09:01 BP 128/71 11/16/21 09:01 Pulse Ox 97 11/16/21 09:01 Results Result Diagrams: 11/16/21 04:12 11/16/21 04:12 Abnormal lab results 11/15/21 11/15/21 11/15/21 Range/Units 07:54 09:15 10:17 WBC (4.5-11.0) K/mm3 MCV (79-97) fl MCH (28-32) pg RDW (13.2-15.2) % Plt Count (140-440) K/mm3 Sodium (137-145) mmol/L Potassium (3.6-5.0) mmol/L Chloride (98-107) mmol/L Carbon Dioxide (22-30) mmol/L BUN (7-17) mg/dL Glucose (65-100) mg/dL POC Glucose 256 H 271 H 271 H (70-105) mg/dL Hemoglobin A1c (4-6) % Lactic Acid (0.7-2.0) mmol/L Calcium (8.4-10.2) mg/dL Phosphorus (2.5-4.5) mg/dL Magnesium (1.7-2.3) mg/dL Total Protein (6.3-8.2) g/dL Albumin (3.9-5) g/dL Lipase (13-60) units/L 11/15/21 11/15/21 11/15/21 Range/Units 10:53 10:53 11:04 WBC (4.5-11.0) K/mm3 MCV (79-97) fl MCH (28-32) pg RDW (13.2-15.2) % Plt Count (140-440) K/mm3 Sodium 135 L D (137-145) mmol/L Potassium 6.1 H* D (3.6-5.0) mmol/L Chloride (98-107) mmol/L Carbon Dioxide 20 L (22-30) mmol/L BUN 23 H (7-17) mg/dL Glucose 659 H* (65-100) mg/dL POC Glucose 241 H (70-105) mg/dL Hemoglobin A1c 7.6 H (4-6) % Lactic Acid (0.7-2.0) mmol/L Calcium 8.0 L (8.4-10.2) mg/dL Phosphorus 2.00 L D (2.5-4.5) mg/dL Magnesium 7.60 H (1.7-2.3) mg/dL Total Protein 5.3 L D (6.3-8.2) g/dL Albumin 3.3 L (3.9-5) g/dL Lipase 8 L (13-60) units/L 11/15/21 11/15/21 11/15/21 Range/Units 11:58 12:56 12:56 WBC (4.5-11.0) K/mm3 MCV (79-97) fl MCH (28-32) pg RDW (13.2-15.2) % Plt Count (140-440) K/mm3 Sodium (137-145) mmol/L Potassium (3.6-5.0) mmol/L Chloride 108.3 H (98-107) mmol/L Carbon Dioxide (22-30) mmol/L BUN 24 H (7-17) mg/dL Glucose 226 H (65-100) mg/dL POC Glucose 253 H (70-105) mg/dL Hemoglobin A1c (4-6) % Lactic Acid 2.30 H* (0.7-2.0) mmol/L Calcium (8.4-10.2) mg/dL Phosphorus (2.5-4.5) mg/dL Magnesium (1.7-2.3) mg/dL Total Protein (6.3-8.2) g/dL Albumin (3.9-5) g/dL Lipase 11 L (13-60) units/L 11/15/21 11/15/21 11/15/21 Range/Units 12:58 13:56 14:56 WBC (4.5-11.0) K/mm3 MCV (79-97) fl MCH (28-32) pg RDW (13.2-15.2) % Plt Count (140-440) K/mm3 Sodium (137-145) mmol/L Potassium (3.6-5.0) mmol/L Chloride (98-107) mmol/L Carbon Dioxide (22-30) mmol/L BUN (7-17) mg/dL Glucose (65-100) mg/dL POC Glucose 226 H 174 H 186 H (70-105) mg/dL Hemoglobin A1c (4-6) % Lactic Acid (0.7-2.0) mmol/L Calcium (8.4-10.2) mg/dL Phosphorus (2.5-4.5) mg/dL Magnesium (1.7-2.3) mg/dL Total Protein (6.3-8.2) g/dL Albumin (3.9-5) g/dL Lipase (13-60) units/L 11/15/21 11/15/21 11/15/21 Range/Units 16:07 16:58 17:54 WBC (4.5-11.0) K/mm3 MCV (79-97) fl MCH (28-32) pg RDW (13.2-15.2) % Plt Count (140-440) K/mm3 Sodium (137-145) mmol/L Potassium (3.6-5.0) mmol/L Chloride (98-107) mmol/L Carbon Dioxide (22-30) mmol/L BUN (7-17) mg/dL Glucose (65-100) mg/dL POC Glucose 167 H 169 H 145 H (70-105) mg/dL Hemoglobin A1c (4-6) % Lactic Acid (0.7-2.0) mmol/L Calcium (8.4-10.2) mg/dL Phosphorus (2.5-4.5) mg/dL Magnesium (1.7-2.3) mg/dL Total Protein (6.3-8.2) g/dL Albumin (3.9-5) g/dL Lipase (13-60) units/L 11/15/21 11/15/21 11/15/21 Range/Units 18:48 18:54 20:02 WBC (4.5-11.0) K/mm3 MCV (79-97) fl MCH (28-32) pg RDW (13.2-15.2) % Plt Count (140-440) K/mm3 Sodium (137-145) mmol/L Potassium (3.6-5.0) mmol/L Chloride 107.1 H (98-107) mmol/L Carbon Dioxide (22-30) mmol/L BUN 18 H (7-17) mg/dL Glucose 151 H (65-100) mg/dL POC Glucose 143 H 162 H (70-105) mg/dL Hemoglobin A1c (4-6) % Lactic Acid (0.7-2.0) mmol/L Calcium (8.4-10.2) mg/dL Phosphorus (2.5-4.5) mg/dL Magnesium (1.7-2.3) mg/dL Total Protein (6.3-8.2) g/dL Albumin (3.9-5) g/dL Lipase (13-60) units/L 11/15/21 11/15/21 11/15/21 Range/Units 21:00 22:05 22:47 WBC (4.5-11.0) K/mm3 MCV (79-97) fl MCH (28-32) pg RDW (13.2-15.2) % Plt Count (140-440) K/mm3 Sodium (137-145) mmol/L Potassium (3.6-5.0) mmol/L Chloride (98-107) mmol/L Carbon Dioxide (22-30) mmol/L BUN (7-17) mg/dL Glucose (65-100) mg/dL POC Glucose 167 H 150 H 140 H (70-105) mg/dL Hemoglobin A1c (4-6) % Lactic Acid (0.7-2.0) mmol/L Calcium (8.4-10.2) mg/dL Phosphorus (2.5-4.5) mg/dL Magnesium (1.7-2.3) mg/dL Total Protein (6.3-8.2) g/dL Albumin (3.9-5) g/dL Lipase (13-60) units/L 11/15/21 11/16/21 11/16/21 Range/Units 23:57 01:06 02:22 WBC (4.5-11.0) K/mm3 MCV (79-97) fl MCH (28-32) pg RDW (13.2-15.2) % Plt Count (140-440) K/mm3 Sodium (137-145) mmol/L Potassium (3.6-5.0) mmol/L Chloride (98-107) mmol/L Carbon Dioxide (22-30) mmol/L BUN (7-17) mg/dL Glucose (65-100) mg/dL POC Glucose 162 H 163 H 181 H (70-105) mg/dL Hemoglobin A1c (4-6) % Lactic Acid (0.7-2.0) mmol/L Calcium (8.4-10.2) mg/dL Phosphorus (2.5-4.5) mg/dL Magnesium (1.7-2.3) mg/dL Total Protein (6.3-8.2) g/dL Albumin (3.9-5) g/dL Lipase (13-60) units/L 11/16/21 11/16/21 11/16/21 Range/Units 03:06 04:08 04:12 WBC 14.1 H (4.5-11.0) K/mm3 MCV 77 L (79-97) fl MCH 25 L (28-32) pg RDW 22.2 H (13.2-15.2) % Plt Count 138 L (140-440) K/mm3 Sodium (137-145) mmol/L Potassium (3.6-5.0) mmol/L Chloride (98-107) mmol/L Carbon Dioxide (22-30) mmol/L BUN (7-17) mg/dL Glucose (65-100) mg/dL POC Glucose 171 H 154 H (70-105) mg/dL Hemoglobin A1c (4-6) % Lactic Acid (0.7-2.0) mmol/L Calcium (8.4-10.2) mg/dL Phosphorus (2.5-4.5) mg/dL Magnesium (1.7-2.3) mg/dL Total Protein (6.3-8.2) g/dL Albumin (3.9-5) g/dL Lipase (13-60) units/L 11/16/21 11/16/21 11/16/21 Range/Units 04:12 04:12 05:14 WBC (4.5-11.0) K/mm3 MCV (79-97) fl MCH (28-32) pg RDW (13.2-15.2) % Plt Count (140-440) K/mm3 Sodium (137-145) mmol/L Potassium (3.6-5.0) mmol/L Chloride (98-107) mmol/L Carbon Dioxide (22-30) mmol/L BUN (7-17) mg/dL Glucose 169 H (65-100) mg/dL POC Glucose 141 H (70-105) mg/dL Hemoglobin A1c (4-6) % Lactic Acid 2.10 H* (0.7-2.0) mmol/L Calcium (8.4-10.2) mg/dL Phosphorus 1.80 L D (2.5-4.5) mg/dL Magnesium (1.7-2.3) mg/dL Total Protein (6.3-8.2) g/dL Albumin 3.8 L (3.9-5) g/dL Lipase (13-60) units/L 11/16/21 11/16/21 11/16/21 Range/Units 06:06 06:55 07:54 WBC (4.5-11.0) K/mm3 MCV (79-97) fl MCH (28-32) pg RDW (13.2-15.2) % Plt Count (140-440) K/mm3 Sodium (137-145) mmol/L Potassium (3.6-5.0) mmol/L Chloride (98-107) mmol/L Carbon Dioxide (22-30) mmol/L BUN (7-17) mg/dL Glucose (65-100) mg/dL POC Glucose 141 H 166 H 216 H (70-105) mg/dL Hemoglobin A1c (4-6) % Lactic Acid (0.7-2.0) mmol/L Calcium (8.4-10.2) mg/dL Phosphorus (2.5-4.5) mg/dL Magnesium (1.7-2.3) mg/dL Total Protein (6.3-8.2) g/dL Albumin (3.9-5) g/dL Lipase (13-60) units/L 11/16/21 Range/Units 07:56 WBC (4.5-11.0) K/mm3 MCV (79-97) fl MCH (28-32) pg RDW (13.2-15.2) % Plt Count (140-440) K/mm3 Sodium (137-145) mmol/L Potassium (3.6-5.0) mmol/L Chloride (98-107) mmol/L Carbon Dioxide (22-30) mmol/L BUN (7-17) mg/dL Glucose (65-100) mg/dL POC Glucose 193 H (70-105) mg/dL Hemoglobin A1c (4-6) % Lactic Acid (0.7-2.0) mmol/L Calcium (8.4-10.2) mg/dL Phosphorus (2.5-4.5) mg/dL Magnesium (1.7-2.3) mg/dL Total Protein (6.3-8.2) g/dL Albumin (3.9-5) g/dL Lipase (13-60) units/L All other labs normal.
[2021-11-16] MEDS: PREGABALIN 75 MG CAP PO SCH ×2 (11:13→22:03)
[2021-11-16] MEDS: FLUoxetine 20 MG CAP PO SCH (11:13)
[2021-11-16] MEDS: amLODIPine 5 MG TAB PO SCH (11:14)
[2021-11-16] MEDS ORDERED: hydrOXYzine PAMOATE 25 MG CAP PO PRN (11:22)
[2021-11-16] MEDS ORDERED: HALOPERIDOL LACTATE 5 MG/1 ML INJ IM SCH (11:40)
[2021-11-16] MEDS: SUCRALFATE 1 GM/10 ML ORAL LIQD PO SCH ×2 (12:11→18:11)
[2021-11-16 13:32] LABS: Blood Urea Nitrogen 5 mg/dL (7-17); Hemolysis Index 30
[2021-11-16 13:35] LABS: BUN/Creatinine Ratio 10
[2021-11-16] MEDS ORDERED: MAGNESIUM SULFATE 4 GM/100 ML BAG IV SCH (13:35)
--- NOTE | 2021-11-16 13:38 | Progress Note ---
Assessment and Plan DKA Severe abdominal pain Esophagitis/gastritis Acute gastrointestinal bleed Lactic Acidosis History of ulcerative esophagitis History of depression Hypomagnesemia Hemoconcentration - will attempt to transition of IV insulin and encourage oral intake - ? surgery evaluation re: h/o dyskinetic gall bladder - GI evaluation ongoing, will follow recommendations - Psychiatry evaluation re: Suicidal ideations - continue accuchecks with glycemic control per SSI (While critically ill target blood glucose of 140-180 mg/dL; avoid hypoglycemia) - follow electrolytes and correct aggressively per protocol - continue prn antiemetics - gentle volume resuscitation at this point - lactate now WNL - prn supplemental oxygen for target O2 sat's > 90% acutely - aspiration precautions - prn bronchodilators with pulmonary hygiene per RT - avoid nephrotoxins, renally dose all medications - AB's per ID rec's - prn analgesia per pain score - Maintenance of sleep-wake cycle, avoid delirium - G.I. & VTE prophylaxis - PT/OT/ROM exercises - mobility protocols for pressure ulcer prophylaxis - Monitor hemodynamics closely - continue other care per attending / other consultants - discharge planning ongoing concurrently .... Re-evaluate in am & prn CONDITION: CRITICAL PROGNOSIS: GUARDED CODE STATUS: FULL CODE The high probability of a clinically significant, sudden or life-threatening deterioration of the [Gastrointestinal & Endocrine] system(s) required my full and direct attention, intervention and personal management. The aggregate critical care time was [32] minutes without overlap. Time includes spent on; [x] Data Review and interpretation [x] Patient assessment and monitoring of vital signs [x] Documentation [x] Medication orders and management Subjective Date of service: 11/16/21 Principal diagnosis: DKA; Abd. pain; Esophagitis/gastritis; Acute GI Bleed; Lactic Acidosis Interval history: Patient is seen today for: DKA; Severe abdominal pain; Esophagitis/gastritis; Acute GI Bleed; Lactic Acidosis; H/O ulcerative esophagitis; Depression Seen and examined at bedside; 24hour events reviewed; nursing and respiratory care staff consulted; no adverse overnight events reported to me; resting peacefully in bed; remains on IV insulin; still complaining of nausea and abdominal cramping / discomfort; seen by GI and no acute intervention planned re: endoscopy; she denies chest pains or SOB; afebrile Objective Vital Signs - 12hr 11/16/21 11/16/2111/16/22 02:00 02:30 03:00 Temperature Pulse Rate 81 98 H 81 Pulse Rate [ From Monitor] Respiratory 14 19 12 Rate Blood Pressure 176/90 184/102 165/88 O2 Sat by Pulse 95 98 97 Oximetry 11/16/21 11/16/21 11/16/21 03:09 03:30 03:39 Temperature Pulse Rate 85 Pulse Rate [ From Monitor] Respiratory 19 12 13 Rate Blood Pressure 173/90 O2 Sat by Pulse 98 Oximetry 11/16/21 11/16/21 11/16/21 04:00 04:02 04:30 Temperature 97.8 F Pulse Rate 83 87 78 Pulse Rate [ 83 From Monitor] Respiratory 13 12 Rate Blood Pressure 177/96 177/96 161/73 O2 Sat by Pulse 97 98 Oximetry 11/16/21 11/16/21 11/16/21 05:00 05:30 05:56 Temperature Pulse Rate 85 100 H 106 H Pulse Rate [ From Monitor] Respiratory 14 15 20 Rate Blood Pressure 191/103 193/101 193/101 O2 Sat by Pulse 97 98 100 Oximetry 11/16/21 11/16/21 11/16/21 06:00 06:05 06:30 Temperature Pulse Rate 100 H 80 80 Pulse Rate [ From Monitor] Respiratory 16 14 13 Rate Blood Pressure 205/111 168/87 166/90 O2 Sat by Pulse 95 94 94 Oximetry 11/16/21 11/16/21 11/16/21 07:00 07:12 07:30 Temperature 98.0 F Pulse Rate 97 H 88 Pulse Rate [ From Monitor] Respiratory 14 11 L Rate Blood Pressure 166/101 211/118 O2 Sat by Pulse 97 99 Oximetry 11/16/21 11/16/21 11/16/21 07:52 08:00 08:30 Temperature 98.1 F Pulse Rate 99 H 90 88 Pulse Rate [ 90 From Monitor] Respiratory 11 L 10 L Rate Blood Pressure 211/118 210/111 212/100 O2 Sat by Pulse 96 98 Oximetry 11/16/21 11/16/21 11/16/21 08:37 09:01 09:30 Temperature Pulse Rate 87 88 93 H Pulse Rate [ From Monitor] Respiratory 13 14 Rate Blood Pressure 212/100 128/71 139/72 O2 Sat by Pulse 97 97 Oximetry 11/16/21 11/16/21 11/16/21 10:00 10:30 11:00 Temperature Pulse Rate 97 H 100 H 85 Pulse Rate [ From Monitor] Respiratory 12 15 11 L Rate Blood Pressure 170/93 161/92 175/85 O2 Sat by Pulse 98 100 99 Oximetry 11/16/21 11/16/21 11/16/21 11:30 12:00 12:10 Temperature 98.0 F Pulse Rate 81 89 84 Pulse Rate [ 84 From Monitor] Respiratory 13 14 14 Rate Blood Pressure 137/80 142/97 O2 Sat by Pulse 98 97 97 Oximetry Constitutional: appears uncomfortable Eyes: non-icteric ENT: oropharynx moist Neck: supple, no lymphadenopathy, no JVD Effort: normal Ascultation: Bilateral: clear Percussion: Bilateral: not dull Cardiovascular: regular rate and rhythm Gastrointestinal: normoactive bowel sounds, soft, tender (epigastrum, mild), non-distended Integumentary: normal Extremities: no cyanosis, no edema, pulses normal, no ischemia or petechiae Neurologic: non-focal exam, pupils equal and round, CN II-XII normal, motor strength normal and Psychiatric: anxious CBC and BMP: 11/17/21 03:45 11/17/21 03:45 Abnormal lab findings: Abnormal Labs 11/15/21 11/15/21 11/15/21 01:01 01:01 03:03 WBC RBC 5.85 H Hgb 14.8 H Hct 45.8 H MCV 78 L MCH 25 L RDW 22.1 H Plt Count Seg Neuts % (Manual) 84.0 H Lymphocytes % (Manual) 8.0 L Seg Neutrophils # Man 8.9 H Lymphocytes # (Manual) 0.8 L VBG pO2 Sodium Potassium Chloride 91.3 L Carbon Dioxide 12 L BUN 39 H Creatinine 1.4 H Glucose 355 H POC Glucose Hemoglobin A1c Lactic Acid Calcium 10.6 H Phosphorus 5.10 H Magnesium 1.40 L Total Protein 8.4 H Albumin Lipase 11/15/21 11/15/21 11/15/21 03:03 03:12 04:02 WBC RBC Hgb Hct MCV MCH RDW Plt Count Seg Neuts % (Manual) Lymphocytes % (Manual) Seg Neutrophils # Man Lymphocytes # (Manual) VBG pO2 54.3 H Sodium Potassium Chloride Carbon Dioxide 13 L BUN 38 H Creatinine Glucose 344 H POC Glucose 337 H Hemoglobin A1c Lactic Acid Calcium Phosphorus Magnesium Total Protein Albumin Lipase 11/15/21 11/15/21 11/15/21 05:03 05:23 06:18 WBC RBC Hgb Hct MCV MCH RDW Plt Count Seg Neuts % (Manual) Lymphocytes % (Manual) Seg Neutrophils # Man Lymphocytes # (Manual) VBG pO2 Sodium Potassium Chloride Carbon Dioxide 13 L BUN 35 H Creatinine Glucose 277 H POC Glucose 255 H 234 H Hemoglobin A1c Lactic Acid Calcium Phosphorus Magnesium Total Protein Albumin Lipase 11/15/21 11/15/21 11/15/21 07:00 07:01 07:54 WBC RBC Hgb Hct MCV MCH RDW Plt Count Seg Neuts % (Manual) Lymphocytes % (Manual) Seg Neutrophils # Man Lymphocytes # (Manual) VBG pO2 Sodium Potassium Chloride Carbon Dioxide 20 L D BUN 32 H Creatinine Glucose 225 H POC Glucose 222 H 256 H Hemoglobin A1c Lactic Acid Calcium Phosphorus Magnesium Total Protein Albumin Lipase 11/15/21 11/15/21 11/15/21 09:15 10:17 10:53 WBC RBC Hgb Hct MCV MCH RDW Plt Count Seg Neuts % (Manual) Lymphocytes % (Manual) Seg Neutrophils # Man Lymphocytes # (Manual) VBG pO2 Sodium 135 L D Potassium 6.1 H* D Chloride Carbon Dioxide 20 L BUN 23 H Creatinine Glucose 659 H* POC Glucose 271 H 271 H Hemoglobin A1c Lactic Acid Calcium 8.0 L Phosphorus 2.00 L D Magnesium 7.60 H Total Protein 5.3 L D Albumin 3.3 L Lipase 8 L 11/15/21 11/15/21 11/15/21 10:53 11:04 11:58 WBC RBC Hgb Hct MCV MCH RDW Plt Count Seg Neuts % (Manual) Lymphocytes % (Manual) Seg Neutrophils # Man Lymphocytes # (Manual) VBG pO2 Sodium Potassium Chloride Carbon Dioxide BUN Creatinine Glucose POC Glucose 241 H 253 H Hemoglobin A1c 7.6 H Lactic Acid Calcium Phosphorus Magnesium Total Protein Albumin Lipase 11/15/21 11/15/21 11/15/21 12:56 12:56 12:58 WBC RBC Hgb Hct MCV MCH RDW Plt Count Seg Neuts % (Manual) Lymphocytes % (Manual) Seg Neutrophils # Man Lymphocytes # (Manual) VBG pO2 Sodium Potassium Chloride 108.3 H Carbon Dioxide BUN 24 H Creatinine Glucose 226 H POC Glucose 226 H Hemoglobin A1c Lactic Acid 2.30 H* Calcium Phosphorus Magnesium Total Protein Albumin Lipase 11 L 11/15/21 11/15/21 11/15/21 13:56 14:56 16:07 WBC RBC Hgb Hct MCV MCH RDW Plt Count Seg Neuts % (Manual) Lymphocytes % (Manual) Seg Neutrophils # Man Lymphocytes # (Manual) VBG pO2 Sodium Potassium Chloride Carbon Dioxide BUN Creatinine Glucose POC Glucose 174 H 186 H 167 H Hemoglobin A1c Lactic Acid Calcium Phosphorus Magnesium Total Protein Albumin Lipase 11/15/21 11/15/21 11/15/21 16:58 17:54 18:48 WBC RBC Hgb Hct MCV MCH RDW Plt Count Seg Neuts % (Manual) Lymphocytes % (Manual) Seg Neutrophils # Man Lymphocytes # (Manual) VBG pO2 Sodium Potassium Chloride 107.1 H Carbon Dioxide BUN 18 H Creatinine Glucose 151 H POC Glucose 169 H 145 H Hemoglobin A1c Lactic Acid Calcium Phosphorus Magnesium Total Protein Albumin Lipase 11/15/21 11/15/21 11/15/21 18:54 20:02 21:00 WBC RBC Hgb Hct MCV MCH RDW Plt Count Seg Neuts % (Manual) Lymphocytes % (Manual) Seg Neutrophils # Man Lymphocytes # (Manual) VBG pO2 Sodium Potassium Chloride Carbon Dioxide BUN Creatinine Glucose POC Glucose 143 H 162 H 167 H Hemoglobin A1c Lactic Acid Calcium Phosphorus Magnesium Total Protein Albumin Lipase 11/15/21 11/15/21 11/15/21 22:05 22:47 23:57 WBC RBC Hgb Hct MCV MCH RDW Plt Count Seg Neuts % (Manual) Lymphocytes % (Manual) Seg Neutrophils # Man Lymphocytes # (Manual) VBG pO2 Sodium Potassium Chloride Carbon Dioxide BUN Creatinine Glucose POC Glucose 150 H 140 H 162 H Hemoglobin A1c Lactic Acid Calcium Phosphorus Magnesium Total Protein Albumin Lipase 11/16/21 11/16/21 11/16/21 01:06 02:22 03:06 WBC RBC Hgb Hct MCV MCH RDW Plt Count Seg Neuts % (Manual) Lymphocytes % (Manual) Seg Neutrophils # Man Lymphocytes # (Manual) VBG pO2 Sodium Potassium Chloride Carbon Dioxide BUN Creatinine Glucose POC Glucose 163 H 181 H 171 H Hemoglobin A1c Lactic Acid Calcium Phosphorus Magnesium Total Protein Albumin Lipase 11/16/21 11/16/21 11/16/21 04:08 04:12 04:12 WBC 14.1 H RBC Hgb Hct MCV 77 L MCH 25 L RDW 22.2 H Plt Count 138 L Seg Neuts % (Manual) Lymphocytes % (Manual) Seg Neutrophils # Man Lymphocytes # (Manual) VBG pO2 Sodium Potassium Chloride Carbon Dioxide BUN Creatinine Glucose 169 H POC Glucose 154 H Hemoglobin A1c Lactic Acid Calcium Phosphorus 1.80 L D Magnesium Total Protein Albumin 3.8 L Lipase 11/16/21 11/16/21 11/16/21 04:12 05:14 06:06 WBC RBC Hgb Hct MCV MCH RDW Plt Count Seg Neuts % (Manual) Lymphocytes % (Manual) Seg Neutrophils # Man Lymphocytes # (Manual) VBG pO2 Sodium Potassium Chloride Carbon Dioxide BUN Creatinine Glucose POC Glucose 141 H 141 H Hemoglobin A1c Lactic Acid 2.10 H* Calcium Phosphorus Magnesium Total Protein Albumin Lipase 11/16/21 11/16/21 11/16/21 06:55 07:54 07:56 WBC RBC Hgb Hct MCV MCH RDW Plt Count Seg Neuts % (Manual) Lymphocytes % (Manual) Seg Neutrophils # Man Lymphocytes # (Manual) VBG pO2 Sodium Potassium Chloride Carbon Dioxide BUN Creatinine Glucose POC Glucose 166 H 216 H 193 H Hemoglobin A1c Lactic Acid Calcium Phosphorus Magnesium Total Protein Albumin Lipase 11/16/21 12:18 WBC RBC Hgb Hct MCV MCH RDW Plt Count Seg Neuts % (Manual) Lymphocytes % (Manual) Seg Neutrophils # Man Lymphocytes # (Manual) VBG pO2 Sodium 131 L D Potassium 5.6 H D Chloride Carbon Dioxide 21 L BUN 5 L Creatinine 0.5 L Glucose 363 H POC Glucose Hemoglobin A1c Lactic Acid Calcium 8.0 L Phosphorus Magnesium 1.20 L Total Protein Albumin Lipase Allied health notes reviewed: nursing
--- NOTE | 2021-11-16 14:28 | Progress Note ---
Assessment and Plan 1. Coffee-ground emesispatient is symptomatically much improved. Hemoglobin down to 10.8, likely due to volume repletion. Consistent with known severe ulcerative esophagitis she is having vomiting as a result of her DKA most likely. This has been an ongoing pattern for over 4 years and she states this is similar to her usual attacks for which she is hospitalized almost monthly in the [facility] system. Her hemoglobin is normal. Control DKA PPI drip for now and then discharged on twice a day along with Carafate. No plans for endoscopic evaluation at present We will check [facility] records. Of note, patient did have biliary dyskinesia with a gallbladder ejection fraction of 20% in 2018. Given her relatively low hemoglobin A1c, there may be a component of her symptoms attributable to biliary dyskinesia. However, mary lou ochoa has major depression as well which can also exacerbate her symptoms. 2. Major depressionpsych evaluation noted. Subjective Date of service: 11/16/21 Principal diagnosis: DKA; Abd. pain; Esophagitis/gastritis; Acute GI Bleed; Lact ic Acidosis Interval history: Today, patient feels better. No pain at present. She did have nausea vomiting earlier. She has not been eating. Objective - Constitutional Vitals: Vital Signs - 12hr 11/16/21 11/16/21 11/16/21 02:30 03:00 03:09 Temperature Pulse Rate 98 H 81 Pulse Rate [ From Monitor] Respiratory 19 12 19 Rate Blood Pressure 184/102 165/88 O2 Sat by Pulse 98 97 Oximetry 11/16/21 11/16/21 11/16/21 03:30 03:39 04:00 Temperature 97.8 F Pulse Rate 85 83 Pulse Rate [ 83 From Monitor] Respiratory 12 13 13 Rate Blood Pressure 173/90 177/96 O2 Sat by Pulse 98 97 Oximetry 11/16/21 11/16/21 11/16/21 04:02 04:30 05:00 Temperature Pulse Rate 87 78 85 Pulse Rate [ From Monitor] Respiratory 12 14 Rate Blood Pressure 177/96 161/73 191/103 O2 Sat by Pulse 98 97 Oximetry 11/16/21 11/16/21 11/16/21 05:30 05:56 06:00 Temperature Pulse Rate 100 H 106 H 100 H Pulse Rate [ From Monitor] Respiratory 15 20 16 Rate Blood Pressure 193/101 193/101 205/111 O2 Sat by Pulse 98 100 95 Oximetry 11/16/21 11/16/21 11/16/21 06:05 06:30 07:00 Temperature Pulse Rate 80 80 97 H Pulse Rate [ From Monitor] Respiratory 14 13 14 Rate Blood Pressure 168/87 166/90 166/101 O2 Sat by Pulse 94 94 97 Oximetry 11/16/21 11/16/21 11/16/21 07:12 07:30 07:52 Temperature 98.0 F Pulse Rate 88 99 H Pulse Rate [ From Monitor] Respiratory 11 L Rate Blood Pressure 211/118 211/118 O2 Sat by Pulse 99 Oximetry 11/16/21 11/16/21 11/16/21 08:00 08:30 08:37 Temperature 98.1 F Pulse Rate 90 88 87 Pulse Rate [ 90 From Monitor] Respiratory 11 L 10 L Rate Blood Pressure 210/111 212/100 212/100 O2 Sat by Pulse 96 98 Oximetry 11/16/21 11/16/21 11/16/21 09:01 09:30 10:00 Temperature Pulse Rate 88 93 H 97 H Pulse Rate [ From Monitor] Respiratory 13 14 12 Rate Blood Pressure 128/71 139/72 170/93 O2 Sat by Pulse 97 97 98 Oximetry 11/16/21 11/16/21 11/16/21 10:30 11:00 11:30 Temperature Pulse Rate 100 H 85 81 Pulse Rate [ From Monitor] Respiratory 15 11 L 13 Rate Blood Pressure 161/92 175/85 137/80 O2 Sat by Pulse 100 99 98 Oximetry 11/16/21 11/16/21 11/16/21 12:00 12:10 12:30 Temperature 98.0 F Pulse Rate 89 84 86 Pulse Rate [ 84 From Monitor] Respiratory 14 14 14 Rate Blood Pressure 142/97 142/74 O2 Sat by Pulse 97 97 97 Oximetry 11/16/21 11/16/21 11/16/21 13:00 13:30 14:00 Temperature Pulse Rate 84 93 H 86 Pulse Rate [ From Monitor] Respiratory 13 13 15 Rate Blood Pressure 133/69 140/82 129/75 O2 Sat by Pulse 96 97 97 Oximetry General appearance: Present: no acute distress - EENT Eyes: PERRL, EOM intact ENT: hearing intact - Respiratory Respiratory effort: normal - Gastrointestinal General gastrointestinal: Present: soft, tender (Mild epigastric) - Labs CBC & Chem 7: 11/16/21 04:12 11/16/21 12:18 Labs: Abnormal lab results 11/15/21 11/15/21 11/15/21 Range/Units 07:54 09:15 10:17 WBC (4.5-11.0) K/mm3 MCV (79-97) fl MCH (28-32) pg RDW (13.2-15.2) % Plt Count (140-440) K/mm3 Sodium (137-145) mmol/L Potassium (3.6-5.0) mmol/L Chloride (98-107) mmol/L Carbon Dioxide (22-30) mmol/L BUN (7-17) mg/dL Creatinine (0.6-1.2) mg/dL Glucose (65-100) mg/dL POC Glucose 256 H 271 H 271 H (70-105) mg/dL Lactic Acid (0.7-2.0) mmol/L Calcium (8.4-10.2) mg/dL Phosphorus (2.5-4.5) mg/dL Magnesium (1.7-2.3) mg/dL Albumin (3.9-5) g/dL 11/15/21 11/15/21 11/15/21 Range/Units 11:04 11:58 12:58 WBC (4.5-11.0) K/mm3 MCV (79-97) fl MCH (28-32) pg RDW (13.2-15.2) % Plt Count (140-440) K/mm3 Sodium (137-145) mmol/L Potassium (3.6-5.0) mmol/L Chloride (98-107) mmol/L Carbon Dioxide (22-30) mmol/L BUN (7-17) mg/dL Creatinine (0.6-1.2) mg/dL Glucose (65-100) mg/dL POC Glucose 241 H 253 H 226 H (70-105) mg/dL Lactic Acid (0.7-2.0) mmol/L Calcium (8.4-10.2) mg/dL Phosphorus (2.5-4.5) mg/dL Magnesium (1.7-2.3) mg/dL Albumin (3.9-5) g/dL 11/15/21 11/15/21 11/15/21 Range/Units 13:56 14:56 16:07 WBC (4.5-11.0) K/mm3 MCV (79-97) fl MCH (28-32) pg RDW (13.2-15.2) % Plt Count (140-440) K/mm3 Sodium (137-145) mmol/L Potassium (3.6-5.0) mmol/L Chloride (98-107) mmol/L Carbon Dioxide (22-30) mmol/L BUN (7-17) mg/dL Creatinine (0.6-1.2) mg/dL Glucose (65-100) mg/dL POC Glucose 174 H 186 H 167 H (70-105) mg/dL Lactic Acid (0.7-2.0) mmol/L Calcium (8.4-10.2) mg/dL Phosphorus (2.5-4.5) mg/dL Magnesium (1.7-2.3) mg/dL Albumin (3.9-5) g/dL 11/15/21 11/15/21 11/15/21 Range/Units 16:58 17:54 18:48 WBC (4.5-11.0) K/mm3 MCV (79-97) fl MCH (28-32) pg RDW (13.2-15.2) % Plt Count (140-440) K/mm3 Sodium (137-145) mmol/L Potassium (3.6-5.0) mmol/L Chloride 107.1 H (98-107) mmol/L Carbon Dioxide (22-30) mmol/L BUN 18 H (7-17) mg/dL Creatinine (0.6-1.2) mg/dL Glucose 151 H (65-100) mg/dL POC Glucose 169 H 145 H (70-105) mg/dL Lactic Acid (0.7-2.0) mmol/L Calcium (8.4-10.2) mg/dL Phosphorus (2.5-4.5) mg/dL Magnesium (1.7-2.3) mg/dL Albumin (3.9-5) g/dL 11/15/21 11/15/21 11/15/21 Range/Units 18:54 20:02 21:00 WBC (4.5-11.0) K/mm3 MCV (79-97) fl MCH (28-32) pg RDW (13.2-15.2) % Plt Count (140-440) K/mm3 Sodium (137-145) mmol/L Potassium (3.6-5.0) mmol/L Chloride (98-107) mmol/L Carbon Dioxide (22-30) mmol/L BUN (7-17) mg/dL Creatinine (0.6-1.2) mg/dL Glucose (65-100) mg/dL POC Glucose 143 H 162 H 167 H (70-105) mg/dL Lactic Acid (0.7-2.0) mmol/L Calcium (8.4-10.2) mg/dL Phosphorus (2.5-4.5) mg/dL Magnesium (1.7-2.3) mg/dL Albumin (3.9-5) g/dL 11/15/21 11/15/21 11/15/21 Range/Units 22:05 22:47 23:57 WBC (4.5-11.0) K/mm3 MCV (79-97) fl MCH (28-32) pg RDW (13.2-15.2) % Plt Count (140-440) K/mm3 Sodium (137-145) mmol/L Potassium (3.6-5.0) mmol/L Chloride (98-107) mmol/L Carbon Dioxide (22-30) mmol/L BUN (7-17) mg/dL Creatinine (0.6-1.2) mg/dL Glucose (65-100) mg/dL POC Glucose 150 H 140 H 162 H (70-105) mg/dL Lactic Acid (0.7-2.0) mmol/L Calcium (8.4-10.2) mg/dL Phosphorus (2.5-4.5) mg/dL Magnesium (1.7-2.3) mg/dL Albumin (3.9-5) g/dL 11/16/21 11/16/21 11/16/21 Range/Units 01:06 02:22 03:06 WBC (4.5-11.0) K/mm3 MCV (79-97) fl MCH (28-32) pg RDW (13.2-15.2) % Plt Count (140-440) K/mm3 Sodium (137-145) mmol/L Potassium (3.6-5.0) mmol/L Chloride (98-107) mmol/L Carbon Dioxide (22-30) mmol/L BUN (7-17) mg/dL Creatinine (0.6-1.2) mg/dL Glucose (65-100) mg/dL POC Glucose 163 H 181 H 171 H (70-105) mg/dL Lactic Acid (0.7-2.0) mmol/L Calcium (8.4-10.2) mg/dL Phosphorus (2.5-4.5) mg/dL Magnesium (1.7-2.3) mg/dL Albumin (3.9-5) g/dL 11/16/21 11/16/21 11/16/21 Range/Units 04:08 04:12 04:12 WBC 14.1 H (4.5-11.0) K/mm3 MCV 77 L (79-97) fl MCH 25 L (28-32) pg RDW 22.2 H (13.2-15.2) % Plt Count 138 L (140-440) K/mm3 Sodium (137-145) mmol/L Potassium (3.6-5.0) mmol/L Chloride (98-107) mmol/L Carbon Dioxide (22-30) mmol/L BUN (7-17) mg/dL Creatinine (0.6-1.2) mg/dL Glucose 169 H (65-100) mg/dL POC Glucose 154 H (70-105) mg/dL Lactic Acid (0.7-2.0) mmol/L Calcium (8.4-10.2) mg/dL Phosphorus 1.80 L D (2.5-4.5) mg/dL Magnesium (1.7-2.3) mg/dL Albumin 3.8 L (3.9-5) g/dL 11/16/21 11/16/21 11/16/21 Range/Units 04:12 05:14 06:06 WBC (4.5-11.0) K/mm3 MCV (79-97) fl MCH (28-32) pg RDW (13.2-15.2) % Plt Count (140-440) K/mm3 Sodium (137-145) mmol/L Potassium (3.6-5.0) mmol/L Chloride (98-107) mmol/L Carbon Dioxide (22-30) mmol/L BUN (7-17) mg/dL Creatinine (0.6-1.2) mg/dL Glucose (65-100) mg/dL POC Glucose 141 H 141 H (70-105) mg/dL Lactic Acid 2.10 H* (0.7-2.0) mmol/L Calcium (8.4-10.2) mg/dL Phosphorus (2.5-4.5) mg/dL Magnesium (1.7-2.3) mg/dL Albumin (3.9-5) g/dL 11/16/21 11/16/21 11/16/21 Range/Units 06:55 07:54 07:56 WBC (4.5-11.0) K/mm3 MCV (79-97) fl MCH (28-32) pg RDW (13.2-15.2) % Plt Count (140-440) K/mm3 Sodium (137-145) mmol/L Potassium (3.6-5.0) mmol/L Chloride (98-107) mmol/L Carbon Dioxide (22-30) mmol/L BUN (7-17) mg/dL Creatinine (0.6-1.2) mg/dL Glucose (65-100) mg/dL POC Glucose 166 H 216 H 193 H (70-105) mg/dL Lactic Acid (0.7-2.0) mmol/L Calcium (8.4-10.2) mg/dL Phosphorus (2.5-4.5) mg/dL Magnesium (1.7-2.3) mg/dL Albumin (3.9-5) g/dL 11/16/21 Range/Units 12:18 WBC (4.5-11.0) K/mm3 MCV (79-97) fl MCH (28-32) pg RDW (13.2-15.2) % Plt Count (140-440) K/mm3 Sodium 131 L D (137-145) mmol/L Potassium 5.6 H D (3.6-5.0) mmol/L Chloride (98-107) mmol/L Carbon Dioxide 21 L (22-30) mmol/L BUN 5 L (7-17) mg/dL Creatinine 0.5 L (0.6-1.2) mg/dL Glucose 363 H (65-100) mg/dL POC Glucose (70-105) mg/dL Lactic Acid (0.7-2.0) mmol/L Calcium 8.0 L (8.4-10.2) mg/dL Phosphorus (2.5-4.5) mg/dL Magnesium 1.20 L (1.7-2.3) mg/dL Albumin (3.9-5) g/dL Medications & Allergies - Medications Allergies/Adverse Reactions: Allergies caffeine Allergy (Verified 10/28/16 23:18) Nausea Home Medications: Home Medications Medication Instructions Recorded Confirmed Last Taken Type Ambien 10 mg PO PRN #10 10/31/16 08/25/17 Unknown Rx FLUoxetine 20 mg PO DAILY #30 10/31/16 08/25/17 Unknown Rx Pregabalin 75 mg PO BID #60 capsule 10/31/16 08/25/17 Unknown Rx Remeron 15 mg PO HS #30 10/31/16 08/25/17 Unknown Rx Metformin HCl 500 mg PO DAILY #30 tablet 09/04/17 Unknown Rx Ondansetron [Zofran TAB] 4 mg PO Q6H PRN #20 tablet 09/04/17 Unknown Rx Pantoprazole [Protonix TAB] 40 mg PO BID #60 tablet 09/04/17 Unknown Rx Sucralfate [Carafate] 1 gm PO Q6HR 30 Days oral.liqd 09/04/17 Unknown Rx amLODIPine 5 mg PO DAILY #30 tab 09/04/17 Unknown Rx Active Medications: Generic Name Dose Route Start Last Admin Trade Name Freq PRN Reason Stop Dose Admin Acetaminophen 650 mg 11/15/21 04:02 Acetaminophen 325 Mg Tab PO Q6H PRN Pain MILD(1-3)/Fever >100.5/BUTCHER Amlodipine Besylate 10 mg 11/16/21 10:00 11/16/21 11:14 Amlodipine 5 Mg Tab PO Not Given DAILY WILMER Aripiprazole 5 mg 11/17/21 10:00 Aripiprazole 5 Mg Tab PO QDAY WILMER Dextrose 0 ml 11/15/21 02:50 Dextrose 50% In Water (25gm) 50 Ml Syringe IV Q30MIN PRN Hypoglycemia Protocol Fluoxetine HCl 20 mg 11/16/21 10:00 11/16/21 11:13 Fluoxetine 20 Mg Cap PO Not Given QDAY WILMER Haloperidol Lactate 2.5 mg 11/16/21 11:40 11/16/21 11:03 Haloperidol Lactate 5 Mg/1 Ml Inj IM 2.5 mg ONCE WILMER Administration Hydralazine HCl 10 mg 11/15/21 04:37 11/16/21 08:37 Hydralazine 20 Mg/1 Ml Inj IV 10 mg Q4HR PRN Administration Hypertension Hydromorphone HCl 0.5 mg 11/15/21 11:35 11/16/21 10:18 Hydromorphone 1 Mg/1 Ml Inj IV 0.5 mg Q4H PRN Administration Pain , Severe (7-10) Hydroxyzine Pamoate 25 mg 11/16/21 11:22 Hydroxyzine Pamoate 25 Mg Cap PO Q6H PRN Anxiety Insulin Human Regular 100 100 mls @ 4 mls/hr 11/15/21 03:00 11/16/21 14:00 units/ Sodium Chloride IV 6 units/hr TITR WILMER 6 mls/hr Titration Protocol 4 UNITS/HR Potassium Chloride/Dextrose/Sod Cl 20 meq in 1,000 mls @ 125 mls/hr 11/15/21 03:00 11/16/21 14:15 D5w/0.45% Nacl/Kcl 20 Meq IV 125 mls/hr DIRECT WILMER Administration Pantoprazole Sodium 80 mg/ 100 mls @ 10 mls/hr 11/15/21 03:00 11/16/21 14:15 Sodium Chloride IV 8 mg/hr DIRECT WILMER 10 mls/hr Administration 8 MG/HR Sodium Chloride 1,000 mls @ 150 mls/hr 11/15/21 04:15 11/15/21 05:25 Nacl 0.9% 1000 Ml IV 150 mls/hr DIRECT WILMER Administration Nicardipine HCl 50 mg/ Sodium 250 mls @ 25 mls/hr 11/16/21 10:00 Chloride IV TITR WILMER Protocol 5 MG/HR Labetalol HCl 10 mg 11/15/21 17:55 11/16/21 07:52 Labetalol 20 Mg/4 Ml Inj IV 10 mg Q4HR PRN Administration Hypertension Mirtazapine 15 mg 11/16/21 22:00 Mirtazapine 15 Mg Tab PO QHS WILMER Morphine Sulfate 2 mg 11/15/21 04:02 11/15/21 13:53 Morphine 2 Mg/1 Ml Inj IV 2 mg Q4H PRN Administration Pain, Moderate (4-6) Ondansetron HCl 4 mg 11/15/21 04:02 11/16/21 09:18 Ondansetron 4 Mg/2 Ml Inj IV 4 mg Q8H PRN Administration Nausea And Vomiting Pregabalin 75 mg 11/16/21 10:00 11/16/21 11:13 Pregabalin 75 Mg Cap PO Not Given BID WILMER Sodium Chloride 10 ml 11/15/21 10:00 11/16/21 09:20 Sodium Chloride 0.9% 10 Ml Flush Syringe IV 10 ml BID WILMER Administration Sodium Chloride 10 ml 11/15/21 04:02 Sodium Chloride 0.9% 10 Ml Flush Syringe IV PRN PRN LINE FLUSH Sucralfate 1 gm 11/16/21 12:00 11/16/21 12:11 Sucralfate 1 Gm/10 Ml Oral Liqd PO Not Given Q6HR WILMER
[2021-11-16 14:55] LABS: BUN/Creatinine Ratio 7; Blood Urea Nitrogen 4 mg/dL (7-17); Hemolysis Index 8
[2021-11-16] MEDS ORDERED: MAGNESIUM SULFATE 4 GM/100 ML BAG IV ONE (16:00)
[2021-11-16] MEDS: MORPHINE 2 MG/1 ML INJ IV PRN (18:00)
[2021-11-16] MEDS ORDERED: DEXTROSE 50% IN WATER (25GM) 50 ML SYRINGE IV PRN (18:48)
[2021-11-16] MEDS ORDERED: SODIUM CHLORIDE 0.45% 1000 ML 1,000 ML IV SCH (19:00)
[2021-11-16] MEDS: INSULIN GLARGINE 100 UNITS/ML SUB-Q SCH (20:29)
[2021-11-16] MEDS: MIRTAZAPINE 15 MG TAB PO SCH (22:03)
[2021-11-16 23:23] LABS: Blood Urea Nitrogen 3 mg/dL (7-17); Calcium 8.9 mg/dL (8.4-10.2); Hemolysis Index 7
[2021-11-16 23:29] LABS: BUN/Creatinine Ratio 6
[2021-11-17] MEDS: INSULIN LISPRO 100 UNIT/ML SUB-Q SCH ×7 (00:02→22:25)
[2021-11-17] MEDS: SUCRALFATE 1 GM/10 ML ORAL LIQD PO SCH ×5 (00:05→23:46)
[2021-11-17] MEDS: PANTOPRAZOLE 80 MG in SODIUM CHLORIDE 0.9% 100 ML IV SCH ×3 (00:06→23:47)
[2021-11-17] MEDS: SODIUM CHLORIDE 0.45% 1000 ML 1,000 ML IV SCH ×2 (00:07→12:30)
[2021-11-17] MEDS: hydrALAZINE 20 MG/1 ML INJ IV PRN (03:05)
[2021-11-17] MEDS: MORPHINE 2 MG/1 ML INJ IV PRN ×2 (03:08→23:54)
[2021-11-17 04:23] LABS: Hematocrit 34.2 % (30.3-42.9); Hemoglobin 11.4 gm/dl (10.1-14.3); Mean Corpuscular HGB Conc 34 % (30-34); Mean Corpuscular Volume 76 fl (79-97); Platelet Count 154 K/mm3 (140-440); Red Blood Count 4.49 M/mm3 (3.65-5.03)
[2021-11-17 04:27] LABS: Red Cell Distribution Width 22.7 % (13.2-15.2)
[2021-11-17 04:36] LABS: BUN/Creatinine Ratio 5; Blood Urea Nitrogen 3 mg/dL (7-17); Calcium 9.1 mg/dL (8.4-10.2); Hemolysis Index 4
--- NOTE | 2021-11-17 09:06 | Progress Note ---
Assessment and Plan DKA Severe abdominal pain Esophagitis/gastritis Acute gastrointestinal bleed Lactic Acidosis History of ulcerative esophagitis History of depression Hypomagnesemia Hemoconcentration - continue 1 on 1 sitter - Psychiatry evaluation ongoing re: Suicidal ideations - continue accuchecks with glycemic control per SSI for target blood glucose of < 180 mg/dL; avoid hypoglycemia - continue prn antiemetics - gentle volume resuscitation at this point - prn supplemental oxygen for target O2 sat's > 90% acutely - aspiration precautions - prn bronchodilators with pulmonary hygiene per RT - avoid nephrotoxins, renally dose all medications - AB's per ID rec's - prn analgesia per pain score - Maintenance of sleep-wake cycle, avoid delirium - G.I. & VTE prophylaxis - PT/OT/ROM exercises - mobility protocols for pressure ulcer prophylaxis - Monitor hemodynamics closely - continue other care per attending / other consultants - discharge planning ongoing concurrently .... Re-evaluate in am & prn .... ok to transfer out of ICU Subjective Date of service: 11/17/21 Principal diagnosis: DKA; Abd. pain; Esophagitis/gastritis; Acute GI Bleed; Lactic Acidosis Interval history: Patient is seen today for: DKA; Severe abdominal pain; Esophagitis/gastritis; Acute GI Bleed; Lactic Acidosis; H/O ulcerative esophagitis; Depression Seen and examined at bedside; 24hour events reviewed; nursing and respiratory care staff consulted; no adverse overnight events reported to me; resting peacefully in bed; looks and feels much better; she is hungry and wants to eat now; she denies N/V/F/C or acute abdominal pain Objective Vital Signs - 12hr 11/16/21 11/16/21 11/16/21 21:30 22:00 22:30 Temperature Pulse Rate 90 85 88 Pulse Rate [ From Monitor] Respiratory 15 13 14 Rate Blood Pressure 136/85 156/79 159/80 O2 Sat by Pulse 96 98 97 Oximetry 11/16/21 11/16/21 11/16/21 23:00 23:08 23:30 Temperature Pulse Rate 105 H 95 H 93 H Pulse Rate [ From Monitor] Respiratory 13 14 15 Rate Blood Pressure 181/103 145/76 O2 Sat by Pulse 98 98 97 Oximetry 11/17/21 11/17/21 11/17/21 00:00 00:30 01:00 Temperature 99.4 F Pulse Rate 94 H 98 H 95 H Pulse Rate [ 108 H From Monitor] Respiratory 14 13 19 Rate Blood Pressure 155/85 159/93 158/89 O2 Sat by Pulse 97 97 98 Oximetry 11/17/21 11/17/21 11/17/21 01:30 02:00 02:30 Temperature Pulse Rate 92 H 93 H 90 Pulse Rate [ From Monitor] Respiratory 14 15 13 Rate Blood Pressure 163/92 158/91 167/94 O2 Sat by Pulse 98 98 98 Oximetry 11/17/21 11/17/21 11/17/21 03:00 03:05 03:08 Temperature Pulse Rate 93 H 94 H Pulse Rate [ From Monitor] Respiratory 16 13 Rate Blood Pressure 168/101 168/101 O2 Sat by Pulse 98 Oximetry 11/17/21 11/17/21 11/17/21 03:30 04:00 04:30 Temperature 98.4 F Pulse Rate 103 H 109 H 108 H Pulse Rate [ 107 H From Monitor] Respiratory 14 15 15 Rate Blood Pressure 135/74 139/81 142/84 O2 Sat by Pulse 97 98 96 Oximetry 11/17/21 11/17/21 11/17/21 05:00 05:30 06:00 Temperature Pulse Rate 102 H 118 H 95 H Pulse Rate [ From Monitor] Respiratory 14 13 13 Rate Blood Pressure 133/80 148/94 148/88 O2 Sat by Pulse 97 96 98 Oximetry 11/17/21 08:00 Temperature 99 F Pulse Rate Pulse Rate [ From Monitor] Respiratory Rate Blood Pressure O2 Sat by Pulse Oximetry Constitutional: no acute distress Eyes: non-icteric ENT: oropharynx moist Neck: supple, no lymphadenopathy, no JVD Effort: normal Ascultation: Bilateral: clear Percussion: Bilateral: not dull Cardiovascular: regular rate and rhythm Gastrointestinal: normoactive bowel sounds, soft, tender (epigastrum, mild), non-distended Integumentary: normal Extremities: no cyanosis, no edema, pulses normal, no ischemia or petechiae Neurologic: non-focal exam, pupils equal and round, CN II-XII normal, motor strength normal and Psychiatric: mood appropriate, affect normal CBC and BMP: 11/17/21 03:45 11/17/21 03:45 Abnormal lab findings: Abnormal Labs 11/15/21 11/15/21 11/15/21 01:01 01:01 03:03 WBC RBC 5.85 H Hgb 14.8 H Hct 45.8 H MCV 78 L MCH 25 L RDW 22.1 H Plt Count Seg Neuts % (Manual) 84.0 H Lymphocytes % (Manual) 8.0 L Seg Neutrophils # Man 8.9 H Lymphocytes # (Manual) 0.8 L VBG pO2 Sodium Potassium Chloride 91.3 L Carbon Dioxide 12 L BUN 39 H Creatinine 1.4 H Glucose 355 H POC Glucose Hemoglobin A1c Lactic Acid Calcium 10.6 H Phosphorus 5.10 H Magnesium 1.40 L Total Protein 8.4 H Albumin Lipase 11/15/21 11/15/21 11/15/21 03:03 03:12 04:02 WBC RBC Hgb Hct MCV MCH RDW Plt Count Seg Neuts % (Manual) Lymphocytes % (Manual) Seg Neutrophils # Man Lymphocytes # (Manual) VBG pO2 54.3 H Sodium Potassium Chloride Carbon Dioxide 13 L BUN 38 H Creatinine Glucose 344 H POC Glucose 337 H Hemoglobin A1c Lactic Acid Calcium Phosphorus Magnesium Total Protein Albumin Lipase 11/15/21 11/15/21 11/15/21 05:03 05:23 06:18 WBC RBC Hgb Hct MCV MCH RDW Plt Count Seg Neuts % (Manual) Lymphocytes % (Manual) Seg Neutrophils # Man Lymphocytes # (Manual) VBG pO2 Sodium Potassium Chloride Carbon Dioxide 13 L BUN 35 H Creatinine Glucose 277 H POC Glucose 255 H 234 H Hemoglobin A1c Lactic Acid Calcium Phosphorus Magnesium Total Protein Albumin Lipase 11/15/21 11/15/21 11/15/21 07:00 07:01 07:54 WBC RBC Hgb Hct MCV MCH RDW Plt Count Seg Neuts % (Manual) Lymphocytes % (Manual) Seg Neutrophils # Man Lymphocytes # (Manual) VBG pO2 Sodium Potassium Chloride Carbon Dioxide 20 L D BUN 32 H Creatinine Glucose 225 H POC Glucose 222 H 256 H Hemoglobin A1c Lactic Acid Calcium Phosphorus Magnesium Total Protein Albumin Lipase 11/15/21 11/15/21 11/15/21 09:15 10:17 10:53 WBC RBC Hgb Hct MCV MCH RDW Plt Count Seg Neuts % (Manual) Lymphocytes % (Manual) Seg Neutrophils # Man Lymphocytes # (Manual) VBG pO2 Sodium 135 L D Potassium 6.1 H* D Chloride Carbon Dioxide 20 L BUN 23 H Creatinine Glucose 659 H* POC Glucose 271 H 271 H Hemoglobin A1c Lactic Acid Calcium 8.0 L Phosphorus 2.00 L D Magnesium 7.60 H Total Protein 5.3 L D Albumin 3.3 L Lipase 8 L 11/15/21 11/15/21 11/15/21 10:53 11:04 11:58 WBC RBC Hgb Hct MCV MCH RDW Plt Count Seg Neuts % (Manual) Lymphocytes % (Manual) Seg Neutrophils # Man Lymphocytes # (Manual) VBG pO2 Sodium Potassium Chloride Carbon Dioxide BUN Creatinine Glucose POC Glucose 241 H 253 H Hemoglobin A1c 7.6 H Lactic Acid Calcium Phosphorus Magnesium Total Protein Albumin Lipase 11/15/21 11/15/21 11/15/21 12:56 12:56 12:58 WBC RBC Hgb Hct MCV MCH RDW Plt Count Seg Neuts % (Manual) Lymphocytes % (Manual) Seg Neutrophils # Man Lymphocytes # (Manual) VBG pO2 Sodium Potassium Chloride 108.3 H Carbon Dioxide BUN 24 H Creatinine Glucose 226 H POC Glucose 226 H Hemoglobin A1c Lactic Acid 2.30 H* Calcium Phosphorus Magnesium Total Protein Albumin Lipase 11 L 11/15/21 11/15/21 11/15/21 13:56 14:56 16:07 WBC RBC Hgb Hct MCV MCH RDW Plt Count Seg Neuts % (Manual) Lymphocytes % (Manual) Seg Neutrophils # Man Lymphocytes # (Manual) VBG pO2 Sodium Potassium Chloride Carbon Dioxide BUN Creatinine Glucose POC Glucose 174 H 186 H 167 H Hemoglobin A1c Lactic Acid Calcium Phosphorus Magnesium Total Protein Albumin Lipase 11/15/21 11/15/21 11/15/21 16:58 17:54 18:48 WBC RBC Hgb Hct MCV MCH RDW Plt Count Seg Neuts % (Manual) Lymphocytes % (Manual) Seg Neutrophils # Man Lymphocytes # (Manual) VBG pO2 Sodium Potassium Chloride 107.1 H Carbon Dioxide BUN 18 H Creatinine Glucose 151 H POC Glucose 169 H 145 H Hemoglobin A1c Lactic Acid Calcium Phosphorus Magnesium Total Protein Albumin Lipase 11/15/21 11/15/21 11/15/21 18:54 20:02 21:00 WBC RBC Hgb Hct MCV MCH RDW Plt Count Seg Neuts % (Manual) Lymphocytes % (Manual) Seg Neutrophils # Man Lymphocytes # (Manual) VBG pO2 Sodium Potassium Chloride Carbon Dioxide BUN Creatinine Glucose POC Glucose 143 H 162 H 167 H Hemoglobin A1c Lactic Acid Calcium Phosphorus Magnesium Total Protein Albumin Lipase 11/15/21 11/15/21 11/15/21 22:05 22:47 23:57 WBC RBC Hgb Hct MCV MCH RDW Plt Count Seg Neuts % (Manual) Lymphocytes % (Manual) Seg Neutrophils # Man Lymphocytes # (Manual) VBG pO2 Sodium Potassium Chloride Carbon Dioxide BUN Creatinine Glucose POC Glucose 150 H 140 H 162 H Hemoglobin A1c Lactic Acid Calcium Phosphorus Magnesium Total Protein Albumin Lipase 11/16/21 11/16/21 11/16/21 01:06 02:22 03:06 WBC RBC Hgb Hct MCV MCH RDW Plt Count Seg Neuts % (Manual) Lymphocytes % (Manual) Seg Neutrophils # Man Lymphocytes # (Manual) VBG pO2 Sodium Potassium Chloride Carbon Dioxide BUN Creatinine Glucose POC Glucose 163 H 181 H 171 H Hemoglobin A1c Lactic Acid Calcium Phosphorus Magnesium Total Protein Albumin Lipase 11/16/21 11/16/21 11/16/21 04:08 04:12 04:12 WBC 14.1 H RBC Hgb Hct MCV 77 L MCH 25 L RDW 22.2 H Plt Count 138 L Seg Neuts % (Manual) Lymphocytes % (Manual) Seg Neutrophils # Man Lymphocytes # (Manual) VBG pO2 Sodium Potassium Chloride Carbon Dioxide BUN Creatinine Glucose 169 H POC Glucose 154 H Hemoglobin A1c Lactic Acid Calcium Phosphorus 1.80 L D Magnesium Total Protein Albumin 3.8 L Lipase 11/16/21 11/16/21 11/16/21 04:12 05:14 06:06 WBC RBC Hgb Hct MCV MCH RDW Plt Count Seg Neuts % (Manual) Lymphocytes % (Manual) Seg Neutrophils # Man Lymphocytes # (Manual) VBG pO2 Sodium Potassium Chloride Carbon Dioxide BUN Creatinine Glucose POC Glucose 141 H 141 H Hemoglobin A1c Lactic Acid 2.10 H* Calcium Phosphorus Magnesium Total Protein Albumin Lipase 11/16/21 11/16/21 11/16/21 06:55 07:54 07:56 WBC RBC Hgb Hct MCV MCH RDW Plt Count Seg Neuts % (Manual) Lymphocytes % (Manual) Seg Neutrophils # Man Lymphocytes # (Manual) VBG pO2 Sodium Potassium Chloride Carbon Dioxide BUN Creatinine Glucose POC Glucose 166 H 216 H 193 H Hemoglobin A1c Lactic Acid Calcium Phosphorus Magnesium Total Protein Albumin Lipase 11/16/21 11/16/21 11/16/21 08:58 09:58 10:55 WBC RBC Hgb Hct MCV MCH RDW Plt Count Seg Neuts % (Manual) Lymphocytes % (Manual) Seg Neutrophils # Man Lymphocytes # (Manual) VBG pO2 Sodium Potassium Chloride Carbon Dioxide BUN Creatinine Glucose POC Glucose 167 H 161 H 140 H Hemoglobin A1c Lactic Acid Calcium Phosphorus Magnesium Total Protein Albumin Lipase 11/16/21 11/16/21 11/16/21 12:07 12:18 13:02 WBC RBC Hgb Hct MCV MCH RDW Plt Count Seg Neuts % (Manual) Lymphocytes % (Manual) Seg Neutrophils # Man Lymphocytes # (Manual) VBG pO2 Sodium 131 L D Potassium 5.6 H D Chloride Carbon Dioxide 21 L BUN 5 L Creatinine 0.5 L Glucose 363 H POC Glucose 158 H 176 H Hemoglobin A1c Lactic Acid Calcium 8.0 L Phosphorus Magnesium 1.20 L Total Protein Albumin Lipase 11/16/21 11/16/21 11/16/21 14:05 14:14 15:03 WBC RBC Hgb Hct MCV MCH RDW Plt Count Seg Neuts % (Manual) Lymphocytes % (Manual) Seg Neutrophils # Man Lymphocytes # (Manual) VBG pO2 Sodium Potassium Chloride Carbon Dioxide BUN 4 L Creatinine Glucose 200 H POC Glucose 194 H 221 H Hemoglobin A1c Lactic Acid Calcium Phosphorus Magnesium 1.30 L Total Protein Albumin Lipase 11/16/21 11/16/21 11/16/21 16:01 17:00 18:01 WBC RBC Hgb Hct MCV MCH RDW Plt Count Seg Neuts % (Manual) Lymphocytes % (Manual) Seg Neutrophils # Man Lymphocytes # (Manual) VBG pO2 Sodium Potassium Chloride Carbon Dioxide BUN Creatinine Glucose POC Glucose 196 H 163 H 200 H Hemoglobin A1c Lactic Acid Calcium Phosphorus Magnesium Total Protein Albumin Lipase 11/16/21 11/16/21 11/16/21 19:11 20:04 22:03 WBC RBC Hgb Hct MCV MCH RDW Plt Count Seg Neuts % (Manual) Lymphocytes % (Manual) Seg Neutrophils # Man Lymphocytes # (Manual) VBG pO2 Sodium Potassium Chloride Carbon Dioxide BUN Creatinine Glucose POC Glucose 164 H 113 H 116 H Hemoglobin A1c Lactic Acid Calcium Phosphorus Magnesium Total Protein Albumin Lipase 11/16/21 11/17/21 11/17/21 22:51 03:45 03:45 WBC RBC Hgb Hct MCV 76 L MCH 26 L RDW 22.7 H Plt Count Seg Neuts % (Manual) Lymphocytes % (Manual) Seg Neutrophils # Man Lymphocytes # (Manual) VBG pO2 Sodium Potassium Chloride Carbon Dioxide BUN 3 L 3 L Creatinine 0.5 L Glucose 126 H 184 H POC Glucose Hemoglobin A1c Lactic Acid Calcium Phosphorus 2.20 L D Magnesium Total Protein Albumin Lipase Allied health notes reviewed: nursing
--- NOTE | 2021-11-17 10:15 | Progress Note ---
<MATT SPICER - Last Filed: 11/17/21 17:52> Assessment and Plan Assessment and plan: This is a 50-year-old female with known past medical history of depression, ulcerative esophagitis, DM complicated by gastroparesis admitted for DKA Hospital Course to Date: 11/15: C/o severe abdominal pain this am, accompanied with nausea and coffee ground emesis. CT Abd/Pelvis reviewed, suggesting esophagitis, gastritis, and chronic pancreatitis. Patient remains on insulin gtt and IVF resuscitation per D KA protocol. H&H is stable, gastric occult pending. On protonix gtt, GI consult pending. Continue to trend CBC. Tachycardia and Hypertension improved post PRN analgesia. Resume home antihypertensive regimen once list is available. Continue PRN analgesia for pain control and PRN antiemetic for N/V. PRN labetalol added for SBP greater than 160. 11/16: Remains on protonix gtt and DKA protocol. Patient is refusing PO intake and still c/o of severe abdominal cramping and nausea/vomiting, no coffee ground emesis reported from overnight. Continue PRN analgesia and antiemetic, encourage PO intake. GI recommendations noted. Continue PPI gtt and resume home carafate. Patient is also with suicidal ideation this am, no active plan at this time. Mental health/psych consulted. Intermittent tachycardia and hypertension overnight and this am, probably due to pain/anxiety. Continue PRN Labetalol/hydralazine. Resume home antihypertensive regimen. Transition to subQ insulin once patient is tolerating PO intake. 11/17: Feeling a lot better this am, remains stable on RA. VSS. Patient was transitioned to subQ insulin overnight. Voiced being hungry this am, no N/V overnight, tolerating PO intake. GI recommendations noted. Continue PPI and carafate, advance diet as tolerated. Continue 1013 status per mental Health/Psych. D/w CCM, patient is stable for transfer to Telemetry. Assessment and Plan #Diabetic Ketoacidosis(DKA) #Type 2 Diabetes Mellitus - BG and anion gap still elevated this am - S/p DKA protocol - No abdominal pain, N/V this am. Tolerating PO intake - Transitioned to subQ insulin overnight - BG and SSI insulin ACHS - Monitor and replace electrolytes as needed - Avoid hypoglycemia #Severe Abdominal Pain-improved #Nausea and Coffee Ground Emesis-resolved #H/o Ulcerative Esophagitis #H/o Gastroparesis #Chronic Pancreatitis - Presented with severe abdominal pain this am, nausea, and coffee ground emesis this am - CTabd pelvis reviewed, see report for detail - Patient adamantly refused ETOH abuse - Coffee ground emesis noted in the ED and small amount in the ICU - H&H remains stable, gastric occult negative - GI recommendations noted, no plan for endoscopy at this time - Continue protonix gtt, and home carafate resumed - lipase & amylase wnr - Abdominal, N/V improved. Patient is tolerating PO intake - Advance diet as tolerated. Encourage PO intake - PRN analgesia for pain control - PRN antiemetic N/V #Hypertension - Tachycardic, HR in the 130-150s, with hypertention SBP in the 200s - Resume home antihypertensive regimen - Continue PRN Labetalol/hydralazine - Continue blood pressure monitor per protocol - Maintain SBP less than 160 #Suicidal Ideation #History of Depression - with suicidal ideation this am, no active plan at this time. - Mental health/psych consulted, appreciate recommendations - Patient now a 1013 status per psych - Home meds resumed- Prozac, remeron, abilify added per psych - Suicidal precaution, bedside sitter present - Maintenance of sleep-wake cycle #Microcytic Anemia - H&H stable, no s/s of any active bleeding - Continue to trend CBC #GI/DVT Prophylaxis - PPI- Protonix gtt - SCDs to bilateral lower extremities while in bed #Advance Care Planning - Disease education data, care plan, diagnoses, and prognosis were discussed with patient at the bedside. Patient is a FULL code. Patient acknowledged understanding and agreed with current care plan. The high probability of a clinically significant, sudden or life threatening deterioration of the [multiple] system(s) required my full and direct attention, intervention and personal management. The aggregate critical care time was [60] minutes. This time is in addition to time spent performing reported procedures but includes the following: [x] Data Review and interpretation [x] Patient assessment and monitoring of vital signs [x] Documentation [x] Medication orders and management Disposition Plan: Transfer to Telemetry Total Time Spent with Patient (Minutes): 60 History Interval history: Patient seen and examined at the bedside. Stable on RA. Patient voiced feeling a lot better this morning, stated she is hungry and would like to eat. Denied any pain nor any discomfort this morning, no N/V overnight. VSS. Patient is now a 1013 status per psych, sitter at the bedside. Hospitalist Physical - Constitutional Vitals: Temp Pulse Resp BP Pulse Ox 99 F 95 H 13 148/88 98 11/17/21 08:00 11/17/21 06:00 11/17/21 06:00 11/17/21 06:00 11/17/21 06:00 General appearance: Present: no acute distress, cachectic - EENT Eyes: Present: PERRL, EOM intact ENT: hearing intact - Neck Neck: Present: normal ROM - Respiratory Respiratory effort: normal Respiratory: bilateral: diminished - Cardiovascular Rhythm: regular Heart Sounds: Present: S1 & S2 - Extremities Extremities: no ischemia, pulses intact, pulses symmetrical Peripheral Pulses: within normal limits - Abdominal General gastrointestinal: soft, non-distended, normal bowel sounds - Integumentary Integumentary: Present: warm, dry - Psychiatric Psychiatric: appropriate mood/affect, cooperative - Neurologic Neurologic: CNII-XII intact, moves all extremities - Allied Health Allied health notes reviewed: nursing, case management Results - Labs CBC & Chem 7: 11/17/21 03:45 11/17/21 03:45 Labs: Laboratory Last Values WBC 9.7 K/mm3 (4.5-11.0) 11/17/21 03:45 RBC 4.49 M/mm3 (3.65-5.03) 11/17/21 03:45 Hgb 11.4 gm/dl (10.1-14.3) 11/17/21 03:45 Hct 34.2 % (30.3-42.9) 11/17/21 03:45 MCV 76 fl (79-97) L 11/17/21 03:45 MCH 26 pg (28-32) L 11/17/21 03:45 MCHC 34 % (30-34) 11/17/21 03:45 RDW 22.7 % (13.2-15.2) H 11/17/21 03:45 Plt Count 154 K/mm3 (140-440) 11/17/21 03:45 Add Manual Diff Complete 11/15/21 01:01 Total Counted 100 11/15/21 01:01 Seg Neuts % (Manual) 84.0 % (40.0-70.0) H 11/15/21 01:01 Band Neutrophils % 0 % 11/15/21 01:01 Lymphocytes % (Manual) 8.0 % (13.4-35.0) L 11/15/21 01:01 Reactive Lymphs % (Man) 0 % 11/15/21 01:01 Monocytes % (Manual) 6.0 % (0.0-7.3) 11/15/21 01:01 Eosinophils % (Manual) 1.0 % (0.0-4.3) 11/15/21 01:01 Basophils % (Manual) 1.0 % (0.0-1.8) 11/15/21 01:01 Metamyelocytes % 0 % 11/15/21 01:01 Myelocytes % 0 % 11/15/21 01:01 Promyelocytes % 0 % 11/15/21 01:01 Blast Cells % 0 % 11/15/21 01:01 Nucleated RBC % Not Reportable 11/15/21 01:01 Seg Neutrophils # Man 8.9 K/mm3 (1.8-7.7) H 11/15/21 01:01 Band Neutrophils # 0.0 K/mm3 11/15/21 01:01 Lymphocytes # (Manual) 0.8 K/mm3 (1.2-5.4) L 11/15/21 01:01 Abs React Lymphs (Man) 0.0 K/mm3 11/15/21 01:01 Monocytes # (Manual) 0.6 K/mm3 (0.0-0.8) 11/15/21 01:01 Eosinophils # (Manual) 0.1 K/mm3 (0.0-0.4) 11/15/21 01:01 Basophils # (Manual) 0.1 K/mm3 (0.0-0.1) 11/15/21 01:01 Metamyelocytes # 0.0 K/mm3 11/15/21 01:01 Myelocytes # 0.0 K/mm3 11/15/21 01:01 Promyelocytes # 0.0 K/mm3 11/15/21 01:01 Blast Cells # 0.0 K/mm3 11/15/21 01:01 WBC Morphology Not Reportable 11/15/21 01:01 Hypersegmented Neuts Not Reportable 11/15/21 01:01 Hyposegmented Neuts Not Reportable 11/15/21 01:01 Hypogranular Neuts Not Reportable 11/15/21 01:01 Smudge Cells Not Reportable 11/15/21 01:01 Toxic Granulation Not Reportable 11/15/21 01:01 Toxic Vacuolation Not Reportable 11/15/21 01:01 Dohle Bodies Not Reportable 11/15/21 01:01 Pelger-Huet Anomaly Not Reportable 11/15/21 01:01 Yosvany Rods Not Reportable 11/15/21 01:01 Platelet Estimate Not Reportable 11/15/21 01:01 Clumped Platelets Not Reportable 11/15/21 01:01 Plt Clumps, EDTA Not Reportable 11/15/21 01:01 Large Platelets Not Reportable 11/15/21 01:01 Giant Platelets Rare 11/15/21 01:01 Platelet Satelliting Not Reportable 11/15/21 01:01 Plt Morphology Comment Not Reportable 11/15/21 01:01 RBC Morphology Not Reportable 11/15/21 01:01 Dimorphic RBCs Yes 11/15/21 01:01 Polychromasia Not Reportable 11/15/21 01:01 Hypochromasia Few 11/15/21 01:01 Poikilocytosis Not Reportable 11/15/21 01:01 Anisocytosis 1+ 11/15/21 01:01 Microcytosis 1+ 11/15/21 01:01 Macrocytosis Rare 11/15/21 01:01 Spherocytes Not Reportable 11/15/21 01:01 Pappenheimer Bodies Not Reportable 11/15/21 01:01 Sickle Cells Not Reportable 11/15/21 01:01 Target Cells Not Reportable 11/15/21 01:01 Tear Drop Cells Not Reportable 11/15/21 01:01 Ovalocytes Not Reportable 11/15/21 01:01 Helmet Cells Not Reportable 11/15/21 01:01 Chnadra-Buda Bodies Not Reportable 11/15/21 01:01 [place] Rings Not Reportable 11/15/21 01:01 [place] Cells Not Reportable 11/15/21 01:01 Bite Cells Not Reportable 11/15/21 01:01 Crenated Cell Not Reportable 11/15/21 01:01 Elliptocytes Not Reportable 11/15/21 01:01 Acanthocytes (Spur) Not Reportable 11/15/21 01:01 Rouleaux Not Reportable 11/15/21 01:01 Hemoglobin C Crystals Not Reportable 11/15/21 01:01 Schistocytes Rare 11/15/21 01:01 Malaria parasites Not Reportable 11/15/21 01:01 Bassem Bodies Not Reportable 11/15/21 01:01 Hem Pathologist Commnt No 11/15/21 01:01 VBG pO2 54.3 (25.0-47.0) H 11/15/21 03:12 Sodium 138 mmol/L (137-145) 11/17/21 03:45 Potassium 3.9 mmol/L (3.6-5.0) 11/17/21 03:45 Chloride 103.3 mmol/L (98-107) 11/17/21 03:45 Carbon Dioxide 24 mmol/L (22-30) 11/17/21 03:45 Anion Gap 15 mmol/L 11/17/21 03:45 BUN 3 mg/dL (7-17) L 11/17/21 03:45 Creatinine 0.6 mg/dL (0.6-1.2) 11/17/21 03:45 Estimated GFR > 60 ml/min 11/17/21 03:45 BUN/Creatinine Ratio 5 % 11/17/21 03:45 Glucose 184 mg/dL (65-100) H 11/17/21 03:45 POC Glucose 116 mg/dL (70-105) H 11/16/21 22:03 Hemoglobin A1c 7.6 % (4-6) H 11/15/21 10:53 Lactic Acid 1.20 mmol/L (0.7-2.0) 11/16/21 12:18 Calcium 9.1 mg/dL (8.4-10.2) 11/17/21 03:45 Phosphorus 2.70 mg/dL (2.5-4.5) D 11/17/21 03:45 Magnesium 1.90 mg/dL (1.7-2.3) 11/17/21 03:45 Total Bilirubin 0.20 mg/dL (0.1-1.2) 11/16/21 04:12 Direct Bilirubin < 0.2 mg/dL (0-0.2) 11/15/21 10:53 Indirect Bilirubin 0.0 mg/dL 11/15/21 10:53 AST 14 units/L (5-40) 11/16/21 04:12 ALT 8 units/L (7-56) 11/16/21 04:12 Alkaline Phosphatase 56 units/L (35-129) 11/16/21 04:12 Total Protein 6.3 g/dL (6.3-8.2) 11/16/21 04:12 Albumin 3.8 g/dL (3.9-5) L 11/16/21 04:12 Albumin/Globulin Ratio 1.5 % 11/16/21 04:12 Amylase 66 units/L (27-131) 11/15/21 12:56 Lipase 11 units/L (13-60) L 11/15/21 12:56 Urine Color Yellow (Yellow) 11/15/21 Unknown Urine Turbidity Clear (Clear) 11/15/21 Unknown Specific [place] (Man) 1.015 (1.003-1.030) 11/15/21 Unknown Ur Protein (Man) Negative mg/dL (Negative) 11/15/21 Unknown Ur Ketones (Man) 3+ (Negative) 11/15/21 Unknown Ur Nitrite (Man) Negative (Negative) 11/15/21 Unknown Urine Bilirubin (Man) Negative (Negative) 11/15/21 Unknown Urine Ictotest Not Reportable 11/15/21 Unknown Leukocyte Esterase (Man) Negative (Negative) 11/15/21 Unknown Urine WBC (Auto) < 1.0 /HPF (0.0-6.0) 11/15/21 Unknown Urine RBC (Auto) 0.0 /HPF (0.0-6.0) 11/15/21 Unknown U Epithel Cells (Auto) < 1.0 /HPF (0-13.0) 11/15/21 Unknown Urine RBC (Manual) Negative (Negative) 11/15/21 Unknown Agudelo/IV: Voiding Method External Female Catheter Active Medications - Current Medications Current Medications: Generic Name Dose Route Start Last Admin Trade Name Freq PRN Reason Stop Dose Admin Acetaminophen 650 mg 11/15/21 04:02 Acetaminophen 325 Mg Tab PO Q6H PRN Pain MILD(1-3)/Fever >100.5/BUTCHER Amlodipine Besylate 10 mg 11/16/21 10:00 11/16/21 11:14 Amlodipine 5 Mg Tab PO Not Given DAILY WILMER Aripiprazole 5 mg 11/17/21 10:00 Aripiprazole 5 Mg Tab PO QDAY WILMER Dextrose 50 ml 11/16/21 18:48 Dextrose 50% In Water (25gm) 50 Ml Syringe IV Q30MIN PRN Hypoglycemia Protocol Fluoxetine HCl 20 mg 11/16/21 10:00 11/16/21 11:13 Fluoxetine 20 Mg Cap PO Not Given QDAY WILMER Hydralazine HCl 10 mg 11/15/21 04:37 11/17/21 03:05 Hydralazine 20 Mg/1 Ml Inj IV 10 mg Q4HR PRN Administration Hypertension Hydroxyzine Pamoate 25 mg 11/16/21 11:22 Hydroxyzine Pamoate 25 Mg Cap PO Q6H PRN Anxiety Pantoprazole Sodium 80 mg/ 100 mls @ 10 mls/hr 11/15/21 03:00 11/17/21 00:06 Sodium Chloride IV 8 mg/hr DIRECT WILMER 10 mls/hr Administration 8 MG/HR Sodium Chloride 1,000 mls @ 75 mls/hr 11/17/21 00:00 11/17/21 00:07 Nacl 0.45% 1000 Ml IV 11/18/21 13:19 75 mls/hr DIRECT WILMER Administration Insulin Glargine 20 units 11/16/21 20:30 11/16/21 20:29 Insulin Glargine 100 Units/Ml SUB-Q 20 units QHS WILMER Administration Insulin Human Lispro 0 unit 11/17/21 00:00 11/17/21 05:32 Insulin Lispro 100 Unit/Ml SUB-Q 3 unit Q4HR WILMER Administration Protocol Labetalol HCl 10 mg 11/15/21 17:55 11/16/21 07:52 Labetalol 20 Mg/4 Ml Inj IV 10 mg Q4HR PRN Administration Hypertension Mirtazapine 15 mg 11/16/21 22:00 11/16/21 22:03 Mirtazapine 15 Mg Tab PO 15 mg QHS WILMER Administration Morphine Sulfate 2 mg 11/15/21 04:02 11/17/21 03:08 Morphine 2 Mg/1 Ml Inj IV 2 mg Q4H PRN Administration Pain , Severe (7-10) Ondansetron HCl 4 mg 11/15/21 04:02 11/16/21 09:18 Ondansetron 4 Mg/2 Ml Inj IV 4 mg Q8H PRN Administration Nausea And Vomiting Oxycodone/Acetaminophen 1 tab 11/17/21 07:48 Oxycodone /Acetaminophen 5-325mg Tab PO Q6H PRN Pain, Moderate (4-6) Pregabalin 75 mg 11/16/21 10:00 11/16/21 22:03 Pregabalin 75 Mg Cap PO 75 mg BID WILMER Administration Sodium Chloride 10 ml 11/15/21 10:00 11/16/21 22:03 Sodium Chloride 0.9% 10 Ml Flush Syringe IV 10 ml BID WILMER Administration Sodium Chloride 10 ml 11/15/21 04:02 Sodium Chloride 0.9% 10 Ml Flush Syringe IV PRN PRN LINE FLUSH Sucralfate 1 gm 11/16/21 12:00 11/17/21 05:33 Sucralfate 1 Gm/10 Ml Oral Liqd PO 1 gm Q6HR WILMER Administration Nutrition/Malnutrition Assess - Dietary Evaluation Nutrition/Malnutrition Findings: Nutrition Notes Start: 11/15/21 08:46 Freq: Status: Active Protocol: Document 11/15/21 08:46 BRADY (Rec: 11/15/21 08:56 BRADY [email or web address]) Nutrition Notes Need for Assessment generated from: MD Order,Education Initial or Follow up Brief Note Current Diagnosis Hypertension Other Pertinent Diagnosis Ulcerative Esphagitis, GI Bleed, DKA, Dehydration, Hypomagnasemia, Depressi Current Diet NPO (since 11/15 04:03). Height 5 ft 3 in Weight 45.359 kg [place] Body Weight (kg) 52.27 BMI 17.6 Weight change and time frame None provided at admission. Weight Status Underweight Subjective/Other Information RD consult for nutrition education assessment. Pt currently on NPO. Pt is on Room Air, O2 saturation @ 95%, according to Vital Signs notes. Pt complains of N/V/Abdominal Pain and Enatemesis, according to History & Physical notes. Pt still in critical condition , not a candidate for Nutrition Education at the time, will assess feasibility on F/U. Percent of energy/protein needs met: Pt currently on NPO. Nutrition Intervention Follow-Up By: 11/17/21 Additional Comments Nutrition education will be provided at F/U, if feasible. When pertinent, start monitoring food tolerance, %PO intake of meals, and BM. <OKEH,JHONATHAN E - Last Filed: 11/19/21 07:45> Assessment and Plan Assessment and plan: I saw and evaluated the patient. I agree with the findings and the plan of care as documented in the Nurse Practitioner's~note, with the following corrections and additions. Hospitalist Physical - Constitutional Vitals: Temp Pulse Resp BP Pulse Ox 98.9 F 102 H 13 152/91 98 11/18/21 17:00 11/19/21 07:21 11/19/21 07:21 11/18/21 17:00 11/19/21 07:21 Results - Labs CBC & Chem 7: 11/17/21 03:45 11/18/21 09:02 Labs: Laboratory Last Values WBC 9.7 K/mm3 (4.5-11.0) 11/17/21 03:45 RBC 4.49 M/mm3 (3.65-5.03) 11/17/21 03:45 Hgb 11.4 gm/dl (10.1-14.3) 11/17/21 03:45 Hct 34.2 % (30.3-42.9) 11/17/21 03:45 MCV 76 fl (79-97) L 11/17/21 03:45 MCH 26 pg (28-32) L 11/17/21 03:45 MCHC 34 % (30-34) 11/17/21 03:45 RDW 22.7 % (13.2-15.2) H 11/17/21 03:45 Plt Count 154 K/mm3 (140-440) 11/17/21 03:45 Add Manual Diff Complete 11/15/21 01:01 Total Counted 100 11/15/21 01:01 Seg Neuts % (Manual) 84.0 % (40.0-70.0) H 11/15/21 01:01 Band Neutrophils % 0 % 11/15/21 01:01 Lymphocytes % (Manual) 8.0 % (13.4-35.0) L 11/15/21 01:01 Reactive Lymphs % (Man) 0 % 11/15/21 01:01 Monocytes % (Manual) 6.0 % (0.0-7.3) 11/15/21 01:01 Eosinophils % (Manual) 1.0 % (0.0-4.3) 11/15/21 01:01 Basophils % (Manual) 1.0 % (0.0-1.8) 11/15/21 01:01 Metamyelocytes % 0 % 11/15/21 01:01 Myelocytes % 0 % 11/15/21 01:01 Promyelocytes % 0 % 11/15/21 01:01 Blast Cells % 0 % 11/15/21 01:01 Nucleated RBC % Not Reportable 11/15/21 01:01 Seg Neutrophils # Man 8.9 K/mm3 (1.8-7.7) H 11/15/21 01:01 Band Neutrophils # 0.0 K/mm3 11/15/21 01:01 Lymphocytes # (Manual) 0.8 K/mm3 (1.2-5.4) L 11/15/21 01:01 Abs React Lymphs (Man) 0.0 K/mm3 11/15/21 01:01 Monocytes # (Manual) 0.6 K/mm3 (0.0-0.8) 11/15/21 01:01 Eosinophils # (Manual) 0.1 K/mm3 (0.0-0.4) 11/15/21 01:01 Basophils # (Manual) 0.1 K/mm3 (0.0-0.1) 11/15/21 01:01 Metamyelocytes # 0.0 K/mm3 11/15/21 01:01 Myelocytes # 0.0 K/mm3 11/15/21 01:01 Promyelocytes # 0.0 K/mm3 11/15/21 01:01 Blast Cells # 0.0 K/mm3 11/15/21 01:01 WBC Morphology Not Reportable 11/15/21 01:01 Hypersegmented Neuts Not Reportable 11/15/21 01:01 Hyposegmented Neuts Not Reportable 11/15/21 01:01 Hypogranular Neuts Not Reportable 11/15/21 01:01 Smudge Cells Not Reportable 11/15/21 01:01 Toxic Granulation Not Reportable 11/15/21 01:01 Toxic Vacuolation Not Reportable 11/15/21 01:01 Dohle Bodies Not Reportable 11/15/21 01:01 Pelger-Huet Anomaly Not Reportable 11/15/21 01:01 Yosvany Rods Not Reportable 11/15/21 01:01 Platelet Estimate Not Reportable 11/15/21 01:01 Clumped Platelets Not Reportable 11/15/21 01:01 Plt Clumps, EDTA Not Reportable 11/15/21 01:01 Large Platelets Not Reportable 11/15/21 01:01 Giant Platelets Rare 11/15/21 01:01 Platelet Satelliting Not Reportable 11/15/21 01:01 Plt Morphology Comment Not Reportable 11/15/21 01:01 RBC Morphology Not Reportable 11/15/21 01:01 Dimorphic RBCs Yes 11/15/21 01:01 Polychromasia Not Reportable 11/15/21 01:01 Hypochromasia Few 11/15/21 01:01 Poikilocytosis Not Reportable 11/15/21 01:01 Anisocytosis 1+ 11/15/21 01:01 Microcytosis 1+ 11/15/21 01:01 Macrocytosis Rare 11/15/21 01:01 Spherocytes Not Reportable 11/15/21 01:01 Pappenheimer Bodies Not Reportable 11/15/21 01:01 Sickle Cells Not Reportable 11/15/21 01:01 Target Cells Not Reportable 11/15/21 01:01 Tear Drop Cells Not Reportable 11/15/21 01:01 Ovalocytes Not Reportable 11/15/21 01:01 Helmet Cells Not Reportable 11/15/21 01:01 Chandra-Buda Bodies Not Reportable 11/15/21 01:01 [place] Rings Not Reportable 11/15/21 01:01 [place] Cells Not Reportable 11/15/21 01:01 Bite Cells Not Reportable 11/15/21 01:01 Crenated Cell Not Reportable 11/15/21 01:01 Elliptocytes Not Reportable 11/15/21 01:01 Acanthocytes (Spur) Not Reportable 11/15/21 01:01 Rouleaux Not Reportable 11/15/21 01:01 Hemoglobin C Crystals Not Reportable 11/15/21 01:01 Schistocytes Rare 11/15/21 01:01 Malaria parasites Not Reportable 11/15/21 01:01 Bassem Bodies Not Reportable 11/15/21 01:01 Hem Pathologist Commnt No 11/15/21 01:01 VBG pO2 54.3 (25.0-47.0) H 11/15/21 03:12 Sodium 137 mmol/L (137-145) 11/18/21 09:02 Potassium 4.0 mmol/L (3.6-5.0) 11/18/21 09:02 Chloride 97.3 mmol/L (98-107) L 11/18/21 09:02 Carbon Dioxide 26 mmol/L (22-30) 11/18/21 09:02 Anion Gap 18 mmol/L 11/18/21 09:02 BUN 11 mg/dL (7-17) 11/18/21 09:02 Creatinine 0.7 mg/dL (0.6-1.2) 11/18/21 09:02 Estimated GFR > 60 ml/min 11/18/21 09:02 BUN/Creatinine Ratio 16 % 11/18/21 09:02 Glucose 262 mg/dL (65-100) H 11/18/21 09:02 POC Glucose 193 mg/dL (70-105) H 11/19/21 06:22 Hemoglobin A1c 7.6 % (4-6) H 11/15/21 10:53 Lactic Acid 1.20 mmol/L (0.7-2.0) 11/16/21 12:18 Calcium 9.8 mg/dL (8.4-10.2) 11/18/21 09:02 Phosphorus 3.00 mg/dL (2.5-4.5) 11/18/21 09:02 Magnesium 1.40 mg/dL (1.7-2.3) L 11/18/21 09:02 Total Bilirubin 0.20 mg/dL (0.1-1.2) 11/16/21 04:12 Direct Bilirubin < 0.2 mg/dL (0-0.2) 11/15/21 10:53 Indirect Bilirubin 0.0 mg/dL 11/15/21 10:53 AST 14 units/L (5-40) 11/16/21 04:12 ALT 8 units/L (7-56) 11/16/21 04:12 Alkaline Phosphatase 56 units/L (35-129) 11/16/21 04:12 Total Protein 6.3 g/dL (6.3-8.2) 11/16/21 04:12 Albumin 3.8 g/dL (3.9-5) L 11/16/21 04:12 Albumin/Globulin Ratio 1.5 % 11/16/21 04:12 Amylase 66 units/L (27-131) 11/15/21 12:56 Lipase 11 units/L (13-60) L 11/15/21 12:56 Urine Color Yellow (Yellow) 11/15/21 Unknown Urine Turbidity Clear (Clear) 11/15/21 Unknown Specific [place] (Man) 1.015 (1.003-1.030) 11/15/21 Unknown Ur Protein (Man) Negative mg/dL (Negative) 11/15/21 Unknown Ur Ketones (Man) 3+ (Negative) 11/15/21 Unknown Ur Nitrite (Man) Negative (Negative) 11/15/21 Unknown Urine Bilirubin (Man) Negative (Negative) 11/15/21 Unknown Urine Ictotest Not Reportable 11/15/21 Unknown Leukocyte Esterase (Man) Negative (Negative) 11/15/21 Unknown Urine WBC (Auto) < 1.0 /HPF (0.0-6.0) 11/15/21 Unknown Urine RBC (Auto) 0.0 /HPF (0.0-6.0) 11/15/21 Unknown U Epithel Cells (Auto) < 1.0 /HPF (0-13.0) 11/15/21 Unknown Urine RBC (Manual) Negative (Negative) 11/15/21 Unknown Agudelo/IV: Voiding Method External Female Catheter Active Medications - Current Medications Current Medications: Generic Name Dose Route Start Last Admin Trade Name Freq PRN Reason Stop Dose Admin Acetaminophen 650 mg 11/15/21 04:02 Acetaminophen 325 Mg Tab PO Q6H PRN Pain MILD(1-3)/Fever >100.5/BUTCHER Amlodipine Besylate 10 mg 11/18/21 10:00 11/18/21 10:38 Amlodipine 10 Mg Tab PO 10 mg DAILY WILMER Administration Aripiprazole 5 mg 11/17/21 10:00 11/18/21 10:44 Aripiprazole 5 Mg Tab PO 5 mg QDAY WILMER Administration Dextrose 50 ml 11/16/21 18:48 Dextrose 50% In Water (25gm) 50 Ml Syringe IV Q30MIN PRN Hypoglycemia Protocol Fluoxetine HCl 20 mg 11/16/21 10:00 11/18/21 10:38 Fluoxetine 20 Mg Cap PO 20 mg QDAY WILMER Administration Hydralazine HCl 10 mg 11/15/21 04:37 11/18/21 05:41 Hydralazine 20 Mg/1 Ml Inj IV 10 mg Q4HR PRN Administration Hypertension Hydroxyzine Pamoate 25 mg 11/16/21 11:22 Hydroxyzine Pamoate 25 Mg Cap PO Q6H PRN Anxiety Insulin Glargine 20 units 11/16/21 20:30 11/18/21 21:46 Insulin Glargine 100 Units/Ml SUB-Q 20 units QHS WILMER Administration Insulin Human Lispro 0 unit 11/17/21 00:00 11/19/21 06:50 Insulin Lispro 100 Unit/Ml SUB-Q 2 unit Q4HR WILMER Administration Protocol Labetalol HCl 10 mg 11/15/21 17:55 11/16/21 07:52 Labetalol 20 Mg/4 Ml Inj IV 10 mg Q4HR PRN Administration Hypertension Metoclopramide HCl 10 mg 11/18/21 12:25 11/18/21 13:23 Metoclopramide 10 Mg/2 Ml Inj IV 10 mg Q6H PRN Administration Nausea And Vomiting Mirtazapine 15 mg 11/16/21 22:00 11/18/21 21:46 Mirtazapine 15 Mg Tab PO 15 mg QHS WILMER Administration Morphine Sulfate 2 mg 11/15/21 04:02 11/19/21 06:12 Morphine 2 Mg/1 Ml Inj IV 2 mg Q4H PRN Administration Pain , Severe (7-10) Ondansetron HCl 4 mg 11/15/21 04:02 11/18/21 07:36 Ondansetron 4 Mg/2 Ml Inj IV 4 mg Q8H PRN Administration Nausea And Vomiting Oxycodone/Acetaminophen 1 tab 11/17/21 07:48 Oxycodone /Acetaminophen 5-325mg Tab PO Q6H PRN Pain, Moderate (4-6) Pantoprazole Sodium 40 mg 11/18/21 10:00 11/18/21 21:46 Pantoprazole 40 Mg Tab PO 40 mg BID WILMER Administration Pregabalin 75 mg 11/16/21 10:00 11/18/21 21:46 Pregabalin 75 Mg Cap PO 75 mg BID WILMER Administration Sodium Chloride 10 ml 11/15/21 10:00 11/18/21 21:47 Sodium Chloride 0.9% 10 Ml Flush Syringe IV 10 ml BID WILMER Administration Sodium Chloride 10 ml 11/15/21 04:02 Sodium Chloride 0.9% 10 Ml Flush Syringe IV PRN PRN LINE FLUSH Sucralfate 1 gm 11/16/21 12:00 11/19/21 06:11 Sucralfate 1 Gm/10 Ml Oral Liqd PO 1 gm Q6HR WILMER Administration Nutrition/Malnutrition Assess - Dietary Evaluation Nutrition/Malnutrition Findings: Nutrition Notes Start: 11/15/21 08:46 Freq: Status: Active Protocol: Document 11/17/21 11:22 BRADY (Rec: 11/17/21 11:34 [email or web address] [id number]) Nutrition Notes Need for Assessment generated from: Low BMI Initial or Follow up Assessment Current Diagnosis Diabetes,Hypertension Other Pertinent Diagnosis Ulcerative Esphagitis, s/p GI Bleed, DKA, Depression, Anemia , Hypomag Current Diet Consistent Carbohydrates -GI Soft- Diet (since L 11/17). Labs/Tests 11/17: BUN 3, Glu 184. Pertinent Medications 11/17: Lantus 20U / Humalog 2U , others nutritionally unremarkable. Height 5 ft 3 in Weight 45.359 kg [place] Body Weight (kg) 52.27 BMI 17.6 Intake Prior to Admission Poor Weight change and time frame Pt states having loss body weight No body weight change reported in 2 days. Weight Status Underweight Subjective/Other Information RD consult for routine F/U on dietary advancement. Diet advanced to PO, No reports available on Pt's PO intake of meals at the time, states that Pt is tolerating Fairly and was hungry this morning, according to Progress notes. Pt is on Room Air, O2 saturation @ 97%, according to Physical Assessment History notes. Pt still complains of abdominal Pain, no longer N/V, according to Physical Assessment History notes. 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 Pt continues on 1013 Status, according to Progress notes. Pt's Low BMI seems to correspond to a natural body composition, and not related to a sudden loss of body weight nor chronic malnutrition, since no signs of concern were mentioned in the Physical Assessment History or the Progress notes. Percent of energy/protein needs met: Prescribed Consistent Carbohydrates -GI Soft- Diet provides for energy/protein needs (2,061 Kcal/91 g) during LOS. Burn Absent Trauma Absent GI Symptoms Other Food Allergy Yes Skin Integrity/Comment Assessment WNL. Current % PO Good (75-100%) Minimum of two criteria No Energy Intake (non-severe) <75% Estimated Energy Requirement >7 days Interpretation of Weight Loss (non- 1-2% in 1 week severe) Fluid Accumulation N/A Reduced Patcher Helper Strength N/A (non-severe) Protein-Calorie Malnutrition Non-Severe #2 Nutrition Diagnosis Malnutrition Etiology Possibly secondary to pancreatitis, and ulcerative colitis. 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 #1 Nutrition Diagnosis Underweight Comments: Pt's Low BMI seems to correspond to a natural body composition, and not related to a sudden loss of body weight nor chronic malnutrition, since no signs of concern were mentioned in the Physical Assessment History or the Progress notes. Etiology Uncertain, possibly natural body composition. As Evidenced by Signs and Symptoms BMI: 17.6 Kg/m2. Is patient on ventilator? No Is Patient Ambulatory and/or Out of Bed Yes REE-([facility] Jeor-ambulatory/OOB) [ 1362.036 [id number]] Calculation Used for Recommendations [facility] or Additional Notes Protein: 1.2-1.5 g/Kg ABW; 54- 68 g/day. Fluids: 1 ml/Kcal, or as per MD. Nutrition Intervention Change Diet Order: Continue Consistent Carbohydrates -GI Soft- Diet as tolerated. Goal #1 Facilitate PO intake of meals with elemental, textural, or mechanical modification during LOS. Goal #2 Adjust the dietary intervention to better serve Pt's needs and clinical conditions during LOS. Follow-Up By: 11/24/21 Additional Comments Nutrition education will be provided at F/U, if feasible. Continue monitoring food tolerance, %PO intake of meals , and BM.
[2021-11-17] MEDS: amLODIPine 5 MG TAB PO SCH (10:25)
[2021-11-17] MEDS: ARIPiprazole 5 MG TAB PO SCH (10:26)
[2021-11-17] MEDS: FLUoxetine 20 MG CAP PO SCH (10:26)
[2021-11-17] MEDS: PREGABALIN 75 MG CAP PO SCH ×2 (10:26→22:24)
--- NOTE | 2021-11-17 10:44 | Progress Note ---
Subjective - Reason for Consult Consult date: 11/17/21 Reason for consult: suicidal - Chief Complaint Chief complaint: The patient was seen today. She reports feeling better however, continues to endorse depression rating as 7/10. She reports that sleep is good and appetite is fair. The patient denies any current suicidal/homicidal ideation and denies hallucinations. REVIEW OF SYSTEMS Constitutional: Negative for weight loss ENT: Negative for stridor Respiratory: Negative for cough or hemoptysis All other systems reviewed and are negative MENTAL STATUS General Appearance and Behavior: age appropriate, good eye contact, cooperative, Cooperation: Cooperative Psychomotor Behavior: within normal limits Mood: depressed Affect and affective range: Congruent with stated mood Thought Process: goal directed Thought Content: reality oriented Speech: Normal volume and Regular rate and rhythm Suicidal Ideation:Denies Homicidal Ideation: Denies HI Hallucinations: Denies Impulse Control: intact Insight and Judgment: Limited Memory: Limited Attention: Attentive Orientation: alert and oriented x4 Assessment Major depressive disorder Treatment Plan 1013 Continue home medications Continue Abilify 5mg po daily Continue Vistaril 25mg po Q6hrs PRN for anxiety The patient is to get first dose of meds prior to leaving. Benefits and possible SE were explained to patient. She verbalizes understanding. Risks, benefits and alternatives of medications discussed with the patient, questions answered and consent obtained from patient. PSYCHOTHERAPY: Supportive psychotherapy provided MEDICAL: Per primary team DELIRIUM PRECAUTIONS: Please re-orient patient frequently, keep lights on during the day, and minimize benzodiazepines and opiates as these medications could worsen patient's confusion. GEOLOGICAL MANAGER: Defer to primary DISPOSITION: Recommend acute inpatient psychiatric hospitalization at this time. FOLLOW-UP: Will follow. Thank you for the consult. Please contact with any questions and/or concerns Case discussed with Dr. Ruby who agrees with current disposition Medications and Allergies Mental Status Exam - Vital signs Last Vital Signs Temp 99 F 11/17/21 08:00 Pulse 102 H 11/17/21 10:25 Resp 13 11/17/21 06:00 BP 156/100 11/17/21 10:25 Pulse Ox 98 11/17/21 06:00
--- NOTE | 2021-11-17 12:10 | Progress Note ---
Assessment and Plan 1. Coffee-ground emesisresolved. Hemoglobin stable at 11.4. Consistent with known severe ulcerative esophagitis she is having vomiting as a result of her DKA most likely. This has been an ongoing pattern for over 4 years and she states this is similar to her usual attacks for which she is hospitalized almost monthly in the [place] system. Her hemoglobin is normal. Advance diet PPI twice a day along with Carafate. No plans for endoscopic evaluation at present Of note, patient did have biliary dyskinesia with a gallbladder ejection fraction of 20% in 2018. Given her relatively low hemoglobin A1c, there may be a component of her symptoms attributable to biliary dyskinesia. However, patient has major depression as well which can also exacerbate her symptoms. 2. Major depressionpsych evaluation noted. [place] records reviewed and patient was hospitalized twice at [facility] in September. Her last upper endoscopy was in November 01, 2020 at [facility] which was unremarkable with no ulcerative esophagitis noted. Her hemoglobin at discharge was 9 over there No clear etiology for patient's recurrent symptoms. She does note that she has lower abdominal burning discomfort frequently prior to these attacks. She may well benefit from either low-dose tricyclic agents as a neuromodulator or po ssibly gabapentin to try and prevent further attacks, as well as close control of her diabetes. No further GI recommendations. We will sign off. Subjective Date of service: 11/17/21 Principal diagnosis: DKA; Abd. pain; Esophagitis/gastritis; Acute GI Bleed; Lactic Acidosis Interval history: Patient doing well. Smiling in bed. No abdominal pain, nausea, vomiting. On further questioning, I do not have a clear sense as to what triggers her symptoms. This time, she believes headaches may well have been the trigger. Objective - Constitutional Vitals: Vital Signs - 12hr 11/17/21 11/17/21 11/17/21 00:30 01:00 01:30 Temperature Pulse Rate 98 H 95 H 92 H Pulse Rate [ From Monitor] Respiratory 13 19 14 Rate Blood Pressure 159/93 158/89 163/92 O2 Sat by Pulse 97 98 98 Oximetry 11/17/21 11/17/21 11/17/21 02:00 02:30 03:00 Temperature Pulse Rate 93 H 90 93 H Pulse Rate [ From Monitor] Respiratory 15 13 16 Rate Blood Pressure 158/91 167/94 168/101 O2 Sat by Pulse 98 98 98 Oximetry 11/17/21 11/17/21 11/17/21 03:05 03:08 03:30 Temperature Pulse Rate 94 H 103 H Pulse Rate [ From Monitor] Respiratory 13 14 Rate Blood Pressure 168/101 135/74 O2 Sat by Pulse 97 Oximetry 11/17/21 11/17/21 11/17/21 04:00 04:30 05:00 Temperature 98.4 F Pulse Rate 109 H 108 H 102 H Pulse Rate [ 107 H From Monitor] Respiratory 15 15 14 Rate Blood Pressure 139/81 142/84 133/80 O2 Sat by Pulse 98 96 97 Oximetry 11/17/21 11/17/21 11/17/21 05:30 06:00 08:00 Temperature 99 F Pulse Rate 118 H 95 H Pulse Rate [ From Monitor] Respiratory 13 13 Rate Blood Pressure 148/94 148/88 O2 Sat by Pulse 96 98 Oximetry 11/17/21 10:25 Temperature Pulse Rate 102 H Pulse Rate [ From Monitor] Respiratory Rate Blood Pressure 156/100 O2 Sat by Pulse Oximetry General appearance: Present: no acute distress - EENT Eyes: PERRL, EOM intact ENT: hearing intact - Respiratory Respiratory effort: normal - Gastrointestinal General gastrointestinal: Present: soft, non-tender, normal bowel sounds - Labs CBC & Chem 7: 11/17/21 03:45 11/17/21 03:45 Labs: Abnormal lab results 11/16/21 11/16/21 11/16/21 Range/Units 08:58 09:58 10:55 MCV (79-97) fl MCH (28-32) pg RDW (13.2-15.2) % Sodium (137-145) mmol/L Potassium (3.6-5.0) mmol/L Carbon Dioxide (22-30) mmol/L BUN (7-17) mg/dL Creatinine (0.6-1.2) mg/dL Glucose (65-100) mg/dL POC Glucose 167 H 161 H 140 H (70-105) mg/dL Calcium (8.4-10.2) mg/dL Phosphorus (2.5-4.5) mg/dL Magnesium (1.7-2.3) mg/dL 11/16/21 11/16/21 11/16/21 Range/Units 12:07 12:18 13:02 MCV (79-97) fl MCH (28-32) pg RDW (13.2-15.2) % Sodium 131 L D (137-145) mmol/L Potassium 5.6 H D (3.6-5.0) mmol/L Carbon Dioxide 21 L (22-30) mmol/L BUN 5 L (7-17) mg/dL Creatinine 0.5 L (0.6-1.2) mg/dL Glucose 363 H (65-100) mg/dL POC Glucose 158 H 176 H (70-105) mg/dL Calcium 8.0 L (8.4-10.2) mg/dL Phosphorus (2.5-4.5) mg/dL Magnesium 1.20 L (1.7-2.3) mg/dL 11/16/21 11/16/21 11/16/21 Range/Units 14:05 14:14 15:03 MCV (79-97) fl MCH (28-32) pg RDW (13.2-15.2) % Sodium (137-145) mmol/L Potassium (3.6-5.0) mmol/L Carbon Dioxide (22-30) mmol/L BUN 4 L (7-17) mg/dL Creatinine (0.6-1.2) mg/dL Glucose 200 H (65-100) mg/dL POC Glucose 194 H 221 H (70-105) mg/dL Calcium (8.4-10.2) mg/dL Phosphorus (2.5-4.5) mg/dL Magnesium 1.30 L (1.7-2.3) mg/dL 11/16/21 11/16/21 11/16/21 Range/Units 16:01 17:00 18:01 MCV (79-97) fl MCH (28-32) pg RDW (13.2-15.2) % Sodium (137-145) mmol/L Potassium (3.6-5.0) mmol/L Carbon Dioxide (22-30) mmol/L BUN (7-17) mg/dL Creatinine (0.6-1.2) mg/dL Glucose (65-100) mg/dL POC Glucose 196 H 163 H 200 H (70-105) mg/dL Calcium (8.4-10.2) mg/dL Phosphorus (2.5-4.5) mg/dL Magnesium (1.7-2.3) mg/dL 11/16/21 11/16/21 11/16/21 Range/Units 19:11 20:04 22:03 MCV (79-97) fl MCH (28-32) pg RDW (13.2-15.2) % Sodium (137-145) mmol/L Potassium (3.6-5.0) mmol/L Carbon Dioxide (22-30) mmol/L BUN (7-17) mg/dL Creatinine (0.6-1.2) mg/dL Glucose (65-100) mg/dL POC Glucose 164 H 113 H 116 H (70-105) mg/dL Calcium (8.4-10.2) mg/dL Phosphorus (2.5-4.5) mg/dL Magnesium (1.7-2.3) mg/dL 11/16/21 11/16/21 11/17/21 Range/Units 22:51 23:55 01:46 MCV (79-97) fl MCH (28-32) pg RDW (13.2-15.2) % Sodium (137-145) mmol/L Potassium (3.6-5.0) mmol/L Carbon Dioxide (22-30) mmol/L BUN 3 L (7-17) mg/dL Creatinine 0.5 L (0.6-1.2) mg/dL Glucose 126 H (65-100) mg/dL POC Glucose 144 H 166 H (70-105) mg/dL Calcium (8.4-10.2) mg/dL Phosphorus 2.20 L D (2.5-4.5) mg/dL Magnesium (1.7-2.3) mg/dL 11/17/21 11/17/21 11/17/21 Range/Units 03:45 03:45 05:27 MCV 76 L (79-97) fl MCH 26 L (28-32) pg RDW 22.7 H (13.2-15.2) % Sodium (137-145) mmol/L Potassium (3.6-5.0) mmol/L Carbon Dioxide (22-30) mmol/L BUN 3 L (7-17) mg/dL Creatinine (0.6-1.2) mg/dL Glucose 184 H (65-100) mg/dL POC Glucose 203 H (70-105) mg/dL Calcium (8.4-10.2) mg/dL Phosphorus (2.5-4.5) mg/dL Magnesium (1.7-2.3) mg/dL Medications & Allergies - Medications Allergies/Adverse Reactions: Allergies caffeine Allergy (Verified 10/28/16 23:18) Nausea Home Medications: Home Medications Medication Instructions Recorded Confirmed Last Taken Type Ambien 10 mg PO PRN #10 10/31/16 08/25/17 Unknown Rx FLUoxetine 20 mg PO DAILY #30 10/31/16 08/25/17 Unknown Rx Pregabalin 75 mg PO BID #60 capsule 10/31/16 08/25/17 Unknown Rx Remeron 15 mg PO HS #30 10/31/16 08/25/17 Unknown Rx Metformin HCl 500 mg PO DAILY #30 tablet 09/04/17 Unknown Rx Ondansetron [Zofran TAB] 4 mg PO Q6H PRN #20 tablet 09/04/17 Unknown Rx Pantoprazole [Protonix TAB] 40 mg PO BID #60 tablet 09/04/17 Unknown Rx Sucralfate [Carafate] 1 gm PO Q6HR 30 Days oral.liqd 09/04/17 Unknown Rx amLODIPine 5 mg PO DAILY #30 tab 09/04/17 Unknown Rx Active Medications: Generic Name Dose Route Start Last Admin Trade Name Freq PRN Reason Stop Dose Admin Acetaminophen 650 mg 11/15/21 04:02 Acetaminophen 325 Mg Tab PO Q6H PRN Pain MILD(1-3)/Fever >100.5/BUTCHER Amlodipine Besylate 10 mg 11/18/21 10:00 Amlodipine 10 Mg Tab PO DAILY WILMER Aripiprazole 5 mg 11/17/21 10:00 11/17/21 10:26 Aripiprazole 5 Mg Tab PO 5 mg QDAY WILMER Administration Dextrose 50 ml 11/16/21 18:48 Dextrose 50% In Water (25gm) 50 Ml Syringe IV Q30MIN PRN Hypoglycemia Protocol Fluoxetine HCl 20 mg 11/16/21 10:00 11/17/21 10:26 Fluoxetine 20 Mg Cap PO 20 mg QDAY WILMER Administration Hydralazine HCl 10 mg 11/15/21 04:37 11/17/21 03:05 Hydralazine 20 Mg/1 Ml Inj IV 10 mg Q4HR PRN Administration Hypertension Hydroxyzine Pamoate 25 mg 11/16/21 11:22 Hydroxyzine Pamoate 25 Mg Cap PO Q6H PRN Anxiety Pantoprazole Sodium 80 mg/ 100 mls @ 10 mls/hr 11/15/21 03:00 11/17/21 00:06 Sodium Chloride IV 8 mg/hr DIRECT WILMER 10 mls/hr Administration 8 MG/HR Sodium Chloride 1,000 mls @ 75 mls/hr 11/17/21 00:00 11/17/21 00:07 Nacl 0.45% 1000 Ml IV 11/18/21 13:19 75 mls/hr DIRECT WILMER Administration Insulin Glargine 20 units 11/16/21 20:30 11/16/21 20:29 Insulin Glargine 100 Units/Ml SUB-Q 20 units QHS WILMER Administration Insulin Human Lispro 0 unit 11/17/21 00:00 11/17/21 10:26 Insulin Lispro 100 Unit/Ml SUB-Q Not Given Q4HR WILMER Protocol Labetalol HCl 10 mg 11/15/21 17:55 11/16/21 07:52 Labetalol 20 Mg/4 Ml Inj IV 10 mg Q4HR PRN Administration Hypertension Mirtazapine 15 mg 11/16/21 22:00 11/16/21 22:03 Mirtazapine 15 Mg Tab PO 15 mg QHS WILMER Administration Morphine Sulfate 2 mg 11/15/21 04:02 11/17/21 03:08 Morphine 2 Mg/1 Ml Inj IV 2 mg Q4H PRN Administration Pain , Severe (7-10) Ondansetron HCl 4 mg 11/15/21 04:02 11/16/21 09:18 Ondansetron 4 Mg/2 Ml Inj IV 4 mg Q8H PRN Administration Nausea And Vomiting Oxycodone/Acetaminophen 1 tab 11/17/21 07:48 Oxycodone /Acetaminophen 5-325mg Tab PO Q6H PRN Pain, Moderate (4-6) Pregabalin 75 mg 11/16/21 10:00 11/17/21 10:26 Pregabalin 75 Mg Cap PO 75 mg BID WILMER Administration Sodium Chloride 10 ml 11/15/21 10:00 11/17/21 10:28 Sodium Chloride 0.9% 10 Ml Flush Syringe IV 10 ml BID WILMER Administration Sodium Chloride 10 ml 11/15/21 04:02 Sodium Chloride 0.9% 10 Ml Flush Syringe IV PRN PRN LINE FLUSH Sucralfate 1 gm 11/16/21 12:00 11/17/21 05:33 Sucralfate 1 Gm/10 Ml Oral Liqd PO 1 gm Q6HR WILMER Administration
[2021-11-17] MEDS: INSULIN GLARGINE 100 UNITS/ML SUB-Q SCH (22:24)
[2021-11-17] MEDS: MIRTAZAPINE 15 MG TAB PO SCH (22:24)
[2021-11-18] MEDS: INSULIN LISPRO 100 UNIT/ML SUB-Q SCH ×6 (02:00→21:46)
[2021-11-18] MEDS: hydrALAZINE 20 MG/1 ML INJ IV PRN (05:41)
[2021-11-18] MEDS: SUCRALFATE 1 GM/10 ML ORAL LIQD PO SCH ×3 (05:41→18:09)
[2021-11-18] MEDS: ONDANSETRON 4 MG/2 ML INJ IV PRN (07:36)
[2021-11-18] MEDS: MORPHINE 2 MG/1 ML INJ IV PRN ×2 (07:36→21:47)
[2021-11-18 10:02] LABS: Blood Urea Nitrogen 11 mg/dL (7-17); Calcium 9.8 mg/dL (8.4-10.2); Hemolysis Index 0
[2021-11-18 10:11] LABS: BUN/Creatinine Ratio 16
[2021-11-18] MEDS: PANTOPRAZOLE 40 MG TAB PO SCH ×2 (10:38→21:46)
[2021-11-18] MEDS: amLODIPine 10 MG TAB PO SCH (10:38)
[2021-11-18] MEDS: FLUoxetine 20 MG CAP PO SCH (10:38)
[2021-11-18] MEDS: PREGABALIN 75 MG CAP PO SCH ×2 (10:38→21:46)
[2021-11-18] MEDS: ARIPiprazole 5 MG TAB PO SCH (10:44)
--- NOTE | 2021-11-18 12:25 | Progress Note ---
Assessment and Plan DKA Severe abdominal pain Esophagitis/gastritis Acute gastrointestinal bleed Lactic Acidosis History of ulcerative esophagitis History of depression Hypomagnesemia Hemoconcentration - 3 gms Mag Sulfate ordered X 1 - continue 1 on 1 sitter - Psychiatry evaluation ongoing re: Suicidal ideations - continue accuchecks with glycemic control per SSI for target blood glucose of < 180 mg/dL; avoid hypoglycemia - continue prn antiemetics - gentle volume resuscitation at this point - prn supplemental oxygen for target O2 sat's > 90% acutely - aspiration precautions - prn bronchodilators with pulmonary hygiene per RT - avoid nephrotoxins, renally dose all medications - AB's per ID rec's - prn analgesia per pain score - Maintenance of sleep-wake cycle, avoid delirium - G.I. & VTE prophylaxis - PT/OT/ROM exercises - mobility protocols for pressure ulcer prophylaxis - Monitor hemodynamics closely - continue other care per attending / other consultants - discharge planning ongoing concurrently .... Re-evaluate in am & prn Subjective Date of service: 11/18/21 Principal diagnosis: DKA; Abd. pain; Esophagitis/gastritis; Acute GI Bleed; Lactic Acidosis Interval history: Patient is seen today for: DKA; Severe abdominal pain; Esophagitis/gastritis; Acute GI Bleed; Lactic Acidosis; H/O ulcerative esophagitis; Depression Seen and examined at bedside; 24hour events reviewed; nursing and respiratory care staff consulted; no adverse overnight events reported to me; resting peacefully in bed; looks and feels much better; Objective Vital Signs - 12hr 11/18/21 11/18/21 11/18/21 04:00 07:51 08:13 Temperature 98.3 F Pulse Rate 89 119 H Pulse Rate [ 110 H From Monitor] Respiratory 13 18 Rate Blood Pressure 157/78 Blood Pressure [Left] O2 Sat by Pulse 98 98 Oximetry 11/18/21 11/18/21 08:22 11:35 Temperature 97.3 F L 98.8 F Pulse Rate 87 125 H Pulse Rate [ From Monitor] Respiratory 17 20 Rate Blood Pressure 172/87 Blood Pressure 138/60 [Left] O2 Sat by Pulse 98 98 Oximetry Constitutional: no acute distress Eyes: non-icteric ENT: oropharynx moist Neck: supple, no lymphadenopathy, no JVD Effort: normal Ascultation: Bilateral: clear Percussion: Bilateral: not dull Cardiovascular: regular rate and rhythm Gastrointestinal: normoactive bowel sounds, soft, tender (epigastrum, mild), non-distended Integumentary: normal Extremities: no cyanosis, no edema, pulses normal, no ischemia or petechiae Neurologic: non-focal exam, pupils equal and round, CN II-XII normal, motor strength normal and Psychiatric: mood appropriate, affect normal CBC and BMP: 11/17/21 03:45 11/18/21 09:02 Abnormal lab findings: Abnormal Labs 11/15/21 11/15/21 11/15/21 01:01 01:01 03:03 WBC RBC 5.85 H Hgb 14.8 H Hct 45.8 H MCV 78 L MCH 25 L RDW 22.1 H Plt Count Seg Neuts % (Manual) 84.0 H Lymphocytes % (Manual) 8.0 L Seg Neutrophils # Man 8.9 H Lymphocytes # (Manual) 0.8 L VBG pO2 Sodium Potassium Chloride 91.3 L Carbon Dioxide 12 L BUN 39 H Creatinine 1.4 H Glucose 355 H POC Glucose Hemoglobin A1c Lactic Acid Calcium 10.6 H Phosphorus 5.10 H Magnesium 1.40 L Total Protein 8.4 H Albumin Lipase 11/15/21 11/15/21 11/15/21 03:03 03:12 04:02 WBC RBC Hgb Hct MCV MCH RDW Plt Count Seg Neuts % (Manual) Lymphocytes % (Manual) Seg Neutrophils # Man Lymphocytes # (Manual) VBG pO2 54.3 H Sodium Potassium Chloride Carbon Dioxide 13 L BUN 38 H Creatinine Glucose 344 H POC Glucose 337 H Hemoglobin A1c Lactic Acid Calcium Phosphorus Magnesium Total Protein Albumin Lipase 11/15/21 11/15/21 11/15/21 05:03 05:23 06:18 WBC RBC Hgb Hct MCV MCH RDW Plt Count Seg Neuts % (Manual) Lymphocytes % (Manual) Seg Neutrophils # Man Lymphocytes # (Manual) VBG pO2 Sodium Potassium Chloride Carbon Dioxide 13 L BUN 35 H Creatinine Glucose 277 H POC Glucose 255 H 234 H Hemoglobin A1c Lactic Acid Calcium Phosphorus Magnesium Total Protein Albumin Lipase 11/15/21 11/15/21 11/15/21 07:00 07:01 07:54 WBC RBC Hgb Hct MCV MCH RDW Plt Count Seg Neuts % (Manual) Lymphocytes % (Manual) Seg Neutrophils # Man Lymphocytes # (Manual) VBG pO2 Sodium Potassium Chloride Carbon Dioxide 20 L D BUN 32 H Creatinine Glucose 225 H POC Glucose 222 H 256 H Hemoglobin A1c Lactic Acid Calcium Phosphorus Magnesium Total Protein Albumin Lipase 11/15/21 11/15/21 11/15/21 09:15 10:17 10:53 WBC RBC Hgb Hct MCV MCH RDW Plt Count Seg Neuts % (Manual) Lymphocytes % (Manual) Seg Neutrophils # Man Lymphocytes # (Manual) VBG pO2 Sodium 135 L D Potassium 6.1 H* D Chloride Carbon Dioxide 20 L BUN 23 H Creatinine Glucose 659 H* POC Glucose 271 H 271 H Hemoglobin A1c Lactic Acid Calcium 8.0 L Phosphorus 2.00 L D Magnesium 7.60 H Total Protein 5.3 L D Albumin 3.3 L Lipase 8 L 11/15/21 11/15/21 11/15/21 10:53 11:04 11:58 WBC RBC Hgb Hct MCV MCH RDW Plt Count Seg Neuts % (Manual) Lymphocytes % (Manual) Seg Neutrophils # Man Lymphocytes # (Manual) VBG pO2 Sodium Potassium Chloride Carbon Dioxide BUN Creatinine Glucose POC Glucose 241 H 253 H Hemoglobin A1c 7.6 H Lactic Acid Calcium Phosphorus Magnesium Total Protein Albumin Lipase 11/15/21 11/15/21 11/15/21 12:56 12:56 12:58 WBC RBC Hgb Hct MCV MCH RDW Plt Count Seg Neuts % (Manual) Lymphocytes % (Manual) Seg Neutrophils # Man Lymphocytes # (Manual) VBG pO2 Sodium Potassium Chloride 108.3 H Carbon Dioxide BUN 24 H Creatinine Glucose 226 H POC Glucose 226 H Hemoglobin A1c Lactic Acid 2.30 H* Calcium Phosphorus Magnesium Total Protein Albumin Lipase 11 L 11/15/21 11/15/21 11/15/21 13:56 14:56 16:07 WBC RBC Hgb Hct MCV MCH RDW Plt Count Seg Neuts % (Manual) Lymphocytes % (Manual) Seg Neutrophils # Man Lymphocytes # (Manual) VBG pO2 Sodium Potassium Chloride Carbon Dioxide BUN Creatinine Glucose POC Glucose 174 H 186 H 167 H Hemoglobin A1c Lactic Acid Calcium Phosphorus Magnesium Total Protein Albumin Lipase 11/15/21 11/15/21 11/15/21 16:58 17:54 18:48 WBC RBC Hgb Hct MCV MCH RDW Plt Count Seg Neuts % (Manual) Lymphocytes % (Manual) Seg Neutrophils # Man Lymphocytes # (Manual) VBG pO2 Sodium Potassium Chloride 107.1 H Carbon Dioxide BUN 18 H Creatinine Glucose 151 H POC Glucose 169 H 145 H Hemoglobin A1c Lactic Acid Calcium Phosphorus Magnesium Total Protein Albumin Lipase 11/15/21 11/15/21 11/15/21 18:54 20:02 21:00 WBC RBC Hgb Hct MCV MCH RDW Plt Count Seg Neuts % (Manual) Lymphocytes % (Manual) Seg Neutrophils # Man Lymphocytes # (Manual) VBG pO2 Sodium Potassium Chloride Carbon Dioxide BUN Creatinine Glucose POC Glucose 143 H 162 H 167 H Hemoglobin A1c Lactic Acid Calcium Phosphorus Magnesium Total Protein Albumin Lipase 11/15/21 11/15/21 11/15/21 22:05 22:47 23:57 WBC RBC Hgb Hct MCV MCH RDW Plt Count Seg Neuts % (Manual) Lymphocytes % (Manual) Seg Neutrophils # Man Lymphocytes # (Manual) VBG pO2 Sodium Potassium Chloride Carbon Dioxide BUN Creatinine Glucose POC Glucose 150 H 140 H 162 H Hemoglobin A1c Lactic Acid Calcium Phosphorus Magnesium Total Protein Albumin Lipase 11/16/21 11/16/21 11/16/21 01:06 02:22 03:06 WBC RBC Hgb Hct MCV MCH RDW Plt Count Seg Neuts % (Manual) Lymphocytes % (Manual) Seg Neutrophils # Man Lymphocytes # (Manual) VBG pO2 Sodium Potassium Chloride Carbon Dioxide BUN Creatinine Glucose POC Glucose 163 H 181 H 171 H Hemoglobin A1c Lactic Acid Calcium Phosphorus Magnesium Total Protein Albumin Lipase 11/16/21 11/16/21 11/16/21 04:08 04:12 04:12 WBC 14.1 H RBC Hgb Hct MCV 77 L MCH 25 L RDW 22.2 H Plt Count 138 L Seg Neuts % (Manual) Lymphocytes % (Manual) Seg Neutrophils # Man Lymphocytes # (Manual) VBG pO2 Sodium Potassium Chloride Carbon Dioxide BUN Creatinine Glucose 169 H POC Glucose 154 H Hemoglobin A1c Lactic Acid Calcium Phosphorus 1.80 L D Magnesium Total Protein Albumin 3.8 L Lipase 11/16/21 11/16/21 11/16/21 04:12 05:14 06:06 WBC RBC Hgb Hct MCV MCH RDW Plt Count Seg Neuts % (Manual) Lymphocytes % (Manual) Seg Neutrophils # Man Lymphocytes # (Manual) VBG pO2 Sodium Potassium Chloride Carbon Dioxide BUN Creatinine Glucose POC Glucose 141 H 141 H Hemoglobin A1c Lactic Acid 2.10 H* Calcium Phosphorus Magnesium Total Protein Albumin Lipase 11/16/21 11/16/21 11/16/21 06:55 07:54 07:56 WBC RBC Hgb Hct MCV MCH RDW Plt Count Seg Neuts % (Manual) Lymphocytes % (Manual) Seg Neutrophils # Man Lymphocytes # (Manual) VBG pO2 Sodium Potassium Chloride Carbon Dioxide BUN Creatinine Glucose POC Glucose 166 H 216 H 193 H Hemoglobin A1c Lactic Acid Calcium Phosphorus Magnesium Total Protein Albumin Lipase 11/16/21 11/16/21 11/16/21 08:58 09:58 10:55 WBC RBC Hgb Hct MCV MCH RDW Plt Count Seg Neuts % (Manual) Lymphocytes % (Manual) Seg Neutrophils # Man Lymphocytes # (Manual) VBG pO2 Sodium Potassium Chloride Carbon Dioxide BUN Creatinine Glucose POC Glucose 167 H 161 H 140 H Hemoglobin A1c Lactic Acid Calcium Phosphorus Magnesium Total Protein Albumin Lipase 11/16/21 11/16/21 11/16/21 12:07 12:18 13:02 WBC RBC Hgb Hct MCV MCH RDW Plt Count Seg Neuts % (Manual) Lymphocytes % (Manual) Seg Neutrophils # Man Lymphocytes # (Manual) VBG pO2 Sodium 131 L D Potassium 5.6 H D Chloride Carbon Dioxide 21 L BUN 5 L Creatinine 0.5 L Glucose 363 H POC Glucose 158 H 176 H Hemoglobin A1c Lactic Acid Calcium 8.0 L Phosphorus Magnesium 1.20 L Total Protein Albumin Lipase 11/16/21 11/16/21 11/16/21 14:05 14:14 15:03 WBC RBC Hgb Hct MCV MCH RDW Plt Count Seg Neuts % (Manual) Lymphocytes % (Manual) Seg Neutrophils # Man Lymphocytes # (Manual) VBG pO2 Sodium Potassium Chloride Carbon Dioxide BUN 4 L Creatinine Glucose 200 H POC Glucose 194 H 221 H Hemoglobin A1c Lactic Acid Calcium Phosphorus Magnesium 1.30 L Total Protein Albumin Lipase 11/16/21 11/16/21 11/16/21 16:01 17:00 18:01 WBC RBC Hgb Hct MCV MCH RDW Plt Count Seg Neuts % (Manual) Lymphocytes % (Manual) Seg Neutrophils # Man Lymphocytes # (Manual) VBG pO2 Sodium Potassium Chloride Carbon Dioxide BUN Creatinine Glucose POC Glucose 196 H 163 H 200 H Hemoglobin A1c Lactic Acid Calcium Phosphorus Magnesium Total Protein Albumin Lipase 11/16/21 11/16/21 11/16/21 19:11 20:04 22:03 WBC RBC Hgb Hct MCV MCH RDW Plt Count Seg Neuts % (Manual) Lymphocytes % (Manual) Seg Neutrophils # Man Lymphocytes # (Manual) VBG pO2 Sodium Potassium Chloride Carbon Dioxide BUN Creatinine Glucose POC Glucose 164 H 113 H 116 H Hemoglobin A1c Lactic Acid Calcium Phosphorus Magnesium Total Protein Albumin Lipase 11/16/21 11/16/21 11/17/21 22:51 23:55 01:46 WBC RBC Hgb Hct MCV MCH RDW Plt Count Seg Neuts % (Manual) Lymphocytes % (Manual) Seg Neutrophils # Man Lymphocytes # (Manual) VBG pO2 Sodium Potassium Chloride Carbon Dioxide BUN 3 L Creatinine 0.5 L Glucose 126 H POC Glucose 144 H 166 H Hemoglobin A1c Lactic Acid Calcium Phosphorus 2.20 L D Magnesium Total Protein Albumin Lipase 11/17/21 11/17/21 11/17/21 03:45 03:45 05:27 WBC RBC Hgb Hct MCV 76 L MCH 26 L RDW 22.7 H Plt Count Seg Neuts % (Manual) Lymphocytes % (Manual) Seg Neutrophils # Man Lymphocytes # (Manual) VBG pO2 Sodium Potassium Chloride Carbon Dioxide BUN 3 L Creatinine Glucose 184 H POC Glucose 203 H Hemoglobin A1c Lactic Acid Calcium Phosphorus Magnesium Total Protein Albumin Lipase 11/17/21 11/17/21 11/17/21 11:10 16:22 21:36 WBC RBC Hgb Hct MCV MCH RDW Plt Count Seg Neuts % (Manual) Lymphocytes % (Manual) Seg Neutrophils # Man Lymphocytes # (Manual) VBG pO2 Sodium Potassium Chloride Carbon Dioxide BUN Creatinine Glucose POC Glucose 197 H 134 H 262 H Hemoglobin A1c Lactic Acid Calcium Phosphorus Magnesium Total Protein Albumin Lipase 11/18/21 09:02 WBC RBC Hgb Hct MCV MCH RDW Plt Count Seg Neuts % (Manual) Lymphocytes % (Manual) Seg Neutrophils # Man Lymphocytes # (Manual) VBG pO2 Sodium Potassium Chloride 97.3 L Carbon Dioxide BUN Creatinine Glucose 262 H POC Glucose Hemoglobin A1c Lactic Acid Calcium Phosphorus Magnesium 1.40 L Total Protein Albumin Lipase Allied health notes reviewed: nursing
[2021-11-18] MEDS: METOCLOPRAMIDE 10 MG/2 ML INJ IV PRN (13:23)
--- NOTE | 2021-11-18 13:32 | Progress Note ---
Subjective - Reason for Consult Consult date: 11/18/21 Reason for consult: suicidal ideation - Chief Complaint Chief complaint: The patient was seen today. The patient reports "I'm in pain and have chills." Patient continues to be depressed, rates it 08/22. Patient denies SI HI AVH at this time. Patient reports poor sleep and poor appetite. REVIEW OF SYSTEMS Constitutional: Negative for weight loss ENT: Negative for stridor Respiratory: Negative for cough or hemoptysis All other systems reviewed and are negative MENTAL STATUS General Appearance and Behavior: age appropriate, good eye contact, cooperative, Cooperation: Cooperative Psychomotor Behavior: within normal limits Mood: depressed Affect and affective range: Congruent with stated mood Thought Process: goal directed Thought Content: reality oriented Speech: Normal volume and Regular rate and rhythm Suicidal Ideation:Denies Homicidal Ideation: Denies HI Hallucinations: Denies Impulse Control: intact Insight and Judgment: Limited Memory: Limited Attention: Attentive Orientation: alert and oriented x4 Assessment Major depressive disorder Treatment Plan 1013 Continue home medications Continue Abilify 5mg po daily Continue Vistaril 25mg po Q6hrs PRN for anxiety The patient is to get first dose of meds prior to leaving. Benefits and possible SE were explained to patient. She verbalizes understanding. Risks, benefits and alternatives of medications discussed with the patient, questions answered and consent obtained from patient. PSYCHOTHERAPY: Supportive psychotherapy provided MEDICAL: Per primary team DELIRIUM PRECAUTIONS: Please re-orient patient frequently, keep lights on during the day, and minimize benzodiazepines and opiates as these medications could worsen patient's confusion. 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 FOLLOW-UP: Will follow. Thank you for the consult. Please contact with any questions and/or concerns Case discussed with Dr. Ruby who agrees with current disposition Medications and Allergies Mental Status Exam - Vital signs Last Vital Signs Temp 98.8 F 11/18/21 11:35 Pulse 125 H 11/18/21 11:35 Resp 20 11/18/21 11:35 BP 172/87 11/18/21 11:35 Pulse Ox 98 11/18/21 11:35
[2021-11-18] MEDS ORDERED: MAGNESIUM SULFATE 4 GM/100 ML BAG IV ONE (14:08)
--- NOTE | 2021-11-18 14:47 | Discharge Summary ---
Providers - Providers Date of Admission: 11/15/21 04:02 Date of discharge: 11/18/21 Attending physician: RAPHAEL FARAH MD 11/15/21 04:02 Consult to Dietitian/Nutrition [CONS] Routine Physician Instructions: Reason For Exam: Reason for Consult: Diet education Consult to Physician [CONS] Routine Comment: Consulting Provider: AI TRACY Physician Instructions: Reason For Exam: DKA 11/15/21 07:18 Consult to Physician [CONS] Routine Comment: Consulting Provider: WILMAR ARCINIEGA Physician Instructions: Reason For Exam: ?Coffee ground emesis 11/16/21 08:50 Consult to Mental Health [CONS] Routine Reason For Exam: suicidal ideation Primary care physician: SHRADDHA CAPELLAN Hospitalization Reason for admission: coffee ground emesis Condition: Stable Hospital course: Assessment and plan: This is a 50-year-old female with known past medical history of depression, ulcerative esophagitis, DM complicated by gastroparesis admitted for DKA Hospital Course to Date: 11/15: C/o severe abdominal pain this am, accompanied with nausea and coffee ground emesis. CT Abd/Pelvis reviewed, suggesting esophagitis, gastritis, and chronic pancreatitis. Patient remains on insulin gtt and IVF resuscitation per DKA protocol. H&H is stable, gastric occult pending. On protonix gtt, GI consult pending. Continue to trend CBC. Tachycardia and Hypertension improved post PRN analgesia. Resume home antihypertensive regimen once list is available. Continue PRN analgesia for pain control and PRN antiemetic for N/V. PRN labetalol added for SBP greater than 160. 11/16: Remains on protonix gtt and DKA protocol. Patient is refusing PO intake and still c/o of severe abdominal cramping and nausea/vomiting, no coffee ground emesis reported from overnight. Continue PRN analgesia and antiemetic, encourage PO intake. GI recommendations noted. Continue PPI gtt and resume home carafate. Patient is also with suicidal ideation this am, no active plan at this time. Mental health/psych consulted. Intermittent tachycardia and hypertension overnight and this am, probably due to pain/anxiety. Continue PRN Labetalol/hydralazine. Resume home antihypertensive regimen. Transition to subQ insulin once patient is tolerating PO intake. 11/17: Feeling a lot better this am, remains stable on RA. VSS. Patient was transitioned to subQ insulin overnight. Voiced being hungry this am, no N/V overnight, tolerating PO intake. GI recommendations noted. Continue PPI and c arafate, advance diet as tolerated. Continue 1013 status per mental Health/Psych. D/w CCM, patient is stable for transfer to Telemetry. 11/18: No plan by GI for further imaging via EGD. Recommends PPI and carafate. Reglan IV added for further control of nausea. Will need placement to inpatient psych. Discussed with CM. Will call family to update on patient case. Assessment and Plan #Diabetic Ketoacidosis(DKA) #Type 2 Diabetes Mellitus - BG and anion gap still elevated this am - S/p DKA protocol - No abdominal pain, N/V this am. Tolerating PO intake - Transitioned to subQ insulin overnight - BG and SSI insulin ACHS - Monitor and replace electrolytes as needed - Avoid hypoglycemia #Severe Abdominal Pain-improved #Nausea and Coffee Ground Emesis-resolved #H/o Ulcerative Esophagitis #H/o Gastroparesis #Chronic Pancreatitis - Presented with severe abdominal pain this am, nausea, and coffee ground emesis this am - CTabd pelvis reviewed, see report for detail - Patient adamantly refused ETOH abuse - Coffee ground emesis noted in the ED and small amount in the ICU - H&H remains stable, gastric occult negative - GI recommendations noted, no plan for endoscopy at this time - Continue protonix gtt, and home carafate resumed - lipase & amylase wnr - Abdominal, N/V improved. Patient is tolerating PO intake - Advance diet as tolerated. Encourage PO intake - PRN analgesia for pain control - PRN antiemetic N/V #Hypertension - Tachycardic, HR in the 130-150s, with hypertention SBP in the 200s - Resume home antihypertensive regimen - Continue PRN Labetalol/hydralazine - Continue blood pressure monitor per protocol - Maintain SBP less than 160 #Suicidal Ideation #History of Depression - with suicidal ideation this am, no active plan at this time. - Mental health/psych consulted, appreciate recommendations - Patient now a 1013 status per psych - Home meds resumed- Prozac, remeron, abilify added per psych - Suicidal precaution, bedside sitter present - Maintenance of sleep-wake cycle #Microcytic Anemia - H&H stable, no s/s of any active bleeding - Continue to trend CBC #GI/DVT Prophylaxis - PPI- Protonix gtt - SCDs to bilateral lower extremities while in bed #Advance Care Planning - Disease education data, care plan, diagnoses, and prognosis were discussed with patient at the bedside. Patient is a FULL code. Patient acknowledged understanding and agreed with current care plan. Disposition: [address] [facility] Final Discharge Diagnosis (Prints w/discharge instructions): Coffee ground emeesis, esophagitis, history of ulcerative esophagitis, diabetic ketoacidosis, gastroparesis, chornic pancreatitis. Time spent for discharge: 35 Core Measure Documentation - Palliative Care Palliative Care/ Comfort Measures: Not Applicable - Core Measures Any of the following diagnoses?: none Exam - Physical Exam Narrative exam: General appearance: Present: no acute distress, cachectic - EENT Eyes: Present: PERRL, EOM intact ENT: hearing intact - Neck Neck: Present: normal ROM - Respiratory Respiratory effort: normal Respiratory: bilateral: diminished - Cardiovascular Rhythm: regular Heart Sounds: Present: S1 & S2 - Extremities Extremities: no ischemia, pulses intact, pulses symmetrical Peripheral Pulses: within normal limits - Abdominal General gastrointestinal: soft, non-distended, normal bowel sounds - Integumentary Integumentary: Present: warm, dry - Psychiatric Psychiatric: appropriate mood/affect, cooperative - Neurologic Neurologic: CNII-XII intact, moves all extremities - Allied Health Allied health notes reviewed: nursing, case management - Constitutional Vitals: Temp Pulse Resp BP Pulse Ox 98.8 F 125 H 20 172/87 98 11/18/21 11:35 11/18/21 11:35 11/18/21 11:35 11/18/21 11:35 11/18/21 11:35 Plan Follow up with: SHRADDHA CAPELLAN MD [Primary Care Provider] - 3-5 Days
[2021-11-18] MEDS ORDERED: MAGNESIUM SULFATE 3 GM in SODIUM CHLORIDE 0.9% 100 ML IV NR (15:00)
[2021-11-18] MEDS: INSULIN GLARGINE 100 UNITS/ML SUB-Q SCH (21:46)
[2021-11-18] MEDS: MIRTAZAPINE 15 MG TAB PO SCH (21:46)
[2021-11-19] MEDS: INSULIN LISPRO 100 UNIT/ML SUB-Q SCH ×6 (02:00→21:28)
[2021-11-19] MEDS: SUCRALFATE 1 GM/10 ML ORAL LIQD PO SCH ×4 (06:11→17:26)
[2021-11-19] MEDS: MORPHINE 2 MG/1 ML INJ IV PRN ×2 (06:12→12:08)
[2021-11-19] MEDS: amLODIPine 10 MG TAB PO SCH (09:30)
[2021-11-19] MEDS: oxyCODONE /ACETAMINOPHEN 5-325MG TAB PO PRN ×2 (09:30→18:38)
[2021-11-19] MEDS: METOCLOPRAMIDE 10 MG/2 ML INJ IV PRN (09:30)
[2021-11-19] MEDS: FLUoxetine 20 MG CAP PO SCH (09:30)
[2021-11-19] MEDS: PREGABALIN 75 MG CAP PO SCH ×2 (09:30→21:23)
[2021-11-19] MEDS: PANTOPRAZOLE 40 MG TAB PO SCH ×2 (09:34→21:23)
[2021-11-19] MEDS: ARIPiprazole 5 MG TAB PO SCH (09:34)
--- NOTE | 2021-11-19 12:58 | Progress Note ---
Assessment and Plan Assessment and plan: Assessment and plan: This is a 50-year-old female with known past medical history of depression, ulcerative esophagitis, DM complicated by gastroparesis admitted for DKA Hospital Course to Date: 11/15: C/o severe abdominal pain this am, accompanied with nausea and coffee ground emesis. CT Abd/Pelvis reviewed, suggesting esophagitis, gastritis, and ch ronic pancreatitis. Patient remains on insulin gtt and IVF resuscitation per DKA protocol. H&H is stable, gastric occult pending. On protonix gtt, GI consult pending. Continue to trend CBC. Tachycardia and Hypertension improved post PRN analgesia. Resume home antihypertensive regimen once list is available. Continue PRN analgesia for pain control and PRN antiemetic for N/V. PRN labetalol added for SBP greater than 160. 11/16: Remains on protonix gtt and DKA protocol. Patient is refusing PO intake and still c/o of severe abdominal cramping and nausea/vomiting, no coffee ground emesis reported from overnight. Continue PRN analgesia and antiemetic, encourage PO intake. GI recommendations noted. Continue PPI gtt and resume home carafate. Patient is also with suicidal ideation this am, no active plan at this time. Mental health/psych consulted. Intermittent tachycardia and hypertension overnig ht and this am, probably due to pain/anxiety. Continue PRN Labetalol/hydralazine. Resume home antihypertensive regimen. Transition to subQ insulin once patient is tolerating PO intake. 11/17: Feeling a lot better this am, remains stable on RA. VSS. Patient was transitioned to subQ insulin overnight. Voiced being hungry this am, no N/V overnight, tolerating PO intake. GI recommendations noted. Continue PPI and carafate, advance diet as tolerated. Continue 1013 status per mental Health/Psych. D/w CCM, patient is stable for transfer to Telemetry. 11/18: No plan by GI for further imaging via EGD. Recommends PPI and carafate. Reglan IV added for further control of nausea. Will need placement to inpatient psych. Discussed with CM. Will call family to update on patient case. Assessment and Plan #Diabetic Ketoacidosis(DKA) #Type 2 Diabetes Mellitus - BG and anion gap still elevated this am - S/p DKA protocol - No abdominal pain, N/V this am. Tolerating PO intake - Transitioned to subQ insulin overnight - BG and SSI insulin ACHS - Monitor and replace electrolytes as needed - Avoid hypoglycemia #Severe Abdominal Pain-improved #Nausea and Coffee Ground Emesis-resolved #H/o Ulcerative Esophagitis #H/o Gastroparesis #Chronic Pancreatitis - Presented with severe abdominal pain this am, nausea, and coffee ground emesis this am - CTabd pelvis reviewed, see report for detail - Patient adamantly refused ETOH abuse - Coffee ground emesis noted in the ED and small amount in the ICU - H&H remains stable, gastric occult negative - GI recommendations noted, no plan for endoscopy at this time - Continue protonix gtt, and home carafate resumed - lipase & amylase wnr - Abdominal, N/V improved. Patient is tolerating PO intake - Advance diet as tolerated. Encourage PO intake - PRN analgesia for pain control - PRN antiemetic N/V #Hypertension - Tachycardic, HR in the 130-150s, with hypertention SBP in the 200s - Resume home antihypertensive regimen - Continue PRN Labetalol/hydralazine - Continue blood pressure monitor per protocol - Maintain SBP less than 160 #Suicidal Ideation #History of Depression - with suicidal ideation this am, no active plan at this time. - Mental health/psych consulted, appreciate recommendations - Patient now a 1013 status per psych - Home meds resumed- Prozac, remeron, abilify added per psych - Suicidal precaution, bedside sitter present - Maintenance of sleep-wake cycle #Microcytic Anemia - H&H stable, no s/s of any active bleeding - Continue to trend CBC #GI/DVT Prophylaxis - PPI- Protonix gtt - SCDs to bilateral lower extremities while in bed #Advance Care Planning - Disease education data, care plan, diagnoses, and prognosis were discussed with patient at the bedside. Patient is a FULL code. Patient acknowledged understanding and agreed with current care plan. History Interval history: overnight issues with abdominal pain. per rnmatty had some relief with reglan. resting comfortably on my encounter. no acute complaints. Hospitalist Physical - Physical exam Narrative exam: General appearance: Present: no acute distress, cachectic - EENT Eyes: Present: PERRL, EOM intact ENT: hearing intact - Neck Neck: Present: normal ROM - Respiratory Respiratory effort: normal Respiratory: bilateral: diminished - Cardiovascular Rhythm: regular Heart Sounds: Present: S1 & S2 - Extremities Extremities: no ischemia, pulses intact, pulses symmetrical Peripheral Pulses: within normal limits - Abdominal General gastrointestinal: soft, non-distended, normal bowel sounds - Integumentary Integumentary: Present: warm, dry - Psychiatric Psychiatric: appropriate mood/affect, cooperative - Neurologic Neurologic: CNII-XII intact, moves all extremities - Allied Health Allied health notes reviewed: nursing, case management - Constitutional Vitals: Temp Pulse Resp BP Pulse Ox 98.6 F 109 H 18 191/101 95 11/19/21 12:03 11/19/21 12:03 11/19/21 12:03 11/19/21 12:03 11/19/21 12:03 General appearance: Present: no acute distress, cachectic Results - Labs CBC & Chem 7: 11/17/21 03:45 11/18/21 09:02 Labs: Laboratory Last Values WBC 9.7 K/mm3 (4.5-11.0) 11/17/21 03:45 RBC 4.49 M/mm3 (3.65-5.03) 11/17/21 03:45 Hgb 11.4 gm/dl (10.1-14.3) 11/17/21 03:45 Hct 34.2 % (30.3-42.9) 11/17/21 03:45 MCV 76 fl (79-97) L 11/17/21 03:45 MCH 26 pg (28-32) L 11/17/21 03:45 MCHC 34 % (30-34) 11/17/21 03:45 RDW 22.7 % (13.2-15.2) H 11/17/21 03:45 Plt Count 154 K/mm3 (140-440) 11/17/21 03:45 Add Manual Diff Complete 11/15/21 01:01 Total Counted 100 11/15/21 01:01 Seg Neuts % (Manual) 84.0 % (40.0-70.0) H 11/15/21 01:01 Band Neutrophils % 0 % 11/15/21 01:01 Lymphocytes % (Manual) 8.0 % (13.4-35.0) L 11/15/21 01:01 Reactive Lymphs % (Man) 0 % 11/15/21 01:01 Monocytes % (Manual) 6.0 % (0.0-7.3) 11/15/21 01:01 Eosinophils % (Manual) 1.0 % (0.0-4.3) 11/15/21 01:01 Basophils % (Manual) 1.0 % (0.0-1.8) 11/15/21 01:01 Metamyelocytes % 0 % 11/15/21 01:01 Myelocytes % 0 % 11/15/21 01:01 Promyelocytes % 0 % 11/15/21 01:01 Blast Cells % 0 % 11/15/21 01:01 Nucleated RBC % Not Reportable 11/15/21 01:01 Seg Neutrophils # Man 8.9 K/mm3 (1.8-7.7) H 11/15/21 01:01 Band Neutrophils # 0.0 K/mm3 11/15/21 01:01 Lymphocytes # (Manual) 0.8 K/mm3 (1.2-5.4) L 11/15/21 01:01 Abs React Lymphs (Man) 0.0 K/mm3 11/15/21 01:01 Monocytes # (Manual) 0.6 K/mm3 (0.0-0.8) 11/15/21 01:01 Eosinophils # (Manual) 0.1 K/mm3 (0.0-0.4) 11/15/21 01:01 Basophils # (Manual) 0.1 K/mm3 (0.0-0.1) 11/15/21 01:01 Metamyelocytes # 0.0 K/mm3 11/15/21 01:01 Myelocytes # 0.0 K/mm3 11/15/21 01:01 Promyelocytes # 0.0 K/mm3 11/15/21 01:01 Blast Cells # 0.0 K/mm3 11/15/21 01:01 WBC Morphology Not Reportable 11/15/21 01:01 Hypersegmented Neuts Not Reportable 11/15/21 01:01 Hyposegmented Neuts Not Reportable 11/15/21 01:01 Hypogranular Neuts Not Reportable 11/15/21 01:01 Smudge Cells Not Reportable 11/15/21 01:01 Toxic Granulation Not Reportable 11/15/21 01:01 Toxic Vacuolation Not Reportable 11/15/21 01:01 Dohle Bodies Not Reportable 11/15/21 01:01 Pelger-Huet Anomaly Not Reportable 11/15/21 01:01 Yosvany Rods Not Reportable 11/15/21 01:01 Platelet Estimate Not Reportable 11/15/21 01:01 Clumped Platelets Not Reportable 11/15/21 01:01 Plt Clumps, EDTA Not Reportable 11/15/21 01:01 Large Platelets Not Reportable 11/15/21 01:01 Giant Platelets Rare 11/15/21 01:01 Platelet Satelliting Not Reportable 11/15/21 01:01 Plt Morphology Comment Not Reportable 11/15/21 01:01 RBC Morphology Not Reportable 11/15/21 01:01 Dimorphic RBCs Yes 11/15/21 01:01 Polychromasia Not Reportable 11/15/21 01:01 Hypochromasia Few 11/15/21 01:01 Poikilocytosis Not Reportable 11/15/21 01:01 Anisocytosis 1+ 11/15/21 01:01 Microcytosis 1+ 11/15/21 01:01 Macrocytosis Rare 11/15/21 01:01 Spherocytes Not Reportable 11/15/21 01:01 Pappenheimer Bodies Not Reportable 11/15/21 01:01 Sickle Cells Not Reportable 11/15/21 01:01 Target Cells Not Reportable 11/15/21 01:01 Tear Drop Cells Not Reportable 11/15/21 01:01 Ovalocytes Not Reportable 11/15/21 01:01 Helmet Cells Not Reportable 11/15/21 01:01 [place] Bodies Not Reportable 11/15/21 01:01 [place] Rings Not Reportable 11/15/21 01:01 Willy Cells Not Reportable 11/15/21 01:01 Bite Cells Not Reportable 11/15/21 01:01 Crenated Cell Not Reportable 11/15/21 01:01 Elliptocytes Not Reportable 11/15/21 01:01 Acanthocytes (Spur) Not Reportable 11/15/21 01:01 Rouleaux Not Reportable 11/15/21 01:01 Hemoglobin C Crystals Not Reportable 11/15/21 01:01 Schistocytes Rare 11/15/21 01:01 Malaria parasites Not Reportable 11/15/21 01:01 Bassem Bodies Not Reportable 11/15/21 01:01 Hem Pathologist Commnt No 11/15/21 01:01 VBG pO2 54.3 (25.0-47.0) H 11/15/21 03:12 Sodium 137 mmol/L (137-145) 11/18/21 09:02 Potassium 4.0 mmol/L (3.6-5.0) 11/18/21 09:02 Chloride 97.3 mmol/L (98-107) L 11/18/21 09:02 Carbon Dioxide 26 mmol/L (22-30) 11/18/21 09:02 Anion Gap 18 mmol/L 11/18/21 09:02 BUN 11 mg/dL (7-17) 11/18/21 09:02 Creatinine 0.7 mg/dL (0.6-1.2) 11/18/21 09:02 Estimated GFR > 60 ml/min 11/18/21 09:02 BUN/Creatinine Ratio 16 % 11/18/21 09:02 Glucose 262 mg/dL (65-100) H 11/18/21 09:02 POC Glucose 118 mg/dL (70-105) H 11/19/21 10:02 Hemoglobin A1c 7.6 % (4-6) H 11/15/21 10:53 Lactic Acid 1.20 mmol/L (0.7-2.0) 11/16/21 12:18 Calcium 9.8 mg/dL (8.4-10.2) 11/18/21 09:02 Phosphorus 3.00 mg/dL (2.5-4.5) 11/18/21 09:02 Magnesium 1.40 mg/dL (1.7-2.3) L 11/18/21 09:02 Total Bilirubin 0.20 mg/dL (0.1-1.2) 11/16/21 04:12 Direct Bilirubin < 0.2 mg/dL (0-0.2) 11/15/21 10:53 Indirect Bilirubin 0.0 mg/dL 11/15/21 10:53 AST 14 units/L (5-40) 11/16/21 04:12 ALT 8 units/L (7-56) 11/16/21 04:12 Alkaline Phosphatase 56 units/L (35-129) 11/16/21 04:12 Total Protein 6.3 g/dL (6.3-8.2) 11/16/21 04:12 Albumin 3.8 g/dL (3.9-5) L 11/16/21 04:12 Albumin/Globulin Ratio 1.5 % 11/16/21 04:12 Amylase 66 units/L (27-131) 11/15/21 12:56 Lipase 11 units/L (13-60) L 11/15/21 12:56 Urine Color Yellow (Yellow) 11/15/21 Unknown Urine Turbidity Clear (Clear) 11/15/21 Unknown Specific [place] (Man) 1.015 (1.003-1.030) 11/15/21 Unknown Ur Protein (Man) Negative mg/dL (Negative) 11/15/21 Unknown Ur Ketones (Man) 3+ (Negative) 11/15/21 Unknown Ur Nitrite (Man) Negative (Negative) 11/15/21 Unknown Urine Bilirubin (Man) Negative (Negative) 11/15/21 Unknown Urine Ictotest Not Reportable 11/15/21 Unknown Leukocyte Esterase (Man) Negative (Negative) 11/15/21 Unknown Urine WBC (Auto) < 1.0 /HPF (0.0-6.0) 11/15/21 Unknown Urine RBC (Auto) 0.0 /HPF (0.0-6.0) 11/15/21 Unknown U Epithel Cells (Auto) < 1.0 /HPF (0-13.0) 11/15/21 Unknown Urine RBC (Manual) Negative (Negative) 11/15/21 Unknown Agudelo/IV: Voiding Method External Female Catheter Active Medications - Current Medications Current Medications: Generic Name Dose Route Start Last Admin Trade Name [facility] PRN Reason Stop Dose Admin Acetaminophen 650 mg 11/15/21 04:02 Acetaminophen 325 Mg Tab PO Q6H PRN Pain MILD(1-3)/Fever >100.5/BUTCHER Amlodipine Besylate 10 mg 11/18/21 10:00 11/19/21 09:30 Amlodipine 10 Mg Tab PO 10 mg DAILY WILMER Administration Aripiprazole 5 mg 11/17/21 10:00 11/19/21 09:34 Aripiprazole 5 Mg Tab PO Not Given QDAY WILMER Dextrose 50 ml 11/16/21 18:48 Dextrose 50% In Water (25gm) 50 Ml Syringe IV Q30MIN PRN Hypoglycemia Protocol Fluoxetine HCl 20 mg 11/16/21 10:00 11/19/21 09:30 Fluoxetine 20 Mg Cap PO 20 mg QDAY WILMER Administration Hydralazine HCl 10 mg 11/15/21 04:37 11/18/21 05:41 Hydralazine 20 Mg/1 Ml Inj IV 10 mg Q4HR PRN Administration Hypertension Hydroxyzine Pamoate 25 mg 11/16/21 11:22 Hydroxyzine Pamoate 25 Mg Cap PO Q6H PRN Anxiety Insulin Glargine 20 units 11/16/21 20:30 11/18/21 21:46 Insulin Glargine 100 Units/Ml SUB-Q 20 units QHS [facility] Administration Insulin Human Lispro 0 unit 11/17/21 00:00 11/19/21 10:04 Insulin Lispro 100 Unit/Ml SUB-Q Not Given Q4HR [facility] Protocol Labetalol HCl 10 mg 11/15/21 17:55 11/19/21 09:29 Labetalol 20 Mg/4 Ml Inj IV 10 mg Q4HR PRN Administration Hypertension Metoclopramide HCl 10 mg 11/18/21 12:25 11/19/21 09:30 Metoclopramide 10 Mg/2 Ml Inj IV 10 mg Q6H PRN Administration Nausea And Vomiting Mirtazapine 15 mg 11/16/21 22:00 11/18/21 21:46 Mirtazapine 15 Mg Tab PO 15 mg QHS [facility] Administration Morphine Sulfate 2 mg 11/15/21 04:02 11/19/21 12:08 Morphine 2 Mg/1 Ml Inj IV 2 mg Q4H PRN Administration Pain , Severe (7-10) Ondansetron HCl 4 mg 11/15/21 04:02 11/18/21 07:36 Ondansetron 4 Mg/2 Ml Inj IV 4 mg Q8H PRN Administration Nausea And Vomiting Oxycodone/Acetaminophen 1 tab 11/17/21 07:48 11/19/21 09:30 Oxycodone /Acetaminophen 5-325mg Tab PO 1 tab Q6H PRN Administration Pain, Moderate (4-6) Pantoprazole Sodium 40 mg 11/18/21 10:00 11/19/21 09:34 Pantoprazole 40 Mg Tab PO Not Given BID [facility] Pregabalin 75 mg 11/16/21 10:00 11/19/21 09:30 Pregabalin 75 Mg Cap PO 75 mg BID WILMER Administration Sodium Chloride 10 ml 11/15/21 10:00 11/19/21 09:35 Sodium Chloride 0.9% 10 Ml Flush Syringe IV 10 ml BID WILMER Administration Sodium Chloride 10 ml 11/15/21 04:02 Sodium Chloride 0.9% 10 Ml Flush Syringe IV PRN PRN LINE FLUSH Sucralfate 1 gm 11/16/21 12:00 11/19/21 12:10 Sucralfate 1 Gm/10 Ml Oral Liqd PO Not Given Q6HR WILMER Nutrition/Malnutrition Assess - Dietary Evaluation Nutrition/Malnutrition Findings: Nutrition Notes Start: 11/15/21 08:46 Freq: Status: Active Protocol: Document 11/17/21 11:22 BRADY (Rec: 11/17/21 11:34 BRADY [id number]) Nutrition Notes Need for Assessment generated from: Low BMI Initial or Follow up Assessment Current Diagnosis Diabetes,Hypertension Other Pertinent Diagnosis Ulcerative Esphagitis, s/p GI Bleed, DKA, Depression, Anemia , Hypomag Current Diet Consistent Carbohydrates -GI Soft- Diet (since L 11/17). Labs/Tests 11/17: BUN 3, Glu 184. Pertinent Medications 11/17: Lantus 20U / Humalog 2U , others nutritionally unremarkable. Height 5 ft 3 in Weight 45.359 kg [place] Body Weight (kg) 52.27 BMI 17.6 Intake Prior to Admission Poor Weight change and time frame Pt states having loss body weight No body weight change reported in 2 days. Weight Status Underweight Subjective/Other Information RD consult for routine F/U on dietary advancement. Diet advanced to PO, No reports available on Pt's PO intake of meals at the time, states that Pt is tolerating Fairly and was hungry this morning, according to Progress notes. Pt is on Room Air, O2 saturation @ 97%, according to Physical Assessment History notes. Pt still complains of abdominal Pain, no longer N/V, according to Physical Assessment History notes. Pt states having poor appetite and unintentional loss of body weight [employer], according to Admission document notes - appetite increasing per progress note 11/17. Pt continues on 1013 Status, according to Progress notes. Pt's Low BMI seems to correspond to a natural body composition, and not related to a sudden loss of body weight nor chronic malnutrition, since no signs of concern were mentioned in the Physical Assessment History or the Progress notes. Percent of energy/protein needs met: Prescribed Consistent Carbohydrates -GI Soft- Diet provides for energy/protein needs (2,061 Kcal/91 g) during LOS. Burn Absent Trauma Absent GI Symptoms Other Food Allergy Yes Skin Integrity/Comment Assessment WNL. Current % PO Good (75-100%) Minimum of two criteria No Energy Intake (non-severe) <75% Estimated Energy Requirement >7 days Interpretation of Weight Loss (non- 1-2% in 1 week severe) Fluid Accumulation N/A Reduced Confectionery Cooker Strength N/A (non-severe) Protein-Calorie Malnutrition Non-Severe #2 Nutrition Diagnosis Malnutrition Etiology Possibly secondary to pancreatitis, and ulcerative colitis. As Evidenced by Signs and Symptoms Pt states having poor appetite and unintentional loss of body weight [employer], according to Admission document notes. #1 Nutrition Diagnosis Underweight Comments: Pt's Low BMI seems to correspond to a natural body composition, and not related to a sudden loss of body weight nor chronic malnutrition, since no signs of concern were mentioned in the Physical Assessment History or the Progress notes. Etiology Uncertain, possibly natural body composition. As Evidenced by Signs and Symptoms BMI: 17.6 Kg/m2. Is patient on ventilator? No Is Patient Ambulatory and/or Out of Bed Yes REE-(Adel-St. Jeor-ambulatory/OOB) [ 1362.036 [id number]] Calculation Used for Recommendations Adel-St Jeor Additional Notes Protein: 1.2-1.5 g/Kg ABW; 54- 68 g/day. Fluids: 1 ml/Kcal, or as per MD. Nutrition Intervention Change Diet Order: Continue Consistent Carbohydrates -GI Soft- Diet as tolerated. Goal #1 Facilitate PO intake of meals with elemental, textural, or mechanical modification during LOS. Goal #2 Adjust the dietary intervention to better serve Pt's needs and clinical conditions during LOS. Follow-Up By: 11/24/21 Additional Comments Nutrition education will be provided at F/U, if feasible. Continue monitoring food tolerance, %PO intake of meals , and BM.
--- NOTE | 2021-11-19 13:08 | Progress Note ---
Subjective - Reason for Consult Consult date: 11/19/21 Reason for consult: suicidal ideation - Chief Complaint Chief complaint: The patient was seen today. She reports feeling better. Patient continues to be depressed, rates it 06/22. Patient denies SI HI AVH at this time. REVIEW OF SYSTEMS Constitutional: Negative for weight loss ENT: Negative for stridor Respiratory: Negative for cough or hemoptysis All other systems reviewed and are negative MENTAL STATUS General Appearance and Behavior: age appropriate, good eye contact, cooperative, Cooperation: Cooperative Psychomotor Behavior: within normal limits Mood: depressed Affect and affective range: Congruent with stated mood Thought Process: goal directed Thought Content: reality oriented Speech: Normal volume and Regular rate and rhythm Suicidal Ideation:Denies Homicidal Ideation: Denies HI Hallucinations: Denies Impulse Control: intact Insight and Judgment: Limited Memory: Limited Attention: Attentive Orientation: alert and oriented x4 Assessment Major depressive disorder Treatment Plan 1013 Continue home medications Continue Abilify 5mg po daily Continue Vistaril 25mg po Q6hrs PRN for anxiety The patient is to get first dose of meds prior to leaving. Benefits and possible SE were explained to patient. She verbalizes understanding. Risks, benefits and alternatives of medications discussed with the patient, questions answered and consent obtained from patient. PSYCHOTHERAPY: Supportive psychotherapy provided MEDICAL: Per primary team DELIRIUM PRECAUTIONS: Please re-orient patient frequently, keep lights on during the day, and minimize benzodiazepines and opiates as these medications could worsen patient's confusion. FERMENTING CELLARS RECEIVER: Defer to primary DISPOSITION: Recommend acute inpatient psychiatric hospitalization at this time. FOLLOW-UP: Will follow. Thank you for the consult. Please contact with any questions and/or concerns Case discussed with Dr. Ruby who agrees with current disposition Medications and Allergies Mental Status Exam - Vital signs Last Vital Signs Temp 98.6 F 11/19/21 12:03 Pulse 109 H 11/19/21 12:03 Resp 18 11/19/21 12:03 BP 191/101 11/19/21 12:03 Pulse Ox 95 11/19/21 12:03
--- NOTE | 2021-11-19 14:09 | Progress Note ---
Assessment and Plan 50-year-old female with known history of ulcerative esophagitis and diabetes mellitus presenting to the emergency room today complaining of nausea and vomiting . She has also been having severe abdominal pain especially in the epigastric region. She also indicated she has been having coffee-ground emesis. She denied any chest pain or shortness of breath, no fever or chills, no headache or dizziness and no diaphoresis. Patient denied any diarrhea. She denied any sick contacts and no recent travel. Denied any contact with anyone with COVID-19. Patients past medical history significant for diabetes, Gastroperesis, h. Pylori, Depression. Patient has no history of smoking, alcohol, or drug abuse. Used to work in [employer]. Not working now. Allergic to caffeine. Work-up in the emergency room , labs were significant for hemoglobin of 14.8 hematocrit of 45.8. BUN of 38 and creatinine of 1.2. Glucose of 344, anion gap of 32 and magnesium of 1.4. Potassium of 4.1. Patient has been admitted for DKA. Recent anion gap 18. Recent blood sugur 266. Patient transfered to Medical floor. Patient awake. Weak. Resting on room air. O2 saturation 95%. Denies chest pain, shortness of breath or cough. Patient afebrile. No leukocytosis, Blood pressure 191/101 , Pulse 109 , Respirations 18 Patient is on Labetalol. Management as per primary care. Patient is on Protonix and Sucralfate. - Patient Problems (1) DKA (diabetic ketoacidosis) Current Visit: Yes Status: Acute Plan to address problem: Patient is on S/C insulin. Improving. Anion gap 18. (2) Upper GI bleed Current Visit: Yes Status: Acute Plan to address problem: Management as per primary care. (3) Hypertension Current Visit: No Status: Acute Qualifiers: Hypertension type: essential hypertension Plan to address problem: Management as per primary care. (4) Intractable abdominal pain Current Visit: No Status: Acute Plan to address problem: Management as per primary care and GI specialist. (5) Intractable nausea and vomiting Current Visit: No Status: Acute Plan to address problem: Management as per primary care and GI specialist. (6) Ulcerative esophagitis Current Visit: No Status: Acute Plan to address problem: Management as per gastroenterology. Subjective Date of service: 11/19/21 Principal diagnosis: DKA; Abd. pain; Esophagitis/gastritis; Acute GI Bleed; Lactic Acidosis Interval history: 50-year-old female with known history of ulcerative esophagitis and diabetes mellitus presenting to the emergency room today complaining of nausea and vomiting . She has also been having severe abdominal pain especially in the ep igastric region. She also indicated she has been having coffee-ground emesis. She denied any chest pain or shortness of breath, no fever or chills, no headache or dizziness and no diaphoresis. Patient denied any diarrhea. She denied any sick contacts and no recent travel. Denied any contact with anyone with COVID-19. Patients past medical history significant for diabetes, Gastroperesis, h. Pylori, Depression. Patient has no history of smoking, alcohol, or drug abuse. Used to work in [employer]. Not working now. Allergic to caffeine. Work-up in the emergency room , labs were significant for hemoglobin of 14.8 hematocrit of 45.8. BUN of 38 and creatinine of 1.2. Glucose of 344, anion gap of 32 and magnesium of 1.4. Potassium of 4.1. Patient has been admitted for DKA. Recent anion gap 18. Recent blood sugur 266. Patient transfered to Medical floor. Patient awake. Weak. Resting on room air. O2 saturation 95%. Denies chest pain, shortness of breath or cough. Patient afebrile. No leukocytosis, Blood pressure 191/101 , Pulse 109 , Respirations 18 Patient is on Labetalol. Management as per primary care. Patient is on Protonix and Sucralfate. Objective Vital Signs - 12hr 11/19/21 11/19/21 11/19/21 04:56 07:21 08:24 Temperature 99.9 F H 97.8 F Pulse Rate 122 H 106 H 82 Pulse Rate [ 102 H From Monitor] Respiratory 20 13 18 Rate Blood Pressure 224/119 Blood Pressure 138/60 [Left] O2 Sat by Pulse 97 98 93 Oximetry 11/19/21 11/19/21 09:00 12:03 Temperature 99.2 F 98.6 F Pulse Rate 122 H 109 H Pulse Rate [ From Monitor] Respiratory 18 18 Rate Blood Pressure 208/125 191/101 Blood Pressure [Left] O2 Sat by Pulse 98 95 Oximetry Constitutional: no acute distress, alert, other (Weak.) Eyes: non-icteric ENT: oropharynx moist Neck: supple, no lymphadenopathy, no JVD Effort: normal Ascultation: Bilateral: clear Percussion: Bilateral: not dull Cardiovascular: regular rate and rhythm Gastrointestinal: normoactive bowel sounds, soft, tender (epigastrum, mild), non-distended Integumentary: normal Extremities: no cyanosis, no edema, pulses normal, no ischemia or petechiae Neurologic: non-focal exam, pupils equal and round, CN II-XII normal, motor strength normal and Psychiatric: depressed CBC and BMP: 11/17/21 03:45 11/18/21 09:02 Abnormal lab findings: Abnormal Labs 11/15/21 11/15/21 11/15/21 01:01 01:01 03:03 WBC RBC 5.85 H Hgb 14.8 H Hct 45.8 H MCV 78 L MCH 25 L RDW 22.1 H Plt Count Seg Neuts % (Manual) 84.0 H Lymphocytes % (Manual) 8.0 L Seg Neutrophils # Man 8.9 H Lymphocytes # (Manual) 0.8 L VBG pO2 Sodium Potassium Chloride 91.3 L Carbon Dioxide 12 L BUN 39 H Creatinine 1.4 H Glucose 355 H POC Glucose Hemoglobin A1c Lactic Acid Calcium 10.6 H Phosphorus 5.10 H Magnesium 1.40 L Total Protein 8.4 H Albumin Lipase 11/15/21 11/15/21 11/15/21 03:03 03:12 04:02 WBC RBC Hgb Hct MCV MCH RDW Plt Count Seg Neuts % (Manual) Lymphocytes % (Manual) Seg Neutrophils # Man Lymphocytes # (Manual) VBG pO2 54.3 H Sodium Potassium Chloride Carbon Dioxide 13 L BUN 38 H Creatinine Glucose 344 H POC Glucose 337 H Hemoglobin A1c Lactic Acid Calcium Phosphorus Magnesium Total Protein Albumin Lipase 11/15/21 11/15/21 11/15/21 05:03 05:23 06:18 WBC RBC Hgb Hct MCV MCH RDW Plt Count Seg Neuts % (Manual) Lymphocytes % (Manual) Seg Neutrophils # Man Lymphocytes # (Manual) VBG pO2 Sodium Potassium Chloride Carbon Dioxide 13 L BUN 35 H Creatinine Glucose 277 H POC Glucose 255 H 234 H Hemoglobin A1c Lactic Acid Calcium Phosphorus Magnesium Total Protein Albumin Lipase 11/15/21 11/15/21 11/15/21 07:00 07:01 07:54 WBC RBC Hgb Hct MCV MCH RDW Plt Count Seg Neuts % (Manual) Lymphocytes % (Manual) Seg Neutrophils # Man Lymphocytes # (Manual) VBG pO2 Sodium Potassium Chloride Carbon Dioxide 20 L D BUN 32 H Creatinine Glucose 225 H POC Glucose 222 H 256 H Hemoglobin A1c Lactic Acid Calcium Phosphorus Magnesium Total Protein Albumin Lipase 11/15/21 11/15/21 11/15/21 09:15 10:17 10:53 WBC RBC Hgb Hct MCV MCH RDW Plt Count Seg Neuts % (Manual) Lymphocytes % (Manual) Seg Neutrophils # Man Lymphocytes # (Manual) VBG pO2 Sodium 135 L D Potassium 6.1 H* D Chloride Carbon Dioxide 20 L BUN 23 H Creatinine Glucose 659 H* POC Glucose 271 H 271 H Hemoglobin A1c Lactic Acid Calcium 8.0 L Phosphorus 2.00 L D Magnesium 7.60 H Total Protein 5.3 L D Albumin 3.3 L Lipase 8 L 11/15/21 11/15/21 11/15/21 10:53 11:04 11:58 WBC RBC Hgb Hct MCV MCH RDW Plt Count Seg Neuts % (Manual) Lymphocytes % (Manual) Seg Neutrophils # Man Lymphocytes # (Manual) VBG pO2 Sodium Potassium Chloride Carbon Dioxide BUN Creatinine Glucose POC Glucose 241 H 253 H Hemoglobin A1c 7.6 H Lactic Acid Calcium Phosphorus Magnesium Total Protein Albumin Lipase 11/15/21 11/15/21 11/15/21 12:56 12:56 12:58 WBC RBC Hgb Hct MCV MCH RDW Plt Count Seg Neuts % (Manual) Lymphocytes % (Manual) Seg Neutrophils # Man Lymphocytes # (Manual) VBG pO2 Sodium Potassium Chloride 108.3 H Carbon Dioxide BUN 24 H Creatinine Glucose 226 H POC Glucose 226 H Hemoglobin A1c Lactic Acid 2.30 H* Calcium Phosphorus Magnesium Total Protein Albumin Lipase 11 L 11/15/21 11/15/21 11/15/21 13:56 14:56 16:07 WBC RBC Hgb Hct MCV MCH RDW Plt Count Seg Neuts % (Manual) Lymphocytes % (Manual) Seg Neutrophils # Man Lymphocytes # (Manual) VBG pO2 Sodium Potassium Chloride Carbon Dioxide BUN Creatinine Glucose POC Glucose 174 H 186 H 167 H Hemoglobin A1c Lactic Acid Calcium Phosphorus Magnesium Total Protein Albumin Lipase 11/15/21 11/15/21 11/15/21 16:58 17:54 18:48 WBC RBC Hgb Hct MCV MCH RDW Plt Count Seg Neuts % (Manual) Lymphocytes % (Manual) Seg Neutrophils # Man Lymphocytes # (Manual) VBG pO2 Sodium Potassium Chloride 107.1 H Carbon Dioxide BUN 18 H Creatinine Glucose 151 H POC Glucose 169 H 145 H Hemoglobin A1c Lactic Acid Calcium Phosphorus Magnesium Total Protein Albumin Lipase 11/15/21 11/15/21 11/15/21 18:54 20:02 21:00 WBC RBC Hgb Hct MCV MCH RDW Plt Count Seg Neuts % (Manual) Lymphocytes % (Manual) Seg Neutrophils # Man Lymphocytes # (Manual) VBG pO2 Sodium Potassium Chloride Carbon Dioxide BUN Creatinine Glucose POC Glucose 143 H 162 H 167 H Hemoglobin A1c Lactic Acid Calcium Phosphorus Magnesium Total Protein Albumin Lipase 11/15/21 11/15/21 11/15/21 22:05 22:47 23:57 WBC RBC Hgb Hct MCV MCH RDW Plt Count Seg Neuts % (Manual) Lymphocytes % (Manual) Seg Neutrophils # Man Lymphocytes # (Manual) VBG pO2 Sodium Potassium Chloride Carbon Dioxide BUN Creatinine Glucose POC Glucose 150 H 140 H 162 H Hemoglobin A1c Lactic Acid Calcium Phosphorus Magnesium Total Protein Albumin Lipase 11/16/21 11/16/21 11/16/21 01:06 02:22 03:06 WBC RBC Hgb Hct MCV MCH RDW Plt Count Seg Neuts % (Manual) Lymphocytes % (Manual) Seg Neutrophils # Man Lymphocytes # (Manual) VBG pO2 Sodium Potassium Chloride Carbon Dioxide BUN Creatinine Glucose POC Glucose 163 H 181 H 171 H Hemoglobin A1c Lactic Acid Calcium Phosphorus Magnesium Total Protein Albumin Lipase 11/16/21 11/16/21 11/16/21 04:08 04:12 04:12 WBC 14.1 H RBC Hgb Hct MCV 77 L MCH 25 L RDW 22.2 H Plt Count 138 L Seg Neuts % (Manual) Lymphocytes % (Manual) Seg Neutrophils # Man Lymphocytes # (Manual) VBG pO2 Sodium Potassium Chloride Carbon Dioxide BUN Creatinine Glucose 169 H POC Glucose 154 H Hemoglobin A1c Lactic Acid Calcium Phosphorus 1.80 L D Magnesium Total Protein Albumin 3.8 L Lipase 11/16/21 11/16/21 11/16/21 04:12 05:14 06:06 WBC RBC Hgb Hct MCV MCH RDW Plt Count Seg Neuts % (Manual) Lymphocytes % (Manual) Seg Neutrophils # Man Lymphocytes # (Manual) VBG pO2 Sodium Potassium Chloride Carbon Dioxide BUN Creatinine Glucose POC Glucose 141 H 141 H Hemoglobin A1c Lactic Acid 2.10 H* Calcium Phosphorus Magnesium Total Protein Albumin Lipase 11/16/21 11/16/21 11/16/21 06:55 07:54 07:56 WBC RBC Hgb Hct MCV MCH RDW Plt Count Seg Neuts % (Manual) Lymphocytes % (Manual) Seg Neutrophils # Man Lymphocytes # (Manual) VBG pO2 Sodium Potassium Chloride Carbon Dioxide BUN Creatinine Glucose POC Glucose 166 H 216 H 193 H Hemoglobin A1c Lactic Acid Calcium Phosphorus Magnesium Total Protein Albumin Lipase 11/16/21 11/16/21 11/16/21 08:58 09:58 10:55 WBC RBC Hgb Hct MCV MCH RDW Plt Count Seg Neuts % (Manual) Lymphocytes % (Manual) Seg Neutrophils # Man Lymphocytes # (Manual) VBG pO2 Sodium Potassium Chloride Carbon Dioxide BUN Creatinine Glucose POC Glucose 167 H 161 H 140 H Hemoglobin A1c Lactic Acid Calcium Phosphorus Magnesium Total Protein Albumin Lipase 11/16/21 11/16/21 11/16/21 12:07 12:18 13:02 WBC RBC Hgb Hct MCV MCH RDW Plt Count Seg Neuts % (Manual) Lymphocytes % (Manual) Seg Neutrophils # Man Lymphocytes # (Manual) VBG pO2 Sodium 131 L D Potassium 5.6 H D Chloride Carbon Dioxide 21 L BUN 5 L Creatinine 0.5 L Glucose 363 H POC Glucose 158 H 176 H Hemoglobin A1c Lactic Acid Calcium 8.0 L Phosphorus Magnesium 1.20 L Total Protein Albumin Lipase 11/16/21 11/16/21 11/16/21 14:05 14:14 15:03 WBC RBC Hgb Hct MCV MCH RDW Plt Count Seg Neuts % (Manual) Lymphocytes % (Manual) Seg Neutrophils # Man Lymphocytes # (Manual) VBG pO2 Sodium Potassium Chloride Carbon Dioxide BUN 4 L Creatinine Glucose 200 H POC Glucose 194 H 221 H Hemoglobin A1c Lactic Acid Calcium Phosphorus Magnesium 1.30 L Total Protein Albumin Lipase 11/16/21 11/16/21 11/16/21 16:01 17:00 18:01 WBC RBC Hgb Hct MCV MCH RDW Plt Count Seg Neuts % (Manual) Lymphocytes % (Manual) Seg Neutrophils # Man Lymphocytes # (Manual) VBG pO2 Sodium Potassium Chloride Carbon Dioxide BUN Creatinine Glucose POC Glucose 196 H 163 H 200 H Hemoglobin A1c Lactic Acid Calcium Phosphorus Magnesium Total Protein Albumin Lipase 11/16/21 11/16/21 11/16/21 19:11 20:04 22:03 WBC RBC Hgb Hct MCV MCH RDW Plt Count Seg Neuts % (Manual) Lymphocytes % (Manual) Seg Neutrophils # Man Lymphocytes # (Manual) VBG pO2 Sodium Potassium Chloride Carbon Dioxide BUN Creatinine Glucose POC Glucose 164 H 113 H 116 H Hemoglobin A1c Lactic Acid Calcium Phosphorus Magnesium Total Protein Albumin Lipase 11/16/21 11/16/21 11/17/21 22:51 23:55 01:46 WBC RBC Hgb Hct MCV MCH RDW Plt Count Seg Neuts % (Manual) Lymphocytes % (Manual) Seg Neutrophils # Man Lymphocytes # (Manual) VBG pO2 Sodium Potassium Chloride Carbon Dioxide BUN 3 L Creatinine 0.5 L Glucose 126 H POC Glucose 144 H 166 H Hemoglobin A1c Lactic Acid Calcium Phosphorus 2.20 L D Magnesium Total Protein Albumin Lipase 11/17/21 11/17/21 11/17/21 03:45 03:45 05:27 WBC RBC Hgb Hct MCV 76 L MCH 26 L RDW 22.7 H Plt Count Seg Neuts % (Manual) Lymphocytes % (Manual) Seg Neutrophils # Man Lymphocytes # (Manual) VBG pO2 Sodium Potassium Chloride Carbon Dioxide BUN 3 L Creatinine Glucose 184 H POC Glucose 203 H Hemoglobin A1c Lactic Acid Calcium Phosphorus Magnesium Total Protein Albumin Lipase 11/17/21 11/17/21 11/17/21 11:10 16:22 21:36 WBC RBC Hgb Hct MCV MCH RDW Plt Count Seg Neuts % (Manual) Lymphocytes % (Manual) Seg Neutrophils # Man Lymphocytes # (Manual) VBG pO2 Sodium Potassium Chloride Carbon Dioxide BUN Creatinine Glucose POC Glucose 197 H 134 H 262 H Hemoglobin A1c Lactic Acid Calcium Phosphorus Magnesium Total Protein Albumin Lipase 11/18/21 11/18/21 11/18/21 09:02 14:45 17:26 WBC RBC Hgb Hct MCV MCH RDW Plt Count Seg Neuts % (Manual) Lymphocytes % (Manual) Seg Neutrophils # Man Lymphocytes # (Manual) VBG pO2 Sodium Potassium Chloride 97.3 L Carbon Dioxide BUN Creatinine Glucose 262 H POC Glucose 205 H 181 H Hemoglobin A1c Lactic Acid Calcium Phosphorus Magnesium 1.40 L Total Protein Albumin Lipase 11/18/21 11/19/21 11/19/21 21:15 06:22 10:02 WBC RBC Hgb Hct MCV MCH RDW Plt Count Seg Neuts % (Manual) Lymphocytes % (Manual) Seg Neutrophils # Man Lymphocytes # (Manual) VBG pO2 Sodium Potassium Chloride Carbon Dioxide BUN Creatinine Glucose POC Glucose 173 H 193 H 118 H Hemoglobin A1c Lactic Acid Calcium Phosphorus Magnesium Total Protein Albumin Lipase Allied health notes reviewed: nursing
[2021-11-19] MEDS: MIRTAZAPINE 15 MG TAB PO SCH (21:23)
[2021-11-19] MEDS: INSULIN GLARGINE 100 UNITS/ML SUB-Q SCH (21:30)
[2021-11-20] MEDS: SUCRALFATE 1 GM/10 ML ORAL LIQD PO SCH ×4 (01:02→17:57)
[2021-11-20 01:15] LABS: Amphetamine Screen,Urine PRESUMPTIVE NEGATIVE; Benzodiazepines Screen,Urine PRESUMPTIVE NEGATIVE; Cannabinoid Screen,Urine PRESUMPTIVE NEGATIVE; Cocaine Screen,Urine PRESUMPTIVE NEGATIVE; Methadone Screen,Urine PRESUMPTIVE NEGATIVE; Opiate Screen,Urine PRESUMPTIVE POSITIVE
[2021-11-20] MEDS: INSULIN LISPRO 100 UNIT/ML SUB-Q SCH ×5 (03:02→17:57)
--- NOTE | 2021-11-20 07:48 | Progress Note ---
Assessment and Plan Assessment and plan: Assessment and plan: This is a 50-year-old female with known past medical history of depression, ulcerative esophagitis, DM complicated by gastroparesis admitted for DKA Hospital Course to Date: 11/15: C/o severe abdominal pain this am, accompanied with nausea and coffee ground emesis. CT Abd/Pelvis reviewed, suggesting esophagitis, gastritis, and ch ronic pancreatitis. Patient remains on insulin gtt and IVF resuscitation per DKA protocol. H&H is stable, gastric occult pending. On protonix gtt, GI consult pending. Continue to trend CBC. Tachycardia and Hypertension improved post PRN analgesia. Resume home antihypertensive regimen once list is available. Continue PRN analgesia for pain control and PRN antiemetic for N/V. PRN labetalol added for SBP greater than 160. 11/16: Remains on protonix gtt and DKA protocol. Patient is refusing PO intake and still c/o of severe abdominal cramping and nausea/vomiting, no coffee ground emesis reported from overnight. Continue PRN analgesia and antiemetic, encourage PO intake. GI recommendations noted. Continue PPI gtt and resume home carafate. Patient is also with suicidal ideation this am, no active plan at this time. Mental health/psych consulted. Intermittent tachycardia and hypertension overnig ht and this am, probably due to pain/anxiety. Continue PRN Labetalol/hydralazine. Resume home antihypertensive regimen. Transition to subQ insulin once patient is tolerating PO intake. 11/17: Feeling a lot better this am, remains stable on RA. VSS. Patient was transitioned to subQ insulin overnight. Voiced being hungry this am, no N/V overnight, tolerating PO intake. GI recommendations noted. Continue PPI and carafate, advance diet as tolerated. Continue 1013 status per mental Health/Psych. D/w CCM, patient is stable for transfer to Telemetry. 11/18: No plan by GI for further imaging via EGD. Recommends PPI and carafate. Reglan IV added for further control of nausea. Will need placement to inpatient psych. Discussed with CM. Will call family to update on patient case. 11/19: Awaiting placement 11/20: Awaiting placement. abdominal pain still not controlled with reglan and sucralfate. Will add erythromycin solution 200 mg po q8hr. Assessment and Plan #Diabetic Ketoacidosis(DKA) #Type 2 Diabetes Mellitus - BG and anion gap still elevated this am - S/p DKA protocol - No abdominal pain, N/V this am. Tolerating PO intake - Transitioned to subQ insulin overnight - BG and SSI insulin ACHS - Monitor and replace electrolytes as needed - Avoid hypoglycemia #Severe Abdominal Pain-improved #Nausea and Coffee Ground Emesis-resolved #H/o Ulcerative Esophagitis #H/o Severe Gastroparesis #Chronic Pancreatitis - Presented with severe abdominal pain this am, nausea, and coffee ground emesis this am - CTabd pelvis reviewed, see report for detail - Patient adamantly refused ETOH abuse - Coffee ground emesis noted in the ED and small amount in the ICU - H&H remains stable, gastric occult negative - GI recommendations noted, no plan for endoscopy at this time - Continue protonix gtt, and home carafate resumed - added reglan for symptomatic control - add erythromycin liquid 200 mg po q8hr. - lipase & amylase wnr - Abdominal, N/V at baseline (history of severe gastroparesis), still continues to have significant pains when she intakes a lot of food but patient is tolerating PO intake - Advance diet as tolerated. Encourage PO intake - PRN analgesia for pain control - PRN antiemetic N/V #Hypertension - Tachycardic, HR in the 130-150s, with hypertention SBP in the 200s - Resume home antihypertensive regimen - Continue PRN Labetalol/hydralazine - Continue blood pressure monitor per protocol - Maintain SBP less than 160 #Suicidal Ideation #History of Depression - with suicidal ideation this am, no active plan at this time. - Mental health/psych consulted, appreciate recommendations - Patient now a 1013 status per psych - Home meds resumed- Prozac, remeron, abilify added per psych - Suicidal precaution, bedside sitter present - Maintenance of sleep-wake cycle #Microcytic Anemia - H&H stable, no s/s of any active bleeding - Continue to trend CBC #GI/DVT Prophylaxis - PPI- Protonix gtt - SCDs to bilateral lower extremities while in bed #Advance Care Planning - Disease education data, care plan, diagnoses, and prognosis were discussed with patient at the bedside. Patient is a FULL code. Patient acknowledged understanding and agreed with current care plan. Dispo: Inpatient psychiatry History Interval history: Continues to have issues with abdominal pain from chronic gastroparesis. She is able to take in food/liquid but not in large quantities. Advised to take small bites/sips only. Hospitalist Physical - Physical exam Narrative exam: General appearance: Present: no acute distress, cachectic, mild distress - EENT Eyes: Present: PERRL, EOM intact ENT: hearing intact - Neck Neck: Present: normal ROM - Respiratory Respiratory effort: normal Respiratory: bilateral: diminished - Cardiovascular Rhythm: regular Heart Sounds: Present: S1 & S2 - Extremities Extremities: no ischemia, pulses intact, pulses symmetrical Peripheral Pulses: within normal limits - Abdominal General gastrointestinal: soft, non-distended, normal bowel sounds, abdominal pain - Integumentary Integumentary: Present: warm, dry - Psychiatric Psychiatric: appropriate mood/affect, cooperative - Neurologic Neurologic: CNII-XII intact, moves all extremities - Allied Health Allied health notes reviewed: nursing, case management - Constitutional Vitals: Temp Pulse Resp BP Pulse Ox 98.6 F 89 16 163/99 98 11/20/21 04:26 11/20/21 04:26 11/20/21 04:26 11/20/21 04:26 11/20/21 04:26 General appearance: Present: no acute distress, cachectic Results - Labs CBC & Chem 7: 11/17/21 03:45 11/18/21 09:02 Labs: Laboratory Last Values WBC 9.7 K/mm3 (4.5-11.0) 11/17/21 03:45 RBC 4.49 M/mm3 (3.65-5.03) 11/17/21 03:45 Hgb 11.4 gm/dl (10.1-14.3) 11/17/21 03:45 Hct 34.2 % (30.3-42.9) 11/17/21 03:45 MCV 76 fl (79-97) L 11/17/21 03:45 MCH 26 pg (28-32) L 11/17/21 03:45 MCHC 34 % (30-34) 11/17/21 03:45 RDW 22.7 % (13.2-15.2) H 11/17/21 03:45 Plt Count 154 K/mm3 (140-440) 11/17/21 03:45 Add Manual Diff Complete 11/15/21 01:01 Total Counted 100 11/15/21 01:01 Seg Neuts % (Manual) 84.0 % (40.0-70.0) H 11/15/21 01:01 Band Neutrophils % 0 % 11/15/21 01:01 Lymphocytes % (Manual) 8.0 % (13.4-35.0) L 11/15/21 01:01 Reactive Lymphs % (Man) 0 % 11/15/21 01:01 Monocytes % (Manual) 6.0 % (0.0-7.3) 11/15/21 01:01 Eosinophils % (Manual) 1.0 % (0.0-4.3) 11/15/21 01:01 Basophils % (Manual) 1.0 % (0.0-1.8) 11/15/21 01:01 Metamyelocytes % 0 % 11/15/21 01:01 Myelocytes % 0 % 11/15/21 01:01 Promyelocytes % 0 % 11/15/21 01:01 Blast Cells % 0 % 11/15/21 01:01 Nucleated RBC % Not Reportable 11/15/21 01:01 Seg Neutrophils # Man 8.9 K/mm3 (1.8-7.7) H 11/15/21 01:01 Band Neutrophils # 0.0 K/mm3 11/15/21 01:01 Lymphocytes # (Manual) 0.8 K/mm3 (1.2-5.4) L 11/15/21 01:01 Abs React Lymphs (Man) 0.0 K/mm3 11/15/21 01:01 Monocytes # (Manual) 0.6 K/mm3 (0.0-0.8) 11/15/21 01:01 Eosinophils # (Manual) 0.1 K/mm3 (0.0-0.4) 11/15/21 01:01 Basophils # (Manual) 0.1 K/mm3 (0.0-0.1) 11/15/21 01:01 Metamyelocytes # 0.0 K/mm3 11/15/21 01:01 Myelocytes # 0.0 K/mm3 11/15/21 01:01 Promyelocytes # 0.0 K/mm3 11/15/21 01:01 Blast Cells # 0.0 K/mm3 11/15/21 01:01 WBC Morphology Not Reportable 11/15/21 01:01 Hypersegmented Neuts Not Reportable 11/15/21 01:01 Hyposegmented Neuts Not Reportable 11/15/21 01:01 Hypogranular Neuts Not Reportable 11/15/21 01:01 Smudge Cells Not Reportable 11/15/21 01:01 Toxic Granulation Not Reportable 11/15/21 01:01 Toxic Vacuolation Not Reportable 11/15/21 01:01 Dohle Bodies Not Reportable 11/15/21 01:01 Pelger-Huet Anomaly Not Reportable 11/15/21 01:01 Yosvany Rods Not Reportable 11/15/21 01:01 Platelet Estimate Not Reportable 11/15/21 01:01 Clumped Platelets Not Reportable 11/15/21 01:01 Plt Clumps, EDTA Not Reportable 11/15/21 01:01 Large Platelets Not Reportable 11/15/21 01:01 Giant Platelets Rare 11/15/21 01:01 Platelet Satelliting Not Reportable 11/15/21 01:01 Plt Morphology Comment Not Reportable 11/15/21 01:01 RBC Morphology Not Reportable 11/15/21 01:01 Dimorphic RBCs Yes 11/15/21 01:01 Polychromasia Not Reportable 11/15/21 01:01 Hypochromasia Few 11/15/21 01:01 Poikilocytosis Not Reportable 11/15/21 01:01 Anisocytosis 1+ 11/15/21 01:01 Microcytosis 1+ 11/15/21 01:01 Macrocytosis Rare 11/15/21 01:01 Spherocytes Not Reportable 11/15/21 01:01 Pappenheimer Bodies Not Reportable 11/15/21 01:01 Sickle Cells Not Reportable 11/15/21 01:01 Target Cells Not Reportable 11/15/21 01:01 Tear Drop Cells Not Reportable 11/15/21 01:01 Ovalocytes Not Reportable 11/15/21 01:01 Helmet Cells Not Reportable 11/15/21 01:01 [place] Bodies Not Reportable 11/15/21 01:01 Venus Rings Not Reportable 11/15/21 01:01 [place] Cells Not Reportable 11/15/21 01:01 Bite Cells Not Reportable 11/15/21 01:01 Crenated Cell Not Reportable 11/15/21 01:01 Elliptocytes Not Reportable 11/15/21 01:01 Acanthocytes (Spur) Not Reportable 11/15/21 01:01 Rouleaux Not Reportable 11/15/21 01:01 Hemoglobin C Crystals Not Reportable 11/15/21 01:01 Schistocytes Rare 11/15/21 01:01 Malaria parasites Not Reportable 11/15/21 01:01 Bassem Bodies Not Reportable 11/15/21 01:01 Hem Pathologist Commnt No 11/15/21 01:01 VBG pO2 54.3 (25.0-47.0) H 11/15/21 03:12 Sodium 137 mmol/L (137-145) 11/18/21 09:02 Potassium 4.0 mmol/L (3.6-5.0) 11/18/21 09:02 Chloride 97.3 mmol/L (98-107) L 11/18/21 09:02 Carbon Dioxide 26 mmol/L (22-30) 11/18/21 09:02 Anion Gap 18 mmol/L 11/18/21 09:02 BUN 11 mg/dL (7-17) 11/18/21 09:02 Creatinine 0.7 mg/dL (0.6-1.2) 11/18/21 09:02 Estimated GFR > 60 ml/min 11/18/21 09:02 BUN/Creatinine Ratio 16 % 11/18/21 09:02 Glucose 262 mg/dL (65-100) H 11/18/21 09:02 POC Glucose 150 mg/dL (70-105) H 11/20/21 05:50 Hemoglobin A1c 7.6 % (4-6) H 11/15/21 10:53 Lactic Acid 1.20 mmol/L (0.7-2.0) 11/16/21 12:18 Calcium 9.8 mg/dL (8.4-10.2) 11/18/21 09:02 Phosphorus 3.00 mg/dL (2.5-4.5) 11/18/21 09:02 Magnesium 1.40 mg/dL (1.7-2.3) L 11/18/21 09:02 Total Bilirubin 0.20 mg/dL (0.1-1.2) 11/16/21 04:12 Direct Bilirubin < 0.2 mg/dL (0-0.2) 11/15/21 10:53 Indirect Bilirubin 0.0 mg/dL 11/15/21 10:53 AST 14 units/L (5-40) 11/16/21 04:12 ALT 8 units/L (7-56) 11/16/21 04:12 Alkaline Phosphatase 56 units/L (35-129) 11/16/21 04:12 Total Protein 6.3 g/dL (6.3-8.2) 11/16/21 04:12 Albumin 3.8 g/dL (3.9-5) L 11/16/21 04:12 Albumin/Globulin Ratio 1.5 % 11/16/21 04:12 Amylase 66 units/L (27-131) 11/15/21 12:56 Lipase 11 units/L (13-60) L 11/15/21 12:56 Urine Color Yellow (Yellow) 11/15/21 Unknown Urine Turbidity Clear (Clear) 11/15/21 Unknown Specific [place] (Man) 1.015 (1.003-1.030) 11/15/21 Unknown Ur Protein (Man) Negative mg/dL (Negative) 11/15/21 Unknown Ur Ketones (Man) 3+ (Negative) 11/15/21 Unknown Ur Nitrite (Man) Negative (Negative) 11/15/21 Unknown Urine Bilirubin (Man) Negative (Negative) 11/15/21 Unknown Urine Ictotest Not Reportable 11/15/21 Unknown Leukocyte Esterase (Man) Negative (Negative) 11/15/21 Unknown Urine WBC (Auto) < 1.0 /HPF (0.0-6.0) 11/15/21 Unknown Urine RBC (Auto) 0.0 /HPF (0.0-6.0) 11/15/21 Unknown U Epithel Cells (Auto) < 1.0 /HPF (0-13.0) 11/15/21 Unknown Urine RBC (Manual) Negative (Negative) 11/15/21 Unknown Urine Opiates Screen Presumptive positive 11/20/21 00:38 Urine Methadone Screen Presumptive negative 11/20/21 00:38 Ur Barbiturates Screen Presumptive negative 11/20/21 00:38 Ur Phencyclidine Scrn Presumptive negative 11/20/21 00:38 Ur Amphetamines Screen Presumptive negative 11/20/21 00:38 U Benzodiazepines Scrn Presumptive negative 11/20/21 00:38 Urine Cocaine Screen Presumptive negative 11/20/21 00:38 U Marijuana (THC) Screen Presumptive negative 11/20/21 00:38 Drugs of Abuse Note Disclamer 11/20/21 00:38 Agudelo/IV: Voiding Method External Female Catheter Active Medications - Current Medications Current Medications: Generic Name Dose Route Start Last Admin Trade Name Freq PRN Reason Stop Dose Admin Acetaminophen 650 mg 11/15/21 04:02 Acetaminophen 325 Mg Tab PO Q6H PRN Pain MILD(1-3)/Fever >100.5/BUTCHER Amlodipine Besylate 10 mg 11/18/21 10:00 11/19/21 09:30 Amlodipine 10 Mg Tab PO 10 mg DAILY WILMER Administration Aripiprazole 5 mg 11/17/21 10:00 11/19/21 09:34 Aripiprazole 5 Mg Tab PO Not Given QDAY WILMER Dextrose 50 ml 11/16/21 18:48 Dextrose 50% In Water (25gm) 50 Ml Syringe IV Q30MIN PRN Hypoglycemia Protocol Fluoxetine HCl 20 mg 11/16/21 10:00 11/19/21 09:30 Fluoxetine 20 Mg Cap PO 20 mg QDAY WILMER Administration Hydralazine HCl 10 mg 11/15/21 04:37 11/18/21 05:41 Hydralazine 20 Mg/1 Ml Inj IV 10 mg Q4HR PRN Administration Hypertension Hydroxyzine Pamoate 25 mg 11/16/21 11:22 Hydroxyzine Pamoate 25 Mg Cap PO Q6H PRN Anxiety Insulin Glargine 20 units 11/16/21 20:30 11/19/21 21:30 Insulin Glargine 100 Units/Ml SUB-Q 20 units QHS WILMER Administration Insulin Human Lispro 0 unit 11/17/21 00:00 11/20/21 03:02 Insulin Lispro 100 Unit/Ml SUB-Q 1 unit Q4HR WILEMR Administration Protocol Labetalol HCl 10 mg 11/15/21 17:55 11/19/21 09:29 Labetalol 20 Mg/4 Ml Inj IV 10 mg Q4HR PRN Administration Hypertension Metoclopramide HCl 10 mg 11/18/21 12:25 11/19/21 09:30 Metoclopramide 10 Mg/2 Ml Inj IV 10 mg Q6H PRN Administration Nausea And Vomiting Mirtazapine 15 mg 11/16/21 22:00 11/19/21 21:23 Mirtazapine 15 Mg Tab PO 15 mg QHS WILMER Administration Morphine Sulfate 2 mg 11/15/21 04:02 11/19/21 12:08 Morphine 2 Mg/1 Ml Inj IV 2 mg Q4H PRN Administration Pain , Severe (7-10) Ondansetron HCl 4 mg 11/15/21 04:02 11/18/21 07:36 Ondansetron 4 Mg/2 Ml Inj IV 4 mg Q8H PRN Administration Nausea And Vomiting Oxycodone/Acetaminophen 1 tab 11/17/21 07:48 11/19/21 18:38 Oxycodone /Acetaminophen 5-325mg Tab PO 1 tab Q6H PRN Administration Pain, Moderate (4-6) Pantoprazole Sodium 40 mg 11/18/21 10:00 11/19/21 21:23 Pantoprazole 40 Mg Tab PO 40 mg BID WILMER Administration Pregabalin 75 mg 11/16/21 10:00 11/19/21 21:23 Pregabalin 75 Mg Cap PO 75 mg BID WILMER Administration Sodium Chloride 10 ml 11/15/21 10:00 11/19/21 21:23 Sodium Chloride 0.9% 10 Ml Flush Syringe IV 10 ml BID WILMER Administration Sodium Chloride 10 ml 11/15/21 04:02 Sodium Chloride 0.9% 10 Ml Flush Syringe IV PRN PRN LINE FLUSH Sucralfate 1 gm 11/16/21 12:00 11/20/21 05:45 Sucralfate 1 Gm/10 Ml Oral Liqd PO 1 gm Q6HR WILMER Administration Nutrition/Malnutrition Assess - Dietary Evaluation Nutrition/Malnutrition Findings: Nutrition Notes Start: 11/15/21 08:46 Freq: Status: Active Protocol: Document 11/17/21 11:22 BRADY (Rec: 11/17/21 11:34 BRADY [id number]) Nutrition Notes Need for Assessment generated from: Low BMI Initial or Follow up Assessment Current Diagnosis Diabetes,Hypertension Other Pertinent Diagnosis Ulcerative Esphagitis, s/p GI Bleed, DKA, Depression, Anemia , Hypomag Current Diet Consistent Carbohydrates -GI Soft- Diet (since L 11/17). Labs/Tests 11/17: BUN 3, Glu 184. Pertinent Medications 11/17: Lantus 20U / Humalog 2U , others nutritionally unremarkable. Height 5 ft 3 in Weight 45.359 kg [place] Body Weight (kg) 52.27 BMI 17.6 Intake Prior to Admission Poor Weight change and time frame Pt states having loss body weight No body weight change reported in 2 days. Weight Status Underweight Subjective/Other Information RD consult for routine F/U on dietary advancement. Diet advanced to PO, No reports available on Pt's PO intake of meals at the time, states that Pt is tolerating Fairly and was hungry this morning, according to Progress notes. Pt is on Room Air, O2 saturation @ 97%, according to Physical Assessment History notes. Pt still complains of abdominal Pain, no longer N/V, according to Physical Assessment History notes. 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 Pt continues on 1013 Status, according to Progress notes. Pt's Low BMI seems to correspond to a natural body composition, and not related to a sudden loss of body weight nor chronic malnutrition, since no signs of concern were mentioned in the Physical Assessment History or the Progress notes. Percent of energy/protein needs met: Prescribed Consistent Carbohydrates -GI Soft- Diet provides for energy/protein needs (2,061 Kcal/91 g) during LOS. Burn Absent Trauma Absent GI Symptoms Other Food Allergy Yes Skin Integrity/Comment Assessment WNL. Current % PO Good (75-100%) Minimum of two criteria No Energy Intake (non-severe) <75% Estimated Energy Requirement >7 days Interpretation of Weight Loss (non- 1-2% in 1 week severe) Fluid Accumulation N/A Reduced Customer Experience Retail Clerk Strength N/A (non-severe) Protein-Calorie Malnutrition Non-Severe #2 Nutrition Diagnosis Malnutrition Etiology Possibly secondary to pancreatitis, and ulcerative colitis. 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 #1 Nutrition Diagnosis Underweight Comments: Pt's Low BMI seems to correspond to a natural body composition, and not related to a sudden loss of body weight nor chronic malnutrition, since no signs of concern were mentioned in the Physical Assessment History or the Progress notes. Etiology Uncertain, possibly natural body composition. As Evidenced by Signs and Symptoms BMI: 17.6 Kg/m2. Is patient on ventilator? No Is Patient Ambulatory and/or Out of Bed Yes REE-([place]-St. Jeor-ambulatory/OOB) [ 1362.036 [id number]] Calculation [facility] for Recommendations [facility] Additional Notes Protein: 1.2-1.5 g/Kg ABW; 54- 68 g/day. Fluids: 1 ml/Kcal, or as per MD. Nutrition Intervention Change Diet Order: Continue Consistent Carbohydrates -GI Soft- Diet as tolerated. Goal #1 Facilitate PO intake of meals with elemental, textural, or mechanical modification during LOS. Goal #2 Adjust the dietary intervention to better serve Pt's needs and clinical conditions during LOS. Follow-Up By: 11/24/21 Additional Comments Nutrition education will be provided at F/U, if feasible. Continue monitoring food tolerance, %PO intake of meals , and BM.
[2021-11-20] MEDS: PREGABALIN 75 MG CAP PO SCH ×2 (09:40→21:41)
[2021-11-20] MEDS: ARIPiprazole 5 MG TAB PO SCH (09:40)
[2021-11-20] MEDS: amLODIPine 10 MG TAB PO SCH (09:40)
[2021-11-20] MEDS: PANTOPRAZOLE 40 MG TAB PO SCH ×2 (09:40→21:41)
[2021-11-20] MEDS: FLUoxetine 20 MG CAP PO SCH (09:40)
[2021-11-20] MEDS: MORPHINE 2 MG/1 ML INJ IV PRN ×2 (10:49→15:08)
[2021-11-20] MEDS: hydrALAZINE 20 MG/1 ML INJ IV PRN ×2 (10:49→21:42)
--- NOTE | 2021-11-20 11:31 | Progress Note ---
Subjective - Reason for Consult Consult date: 11/20/21 Reason for consult: suicidal ideation - Chief Complaint Chief complaint: The patient was seen today. She reports feeling better. Patient was tearful complaining abdominal pain. She denies depression. Patient denies SI HI AVH at this time. REVIEW OF SYSTEMS Constitutional: Negative for weight loss ENT: Negative for stridor Respiratory: Negative for cough or hemoptysis All other systems reviewed and are negative MENTAL STATUS General Appearance and Behavior: age appropriate, good eye contact, cooperative, Cooperation: Cooperative Psychomotor Behavior: within normal limits Mood: calm Affect and affective range: Congruent with stated mood Thought Process: goal directed Thought Content: reality oriented Speech: Normal volume and Regular rate and rhythm Suicidal Ideation:Denies Homicidal Ideation: Denies HI Hallucinations: Denies Impulse Control: intact Insight and Judgment: Limited Memory: Limited Attention: Attentive Orientation: alert and oriented x4 Assessment Major depressive disorder Treatment Plan Dc 1013 Continue home medications Continue Abilify 5mg po daily Continue Vistaril 25mg po Q6hrs PRN for anxiety The patient is to get first dose of meds prior to leaving. Benefits and possible SE were explained to patient. She verbalizes understanding. Risks, benefits and alternatives of medications discussed with the patient, questions answered and consent obtained from patient. PSYCHOTHERAPY: Supportive psychotherapy provided MEDICAL: Per primary team DELIRIUM PRECAUTIONS: Please re-orient patient frequently, keep lights on during the day, and minimize benzodiazepines and opiates as these medications could worsen patient's confusion. SOLAR PROCESS ENGINEER: Defer to primary DISPOSITION: Do not Recommend acute inpatient psychiatric hospitalization at this time. Long Distance Billing Operator will provide patient with psychiatric outpatient resources. FOLLOW-UP: Will sign off. Thank you for the consult. Please contact with any questions and/or concerns Case discussed with Dr. Ruby who agrees with current disposition Medications and Allergies Mental Status Exam - Vital signs Last Vital Signs Temp 98.6 F 11/20/21 10:35 Pulse 117 H 11/20/21 10:35 Resp 16 11/20/21 10:35 BP 177/107 11/20/21 10:35 Pulse Ox 98 11/20/21 10:35
[2021-11-20] MEDS: oxyCODONE /ACETAMINOPHEN 5-325MG TAB PO PRN (11:49)
[2021-11-20] MEDS: METOCLOPRAMIDE 10 MG/2 ML INJ IV PRN (11:50)
--- NOTE | 2021-11-20 14:08 | XRay Report ---
CHEST 1 VIEW 11/20/2021 11:24 AM INDICATION / CLINICAL INFORMATION: Possible aspiration.. COMPARISON: None available. FINDINGS: SUPPORT DEVICES: None. HEART / MEDIASTINUM: The heart size and pulmonary vasculature are normal. LUNGS / PLEURA: There is a small nodular overlying the right lung apex. There are other similar nodul ar opacities overlying the upper chest bilaterally which are outside the lungs. The findings are all likely related to artifact on or outside the patient. No acute pulmonary or pleural abnormality is se en. No pneumothorax. ADDITIONAL FINDINGS: No significant additional findings. IMPRESSION: 1. No acute findings. No evidence of aspiration pneumonia. 2. Small nodular opacity overlying the right lung apex is likely artifactual. A repeat image with rem oval of any possible causes for artifacts may be helpful in confirmation Signer Name: Negro Izaguirre MD Signed: 11/20/2021 2:04 PM Workstation Name: [id number]
[2021-11-20] MEDS: ONDANSETRON 4 MG/2 ML INJ IV PRN (15:09)
[2021-11-20] MEDS: ERYTHROMYCIN ETHYLSUCC SUSP 400 MG/10 ML ORAL LIQD PO SCH ×2 (15:09→22:06)
[2021-11-20] MEDS: MIRTAZAPINE 15 MG TAB PO SCH (21:41)
[2021-11-20] MEDS: INSULIN GLARGINE 100 UNITS/ML SUB-Q SCH (21:41)
--- NOTE | 2021-11-20 22:58 | Progress Note ---
Assessment and Plan 50-year-old female with known history of ulcerative esophagitis and diabetes mellitus presenting to the emergency room today complaining of nausea and vomiting . She has also been having severe abdominal pain especially in the epigastric region. She also indicated she has been having coffee-ground emesis. She denied any chest pain or shortness of breath, no fever or chills, no headache or dizziness and no diaphoresis. Patient denied any diarrhea. She denied any sick contacts and no recent travel. Denied any contact with anyone with COVID-19. Patients past medical history significant for diabetes, Gastroperesis, h. Pylori, Depression. Patient has no history of smoking, alcohol, or drug abuse. Used to work in [employer]. Not working now. Allergic to caffeine. Work-up in the emergency room , labs were significant for hemoglobin of 14.8 hematocrit of 45.8. BUN of 38 and creatinine of 1.2. Glucose of 344, anion gap of 32 and magnesium of 1.4. Potassium of 4.1. Patient has been admitted for DKA. Recent anion gap 18. Recent blood sugur 266. Patient transfered to Medical floor. Patient sleeping. Resting on room air. O2 saturation 98%. No acute respiratory distress. Patient afebrile. No leukocytosis, Blood pressure 177/107 , Pulse 117 , Respirations 16 Chest xray 11/19/21 reported No acute findings. No evidence of aspiration pneumonia. Small nodular opacity overlying the right lung apex is likely artifactual. A repeat image with removal of any possible causes for artifacts may be helpful in confirmation Patient is on Labetalol and Hydralagine. Management as per primary care. Patient is on Protonix and Sucralfate and Erythromycin. - Patient Problems (1) DKA (diabetic ketoacidosis) Current Visit: Yes Status: Acute Plan to address problem: Patient is on S/C insulin. Improving.Patients recent Anion gap 18. Management as per primary care. (2) Upper GI bleed Current Visit: Yes Status: Acute Plan to address problem: Management as per primary care. (3) Hypertension Current Visit: No Status: Acute Qualifiers: Hypertension type: essential hypertension Plan to address problem: Management as per primary care. (4) Intractable abdominal pain Current Visit: No Status: Acute Plan to address problem: Management as per primary care and GI specialist. (5) Intractable nausea and vomiting Current Visit: No Status: Acute Plan to address problem: Management as per primary care and GI specialist. (6) Ulcerative esophagitis Current Visit: No Status: Acute Plan to address problem: Management as per gastroenterology. Subjective Date of service: 11/20/21 Principal diagnosis: DKA; Abd. pain; Esophagitis/gastritis; Acute GI Bleed; Lactic Acidosis Interval history: 50-year-old female with known history of ulcerative esophagitis and diabetes mellitus presenting to the emergency room today complaining of nausea and vomiting . She has also been having severe abdominal pain especially in the epigastric region. She also indicated she has been having coffee-ground emesis. She denied any chest pain or shortness of breath, no fever or chills, no headache or dizziness and no diaphoresis. Patient denied any diarrhea. She denied any sick contacts and no recent travel. Denied any contact with anyone with COVID-19. Patients past medical history significant for diabetes, Gastroperesis, h. Pylori, Depression. Patient has no history of smoking, alcohol, or drug abuse. Used to work in [employer]. Not working now. Allergic to caffeine. Work-up in the emergency room , labs were significant for hemoglobin of 14.8 hematocrit of 45.8. BUN of 38 and creatinine of 1.2. Glucose of 344, anion gap of 32 and magnesium of 1.4. Potassium of 4.1. Patient has been admitted for DKA. Recent anion gap 18. Recent blood sugur 266. Patient transfered to Medical floor. Patient sleeping. Resting on room air. O2 saturation 98%. No acute respiratory distress. Patient afebrile. No leukocytosis, Blood pressure 177/107 , Pulse 117 , Respirations 16 Chest xray 11/19/21 reported No acute findings. No evidence of aspiration pneumonia. Small nodular opacity overlying the right lung apex is likely artifactual. A repeat image with removal of any possible causes for artifacts may be helpful in confirmation Patient is on Labetalol and Hydralagine. Management as per primary care. Patient is on Protonix and Sucralfate and Erythromycin. Objective Vital Signs - 12hr 11/20/21 11/20/21 11/20/21 16:02 19:58 20:28 Temperature 98.2 F 97.7 F Pulse Rate 107 H 113 H Respiratory 16 18 Rate Blood Pressure 160/80 168/106 O2 Sat by Pulse 95 98 97 Oximetry Constitutional: no acute distress, asleep Eyes: non-icteric ENT: oropharynx moist Neck: supple, no lymphadenopathy, no JVD Effort: normal Ascultation: Bilateral: clear Percussion: Bilateral: not dull Cardiovascular: regular rate and rhythm Gastrointestinal: normoactive bowel sounds, soft, tender (epigastrum, mild), non-distended Integumentary: normal Extremities: no cyanosis, no edema, pulses normal, no ischemia or petechiae Neurologic: non-focal exam, pupils equal and round, CN II-XII normal Psychiatric: other (Patient sleeping.) CBC and BMP: 11/17/21 03:45 11/18/21 09:02 Abnormal lab findings: Abnormal Labs 11/15/21 11/15/21 11/15/21 01:01 01:01 03:03 WBC RBC 5.85 H Hgb 14.8 H Hct 45.8 H MCV 78 L MCH 25 L RDW 22.1 H Plt Count Seg Neuts % (Manual) 84.0 H Lymphocytes % (Manual) 8.0 L Seg Neutrophils # Man 8.9 H Lymphocytes # (Manual) 0.8 L VBG pO2 Sodium Potassium Chloride 91.3 L Carbon Dioxide 12 L BUN 39 H Creatinine 1.4 H Glucose 355 H POC Glucose Hemoglobin A1c Lactic Acid Calcium 10.6 H Phosphorus 5.10 H Magnesium 1.40 L Total Protein 8.4 H Albumin Lipase 11/15/21 11/15/21 11/15/21 03:03 03:12 04:02 WBC RBC Hgb Hct MCV MCH RDW Plt Count Seg Neuts % (Manual) Lymphocytes % (Manual) Seg Neutrophils # Man Lymphocytes # (Manual) VBG pO2 54.3 H Sodium Potassium Chloride Carbon Dioxide 13 L BUN 38 H Creatinine Glucose 344 H POC Glucose 337 H Hemoglobin A1c Lactic Acid Calcium Phosphorus Magnesium Total Protein Albumin Lipase 11/15/21 11/15/21 11/15/21 05:03 05:23 06:18 WBC RBC Hgb Hct MCV MCH RDW Plt Count Seg Neuts % (Manual) Lymphocytes % (Manual) Seg Neutrophils # Man Lymphocytes # (Manual) VBG pO2 Sodium Potassium Chloride Carbon Dioxide 13 L BUN 35 H Creatinine Glucose 277 H POC Glucose 255 H 234 H Hemoglobin A1c Lactic Acid Calcium Phosphorus Magnesium Total Protein Albumin Lipase 11/15/21 11/15/21 11/15/21 07:00 07:01 07:54 WBC RBC Hgb Hct MCV MCH RDW Plt Count Seg Neuts % (Manual) Lymphocytes % (Manual) Seg Neutrophils # Man Lymphocytes # (Manual) VBG pO2 Sodium Potassium Chloride Carbon Dioxide 20 L D BUN 32 H Creatinine Glucose 225 H POC Glucose 222 H 256 H Hemoglobin A1c Lactic Acid Calcium Phosphorus Magnesium Total Protein Albumin Lipase 11/15/21 11/15/21 11/15/21 09:15 10:17 10:53 WBC RBC Hgb Hct MCV MCH RDW Plt Count Seg Neuts % (Manual) Lymphocytes % (Manual) Seg Neutrophils # Man Lymphocytes # (Manual) VBG pO2 Sodium 135 L D Potassium 6.1 H* D Chloride Carbon Dioxide 20 L BUN 23 H Creatinine Glucose 659 H* POC Glucose 271 H 271 H Hemoglobin A1c Lactic Acid Calcium 8.0 L Phosphorus 2.00 L D Magnesium 7.60 H Total Protein 5.3 L D Albumin 3.3 L Lipase 8 L 11/15/21 11/15/21 11/15/21 10:53 11:04 11:58 WBC RBC Hgb Hct MCV MCH RDW Plt Count Seg Neuts % (Manual) Lymphocytes % (Manual) Seg Neutrophils # Man Lymphocytes # (Manual) VBG pO2 Sodium Potassium Chloride Carbon Dioxide BUN Creatinine Glucose POC Glucose 241 H 253 H Hemoglobin A1c 7.6 H Lactic Acid Calcium Phosphorus Magnesium Total Protein Albumin Lipase 11/15/21 11/15/21 11/15/21 12:56 12:56 12:58 WBC RBC Hgb Hct MCV MCH RDW Plt Count Seg Neuts % (Manual) Lymphocytes % (Manual) Seg Neutrophils # Man Lymphocytes # (Manual) VBG pO2 Sodium Potassium Chloride 108.3 H Carbon Dioxide BUN 24 H Creatinine Glucose 226 H POC Glucose 226 H Hemoglobin A1c Lactic Acid 2.30 H* Calcium Phosphorus Magnesium Total Protein Albumin Lipase 11 L 11/15/21 11/15/21 11/15/21 13:56 14:56 16:07 WBC RBC Hgb Hct MCV MCH RDW Plt Count Seg Neuts % (Manual) Lymphocytes % (Manual) Seg Neutrophils # Man Lymphocytes # (Manual) VBG pO2 Sodium Potassium Chloride Carbon Dioxide BUN Creatinine Glucose POC Glucose 174 H 186 H 167 H Hemoglobin A1c Lactic Acid Calcium Phosphorus Magnesium Total Protein Albumin Lipase 11/15/21 11/15/21 11/15/21 16:58 17:54 18:48 WBC RBC Hgb Hct MCV MCH RDW Plt Count Seg Neuts % (Manual) Lymphocytes % (Manual) Seg Neutrophils # Man Lymphocytes # (Manual) VBG pO2 Sodium Potassium Chloride 107.1 H Carbon Dioxide BUN 18 H Creatinine Glucose 151 H POC Glucose 169 H 145 H Hemoglobin A1c Lactic Acid Calcium Phosphorus Magnesium Total Protein Albumin Lipase 11/15/21 11/15/21 11/15/21 18:54 20:02 21:00 WBC RBC Hgb Hct MCV MCH RDW Plt Count Seg Neuts % (Manual) Lymphocytes % (Manual) Seg Neutrophils # Man Lymphocytes # (Manual) VBG pO2 Sodium Potassium Chloride Carbon Dioxide BUN Creatinine Glucose POC Glucose 143 H 162 H 167 H Hemoglobin A1c Lactic Acid Calcium Phosphorus Magnesium Total Protein Albumin Lipase 11/15/21 11/15/21 11/15/21 22:05 22:47 23:57 WBC RBC Hgb Hct MCV MCH RDW Plt Count Seg Neuts % (Manual) Lymphocytes % (Manual) Seg Neutrophils # Man Lymphocytes # (Manual) VBG pO2 Sodium Potassium Chloride Carbon Dioxide BUN Creatinine Glucose POC Glucose 150 H 140 H 162 H Hemoglobin A1c Lactic Acid Calcium Phosphorus Magnesium Total Protein Albumin Lipase 11/16/21 11/16/21 11/16/21 01:06 02:22 03:06 WBC RBC Hgb Hct MCV MCH RDW Plt Count Seg Neuts % (Manual) Lymphocytes % (Manual) Seg Neutrophils # Man Lymphocytes # (Manual) VBG pO2 Sodium Potassium Chloride Carbon Dioxide BUN Creatinine Glucose POC Glucose 163 H 181 H 171 H Hemoglobin A1c Lactic Acid Calcium Phosphorus Magnesium Total Protein Albumin Lipase 11/16/21 11/16/21 11/16/21 04:08 04:12 04:12 WBC 14.1 H RBC Hgb Hct MCV 77 L MCH 25 L RDW 22.2 H Plt Count 138 L Seg Neuts % (Manual) Lymphocytes % (Manual) Seg Neutrophils # Man Lymphocytes # (Manual) VBG pO2 Sodium Potassium Chloride Carbon Dioxide BUN Creatinine Glucose 169 H POC Glucose 154 H Hemoglobin A1c Lactic Acid Calcium Phosphorus 1.80 L D Magnesium Total Protein Albumin 3.8 L Lipase 11/16/21 11/16/21 11/16/21 04:12 05:14 06:06 WBC RBC Hgb Hct MCV MCH RDW Plt Count Seg Neuts % (Manual) Lymphocytes % (Manual) Seg Neutrophils # Man Lymphocytes # (Manual) VBG pO2 Sodium Potassium Chloride Carbon Dioxide BUN Creatinine Glucose POC Glucose 141 H 141 H Hemoglobin A1c Lactic Acid 2.10 H* Calcium Phosphorus Magnesium Total Protein Albumin Lipase 11/16/21 11/16/21 11/16/21 06:55 07:54 07:56 WBC RBC Hgb Hct MCV MCH RDW Plt Count Seg Neuts % (Manual) Lymphocytes % (Manual) Seg Neutrophils # Man Lymphocytes # (Manual) VBG pO2 Sodium Potassium Chloride Carbon Dioxide BUN Creatinine Glucose POC Glucose 166 H 216 H 193 H Hemoglobin A1c Lactic Acid Calcium Phosphorus Magnesium Total Protein Albumin Lipase 11/16/21 11/16/21 11/16/21 08:58 09:58 10:55 WBC RBC Hgb Hct MCV MCH RDW Plt Count Seg Neuts % (Manual) Lymphocytes % (Manual) Seg Neutrophils # Man Lymphocytes # (Manual) VBG pO2 Sodium Potassium Chloride Carbon Dioxide BUN Creatinine Glucose POC Glucose 167 H 161 H 140 H Hemoglobin A1c Lactic Acid Calcium Phosphorus Magnesium Total Protein Albumin Lipase 11/16/21 11/16/21 11/16/21 12:07 12:18 13:02 WBC RBC Hgb Hct MCV MCH RDW Plt Count Seg Neuts % (Manual) Lymphocytes % (Manual) Seg Neutrophils # Man Lymphocytes # (Manual) VBG pO2 Sodium 131 L D Potassium 5.6 H D Chloride Carbon Dioxide 21 L BUN 5 L Creatinine 0.5 L Glucose 363 H POC Glucose 158 H 176 H Hemoglobin A1c Lactic Acid Calcium 8.0 L Phosphorus Magnesium 1.20 L Total Protein Albumin Lipase 11/16/21 11/16/21 11/16/21 14:05 14:14 15:03 WBC RBC Hgb Hct MCV MCH RDW Plt Count Seg Neuts % (Manual) Lymphocytes % (Manual) Seg Neutrophils # Man Lymphocytes # (Manual) VBG pO2 Sodium Potassium Chloride Carbon Dioxide BUN 4 L Creatinine Glucose 200 H POC Glucose 194 H 221 H Hemoglobin A1c Lactic Acid Calcium Phosphorus Magnesium 1.30 L Total Protein Albumin Lipase 11/16/21 11/16/21 11/16/21 16:01 17:00 18:01 WBC RBC Hgb Hct MCV MCH RDW Plt Count Seg Neuts % (Manual) Lymphocytes % (Manual) Seg Neutrophils # Man Lymphocytes # (Manual) VBG pO2 Sodium Potassium Chloride Carbon Dioxide BUN Creatinine Glucose POC Glucose 196 H 163 H 200 H Hemoglobin A1c Lactic Acid Calcium Phosphorus Magnesium Total Protein Albumin Lipase 11/16/21 11/16/21 11/16/21 19:11 20:04 22:03 WBC RBC Hgb Hct MCV MCH RDW Plt Count Seg Neuts % (Manual) Lymphocytes % (Manual) Seg Neutrophils # Man Lymphocytes # (Manual) VBG pO2 Sodium Potassium Chloride Carbon Dioxide BUN Creatinine Glucose POC Glucose 164 H 113 H 116 H Hemoglobin A1c Lactic Acid Calcium Phosphorus Magnesium Total Protein Albumin Lipase 11/16/21 11/16/21 11/17/21 22:51 23:55 01:46 WBC RBC Hgb Hct MCV MCH RDW Plt Count Seg Neuts % (Manual) Lymphocytes % (Manual) Seg Neutrophils # Man Lymphocytes # (Manual) VBG pO2 Sodium Potassium Chloride Carbon Dioxide BUN 3 L Creatinine 0.5 L Glucose 126 H POC Glucose 144 H 166 H Hemoglobin A1c Lactic Acid Calcium Phosphorus 2.20 L D Magnesium Total Protein Albumin Lipase 11/17/21 11/17/21 11/17/21 03:45 03:45 05:27 WBC RBC Hgb Hct MCV 76 L MCH 26 L RDW 22.7 H Plt Count Seg Neuts % (Manual) Lymphocytes % (Manual) Seg Neutrophils # Man Lymphocytes # (Manual) VBG pO2 Sodium Potassium Chloride Carbon Dioxide BUN 3 L Creatinine Glucose 184 H POC Glucose 203 H Hemoglobin A1c Lactic Acid Calcium Phosphorus Magnesium Total Protein Albumin Lipase 11/17/21 11/17/21 11/17/21 11:10 16:22 21:36 WBC RBC Hgb Hct MCV MCH RDW Plt Count Seg Neuts % (Manual) Lymphocytes % (Manual) Seg Neutrophils # Man Lymphocytes # (Manual) VBG pO2 Sodium Potassium Chloride Carbon Dioxide BUN Creatinine Glucose POC Glucose 197 H 134 H 262 H Hemoglobin A1c Lactic Acid Calcium Phosphorus Magnesium Total Protein Albumin Lipase 11/18/21 11/18/21 11/18/21 09:02 14:45 17:26 WBC RBC Hgb Hct MCV MCH RDW Plt Count Seg Neuts % (Manual) Lymphocytes % (Manual) Seg Neutrophils # Man Lymphocytes # (Manual) VBG pO2 Sodium Potassium Chloride 97.3 L Carbon Dioxide BUN Creatinine Glucose 262 H POC Glucose 205 H 181 H Hemoglobin A1c Lactic Acid Calcium Phosphorus Magnesium 1.40 L Total Protein Albumin Lipase 11/18/21 11/19/21 11/19/21 21:15 06:22 10:02 WBC RBC Hgb Hct MCV MCH RDW Plt Count Seg Neuts % (Manual) Lymphocytes % (Manual) Seg Neutrophils # Man Lymphocytes # (Manual) VBG pO2 Sodium Potassium Chloride Carbon Dioxide BUN Creatinine Glucose POC Glucose 173 H 193 H 118 H Hemoglobin A1c Lactic Acid Calcium Phosphorus Magnesium Total Protein Albumin Lipase 11/19/21 11/19/21 11/19/21 13:59 18:26 21:28 WBC RBC Hgb Hct MCV MCH RDW Plt Count Seg Neuts % (Manual) Lymphocytes % (Manual) Seg Neutrophils # Man Lymphocytes # (Manual) VBG pO2 Sodium Potassium Chloride Carbon Dioxide BUN Creatinine Glucose POC Glucose 295 H 241 H 181 H Hemoglobin A1c Lactic Acid Calcium Phosphorus Magnesium Total Protein Albumin Lipase 11/20/21 11/20/21 11/20/21 02:35 05:50 09:31 WBC RBC Hgb Hct MCV MCH RDW Plt Count Seg Neuts % (Manual) Lymphocytes % (Manual) Seg Neutrophils # Man Lymphocytes # (Manual) VBG pO2 Sodium Potassium Chloride Carbon Dioxide BUN Creatinine Glucose POC Glucose 222 H 150 H 266 H Hemoglobin A1c Lactic Acid Calcium Phosphorus Magnesium Total Protein Albumin Lipase 11/20/21 11/20/21 11/20/21 13:00 15:04 16:00 WBC RBC Hgb Hct MCV MCH RDW Plt Count Seg Neuts % (Manual) Lymphocytes % (Manual) Seg Neutrophils # Man Lymphocytes # (Manual) VBG pO2 Sodium Potassium Chloride Carbon Dioxide BUN Creatinine Glucose POC Glucose 298 H 285 H 271 H Hemoglobin A1c Lactic Acid Calcium Phosphorus Magnesium Total Protein Albumin Lipase Chest x-ray: report reviewed, image reviewed Additional Studies: CHEST 1 VIEW 11/20/2021 11:24 AM INDICATION / CLINICAL INFORMATION: Possible aspiration.. COMPARISON: None available. FINDINGS: SUPPORT DEVICES: None. HEART / MEDIASTINUM: The heart size and pulmonary vasculature are normal. LUNGS / PLEURA: There is a small nodular overlying the right lung apex. There are other similar nodular opacities overlying the upper chest bilaterally which are outside the lungs. The findings are all likely related to artifact on or outside the patient. No acute pulmonary or pleural abnormality is seen. No pneumothorax. ADDITIONAL FINDINGS: No significant additional findings. IMPRESSION: 1. No acute findings. No evidence of aspiration pneumonia. 2. Small nodular opacity overlying the right lung apex is likely artifactual. A repeat image with removal of any possible causes for artifacts may be helpful in confirmation Allied health notes reviewed: nursing
[2021-11-21] MEDS: SUCRALFATE 1 GM/10 ML ORAL LIQD PO SCH ×3 (00:39→12:35)
[2021-11-21] MEDS: INSULIN LISPRO 100 UNIT/ML SUB-Q SCH ×4 (00:39→10:16)
[2021-11-21] MEDS: ERYTHROMYCIN ETHYLSUCC SUSP 400 MG/10 ML ORAL LIQD PO SCH (05:13)
--- NOTE | 2021-11-21 08:22 | Discharge Summary ---
Providers - Providers Date of Admission: 11/15/21 04:02 Date of discharge: 11/21/21 Attending physician: RAPHAEL FARAH MD 11/15/21 04:02 Consult to Dietitian/Nutrition [CONS] Routine Physician Instructions: Reason For Exam: Reason for Consult: Diet education Consult to Physician [CONS] Routine Comment: Consulting Provider: AI TRACY Physician Instructions: Reason For Exam: DKA 11/15/21 07:18 Consult to Physician [CONS] Routine Comment: Consulting Provider: WILMAR ARCINIEGA Physician Instructions: Reason For Exam: ?Coffee ground emesis 11/16/21 08:50 Consult to Mental Health [CONS] Routine Reason For Exam: suicidal ideation Primary care physician: SHRADDHA CAPELLAN Hospitalization Reason for admission: hematemesis Condition: Stable Hospital course: Assessment and plan: This is a 50-year-old female with known past medical history of depression, ulce rative esophagitis, DM complicated by gastroparesis admitted for DKA Hospital Course to Date: 11/15: C/o severe abdominal pain this am, accompanied with nausea and coffee rocky und emesis. CT Abd/Pelvis reviewed, suggesting esophagitis, gastritis, and chronic pancreatitis. Patient remains on insulin gtt and IVF resuscitation per DKA protocol. H&H is stable, gastric occult pending. On protonix gtt, GI consult pending. Continue to trend CBC. Tachycardia and Hypertension improved post PRN analgesia. Resume home antihypertensive regimen once list is available. Continue PRN analgesia for pain control and PRN antiemetic for N/V. PRN labetalol added for SBP greater than 160. 11/16: Remains on protonix gtt and DKA protocol. Patient is refusing PO intake and still c/o of severe abdominal cramping and nausea/vomiting, no coffee ground emesis reported from overnight. Continue PRN analgesia and antiemetic, encourage PO intake. GI recommendations noted. Continue PPI gtt and resume home carafate. Patient is also with suicidal ideation this am, no active plan at this time. Mental health/psych consulted. Intermittent tachycardia and hypertension overnight and this am, probably due to pain/anxiety. Continue PRN Labetalol/hydralazine. Resume home antihypertensive regimen. Transition to subQ insulin once patient is tolerating PO intake. 11/17: Feeling a lot better this am, remains stable on RA. VSS. Patient was transitioned to subQ insulin overnight. Voiced being hungry this am, no N/V overnight, tolerating PO intake. GI recommendations noted. Continue PPI and carafate, advance diet as tolerated. Continue 1013 status per mental Health/Psych. D/w CCM, patient is stable for transfer to Telemetry. 11/18: No plan by GI for further imaging via EGD. Recommends PPI and carafate. Reglan IV added for further control of nausea. Will need placement to inpatient psych. Discussed with CM. Will call family to update on patient case. 11/19: Awaiting placement 11/20: Awaiting placement. abdominal pain still not controlled with reglan and sucralfate. Will add erythromycin solution 200 mg po q8hr. 11/21: Psychiatry service no longer recommends inpatient psychiatric hospitalization. 1013 withdrawn. Patient will be discharged home. Will recommend patient be discharged with Protonix, sucralfate, Reglan, erythromycin. Patient needs close follow-up with gastroenterology as an outpatient. Made recommendation to patient today on encounter that she should follow-up [facility] with gastroenterology for her severe gastroparesis. Assessment and Plan #Diabetic Ketoacidosis(DKA) #Type 2 Diabetes Mellitus - BG and anion gap still elevated this am - S/p DKA protocol - No abdominal pain, N/V this am. Tolerating PO intake - Transitioned to subQ insulin overnight - BG and SSI insulin ACHS - Monitor and replace electrolytes as needed - Avoid hypoglycemia #Severe Abdominal Pain-improved #Nausea and Coffee Ground Emesis-resolved #H/o Ulcerative Esophagitis #H/o Severe Gastroparesis #Chronic Pancreatitis - Presented with severe abdominal pain this am, nausea, and coffee ground emesis this am - CTabd pelvis reviewed, see report for detail - Patient adamantly refused ETOH abuse - Coffee ground emesis noted in the ED and small amount in the ICU - H&H remains stable, gastric occult negative - GI recommendations noted, no plan for endoscopy at this time - Continue protonix gtt, and home carafate resumed - added reglan for symptomatic control - add erythromycin liquid 200 mg po q8hr. - lipase & amylase wnr - Abdominal, N/V at baseline (history of severe gastroparesis), still continues to have significant pains when she intakes a lot of food but patient is tolerating PO intake - Advance diet as tolerated. Encourage PO intake - PRN analgesia for pain control - PRN antiemetic N/V #Hypertension - Tachycardic, HR in the 130-150s, with hypertention SBP in the 200s - Resume home antihypertensive regimen - Continue PRN Labetalol/hydralazine - Continue blood pressure monitor per protocol - Maintain SBP less than 160 #Suicidal Ideation #History of Depression - with suicidal ideation this am, no active plan at this time. - Mental health/psych consulted, appreciate recommendations - Patient now a 1013 status per psych - Home meds resumed- Prozac, remeron, abilify added per psych - Suicidal precaution, bedside sitter present - Maintenance of sleep-wake cycle #Microcytic Anemia - H&H stable, no s/s of any active bleeding - Continue to trend CBC #GI/DVT Prophylaxis - PPI- Protonix gtt - SCDs to bilateral lower extremities while in bed #Advance Care Planning - Disease education data, care plan, diagnoses, and prognosis were discussed with patient at the bedside. Patient is a FULL code. Patient acknowledged understanding and agreed with current care plan. Disposition: HOME / SELF CARE / HOMELESS Final Discharge Diagnosis (Prints w/discharge instructions): Diabetic ketoacidosis, type 2 diabetes mellitus, severe abdominal pain, coffee-ground emesis, severe gastroparesis, chronic pancreatitis, hypertension, suicidal ideation, history depression, microcytic anemia Time spent for discharge: 35 Core Measure Documentation - Palliative Care Palliative Care/ Comfort Measures: Not Applicable - Core Measures Any of the following diagnoses?: none Exam - Constitutional Vitals: Temp Pulse Resp BP Pulse Ox 98.7 F 117 H 18 160/89 97 11/21/21 04:14 11/21/21 04:14 11/21/21 04:14 11/21/21 04:14 11/21/21 04:14 Plan Follow up with: SHRADDHA CAPELLAN MD [Primary Care Provider] - 3-5 Days SARAH JIMENEZ MD [Staff Physician] - 7 Days Prescriptions: Insulin Glulisine [Apidra Solostar] 20 unit SQ DAILY 30 Days #1 box ARIPiprazole 5 mg PO QDAY 30 Days #30 tablet Sucralfate [Carafate] 1 gm PO Q6HR 30 Days #1 bottle Erythromycin Ethylsuccinate [Eryped 400] 400 mg PO Q8HR 30 Days #1 bottle Pantoprazole [Protonix TAB] 40 mg PO BID 30 Days #60 tablet FLUoxetine [PROzac] 20 mg PO QDAY 30 Days #30 tab Metoclopramide HCl [Reglan TAB] 5 mg PO Q6H PRN 7 Days #28 tab PRN Reason: Nausea
[2021-11-21 08:56] VITALS: BP 138/92
[2021-11-21] MEDS: FLUoxetine 20 MG CAP PO SCH (10:15)
[2021-11-21] MEDS: ARIPiprazole 5 MG TAB PO SCH (10:15)
[2021-11-21] MEDS: PANTOPRAZOLE 40 MG TAB PO SCH (10:15)
[2021-11-21] MEDS: amLODIPine 10 MG TAB PO SCH (10:15)
[2021-11-21] MEDS: PREGABALIN 75 MG CAP PO SCH (10:15)
[2021-11-21] MEDS: MORPHINE 2 MG/1 ML INJ IV PRN (10:16)
--- NOTE | 2021-11-21 17:20 | Progress Note ---
Assessment and Plan 50-year-old female with known history of ulcerative esophagitis and diabetes mellitus presenting to the emergency room today complaining of nausea and vomiting . She has also been having severe abdominal pain especially in the epigastric region. She also indicated she has been having coffee-ground emesis. She denied any chest pain or shortness of breath, no fever or chills, no headache or dizziness and no diaphoresis. Patient denied any diarrhea. She denied any sick contacts and no recent travel. Denied any contact with anyone with COVID-19. Patients past medical history significant for diabetes, Gastroperesis, h. Pylori, Depression. Patient has no history of smoking, alcohol, or drug abuse. Used to work in [employer]. Not working now. Allergic to caffeine. Work-up in the emergency room , labs were significant for hemoglobin of 14.8 hematocrit of 45.8. BUN of 38 and creatinine of 1.2. Glucose of 344, anion gap of 32 and magnesium of 1.4. Potassium of 4.1. Patient has been admitted for DKA. Recent anion gap 18. Recent blood sugur 266. Patient transfered to Medical floor. Patient awake. Resting on room air. O2 saturation 97%. No acute respiratory distress. Patient says abdominal pain getting better. Patient afebrile. No leukocytosis, Blood pressure 138/92 , Pulse 110 , Respirations 16 Chest xray 11/19/21 reported No acute findings. No evidence of aspiration pneumonia. Small nodular opacity overlying the right lung apex is likely artifactual. A repeat image with removal of any possible causes for artifacts may be helpful in confirmation . Recommend to repeat chest xray as out patient Patient is on Labetalol and Hydralagine. Management as per primary care. Patient is on Protonix and Sucralfate and Erythromycin. - Patient Problems (1) DKA (diabetic ketoacidosis) Status: Acute Plan to address problem: Patient is on S/C insulin. Improving.Patients recent Anion gap 18. Management as per primary care. (2) Upper GI bleed Status: Acute Plan to address problem: Management as per primary care and gastroenterology. (3) Hypertension Status: Acute Qualifiers: Hypertension type: essential hypertension Plan to address problem: Management as per primary care. (4) Intractable abdominal pain Status: Acute Plan to address problem: Management as per primary care and GI specialist. (5) Intractable nausea and vomiting Status: Acute Plan to address problem: Management as per primary care and GI specialist. (6) Ulcerative esophagitis Status: Acute Plan to address problem: Management as per gastroenterology. Subjective Date of service: 11/21/21 Principal diagnosis: DKA; Abd. pain; Esophagitis/gastritis; Acute GI Bleed; Lactic Acidosis Interval history: 50-year-old female with known history of ulcerative esophagitis and diabetes mellitus presenting to the emergency room today complaining of nausea and vomiting . She has also been having severe abdominal pain especially in the epigastric region. She also indicated she has been having coffee-ground emesis. She denied any chest pain or shortness of breath, no fever or chills, no headache or dizziness and no diaphoresis. Patient denied any diarrhea. She denied any sick contacts and no recent travel. Denied any contact with anyone with COVID-19. Patients past medical history significant for diabetes, Gastroperesis, h. Pylori, Depression. Patient has no history of smoking, alcohol, or drug abuse. Used to work in [employer] and [employer]. Not working now. Allergic to caffeine. Work-up in the emergency room , labs were significant for hemoglobin of 14.8 hem atocrit of 45.8. BUN of 38 and creatinine of 1.2. Glucose of 344, anion gap of 32 and magnesium of 1.4. Potassium of 4.1. Patient has been admitted for DKA. Recent anion gap 18. Recent blood sugur 266. Patient transfered to Medical floor. Patient awake. Resting on room air. O2 saturation 97%. No acute respiratory distress. Patient says abdominal pain getting better. Patient afebrile. No leukocytosis, Blood pressure 138/92 , Pulse 110 , Respirations 16 Chest xray 11/19/21 reported No acute findings. No evidence of aspiration pneumonia. Small nodular opacity overlying the right lung apex is likely artifactual. A repeat image with removal of any possible causes for artifacts may be helpful in confirmation . Recommend to repeat chest xray as out patient Patient is on Labetalol and Hydralagine. Management as per primary care. Patient is on Protonix and Sucralfate and Erythromycin. Objective Vital Signs - 12hr 11/21/21 11/21/21 08:05 10:00 Temperature 97.9 F Pulse Rate 110 H 100 H Respiratory 16 Rate Blood Pressure 138/92 O2 Sat by Pulse 97 97 Oximetry Constitutional: no acute distress, asleep Eyes: non-icteric ENT: oropharynx moist Neck: supple, no lymphadenopathy, no JVD Effort: normal Ascultation: Bilateral: clear Percussion: Bilateral: not dull Cardiovascular: regular rate and rhythm Gastrointestinal: normoactive bowel sounds, soft, tender (epigastrum, mild), non-distended Integumentary: normal Extremities: no cyanosis, no edema, pulses normal, no ischemia or petechiae Neurologic: non-focal exam, pupils equal and round, CN II-XII normal Psychiatric: other (Patient sleeping.) CBC and BMP: 11/17/21 03:45 11/18/21 09:02 Abnormal lab findings: Abnormal Labs 11/15/21 11/15/21 11/15/21 01:01 01:01 03:03 WBC RBC 5.85 H Hgb 14.8 H Hct 45.8 H MCV 78 L MCH 25 L RDW 22.1 H Plt Count Seg Neuts % (Manual) 84.0 H Lymphocytes % (Manual) 8.0 L Seg Neutrophils # Man 8.9 H Lymphocytes # (Manual) 0.8 L VBG pO2 Sodium Potassium Chloride 91.3 L Carbon Dioxide 12 L BUN 39 H Creatinine 1.4 H Glucose 355 H POC Glucose Hemoglobin A1c Lactic Acid Calcium 10.6 H Phosphorus 5.10 H Magnesium 1.40 L Total Protein 8.4 H Albumin Lipase 11/15/21 11/15/21 11/15/21 03:03 03:12 04:02 WBC RBC Hgb Hct MCV MCH RDW Plt Count Seg Neuts % (Manual) Lymphocytes % (Manual) Seg Neutrophils # Man Lymphocytes # (Manual) VBG pO2 54.3 H Sodium Potassium Chloride Carbon Dioxide 13 L BUN 38 H Creatinine Glucose 344 H POC Glucose 337 H Hemoglobin A1c Lactic Acid Calcium Phosphorus Magnesium Total Protein Albumin Lipase 11/15/21 11/15/21 11/15/21 05:03 05:23 06:18 WBC RBC Hgb Hct MCV MCH RDW Plt Count Seg Neuts % (Manual) Lymphocytes % (Manual) Seg Neutrophils # Man Lymphocytes # (Manual) VBG pO2 Sodium Potassium Chloride Carbon Dioxide 13 L BUN 35 H Creatinine Glucose 277 H POC Glucose 255 H 234 H Hemoglobin A1c Lactic Acid Calcium Phosphorus Magnesium Total Protein Albumin Lipase 11/15/21 11/15/21 11/15/21 07:00 07:01 07:54 WBC RBC Hgb Hct MCV MCH RDW Plt Count Seg Neuts % (Manual) Lymphocytes % (Manual) Seg Neutrophils # Man Lymphocytes # (Manual) VBG pO2 Sodium Potassium Chloride Carbon Dioxide 20 L D BUN 32 H Creatinine Glucose 225 H POC Glucose 222 H 256 H Hemoglobin A1c Lactic Acid Calcium Phosphorus Magnesium Total Protein Albumin Lipase 11/15/21 11/15/21 11/15/21 09:15 10:17 10:53 WBC RBC Hgb Hct MCV MCH RDW Plt Count Seg Neuts % (Manual) Lymphocytes % (Manual) Seg Neutrophils # Man Lymphocytes # (Manual) VBG pO2 Sodium 135 L D Potassium 6.1 H* D Chloride Carbon Dioxide 20 L BUN 23 H Creatinine Glucose 659 H* POC Glucose 271 H 271 H Hemoglobin A1c Lactic Acid Calcium 8.0 L Phosphorus 2.00 L D Magnesium 7.60 H Total Protein 5.3 L D Albumin 3.3 L Lipase 8 L 11/15/21 11/15/21 11/15/21 10:53 11:04 11:58 WBC RBC Hgb Hct MCV MCH RDW Plt Count Seg Neuts % (Manual) Lymphocytes % (Manual) Seg Neutrophils # Man Lymphocytes # (Manual) VBG pO2 Sodium Potassium Chloride Carbon Dioxide BUN Creatinine Glucose POC Glucose 241 H 253 H Hemoglobin A1c 7.6 H Lactic Acid Calcium Phosphorus Magnesium Total Protein Albumin Lipase 11/15/21 11/15/21 11/15/21 12:56 12:56 12:58 WBC RBC Hgb Hct MCV MCH RDW Plt Count Seg Neuts % (Manual) Lymphocytes % (Manual) Seg Neutrophils # Man Lymphocytes # (Manual) VBG pO2 Sodium Potassium Chloride 108.3 H Carbon Dioxide BUN 24 H Creatinine Glucose 226 H POC Glucose 226 H Hemoglobin A1c Lactic Acid 2.30 H* Calcium Phosphorus Magnesium Total Protein Albumin Lipase 11 L 11/15/21 11/15/21 11/15/21 13:56 14:56 16:07 WBC RBC Hgb Hct MCV MCH RDW Plt Count Seg Neuts % (Manual) Lymphocytes % (Manual) Seg Neutrophils # Man Lymphocytes # (Manual) VBG pO2 Sodium Potassium Chloride Carbon Dioxide BUN Creatinine Glucose POC Glucose 174 H 186 H 167 H Hemoglobin A1c Lactic Acid Calcium Phosphorus Magnesium Total Protein Albumin Lipase 11/15/21 11/15/21 11/15/21 16:58 17:54 18:48 WBC RBC Hgb Hct MCV MCH RDW Plt Count Seg Neuts % (Manual) Lymphocytes % (Manual) Seg Neutrophils # Man Lymphocytes # (Manual) VBG pO2 Sodium Potassium Chloride 107.1 H Carbon Dioxide BUN 18 H Creatinine Glucose 151 H POC Glucose 169 H 145 H Hemoglobin A1c Lactic Acid Calcium Phosphorus Magnesium Total Protein Albumin Lipase 11/15/21 11/15/21 11/15/21 18:54 20:02 21:00 WBC RBC Hgb Hct MCV MCH RDW Plt Count Seg Neuts % (Manual) Lymphocytes % (Manual) Seg Neutrophils # Man Lymphocytes # (Manual) VBG pO2 Sodium Potassium Chloride Carbon Dioxide BUN Creatinine Glucose POC Glucose 143 H 162 H 167 H Hemoglobin A1c Lactic Acid Calcium Phosphorus Magnesium Total Protein Albumin Lipase 11/15/21 11/15/21 11/15/21 22:05 22:47 23:57 WBC RBC Hgb Hct MCV MCH RDW Plt Count Seg Neuts % (Manual) Lymphocytes % (Manual) Seg Neutrophils # Man Lymphocytes # (Manual) VBG pO2 Sodium Potassium Chloride Carbon Dioxide BUN Creatinine Glucose POC Glucose 150 H 140 H 162 H Hemoglobin A1c Lactic Acid Calcium Phosphorus Magnesium Total Protein Albumin Lipase 11/16/21 11/16/21 11/16/21 01:06 02:22 03:06 WBC RBC Hgb Hct MCV MCH RDW Plt Count Seg Neuts % (Manual) Lymphocytes % (Manual) Seg Neutrophils # Man Lymphocytes # (Manual) VBG pO2 Sodium Potassium Chloride Carbon Dioxide BUN Creatinine Glucose POC Glucose 163 H 181 H 171 H Hemoglobin A1c Lactic Acid Calcium Phosphorus Magnesium Total Protein Albumin Lipase 11/16/21 11/16/21 11/16/21 04:08 04:12 04:12 WBC 14.1 H RBC Hgb Hct MCV 77 L MCH 25 L RDW 22.2 H Plt Count 138 L Seg Neuts % (Manual) Lymphocytes % (Manual) Seg Neutrophils # Man Lymphocytes # (Manual) VBG pO2 Sodium Potassium Chloride Carbon Dioxide BUN Creatinine Glucose 169 H POC Glucose 154 H Hemoglobin A1c Lactic Acid Calcium Phosphorus 1.80 L D Magnesium Total Protein Albumin 3.8 L Lipase 11/16/21 11/16/21 11/16/21 04:12 05:14 06:06 WBC RBC Hgb Hct MCV MCH RDW Plt Count Seg Neuts % (Manual) Lymphocytes % (Manual) Seg Neutrophils # Man Lymphocytes # (Manual) VBG pO2 Sodium Potassium Chloride Carbon Dioxide BUN Creatinine Glucose POC Glucose 141 H 141 H Hemoglobin A1c Lactic Acid 2.10 H* Calcium Phosphorus Magnesium Total Protein Albumin Lipase 11/16/21 11/16/21 11/16/21 06:55 07:54 07:56 WBC RBC Hgb Hct MCV MCH RDW Plt Count Seg Neuts % (Manual) Lymphocytes % (Manual) Seg Neutrophils # Man Lymphocytes # (Manual) VBG pO2 Sodium Potassium Chloride Carbon Dioxide BUN Creatinine Glucose POC Glucose 166 H 216 H 193 H Hemoglobin A1c Lactic Acid Calcium Phosphorus Magnesium Total Protein Albumin Lipase 11/16/21 11/16/21 11/16/21 08:58 09:58 10:55 WBC RBC Hgb Hct MCV MCH RDW Plt Count Seg Neuts % (Manual) Lymphocytes % (Manual) Seg Neutrophils # Man Lymphocytes # (Manual) VBG pO2 Sodium Potassium Chloride Carbon Dioxide BUN Creatinine Glucose POC Glucose 167 H 161 H 140 H Hemoglobin A1c Lactic Acid Calcium Phosphorus Magnesium Total Protein Albumin Lipase 11/16/21 11/16/21 11/16/21 12:07 12:18 13:02 WBC RBC Hgb Hct MCV MCH RDW Plt Count Seg Neuts % (Manual) Lymphocytes % (Manual) Seg Neutrophils # Man Lymphocytes # (Manual) VBG pO2 Sodium 131 L D Potassium 5.6 H D Chloride Carbon Dioxide 21 L BUN 5 L Creatinine 0.5 L Glucose 363 H POC Glucose 158 H 176 H Hemoglobin A1c Lactic Acid Calcium 8.0 L Phosphorus Magnesium 1.20 L Total Protein Albumin Lipase 11/16/21 11/16/21 11/16/21 14:05 14:14 15:03 WBC RBC Hgb Hct MCV MCH RDW Plt Count Seg Neuts % (Manual) Lymphocytes % (Manual) Seg Neutrophils # Man Lymphocytes # (Manual) VBG pO2 Sodium Potassium Chloride Carbon Dioxide BUN 4 L Creatinine Glucose 200 H POC Glucose 194 H 221 H Hemoglobin A1c Lactic Acid Calcium Phosphorus Magnesium 1.30 L Total Protein Albumin Lipase 11/16/21 11/16/21 11/16/21 16:01 17:00 18:01 WBC RBC Hgb Hct MCV MCH RDW Plt Count Seg Neuts % (Manual) Lymphocytes % (Manual) Seg Neutrophils # Man Lymphocytes # (Manual) VBG pO2 Sodium Potassium Chloride Carbon Dioxide BUN Creatinine Glucose POC Glucose 196 H 163 H 200 H Hemoglobin A1c Lactic Acid Calcium Phosphorus Magnesium Total Protein Albumin Lipase 11/16/21 11/16/21 11/16/21 19:11 20:04 22:03 WBC RBC Hgb Hct MCV MCH RDW Plt Count Seg Neuts % (Manual) Lymphocytes % (Manual) Seg Neutrophils # Man Lymphocytes # (Manual) VBG pO2 Sodium Potassium Chloride Carbon Dioxide BUN Creatinine Glucose POC Glucose 164 H 113 H 116 H Hemoglobin A1c Lactic Acid Calcium Phosphorus Magnesium Total Protein Albumin Lipase 11/16/21 11/16/21 11/17/21 22:51 23:55 01:46 WBC RBC Hgb Hct MCV MCH RDW Plt Count Seg Neuts % (Manual) Lymphocytes % (Manual) Seg Neutrophils # Man Lymphocytes # (Manual) VBG pO2 Sodium Potassium Chloride Carbon Dioxide BUN 3 L Creatinine 0.5 L Glucose 126 H POC Glucose 144 H 166 H Hemoglobin A1c Lactic Acid Calcium Phosphorus 2.20 L D Magnesium Total Protein Albumin Lipase 11/17/21 11/17/21 11/17/21 03:45 03:45 05:27 WBC RBC Hgb Hct MCV 76 L MCH 26 L RDW 22.7 H Plt Count Seg Neuts % (Manual) Lymphocytes % (Manual) Seg Neutrophils # Man Lymphocytes # (Manual) VBG pO2 Sodium Potassium Chloride Carbon Dioxide BUN 3 L Creatinine Glucose 184 H POC Glucose 203 H Hemoglobin A1c Lactic Acid Calcium Phosphorus Magnesium Total Protein Albumin Lipase 11/17/21 11/17/21 11/17/21 11:10 16:22 21:36 WBC RBC Hgb Hct MCV MCH RDW Plt Count Seg Neuts % (Manual) Lymphocytes % (Manual) Seg Neutrophils # Man Lymphocytes # (Manual) VBG pO2 Sodium Potassium Chloride Carbon Dioxide BUN Creatinine Glucose POC Glucose 197 H 134 H 262 H Hemoglobin A1c Lactic Acid Calcium Phosphorus Magnesium Total Protein Albumin Lipase 11/18/21 11/18/21 11/18/21 09:02 14:45 17:26 WBC RBC Hgb Hct MCV MCH RDW Plt Count Seg Neuts % (Manual) Lymphocytes % (Manual) Seg Neutrophils # Man Lymphocytes # (Manual) VBG pO2 Sodium Potassium Chloride 97.3 L Carbon Dioxide BUN Creatinine Glucose 262 H POC Glucose 205 H 181 H Hemoglobin A1c Lactic Acid Calcium Phosphorus Magnesium 1.40 L Total Protein Albumin Lipase 11/18/21 11/19/21 11/19/21 21:15 06:22 10:02 WBC RBC Hgb Hct MCV MCH RDW Plt Count Seg Neuts % (Manual) Lymphocytes % (Manual) Seg Neutrophils # Man Lymphocytes # (Manual) VBG pO2 Sodium Potassium Chloride Carbon Dioxide BUN Creatinine Glucose POC Glucose 173 H 193 H 118 H Hemoglobin A1c Lactic Acid Calcium Phosphorus Magnesium Total Protein Albumin Lipase 11/19/21 11/19/21 11/19/21 13:59 18:26 21:28 WBC RBC Hgb Hct MCV MCH RDW Plt Count Seg Neuts % (Manual) Lymphocytes % (Manual) Seg Neutrophils # Man Lymphocytes # (Manual) VBG pO2 Sodium Potassium Chloride Carbon Dioxide BUN Creatinine Glucose POC Glucose 295 H 241 H 181 H Hemoglobin A1c Lactic Acid Calcium Phosphorus Magnesium Total Protein Albumin Lipase 11/20/21 11/20/21 11/20/21 02:35 05:50 09:31 WBC RBC Hgb Hct MCV MCH RDW Plt Count Seg Neuts % (Manual) Lymphocytes % (Manual) Seg Neutrophils # Man Lymphocytes # (Manual) VBG pO2 Sodium Potassium Chloride Carbon Dioxide BUN Creatinine Glucose POC Glucose 222 H 150 H 266 H Hemoglobin A1c Lactic Acid Calcium Phosphorus Magnesium Total Protein Albumin Lipase 11/20/21 11/20/21 11/20/21 13:00 15:04 16:00 WBC RBC Hgb Hct MCV MCH RDW Plt Count Seg Neuts % (Manual) Lymphocytes % (Manual) Seg Neutrophils # Man Lymphocytes # (Manual) VBG pO2 Sodium Potassium Chloride Carbon Dioxide BUN Creatinine Glucose POC Glucose 298 H 285 H 271 H Hemoglobin A1c Lactic Acid Calcium Phosphorus Magnesium Total Protein Albumin Lipase 11/20/21 11/21/21 11/21/21 21:24 04:50 08:02 WBC RBC Hgb Hct MCV MCH RDW Plt Count Seg Neuts % (Manual) Lymphocytes % (Manual) Seg Neutrophils # Man Lymphocytes # (Manual) VBG pO2 Sodium Potassium Chloride Carbon Dioxide BUN Creatinine Glucose POC Glucose 139 H 258 H 246 H Hemoglobin A1c Lactic Acid Calcium Phosphorus Magnesium Total Protein Albumin Lipase 11/21/21 11:12 WBC RBC Hgb Hct MCV MCH RDW Plt Count Seg Neuts % (Manual) Lymphocytes % (Manual) Seg Neutrophils # Man Lymphocytes # (Manual) VBG pO2 Sodium Potassium Chloride Carbon Dioxide BUN Creatinine Glucose POC Glucose 247 H Hemoglobin A1c Lactic Acid Calcium Phosphorus Magnesium Total Protein Albumin Lipase Allied health notes reviewed: nursing
== END 2021-11-21 16:49 | disposition home or self-care (01) | DRG 637 ==
LOC: ED 00:11 → CC1 04:02 → 4A 11-17 15:59
PROVIDERS: ADMIT Internal Medicine Geriatric Medicine; ATTEND Internal Medicine
DX: E11.10 Type 2 diabetes mellitus with ketoacidosis without coma (principal); K20.91 Esophagitis, unspecified with bleeding; K29.71 Gastritis, unspecified, with bleeding; N17.0 Acute kidney failure with tubular necrosis; K86.1 Other chronic pancreatitis; R45.851 Suicidal ideations; Z20.822 Contact with and (suspected) exposure to COVID-19; D50.9 Iron deficiency anemia, unspecified; F32.9 Major depressive disorder, single episode, unspecified; Z91.048 Other nonmedicinal substance allergy status; E83.42 Hypomagnesemia; E86.0 Dehydration; E11.43 Type 2 diabetes mellitus with diabetic autonomic (poly)neuropathy; K31.84 Gastroparesis
CPT/HCPCS: 36415; 71045; 74176; 80048; 80053; 80076; 80307; 81001; 82140; 82150; 82271; 82805; 82962; 83036; 83690; 83735; 84100; 85007; 85025; 85027; G0378; J3480; J3490; J7510; Q9967; C9113; J0360; J1170; J1630; J1815; J2270; J2405; J2765; J3475; J7030; J7050; J7120; U0003